=== PATIENT | female | born 1965 | race Caucasian/White ===

== ENCOUNTER 2019-05-10 22:58 | Emergency (ER) | payer OTHER ==
--- NOTE | 2019-05-10 23:49 | ER ---
Nurse's Notes [facility] Name: Sena Ricardo Age: 54 yrs Sex: Female : 1965 Arrival Date: 05/10/2019 Time: 23:00 Bed 20 Private MD: Diagnosis: Pain in right shoulder;Fall on same level from slipping, tripping and stumbling with subsequent striking against unspecified object Presentation: 05/10 23:10 Presenting complaint: Patient states: Pt fell in parking lot and landed on right tl2 shoulder, approx 2 hours [employer]. Pt reports being unable to move right arm without severe pain to right shoulder. No swelling or deformity noted. Transition of care: patient was not received from another setting of care. Onset of symptoms was May 10, 2019 at 21:00. Risk Assessment: Do you want to hurt yourself or someone else? Patient reports no desire to harm self or others. Initial Sepsis Screen: Does the patient meet any 2 criteria? HR > 90 bpm. Does the patient have a suspected source of infection? No. Patient's initial sepsis screen is negative. Care prior to arrival: None. 23:10 Method Of Arrival: Ambulatory tl2 23:10 Acuity: ANABELLA 4 tl2 Triage Assessment: 23:12 General: Appears in no apparent distress. uncomfortable, Behavior is calm, cooperative, tl2 appropriate for age. Pain: Complains of pain in right shoulder. Pain: Aggravated by increased activity, repositioning. Neuro: Level of Consciousness is awake, alert, obeys commands, Oriented to person, place, time, situation. Cardiovascular: Denies chest pain. Respiratory: Airway is patent Respiratory effort is even, unlabored, Respiratory pattern is regular, symmetrical. Musculoskeletal: Circulation, motion, and sensation intact. Range of motion: limited in right shoulder. Injury Description: fall onto right shoulder. Historical: - Allergies: 23:12 No Known Allergies; tl2 - Home Meds: 23:12 None [Active]; tl2 - PMHx: 23:12 None; tl2 - PSHx: 23:12 Hysterectomy; tl2 - Immunization history:: Adult Immunizations up to date. - Social history:: Smoking status: Patient uses tobacco products, smokes one-half pack cigarettes per day. - Ebola Screening: : No symptoms or risks identified at this time. Screenin:14 Abuse screen: Denies threats or abuse. Nutritional screening: No deficits noted. tl2 Tuberculosis screening: No symptoms or risk factors identified. Fall Risk Fall in past 12 months (25 points). Assessment: 23:12 General: see triage assessment. tl2 05/11 00:08 Reassessment: Patient appears in no apparent distress at this time. Patient and/or tl2 family updated on plan of care and expected duration. Pain level reassessed. Patient is alert, oriented x 3, equal unlabored respirations, skin warm/dry/pink. Pain medication administered, will discharge after shot time. 00:21 Reassessment: Patient appears in no apparent distress at this time. Patient and/or tl2 family updated on plan of care and expected duration. Pain level reassessed. Patient is alert, oriented x 3, equal unlabored respirations, skin warm/dry/pink. pt verbalized understanding of discharge instructions and use of sling. Vital Signs: 05/10 23:12 BP 140 / 109; Pulse 110; Resp 18; Temp 98.5(O); Pulse Ox 95% on R/A; Weight 86.18 kg; tl2 Height 5 ft. 4 in. (162.56 cm); Pain 7/10; 05/11 00:08 BP 150 / 103; Pulse 83; Resp 18; Pulse Ox 96% on R/A; tl2 05/10 23:12 Body Mass Index 32.61 (86.18 kg, 162.56 cm) tl2 ED Course: 05/10 23:00 Patient arrived in ED. es 23:01 Rani Aguilar [facility]NP-C [facility]. snw 23:01 Renan Todd MD is Attending Physician. snw 23:10 Sandra Asencio RN is Primary Nurse. tl2 23:11 Triage completed. tl2 23:12 Arm band placed on right wrist. tl2 23:14 Patient has correct armband on for positive identification. Bed in low position. Call tl2 light in reach. Side rails up X 1. 23:46 Humerus Right XRAY In Process Unspecified. EDMS 05/11 00:20 No provider procedures requiring assistance completed. Patient did not have IV access tl2 during this emergency room visit. Sling applied to right arm. Administered Medications: 00:07 Drug: fentaNYL (PF) 25 mcg Route: IM; Site: left deltoid; tl2 00:19 Follow up: Response: No adverse reaction; Medication administered at discharge.; RASS: tl2 Alert and Calm (0) 00:07 Drug: Valium 2 mg Route: PO; tl2 00:19 Follow up: Response: No adverse reaction; Medication administered at discharge. tl2 Outcome: 05/10 23:47 Discharge ordered by MD. fam 05/11 00:20 Discharged to home ambulatory, with friend. tl2 Condition: stable Discharge instructions given to patient, Instructed on discharge instructions, follow up and referral plans. Demonstrated understanding of instructions, follow-up care. 00:21 Patient left the ED. tl2 Signatures: Dispatcher [employer] Rani Rucker, SALES DEVELOPMENT DIRECTOR-C SALES DEVELOPMENT DIRECTOR-Csnw Samantha Cuenca Taylor, RN RN tl2
--- NOTE | 2019-05-10 23:50 | EDPHYS ---
Physician Documentation [facility] Name: Sena Ricardo Age: 54 yrs Sex: Female : 1965 Arrival Date: 05/10/2019 Time: 23:00 Bed 20 Private MD: ED Physician Renan Todd HPI: 05/10 23:52 This 54 yrs old Female presents to ER via Ambulatory with complaints of snw Shoulder Injury. 23:52 The patient or guardian complains of decreased range of motion, an injury, pain, that snw is acute. right shoulder. Context: The problem was sustained at a parking lot, resulted from a fall, The patient experiences decreased range of motion, when attempts to raise arm, The patient reports no obvious deformity. Onset: The symptoms/episode began/occurred suddenly, today. Associated signs and symptoms: Pertinent positives: of the right shoulder pain. Severity of symptoms: At their worst the symptoms were moderate. Treatment prior to arrival includes: bandaid to right knee. It is unknown whether or not the patient has had similar symptoms in the past. Historical: - Allergies: 23:12 No Known Allergies; tl2 - Home Meds: 23:12 None [Active]; tl2 - PMHx: 23:12 None; tl2 - PSHx: 23:12 Hysterectomy; tl2 - Immunization history:: Adult Immunizations up to date. - Social history:: Smoking status: Patient uses tobacco products, smokes one-half pack cigarettes per day. - Ebola Screening: : No symptoms or risks identified at this time. ROS: 23:50 Constitutional: Negative for fever, chills, and weight loss, Eyes: Negative for injury, snw pain, redness, and discharge, ENT: Negative for injury, pain, and discharge, Neck: Negative for injury, pain, and swelling, Cardiovascular: Negative for chest pain, palpitations, and edema, Respiratory: Negative for shortness of breath, cough, wheezing, and pleuritic chest pain, Abdomen/GI: Negative for abdominal pain, nausea, vomiting, diarrhea, and constipation, Back: Negative for injury and pain, : Negative for injury, bleeding, discharge, and swelling, Skin: Negative for injury, rash, and discoloration, Neuro: Negative for headache, weakness, numbness, tingling, and seizure. 23:50 MS/extremity: Positive for injury or acute deformity, decreased range of motion, pain, tenderness, of the right knee and right shoulder. Exam: 23:49 Constitutional: This is a well developed, well nourished patient who is awake, alert, snw and in no acute distress. Head/Face: Normocephalic, atraumatic. Eyes: Pupils equal round and reactive to light, extra-ocular motions intact. Lids and lashes normal. Conjunctiva and sclera are non-icteric and not injected. Cornea within normal limits. Periorbital areas with no swelling, redness, or edema. ENT: Nares patent. No nasal discharge, no septal abnormalities noted. Tympanic membranes are normal and external auditory canals are clear. Oropharynx with no redness, swelling, or masses, exudates, or evidence of obstruction, uvula midline. Mucous membranes moist. Neck: Trachea midline, no thyromegaly or masses palpated, and no cervical lymphadenopathy. Supple, full range of motion without nuchal rigidity, or vertebral point tenderness. No Meningismus. Chest/axilla: Normal chest wall appearance and motion. Nontender with no deformity. No lesions are appreciated. Cardiovascular: Regular rate and rhythm with a normal S1 and S2. No gallops, murmurs, or rubs. Normal PMI, no JVD. No pulse deficits. Respiratory: Lungs have equal breath sounds bilaterally, clear to auscultation and percussion. No rales, rhonchi or wheezes noted. No increased work of breathing, no retractions or nasal flaring. Abdomen/GI: Soft, non-tender, with normal bowel sounds. No distension or tympany. No guarding or rebound. No evidence of tenderness throughout. Back: No spinal tenderness. No costovertebral tenderness. Full range of motion. Neuro: Awake and alert, GCS 15, oriented to person, place, time, and situation. Cranial nerves II-XII grossly intact. Motor strength 5/5 in all extremities. Sensory grossly intact. Cerebellar exam normal. Normal gait. Psych: Awake, alert, with orientation to person, place and time. Behavior, mood, and affect are within normal limits. 23:49 Skin: Appearance: normal except for affected area, injury, abrasion(s), small abrasion noted, of the right knee, contusion(s), of the right shoulder. Vital Signs: 23:12 BP 140 / 109; Pulse 110; Resp 18; Temp 98.5(O); Pulse Ox 95% on R/A; Weight 86.18 kg; tl2 Height 5 ft. 4 in. (162.56 cm); Pain 7/10; 05/11 00:08 BP 150 / 103; Pulse 83; Resp 18; Pulse Ox 96% on R/A; tl2 05/10 23:12 Body Mass Index 32.61 (86.18 kg, 162.56 cm) tl2 MDM: 05/10 23:30 Patient medically screened. snw 23:51 Data reviewed: vital signs, nurses notes. Data interpreted: Pulse oximetry: on room air snw is 95 %. Interpretation: normal. Counseling: I had a detailed discussion with the patient and/or guardian regarding: the historical points, exam findings, and any diagnostic results supporting the discharge/admit diagnosis, the presence of at least one elevated blood pressure reading (>120/80) during this emergency department visit, radiology results, the need for outpatient follow up, to return to the emergency department if symptoms worsen or persist or if there are any questions or concerns that arise at home. Special discussion: I have referred the patient to see his PCP for further evaluation of high blood pressure. I discussed in detail with the patient the higher chance of wound infection based on his presenting history. Based on the history and exam findings, there is no indication for further emergent testing or inpatient evaluation. I discussed with the patient/guardian the need to see the orthopedic surgeon for further evaluation of the symptoms. I discussed with the patient/guardian the need to see the primary care provider for further evaluation of the symptoms. 05/10 23:15 Order name: Humerus Right XRAY snw 05/10 23:46 Order name: Sling; Complete Time: 00:19 snw Administered Medications: 05/11 00:07 Drug: fentaNYL (PF) 25 mcg Route: IM; Site: left deltoid; tl2 00:19 Follow up: Response: No adverse reaction; Medication administered at discharge.; RASS: tl2 Alert and Calm (0) 00:07 Drug: Valium 2 mg Route: PO; tl2 00:19 Follow up: Response: No adverse reaction; Medication administered at discharge. tl2 Disposition: 06:01 Co-signature as Attending Physician, Renan Todd MD I agree with the assessment and tw4 plan of care. Chart complete. Disposition: 05/10/19 23:47 Discharged to Home. Impression: Pain in right shoulder, Fall on same level from slipping, tripping and stumbling with subsequent striking against unspecified object. - Condition is Stable. - Discharge Instructions: Joint Pain, Fall Prevention in the Home, Musculoskeletal Pain, Shoulder Pain, Cryotherapy, [id number], Shoulder Range of Motion Exercises, Wound Care, Heat Therapy. - Prescriptions for Diclofenac Sodium 75 mg Oral Tablet Sustained Release - take 1 tablet by ORAL route 2 times per day; 30 tablet. orphenadrine citrate 100 mg Oral Tablet Sustained Release - take 1 tablet by ORAL route 2 times per day As needed; 20 tablet. - Work release form, Medication Reconciliation Form, Thank You Letter, Antibiotic Education, Prescription Opioid Use form. - Follow up: Emergency Department; When: As needed; Reason: Worsening of condition. Follow up: Private Physician; When: 2 - 3 days; Reason: Recheck today's complaints, Continuance of care, Re-evaluation by your physician. Signatures: Dispatcher [employer] EDMD Rani Aguilar, GIRMA-C TECHNOLOGY ANALYST-CsnSandra Daly RN RN tl2 Renan Todd MD MD tw4 Corrections: (The following items were deleted from the chart) 00:21 05/10 23:47 05/10/2019 23:47 Discharged to Home. Impression: Pain in right shoulder; tl2 Fall on same level from slipping, tripping and stumbling with subsequent striking against unspecified object. Condition is Stable. Forms are Medication Reconciliation Form, Thank You Letter, Antibiotic Education, Prescription Opioid Use. Follow up: Emergency Department; When: As needed; Reason: Worsening of condition. Follow up: Private Physician; When: 2 - 3 days; Reason: Recheck today's complaints, Continuance of care, Re-evaluation by your physician. snw
[2019-05-10] MEDS ORDERED: DIAZEPAM 2 MG TABLET ONE (23:59)
[2019-05-10] MEDS ORDERED: FENTANYL CITR 100 MCG/2 ML ONE (23:59)
[2019-05-11 00:52] VITALS: TEMP 98.5
[2019-05-11 00:53] VITALS: BP 150/103; O2SAT 96
--- NOTE | 2019-05-11 09:17 | RAD REPORT ---
EXAM DESCRIPTION: RAD - Humerus Right - 05/10/2019 11:44 pm CLINICAL HISTORY: Fall, right shoulder pain COMPARISON: None. FINDINGS: No fracture is identified. There is no dislocation or periosteal reaction noted. Degenerat bianca changes are seen at the AC joint. The AC joint shows no displacement or widening. Degenerative ch anges are present along the undersurface of the acromion. Elbow joint assessment is limited due to po sitioning. No suspicious soft tissue finding. No foreign body. IMPRESSION: Degenerative changes are present at the shoulder joint. No fracture or acute humerus fin ding.
== END 2019-05-11 00:21 | disposition home or self-care (01) ==
LOC: ER 22:58
DX: M25.511 Pain in right shoulder (principal); W01.10XA Fall on same level from slipping, tripping and stumbling with subsequent striking against unspecified object, initial encounter; Y93.01 Activity, walking, marching and hiking; Y92.481 Parking lot as the place of occurrence of the external cause; F17.210 Nicotine dependence, cigarettes, uncomplicated
CPT/HCPCS: 73060; 96372; 99283; J3010

== ENCOUNTER 2019-08-21 10:36 | Emergency (ER) | payer OTHER ==
[2019-08-21 17:34] VITALS: BP 104/75; TEMP 97.9; O2SAT 99
== END 2019-08-21 17:13 | disposition short-term general hospital (02) ==
LOC: ER 10:36
DX: A41.89 Other specified sepsis (principal); N20.1 Calculus of ureter; N39.0 Urinary tract infection, site not specified; N17.9 Acute kidney failure, unspecified; Z03.818 Encounter for observation for suspected exposure to other biological agents ruled out; F17.210 Nicotine dependence, cigarettes, uncomplicated
CPT/HCPCS: 96365; 96368; 93005; 87040 ×2; 87070; 87088; 85025; 87086; 80048; 36415; 82550; 87205 ×3; 85610; 80076; 87081; 83605 ×2; 85730; 87077 ×5; 87186 ×5; 84484; 83690; 84145; 87804 ×2; 76377; 74176; 71045; 51702; 96375; 99285; U0001; J3010; J3475; J2543; J7040; J7030 ×2; J3260; 81003; 81015

== ENCOUNTER 2020-08-03 18:54 | Emergency (ER) | payer OTHER ==
--- OUTSIDE RECORDS SUMMARY | 2020-08-03 18:58 | XMS REPORT | Continuity of Care Document ---
:1965 Author Organization [facility] t Address [facility] [place] [address] Care Team Providers Name Role Phone Nate Coleman MD Attending Clinician Unavailable 1, [address] Room Attending Clinician Unavailable Isabela Mccollum MD Attending Clinician Nevaeh COREAS Attending Clinician Nathaly COREAS Attending Clinician ISABELA MCCOLLUM Attending Clinician Unavailable Cody Lu MD Attending Clinician NEVAEH Admitting Clinician Unavailable Payers Payer Name Policy Type Policy Effective Date Expiration Date Sour ce Number MEDICAREMEDICARE A [id number] 2011 DERIC Ramirez [id number] 2010- 00:00[facility] Condition Condition Condition Status Onset Resolution Last Treating Co mments Source Name Details Category Date Date Treatment Clinician Date Sepsis Sepsis Disease Active [facility]: Medical [address] [place] [address] Allergies, Adverse Reactions, Alerts Allergy Allergy Status Severity Reaction(s) Onset Inactive Treating Comm ents Source Name Type Date Date Clinician Vancomyc Drug Active Itching [facility]: Medical s [address] [place] [address] Social History Social Habit Start Date Stop Date Quantity Comments Source Sex Assigned At [facility] Tobacco use and 2019-08-21 2019-08-21 Never used [facility] - exposure 00:00:00 00:00:00 [facility] [place] Smoking Status Start Date Stop Date Source Current some day smoker 2019-08-21 00:00:00 [facility] Medications Ordered Filled Start Stop Current Ordering Indication Dosage Frequency Signature Comments Components Source Medication Medication Date Date Medication? Clinician (SIG) Name Name metoprolol 25mg Q.5D Take [address] [facility] [address] tartrate 09-01-20 tablet (25 [facility] - (LOPRESSOR) 00:00: 23:59 mg total) Medical 25 MG 00 :00 by mouth 2 Center tablet (two) times daily for 30 days. traMADoL 50mg Take [address] [facility] [address] (ULTRAM) 50 09-01-10 tablet (50 L [facility] - mg tablet 00:00: 23:59 mg total) Me dical 00 :00 by mouth Center every 8 (eight) hours as needed for Pain for up to 20 days. Max Daily Amount: 150 mg cefdinir 300mg Q.5D Take 1 [facility] t (OMNICEF) 09-01-28 capsule [facility] - 300 MG 00:00: 23:59 (300 mg Medical capsule 00 :00 total) by Center mouth 2 (two) times daily for 8 days. Vital Signs Vital Name Observation Time Observation Value Comments Source Systolic blood 2019-09-02 11:00:00 117 mm[Hg] [facility] Diastolic blood 2019-09-02 11:00:00 69 mm[Hg] [facility] S t [facility] Heart rate 2019-09-02 11:00:00 88 /min [facility] Body temperature 2019-09-02 11:00:00 35.89 Payton [facility] Respiratory rate 2019-09-02 11:00:00 18 /min [facility] Oxygen saturation in 2019-09-02 11:00:00 95 /min [facility] Arterial blood by Medical Ce nter Pulse oximetry Body weight 2019-09-02 07:00:00 80.377 kg [facility] BMI 2019-09-02 07:00:00 32.41 kg/m2 [facility] Body height 2019-08-21 18:00:00 157.5 cm [facility] Procedures Procedure Date / Time Performing Clinician Source Performed RHYTHM STRIP - SCAN 2019-09-04 14:30:15 Provider, [facility] RHYTHM STRIP - SCAN 2019-09-04 11:01:18 Provider, Default [facility] US RENAL COMPLETE 2019-09-02 00:45:00 Nevaeh [facility] CBC (HEMOGRAM ONLY) 2019-09-01 04:31:00 Nevaeh [facility] COMPREHENSIVE METABOLIC 2019-09-01 04:31:00 Nevaeh [facility] CBC (HEMOGRAM ONLY) 2019-08-31 05:35:00 Nevaeh [facility] COMPREHENSIVE METABOLIC 2019-08-31 05:35:00 Nevaeh [facility] URINALYSIS W/ REFLEX URINE 2019-08-30 13:45:00 Rudy Quick [facility] URINE CULTURE 2019-08-30 13:45:00 Spencer Webster [facility] URINE CULTURE 2019-08-30 13:44:00 Rudy Quick [facility] IR NEPHROSTOGRAM 2019-08-30 09:22:00 Nevaeh [facility] CBC (HEMOGRAM ONLY) 2019-08-30 05:24:00 Nevaeh [facility] BASIC METABOLIC PANEL (7) 2019-08-30 05:24:00 Mikayla Herring [facility] CBC (HEMOGRAM ONLY) 2019-08-29 05:28:00 Nevaeh [facility] COMPREHENSIVE METABOLIC 2019-08-29 05:27:00 Nevaeh [facility] CT CHEST WITH IV CONTRAST 2019-08-27 17:15:00 Mikayla Herring [facility] CT ABDOMEN & PELVIS - 2019-08-27 17:15:00 Mikayla Herring [facility] - RENAL STONE EVALUATION Medical C enter WITHOUT/WITH IV CONTRAST URINALYSIS W/ REFLEX URINE 2019-08-27 15:30:00 Nevaeh [facility] URINE CULTURE 2019-08-27 15:30:00 Nevaeh [facility] CBC (HEMOGRAM ONLY) 2019-08-27 03:29:00 Nevaeh [facility] BASIC METABOLIC PANEL (7) 2019-08-27 03:29:00 Theresa Herringeen Salma [facility] BLOOD CULTURE 2019-08-27 03:29:00 Nevaeh [facility] RHYTHM STRIP - SCAN 2019-08-26 14:20:39 Provider, Default [facility] CBC (HEMOGRAM ONLY) 2019-08-25 04:37:00 Nevaeh [facility] COMPREHENSIVE METABOLIC 2019-08-25 04:37:00 Nevaeh [facility] TSH/FREE T4 IF INDICATED 2019-08-25 04:37:00 Nevaeh [facility] VITAMIN B12 AND FOLATE 2019-08-25 04:37:00 Nevaeh [facility] T4, FREE 2019-08-25 04:37:00 Nevaeh [facility] US THYROID 2019-08-24 19:50:00 Nevaeh [facility] ECG 12-LEAD 2019-08-24 16:13:29 Cecilia Luther [facility] PT/APTT 2019-08-24 04:11[facility] 2019-08-24 04:11:00 Nevaeh [facility] BLOOD CULTURE 2019-08-24 04:11:00 Cecilia Luther [facility] BASIC METABOLIC PANEL (7) 2019-08-24 04:10:00 Rodney [facility] CHEST WITHOUT IV 2019-08-23 15:35:[address] [facility] CT PELVIS WITHOUT IV 2019-08-23 15:35:[address] [facility] CT ABDOMEN WITHOUT IV 2019-08-23 15:35:00 Nevaeh [facility] MISCELLANEOUS LAB ORDER 2019-08-23 12:29:00 Nevaeh [facility] BASIC METABOLIC PANEL (7) 2019-08-23 03:54:[address] [facility] PT/APTT 2019-08-23 03:54:00 [facility] ([facility] 2019-08-23 03:54:00 Nevaeh [facility] POCT-BLOOD GASES, ARTERIAL 2019-08-22 18:09:00 Nevaeh, [facility] POCT-SODIUM 2019-08-22 18:09:00 Nevaeh, [facility] POCT-POTASSIUM 2019-08-22 18:09:00 Nevaeh, [facility] POCT-HEMOGLOBIN 2019-08-22 18:09:00 Nevaeh, [facility] POCT-HEMATOCRIT 2019-08-22 18:09:00 Nevaeh, [facility] POCT-CALCIUM IONIZED 2019-08-22 18:09:00 Nevaeh, [facility] POCT-GLUCOSE 2019-08-22 18:09:00 Nevaeh [facility] BLOOD GAS, ARTERIAL 2019-08-22 16:11:00 Nevaeh [facility] BASIC METABOLIC PANEL (7) 2019-08-22 03:16:[address] [facility] PT/APTT 2019-08-22 03:16:00 [facility] W/PLT COUNT & AUTO 2019-08-21 23:50:00 Nikita Zabala [facility] LACTIC ACID, VENOUS 2019-08-21 23:50:00 Nikita Zabala [facility] (CELLAVISION MANUAL DIFF) 2019-08-21 23:50:00 Nikita Zabala as [facility] URINE CULTURE 2019-08-21 23:50:00 [facility]INALYSIS W/ REFLEX URINE 2019-08-21 23:50:[address] [facility] - CULTURE [facility] SODIUM, RANDOM URINE 2019-08-21 23:50:00 Rodney [facility] CREATININE, RANDOM URINE 2019-08-21 23:50:00 Ismaellas vegaspaulette [facility] BLOOD CULTURE 2019-08-21 23:47:00 [facility] 2019-08-21 23:47:00 Rodney [facility] IDENTIFICATION PANEL [facility] ter LACTIC ACID, VENOUS 2019-08-21 21:17:00 Ismaellas vegaspaulette [facility] BASIC METABOLIC PANEL (7) 2019-08-21 21:17:[address] [facility] Plan of Care Planned Activity Planned Date Details Comments Source Future Scheduled 2020-01-14 INFLUENZA VACCINE (#1) [facility]00 [code = INFLUENZA Medical Ce nter VACCINE (#1)] Future Scheduled 2012-02-[address] [facility] - Test 00:00:00 WELLNESS (YEAR 2 or [facility] FIRST YEAR if no IPPE) [code = MEDICARE ANNUAL WELLNESS (YEAR 2 or FIRST YEAR if no IPPE)] Future Scheduled [address] Test 00:[facility]00 (procedure) [code = Medical Center 18379898] Future Scheduled [address] [facility] - Test 00:00:00 malignant neoplasm of [facility] cervix (procedure) [code = 546243364] Future Scheduled [address] [facility] - Test 00:00:00 0-64 YRS (1 of 1 - Medical C enter PPSV23) [code = PNEUMOCOCCAL VACCINE 0-64 YRS (1 of 1 - PPSV23)] Future Scheduled 1965 [facility] - Test 00:00:00 malignant neoplasm of [facility] breast (procedure) [code = 730319217] Future Scheduled 1965 Screening for [facility] - Test 00:00:00 malignant neoplasm of [facility] colon (procedure) [code = 474457123] Results Test Description Test Time Test Comments Results Result Comments Source Urine culture 2019-09-02 09:00:00 Test Item Value Reference Range Interpretation Comme nts Result (test code = 6463-4) No growth Gram Stain Result (test code = 1123) No organisms seen [facility] [id number] 09:00:00 Test Item Value Reference Range Interpretation Comments CULTURE (BEAKER) (test No growth code = 1095) GRAM STAIN RESULT <1+ White blood cells (BEAKER) (test code = seen 1123) GRAM STAIN RESULT No organisms seen (BEAKER) (test code = 45967) U/S, RENAL, [id number] 01:38:00Reason for exam:->pyelonephritisFINAL REPORT U/S, RENAL, COMPLETE CLINICAL INDICATION: pyelonephritis COMPARISON: None TECHNIQUE: The kidneys and urinary bladder were evaluated using real time whitaker scale and color Doppler sonography. FINDINGS:Right kidney: Size: 13.3 x 7.2 x 5.9 cm. Parenchyma: Normal echogenicity. No cysts. No stones. Recently placed percutaneous nephrostomy tube is not well seenon the current examination. Hydronephrosis: None. Left kidney: Size: 12.9 x 6.0 x 5.0 cm. Parenchyma: Normal echogenicity. No cysts. No stones. Hydronephrosis: None. Renal Vasculature: Doppler interrogation reveals preserved vascular flow in the main renal arteries and veins bilaterally. Urinary bladder: Unremarkable. Additional findings: None. IMPRESSION: Unremarkable renal ultrasound. Recently placed right percutaneous nephrostomy tube is not well seen on the current examination. Signed: Catherine Cornell MDReport Verified Date/Time: 09/02/2019 01:38:19 Electronically sig bibi by: CATHERINE CORNELL MD on 09/02/2019 01:38 AMUS renal complete 2019-09-02 01:38:00Interface, External Ris In - 09/02/2019 1:40 AM CDTFINAL REPORT U/S, RENAL, COMPLETE CLINICAL INDICATION: pyelonephritis COMPARISON: None TECHNIQUE: The kidneys and urinary bladder were evaluated using real time whitaker scale and color Doppler sonography. FINDINGS:Right kidney: Size: 13.3 x 7.2 x 5.9 cm. Parenchyma: Normal echogenicity. No cysts. No stones. Recently placed percutaneous nephrostomy tube is not well seen on the current examination. Hydronephrosis: None. Left kidney: Size: 12.9 x 6.0 x 5.0 cm. Parenchyma: Normal echogenicity. No cysts. No stones. Hydronephrosis: None. Renal Vasculature: Doppler interrogation reveals preserved vascular flow in the main renal arteries and veins bilaterally. Urinary bladder: Unremarkable. Additional findings: None. IMPRESSION: Unremarkable renal ultrasound. Recently placed right percutaneous nephrostomy tube is not well seen on the current examination. Signed: Catherine Cornell [facility] LOUISeport VerifiedDate/Time: 09/02/2019 01:38:19 [facility] [id number] 05:29:00 Test Item Value Reference Range Interpretation Comments Protein, Total (test 6.2 See_Comment [Autom ated code = 2885-2) message] The system which generated this result transmit nikos reference range : 6.0 - 8.3 gm/dL . The reference range was not u sed to interpret th is result as normal/abnormal . Albumin (test code = 2.8 g/dL 3.5-5 L 46994-9) Alkaline Phosphatase 138 U/L 40-150 (test code = 6768-6) Total Bilirubin (test 0.5 mg/dL 0.2-1.2 code = 1975-2) Sodium (test code = 134 meq/L 136-145 L 2951-2) Potassium (test code 3.9 meq/L 3.5-5.1 = 2823-3) Chloride (test code = 99 meq/L 98-107 2074-0) CO2 (test code = 27 meq/L 22-29 2027-9) BUN (test code = 10 mg/dL 7- 3094-0) Creatinine (test code 0.68 mg/dL 0.57-1.25 = 2160-0) Glucose (test code = 115 mg/dL 70-105 H 2345-7) Calcium (test code = 8.8 mg/dL 8.4-10.2 51428-8) AST (test code = 46 U/L 5-34 H 1920-8) ALT (test code = 43 U/L 6-55 1742-6) EGFR (test code = 90 mL/min/1.73 [place] [address]-2) NOT ACCURATE CREATININE CLEARANCE IN PREDICTING GLOMERULAR FILTRATION RATE . ESTIMATED GFR I S NOT APPLICABLE FOR DIALYSIS PATIEN TS. TAVERAS (test code = NITIN) Leather Finisher ID - PIAYA L Lab Interpretation Abnormal (test code = 87488-5) [facility] [id number] 05:29:00 Test Item Value Reference Range Interpretation Comments TOTAL PROTEIN 6.2 gm/dL 6.0-8.3 (BEAKER) (test code = 770) ALBUMIN (BEAKER) 2.8 g/dL 3.5-5.0 L (test code = 1145) ALKALINE PHOSPHATASE 138 U/L 40-150 (BEAKER) (test code = 346) BILIRUBIN TOTAL 0.5 mg/dL 0.2-1.2 (BEAKER) (test code = 377) SODIUM (BEAKER) (test 134 meq/L 136-145 L code = 381) POTASSIUM (BEAKER) 3.9 meq/L 3.5-5.1 (test code = 379) CHLORIDE (BEAKER) 99 meq/L 98-107 (test code = 382) CO2 (BEAKER) (test 27 meq/L code = 355) BLOOD UREA NITROGEN 10 mg/dL 7-21 (BEAKER) (test code = 354) CREATININE (BEAKER) 0.68 mg/dL 0.57-1.25 (test code = 358) GLUCOSE RANDOM 115 mg/dL 70-105 H (BEAKER) (test code = 652) CALCIUM (BEAKER) 8.8 mg/dL 8.4-10.2 (test code = 697) AST (SGOT) (BEAKER) 46 U/L 5-34 H (test code = 353) ALT (SGPT) (BEAKER) 43 U/L 6-55 (test code = 347) EGFR (BEAKER) (test 90 mL/min/1.73 ESTIMA NIKOS GFR IS code = 1092) sq m NOT ACCURATE CREATININE CLEARANCE IN PREDICTING GLOMERULAR FILTRATION RATE . ESTIMATED GFR I S NOT APPLICABLE FOR DIALYSIS PATIEN TS. Leather Finisher ID - PIAYA LCBC (Hemogram only)2019-09-01 04:58:00 Test Item Value Reference Range Interpretation Comments WBC (test code = 6690-2) 13.5 See_Comment H [A utomated message] The system [employer] generated this result transmitted ref erence range: 3.5 - 10 .5 K/L. The refe rence range was not u sed to interpret this result as normal/abnor mal. RBC (test code = 789-8) 3.43 See_Comment L [Au tomated message] The system [employer] generated this result transmitted ref erence range: 3.93 - 5 .22 M/L. The refe rence range was not u sed to interpret this result as normal/abnor mal. MCHC (test code = 786-4) 32.2 See_Comment L [A utomated message] The system [employer] generated this result transmitted ref erence range: 32.2 - 3 5.5 GM/DL. The refe rence range was not u sed to interpret this result as normal/abnor mal. Hematocrit (test code = 31.4 % 34.1-44.9 L 4544-3) MCV (test code = 787-2) 91.5 fL 79.4-94.8 MCH (test code = 785-6) 29.4 pg 25.6-32.2 RDW (test code = 788-0) 14.0 % 11.7-14.4 Platelets (test code = 605 See_Comment H [Aut omated message] 777-3) The system [employer] generated this result transmitted ref erence range: 150 - 45 0 K/CU MM. The referen ce range was not u sed to interpret this result as normal/abnor mal. MPV (test code = 9.1 fL 9.4-12.3 L 62471-7) nRBC (test code = 413) 0 See_Comment [Aut omated message] The system [employer] generated this result transmitted ref erence range: 0 - 0 /1 00 WBC. The refere nce range was not u sed to interpret this result as normal/abnor mal. Lab Interpretation (test Abnormal code = 07524-7) [facility]2019-09-01 04:58:00 Test Item Value Reference Range Interpretation Comments WHITE BLOOD CELL COUNT (BEAKER) 13.5 K/ L 3.5-10.5 H (test code = 775) RED BLOOD CELL COUNT (BEAKER) 3.43 M/ L 3.93-5.22 L (test code = 761) HEMOGLOBIN (BEAKER) (test code = 10.1 GM/DL 11.2-15.7 L 410) HEMATOCRIT (BEAKER) (test code = 31.4 % 34.1-44.9 L 411) MEAN CORPUSCULAR VOLUME (BEAKER) 91.5 fL 79.4-94.8 (test code = 753) MEAN CORPUSCULAR HEMOGLOBIN 29.4 pg 25.6-32.2 (BEAKER) (test code = 751) MEAN CORPUSCULAR HEMOGLOBIN CONC 32.2 GM/DL 32.2-35.5 (BEAKER) (test code = 752) RED CELL DISTRIBUTION WIDTH 14.0 % 11.7-14.4 (BEAKER) (test code = 412) PLATELET COUNT (BEAKER) (test 605 K/CU MM 150-450 H code = 756) MEAN PLATELET VOLUME (BEAKER) 9.1 fL 9.4-12.3 L (test code = 754) NUCLEATED RED BLOOD CELLS 0 /100 WBC 0-0 (BEAKER) (test code = 413) Blood Culture - Routine (Left Venipuncture)2019-09-01 04:00:00 Test Item Value Reference Range Interpretation Comments Result (test code = No growth in 5 days 6463-4) [facility] [id number] 04:00:00 Test Item Value Reference Range Interpretation Comments CULTURE (BEAKER) (test No growth in 5 days code = 1095) BLOOD [id number] 04:00:00 Test Item Value Reference Range Interpretation Comments CULTURE (BEAKER) (test No growth in 5 days code = 1095) BLOOD [id number] 09:00:00 Test Item Value Reference Range Interpretation Comments CULTURE (BEAKER) (test No growth in 5 days code = 1095) COMPREHENSIVE METABOLIC [id number] 07:37:00 Test Item Value Reference Range Interpretation Comments TOTAL PROTEIN 6.2 gm/dL 6.0-8.3 (BEAKER) (test code = 770) ALBUMIN (BEAKER) 2.7 g/dL 3.5-5.0 L (test code = 1145) ALKALINE PHOSPHATASE 147 U/L 40-150 (BEAKER) (test code = 346) BILIRUBIN TOTAL 0.5 mg/dL 0.2-1.2 (BEAKER) (test code = 377) SODIUM (BEAKER) (test 133 meq/L 136-145 L code = 381) POTASSIUM (BEAKER) 3.8 meq/L 3.5-5.1 (test code = 379) CHLORIDE (BEAKER) 101 meq/L 98-107 (test code = 382) CO2 (BEAKER) (test 26 meq/L 22-29 code = 355) BLOOD UREA NITROGEN 8 mg/dL 7-21 (BEAKER) (test code = 354) CREATININE (BEAKER) 0.67 mg/dL 0.57-1.25 (test code = 358) GLUCOSE RANDOM 111 mg/dL 70-105 H (BEAKER) (test code = 652) CALCIUM (BEAKER) 8.2 mg/dL 8.4-10.2 L (test code = 697) AST (SGOT) (BEAKER) 44 U/L 5-34 H (test code = 353) ALT (SGPT) (BEAKER) 41 U/L 6-55 (test code = 347) EGFR (BEAKER) (test 91 mL/min/1.73 ESTIMA NIKOS GFR IS code = 1092) sq m NOT ACCURATE CREATININE CLEARANCE IN PREDICTING GLOMERULAR FILTRATION RATE . ESTIMATED GFR I S NOT APPLICABLE FOR DIALYSIS PATIEN TS. Leather Finisher ID - [id number] (HEMOGRAM ONLY)2019-08-31 05:54:00 Test Item Value Reference Range Interpretation Comments WHITE BLOOD CELL COUNT (BEAKER) 13.1 K/ L 3.5-10.5 H (test code = 775) RED BLOOD CELL COUNT (BEAKER) 3.58 M/ L 3.93-5.22 L (test code = 761) HEMOGLOBIN (BEAKER) (test code = 10.2 GM/DL 11.2-15.7 L 410) HEMATOCRIT (BEAKER) (test code = 32.8 % 34.1-44.9 L 411) MEAN CORPUSCULAR VOLUME (BEAKER) 91.6 fL 79.4-94.8 (test code = 753) MEAN CORPUSCULAR HEMOGLOBIN 28.5 pg 25.6-32.2 (BEAKER) (test code = 751) MEAN CORPUSCULAR HEMOGLOBIN CONC 31.1 GM/DL 32.2-35.5 L (BEAKER) (test code = 752) RED CELL DISTRIBUTION WIDTH 14.0 % 11.7-14.4 (BEAKER) (test code = 412) PLATELET COUNT (BEAKER) (test 546 K/CU MM 150-450 H code = 756) MEAN PLATELET VOLUME (BEAKER) 9.3 fL 9.4-12.3 L (test code = 754) NUCLEATED RED BLOOD CELLS 0 /100 WBC 0-0 (BEAKER) (test code = 413) Urinalysis w/Microscopic + Reflex to [id number] 14:26:00 Test Item Value Reference Range Interpretation Comments Color, UA (test code Yellow = 5778-6) Clarity, UA (test Hazy code = 5767-9) Specific [place], UA 1.007 1.001-1.035 (test code = 5811-5) pH, UA (test code = 8.0 5.0-8.0 5803-2) Protein, UA (test 100 mg/dL Negative A code = 84501-5) Glucose, UA (test Negative Negative code = 365) Ketones, UA (test Negative Negative code = 2514-8) Bilirubin, UA (test Negative Negative code = 56725-5) Blood, UA (test code Large Negative A = 40501-8) Nitrite, UA (test Negative Negative code = 5802-4) Leukocytes, UA (test Large Negative A code = 5799-2) Urobilinogen, UA 0.2 mg/dL 0.2-1 (test code = 44192-3) RBC, UA (test code = 1178 See_Comment [Autom ated 27528-2) message] The system which generated this result transmit nikos reference range : /HPF. The reference range was not used to interpret this result as normal/abnormal . WBC, UA (test code = 76 See_Comment [Autom ated 5821-4) message] The system which generated this result transmit nikos reference range : /HPF. The reference range was not used to interpret this result as normal/abnormal . Specimen Source (test code = 2795) NITIN (test code = NITIN) Leather Finisher ID - [auto]Leather Finisher ID - tech Lab Interpretation Abnormal (test code = 87773-3) [facility] UR[facility] [id number] 14:26:00 Test Item Value Reference Range Interpretation Comments COLOR (BEAKER) (test code = 470) Yellow CLARITY (BEAKER) (test code = 469) Hazy SPECIFIC GRAVITY UA (BEAKER) (test 1.007 1.001-1.035 code = 468) PH UA (BEAKER) (test code = 467) 8.0 5.0-8.0 PROTEIN UA (BEAKER) (test code = 100 mg/dL Negative A 464) GLUCOSE UA (BEAKER) (test code = Negative Negative 365) KETONES UA (BEAKER) (test code = Negative Negative 371) BILIRUBIN UA (BEAKER) (test code = Negative Negative 462) BLOOD UA (BEAKER) (test code = 461) Large Negative A NITRITE UA (BEAKER) (test code = Negative Negative 465) LEUKOCYTE ESTERASE UA (BEAKER) Large Negative A (test code = 466) UROBILINOGEN UA (BEAKER) (test code 0.2 mg/dL 0.2-1.0 = 463) RBC UA (BEAKER) (test code = 519) 1178 /HPF WBC UA (BEAKER) (test code = 520) 76 /HPF SOURCE(BEAKER) (test code = 2795) Leather Finisher ID - [auto]Leather Finisher ID - techANG, [id number] 10:02:00Right PCN vs PCNU for obstructing proximal ureteral stone with hydro, fat stranding, ([facility] images uploaded 08/20). Primary team to discuss with IR, but please feel free to page urology with questions. Thanks! Reason for exam:->Right ureteral stone, sepsisFINAL REPORT Procedure: Percutaneous nephrostomy catheter placement. History: Obstructed infected kidney with renal abscesses and nondilated system. Electrical Lineman: Sarthak Richards M.D. Cloth Folder Hand: Not applicableKeith Modality: Ultrasound and fluoroscopy. DOSE REDUCTION: The examination was performed according to departmental dose- optimization program. Fluoro time: 2.8 minutes Radiation dose: 41 mGy air Kerma. Number of images: 5 Sedation: Versed 1 mg and fentanyl 100 mcg was given intravenously for conscious sedation. Vital signs were monitored throughout the procedure by a dedicated RN under direct supervision of Dr. Richards, and remainedstable. Physician intra-service sedation time was 18 minutes. Anesthesia: Lidocaine local infiltration Medicines: Not applicable Contrast medium: Isovue 300, 10 cc. Estimated blood loss: < 5 cc. Technique: A discussion of the risks, benefits, and alternatives was carried out with the patient. A written informed consent was obtained. The patient expressed understanding and agreed to proceed. A universal timeout was performed prior to starting the procedure. The procedureroom personnel used personal protective equipment. The operators used sterile gowns and gloves. The patient was laid prone on the procedure table. The percutaneous nephrostomy site was prepped withchlorhexidine gluconate and draped in the maximal sterile fashion. Using aseptic precautions an ultrasonographic evaluation was performed. There was no hydronephrosis or hydroureter. Pertinent ultrasound images were stored for documentation in the PACS. An lower pole posterior calyx was selected for ac cess. After local anesthesia and dermatotomy, under real-time ultrasonographic guidance, a 21-gauge Chiba needle was advanced into the calyx. After confirming the recovery of urine, a guidewire was advanced into the collecting system under fluoroscopic guidance. Contrast injection confirmed satisfactory position of the access system. Over the wire, following sequential dilatation of the tract, an 8.5French nephrostomy catheter was placed, pigtail locked in the renal pelvis. Contrast injection confirmed satisfactory position of the nephrostomy catheter. The catheter was secured to skin with nonabsorbable suture and connected to a gravity drainage bag. An aseptic dressing was applied. The patient was transferred to the recovery area and discharged from the department in stable condition. Complications: None immediate. Findings:As above. There is presence of debris in the renal collecting system. The distal ureter is occluded. The reason for nondistention of the collecting system likely is severe edema of the right renal parenchyma. Impression:Successful ultrasound and fluoroscopic guided 8.5 Martiniquais nephrostomy catheter placement in the right via a posterior lower calyx as described above. Because of debris in the collecting system possibly representing pyonephrosis, it was decided to leave a nephrostomy and postpone additional ureteral intervention to a later date. Further management dictated by the clinical scen ario. The nephrostomy catheter(s) should be exchanged at the latest in three months. Thank you for the opportunity to assist in the care of your patient. Signed: Sarthak Richards MDReport Verified Date/Time: 08/30/2019 10:02:51 Reading Location: [place] [address] Angio Body Reading Room IR [id number] 10:02:00Interface, External Ris In - 08/30/2019 10:06 AM CDTFINAL REPORT Procedure: Pe rcutaneous nephrostomy catheter placement. History: Obstructed infected kidney with renal abscesses and nondilated system. Electrical Lineman: Sarthak Richards M.D. Cloth Folder Hand: Asad gray M.D. Modality: Ultrasound and fluoroscopy. DOSE REDUCTION:The examination was performed according to departmental dose- optimization program. Fluoro time: 2.8minutes Radiation dose: 41 mGy air Kerma. Number of images: 5 Sedation: Versed 1 mg and fentanyl 100 mcg was given intravenously for conscious sedation. Vital signs were monitored throughout the procedure by a dedicated RN under direct supervision of Dr. Richards, and remained stable. Physician intra-service sedation time was 18 minutes. Anesthesia: Lidocaine local infiltration Medicines: Not applicable Contrast medium: Isovue 300, 10 cc. Estimated blood loss: < 5 cc. Technique: A discussion of the risks, benefits, and alternatives was carried out with the patient. A written informed consent was obtained. The patient expressed understanding and agreed to proceed. A universal timeout was performed prior to starting the procedure. The procedure room personnel used personal protective equipment. The operators used sterile gowns and gloves. The patient was laid prone on the procedure table. The percutaneous nephrostomy site was prepped with chlorhexidine gluconate and draped in the maximal sterile fashion. Using aseptic precautions an ultrasonographic evaluation was performed. There was no hydronephrosis or hydroureter. Pertinent ultrasound images were stored for documentation in the PACS. An lower pole posterior calyx was selected for access. After local anesthesia and dermatotomy, under real-time ultrasonographic guidance, a 21- gauge Chiba needle was advanced into the calyx. After confirming the recovery of urine, a guidewire was advanced into the collecting system under fluoroscopic guidance. Contrast injection confirmed satisfactory position of the access system. Over the wire, following sequential dilatation of the tract, an 8.5 Martiniquais nephrostomy catheter was placed, pigtail locked in the renal pelvis. Contrast injection confirmed satisfactory position of the nephrostomy catheter. The catheter was secured to skin with nonabsorbable suture and connected to a gravity drainagebag. An aseptic dressing was applied. The patient was transferred to the recovery area and discharged from the department in stable condition. Complications: None immediate. Findings:As above. There is presence of debris in the renal collecting system. The distal ureter is occluded. The reason for nondistention of the collecting system likely is severe edema of the right renal parenchyma. Impression:Successful ultrasoundand fluoroscopic guided 8.5 Martiniquais nephrostomy catheter placement in the right via a posterior lower calyx as described above. Because of debris in the collecting system possibly representing pyonephrosis, it was decided to leave a nephrostomy and postpone additional ureteral intervention to a later date. Further management dictated by the clinical scenario. The nephrostomy catheter(s) should be exchanged at the latest in three months. Thank you for the opportunity to assist in the care of your patient. Signed: Sarthak Richards MDReport Verified Date/Time: 08/30/2019 10:02:51 Reading Location: [place] [address] Angio Body Reading Room [facility] Basic Metabolic [id number] 06:19:00 Test Item Value Reference Range Interpretation Comments Sodium (test code = 134 meq/L 136-145 L 2951-2) Potassium (test code = 3.4 meq/L 3.5-5.1 L Speci men slightly 2823-3) hemolyzed Chloride (test code = 99 meq/L 98-107 2075-0) CO2 (test code = 25 meq/L 22-29 8-9) BUN (test code = 10 mg/dL 7-21 3094-0) Creatinine (test code 0.63 mg/dL 0.57-1.25 Specim en slightly = 2160-0) hemolyzed Glucose (test code = 115 mg/dL 70-105 H 2345-7) Calcium (test code = 8.3 mg/dL 8.4-10.2 L 02885-8) EGFR (test code = 98 mL/min/1.[place] [address]-8) NOT ACCURATE CREATININE CLEARANCE IN PREDICTING GLOMERULAR FILTRATION RATE . ESTIMATED GFR I S NOT APPLICABLE FOR DIALYSIS PATIENTS. NITIN (test code = NITIN) Leather Finisher ID - DB Lab Interpretation Abnormal (test code = 19001-6) [facility] [id number] 06:19:00 Test Item Value Reference Range Interpretation Comments SODIUM (BEAKER) 134 meq/L 136-145 L (test code = 381) POTASSIUM (BEAKER) 3.4 meq/L 3.5-5.1 L Specimen slightly (test code = 379) hemolyzed CHLORIDE (BEAKER) 99 meq/L 98-107 (test code = 382) CO2 (BEAKER) (test 25 meq/L 22-29 code = 355) BLOOD UREA NITROGEN 10 mg/dL 7-21 (BEAKER) (test code = 354) CREATININE (BEAKER) 0.63 mg/dL 0.57-1.25 Specimen slightly (test code = 358) hemolyzed GLUCOSE RANDOM 115 mg/dL 70-105 H (BEAKER) (test code = 652) CALCIUM (BEAKER) 8.3 mg/dL 8.4-10.2 L (test code = 697) EGFR (BEAKER) (test 98 mL/min/1.73 ESTIMA NIKOS GFR IS code = 1092) sq m NOT ACCURATE CREATININE CLEARANCE IN PREDICTING GLOMERULAR FILTRATION RATE . ESTIMATED GFR I S NOT APPLICABLE FOR DIALYSIS PATIEN TS. Leather Finisher ID - [id number] (HEMOGRAM ONLY)2019-08-30 06:06:00 Test Item Value Reference Range Interpretation Comments WHITE BLOOD CELL COUNT (BEAKER) 15.6 K/ L 3.5-10.5 H (test code = 775) RED BLOOD CELL COUNT (BEAKER) 3.53 M/ L 3.93-5.22 L (test code = 761) HEMOGLOBIN (BEAKER) (test code = 10.4 GM/DL 11.2-15.7 L 410) HEMATOCRIT (BEAKER) (test code = 32.3 % 34.1-44.9 L 411) MEAN CORPUSCULAR VOLUME (BEAKER) 91.5 fL 79.4-94.8 (test code = 753) MEAN CORPUSCULAR HEMOGLOBIN 29.5 pg 25.6-32.2 (BEAKER) (test code = 751) MEAN CORPUSCULAR HEMOGLOBIN CONC 32.2 GM/DL 32.2-35.5 (BEAKER) (test code = 752) RED CELL DISTRIBUTION WIDTH 14.5 % 11.7-14.4 H (BEAKER) (test code = 412) PLATELET COUNT (BEAKER) (test 483 K/CU MM 150-450 H code = 756) MEAN PLATELET VOLUME (BEAKER) 10.4 fL 9.4-12.3 (test code = 754) NUCLEATED RED BLOOD CELLS 0 /100 WBC 0-0 (BEAKER) (test code = 413) COMPREHENSIVE METABOLIC [id number] 06:14:00 Test Item Value Reference Range Interpretation Comments TOTAL PROTEIN 6.2 gm/dL 6.0-8.3 (BEAKER) (test code = 770) ALBUMIN (BEAKER) 2.7 g/dL 3.5-5.0 L (test code = 1145) ALKALINE PHOSPHATASE 162 U/L 40-150 H (BEAKER) (test code = 346) BILIRUBIN TOTAL 0.6 mg/dL 0.2-1.2 (BEAKER) (test code = 377) SODIUM (BEAKER) (test 134 meq/L 136-145 L code = 381) POTASSIUM (BEAKER) 4.1 meq/L 3.5-5.1 (test code = 379) CHLORIDE (BEAKER) 98 meq/L 98-107 (test code = 382) CO2 (BEAKER) (test 30 meq/L 22-29 H code = 355) BLOOD UREA NITROGEN 9 mg/dL 7-21 (BEAKER) (test code = 354) CREATININE (BEAKER) 0.73 mg/dL 0.57-1.25 (test code = 358) GLUCOSE RANDOM 128 mg/dL 70-105 H (BEAKER) (test code = 652) CALCIUM (BEAKER) 8.8 mg/dL 8.4-10.2 (test code = 697) AST (SGOT) (BEAKER) 62 U/L 5-34 H (test code = 353) ALT (SGPT) (BEAKER) 45 U/L 6-55 (test code = 347) EGFR (BEAKER) (test 82 mL/min/1.73 ESTIMA NIKOS GFR IS code = 1092) sq m NOT ACCURATE CREATININE CLEARANCE IN PREDICTING GLOMERULAR FILTRATION RATE . ESTIMATED GFR I S NOT APPLICABLE FOR DIALYSIS PATIEN TS. Leather Finisher ID - ALAINA MCBC (HEMOGRAM ONLY)2019-08-29 05:58:00 Test Item Value Reference Range Interpretation Comments WHITE BLOOD CELL COUNT (BEAKER) 18.0 K/ L 3.5-10.5 H (test code = 775) RED BLOOD CELL COUNT (BEAKER) 4.01 M/ L 3.93-5.22 (test code = 761) HEMOGLOBIN (BEAKER) (test code = 11.3 GM/DL 11.2-15.7 410) HEMATOCRIT (BEAKER) (test code = 36.0 % 34.1-44.9 411) MEAN CORPUSCULAR VOLUME (BEAKER) 89.8 fL 79.4-94.8 (test code = 753) MEAN CORPUSCULAR HEMOGLOBIN 28.2 pg 25.6-32.2 (BEAKER) (test code = 751) MEAN CORPUSCULAR HEMOGLOBIN CONC 31.4 GM/DL 32.2-35.5 L (BEAKER) (test code = 752) RED CELL DISTRIBUTION WIDTH 14.3 % 11.7-14.4 (BEAKER) (test code = 412) PLATELET COUNT (BEAKER) (test 482 K/CU MM 150-450 H code = 756) MEAN PLATELET VOLUME (BEAKER) 9.5 fL 9.4-12.3 (test code = 754) NUCLEATED RED BLOOD CELLS 0 /100 WBC 0-0 (BEAKER) (test code = 413) CT, CHEST, WITH [id number] 23:05:00FINAL REPORT CLINICAL HISTORY: Leukocytosis FINDINGS: Multiple axial images of the chest, abdomen and pelvis were performed after the uncomplicated administration of IV contrast. Precontrast and 10 minute delayed postcontrast images of the abdomen and pelvis were also performed. Oral contrast was not given. This exam was performed according to our departmental dose-optimization program, which includes automated exposure control, adjustment of the mA and/or kV according to patient size and/or use of the iterative reconstruction technique. Comparison: 08/23/2019. Chest: Lung parenchyma: Redemonstrated consolidation in the dependent right lower lobe with bronchovascular crowding suggesting some element of atelectasis. Diffuse interstitial coarsening. Patchy, nonfocal intervening groundglass opacities. Pleural effusion: Trace bilateral effusions Pneumothorax: None. Tracheobronchial tree: No significant findings. Pulmonary vasculature: Central vascular engorgement Cardiac contours and great vessels: Cardiomegaly. Atherosclerotic calcifications of the coronary arteries. Mediastinum: No significant findings. Lymph Nodes: No adenopathy in the mediastinum or cat. Skeleton: No acute abnormality. Other: 2.1 x 1.8 cm right thyroid nodule. Abdomen and pelvis: Liver: No significant findings. Gallbladder and biliary tree: No significant findings. Spleen: No significant findings. Adrenal Glands: No significant findings. Kidneys and ureters: The right kidney is enlarged with heterogeneous, patchy foci of parenchymal hypodensity, including a confluent region of hypodensity with peripheral rim enhancement at the lateral right midpole measuring 4.0 x 2.5 cm. A second region of more confluent hypodensity is present in the mid medial right midpole measuring 2.8 x 1.9 cm. There is right perinephric fat stranding. There is abnormal thickening and enhancement of the right renal calycesand right renal pelvis. Apparent lack of cortical medullary phase enhancement differentiation may relate to right renal hyperemia/inflammatory change. There is a nonobstructing stone in the right renalinferior pole measuring 3 mm. No ureteral stone is identified. There is relatively diminished excretion of IV contrast from the right kidney when compared to the left but no evidence of obstructive uropathy is excreted contrast is present throughout the ureter to the level of the bladder on 10 minute delayed images. Stomach and Duodenum: No significant findings. Pancreas: No significant findings. Bowel: No significant findings. Appendix: Not seen. No local inflammatory changes. Bladder: No significant findings. Major vascular structures: No significant findings. Reproductive organs: Previous hysterectomy Other: No free intraperitoneal air. Skeleton: No acute bony abnormality. IMPRESSION: Findings suggesting severe right pyelonephritis with findings suspicious for parenchymal phlegmon/abscess formation and associated pyonephrosis. This finding was discussed with the hospitalist covering the pa tient at 2300 hours on the date of the examination. Nonobstructing, 3 mm stone in the right kidney. Similar appearance of right lower lobe consolidation, possibly atelectasis though pneumonitis or aspiration should be excluded clinically. CT findings suggesting pulmonary edema. 2.1 cm right thyroid nodule. Please see below for published recommendations related to follow-up. Recommendations for f/u ofIncidental Thyroid Nodules (ITN) found on CT, MRI, NM and Extrathyroidal US based on the ACR white paper and Ramirez 3-tiered system for managing ITNs: 1. Further evaluation by thyroid US recommended for o Solitary ITN >= 1.5 cm in axial plane in patients >= 35 years of age 2. For multiple thyroid nodules, the above recommendations for solitary ITN are to be applied to the largest nodule. 3. No US or f/u recommended for ITNs without high risk features inpatients with limited life expectancy or significant co-morbidities, unless clinically warranted. 4. These recommendations do not apply to patients with increased risk for thyroid cancer or to patients with symptomatic thyroid disease. Signed: Blake Boyd MDReport Verified Date/Time: 08/27/2019 23:05:02 CT, ABDOMEN AND PELVIS, RENAL STONE EVAL, WITHOUT / WITH IV [id number] 23:05:00Reason for exam:- >renal stoneAnesthesia:->NoneFINAL REPORT CLINICAL HISTORY: Leukocytosis FINDINGS: Multiple axial images of the chest, abdomen and pelvis were performed after the uncomplicated administration of IV contrast. Precontrast and 10 minute delayed postcontrast images of the abdomen and pelvis were also performed. Oral contrast was not given. This exam was performed according to our departmental dose-optimization program, which includes automated exposure control, adjustment of the mA and/or kV according to patient size and/or use of the iterative reconstruction technique. Comparison: 08/23/2019. Chest: Lung parenchyma: Redemonstrated consolidation in the dependent right lower lobe with bronchovascular crowding suggesting some element of atelectasis. Diffuse interstitial coarsening. Patchy, nonfocal intervening groundglass opacities. Pleural effusion: Trace bilateral effusions Pneumothorax: None. Tracheobronchial tree: No significant findings. Pulmonary vasculature: Central vascular engorgement Cardiac contours and great vessels: Cardiomegaly. Atherosclerotic calcifications of the coronary arteries. Mediastinum: No significant findings. Lymph Nodes: No adenopathy in the mediastinum or cat. Skeleton: No acute abnormality. Other: 2.1 x 1.8 cm right thyroid nodule. Abdomen and pelvis: Liver: No significant findings. Gallbladder and biliary tree: No significant findings. Spleen: No significant findings. Adrenal Glands: No significant findings. Kidneys and ureters: The right kidney is enlarged with heterogeneous, patchy foci of parenchymal hypodensity, including a confluent region of hypodensity with peripheral rim enhancement at the lateral right midpole measuring 4.0 x 2.5 cm. A second region of more confluent hypodensity is present in the mid medial right midpole measuring 2.8 x 1.9 cm. There is right perinephric fat stranding. There is abnormal thickening and enhancement of the right renal calycesand right renal pelvis. Apparent lack of cortical medullary phase enhancement differentiation may relate to right renal hyperemia/inflammatory change. There is a nonobstructing stone in the right renalinferior pole measuring 3 mm. No ureteral stone is identified. There is relatively diminished excretion of IV contrast from the right kidney when compared to the left but no evidence of obstructive uropathy is excreted contrast is present throughout the ureter to the level of the bladder on 10 minute delayed images. Stomach and Duodenum: No significant findings. Pancreas: No significant findings. Bowel: No significant findings. Appendix: Not seen. No local inflammatory changes. Bladder: No significant findings. Major vascular structures: No significant findings. Reproductive organs: Previous hysterectomy Other: No free intraperitoneal air. Skeleton: No acute bony abnormality. IMPRESSION: Findings suggesting severe right pyelonephritis with findings suspicious for parenchymal phlegmon/abscess formation and associated pyonephrosis. This finding was discussed with the hospitalist covering the pa tient at 2300 hours on the date of the examination. Nonobstructing, 3 mm stone in the right kidney. Similar appearance of right lower lobe consolidation, possibly atelectasis though pneumonitis or aspiration should be excluded clinically. CT findings suggesting pulmonary edema. 2.1 cm right thyroid nodule. Please see below for published recommendations related to follow-up. Recommendations for f/u ofIncidental Thyroid Nodules (ITN) found on CT, MRI, NM and Extrathyroidal US based on the ACR white paper and Ramirez 3-tiered system for managing ITNs: 1. Further evaluation by thyroid US recommended for o Solitary ITN >= 1.5 cm in axial plane in patients >= 35 years of age 2. For multiple thyroid nodules, the above recommendations for solitary ITN are to be applied to the largest nodule. 3. No US or f/u recommended for ITNs without high risk features inpatients with limited life expectancy or significant co-morbidities, unless clinically warranted. 4. These recommendations do not apply to patients with increased risk for thyroid cancer or to patients with symptomatic thyroid disease. Signed: Blake Boyd MDReport Verified Date/Time: 08/27/2019 23:05:02 CT chest with IV contrast 2019-08-27 23:05:00Interface, External Ris In - 08/27/2019 11:07 PM CDTFINAL REPORT CLINICAL HISTORY: Leukocytosis FINDINGS: Multiple axial images of the chest, abdomen and pelvis were performed after the uncomplicated administration of IV contrast. Precontrast and 10 minute delayed postcontrast images of the abdomen and pelvis were also performed. Oral contrast was not given. This exam was performed according to our departmental dose-optimization program, which includes automated exposure control, adjustment of the mA and/or kV according to patient size and/or use of the iterative reconstruction technique. Comparison: 08/23/2019. Chest: Lung parenchyma: Redemonstrated consolidation in the dependent right lower lobe with bronchovascular crowding suggesting some element of atelectasis. Diffuse interstitial coarsening. Patchy, nonfocal intervening groundglass opacities. Pleural effusion: Trace bilateral effusions Pneumothorax: None. Tracheobronchial tree: No significant findings. Pulmonary vasculature: Central vascular engorgement Cardiac contours and great vessels: Cardiomegaly. Atherosclerotic calcifications of the coronary arteries. Mediastinum: No significant findings. Lymph Nodes: No adenopathy in the mediastinum or cat. Skeleton: No acute abnormality. Other: 2.1 x 1.8 cm right thyroid nodule. Abdomen and pelvis: Liver: No significant findings. Gallbladder and biliary tree: No significant findings. Spleen: No significant findings. Adrenal Glands: No significant findings. Kidneys and ureters: The right kidney is enlarged with heterogeneous, patchy foci of parenchymal hypodensity, including a confluent region of hypodensity with peripheral rim enhancement at the lateral right midpole measuring 4.0 x 2.5 cm. A second region of more confluent hypodensity is present in the mid medial right midpole measuring 2.8 x 1.9 cm. There is right perinephric fat stranding. There is abnormal thickening and enhancement of the right renal calyces and right renal pelvis. Apparent lack of cortical medullary phase enhancement differentiation may relate to right renal hyperemia/inflammatory change. There is a nonobstructing stone in the right renal inferior pole measuring 3 mm. No ureteral stone is identified. There is relatively diminished excretion of IV contrast from the right kidney when comp ared to the left but no evidence of obstructive uropathy is excreted contrast is present throughout the ureter to the level of the bladder on 10 minute delayed images. Stomach and Duodenum: No significant findings. Pancreas: No significant findings. Bowel: No significant findings. Appendix: Not seen. No local inflammatory changes. Bladder: No significant findings. Major vascular structures: No significant findings. Reproductive organs: Previous hysterectomy Other: No free intraperitoneal air. Skeleton: No acute bony abnormality. IMPRESSION: Findings suggesting severe right pyelonephritis with findings suspicious for parenchymal phlegmon/abscess formation and associated pyonephrosis. This finding was discussed with the hospitalist covering the patient at 2300 hours on the date of the examination. Nonobstructing, 3 mm stone in the right kidney. Similar appearance of right lower lobe consolidation, possibly atelectasis though pneumonitis or aspiration should be excluded clinically. CT findingssuggesting pulmonary edema. 2.1 cm right thyroid nodule. Please see below for published recommendations related to follow-up. Recommendations for f/u of Incidental Thyroid Nodules (ITN) found on CT, MRI, NM and Extrathyroidal US based on the ACR white paper and Ramirez 3-tiered system for managing ITNs: 1. Further evaluation by thyroid US recommended for o Solitary ITN >= 1.5 cm in axial plane in patients >= 35 years of age 2. For multiple thyroid nodules, the above recommendations for solitary ITN are to be applied to the largest nodule. 3. No US or f/u recommended for ITNs without high risk features in patients with limited life expectancy or significant co-morbidities, unless clinically warranted. 4. These recommendations do not apply to patients with increased risk for thyroid cancer or to patients with symptomatic thyroid disease. Signed: Blake Boyd MDReport Verified Date/Time: 08/27/2019 23:05:02 [facility] abdomen & pelvis - renal stone evaluation without/with iv contrast 2019-08-27 23:05:00Interface, External Ris In - 08/27/2019 11:07 PM CDTFINAL REPORT CLINICAL HISTORY: Leukocytosis FINDINGS: Multiple axial images of the chest, abdomen and pelvis were performed after the uncomplicated administration of IV contrast. Precontrast and 10 minute delayed postcontrast images of the abdomen and pelvis were also performed. Oral contrast was not given. This exam was performed according to our departmental dose-optimization program, which includes automated exposure control, adjustment of the mA and/or kV according to patient size and/or use of the iterative reconstruction technique. Comparison: 08/23/2019. Chest: Lung parenchyma: Redemonstrated consolidation in the dependent right lower lobe with bronchovascular crowding suggesting some element of atelectasis. Diffuse interstitial coarsening. Patchy, nonfocal intervening groundglass opacities. Pleural effusion: Trace bilateral effusions Pneumothorax: None. Tracheobronchial tree: No significant findings. Pulmonary vasculature: Central vascular engorgement Cardiac contours and great vessels: Cardiomegaly. Atherosclerotic calcifications of the coronary arteries. Mediastinum: No significant findings. Lymph Nodes: No adenopathy in the mediastinum or cat. Skeleton: No acute abnormality. Other: 2.1 x 1.8 cm right thyroid nodule. Abdomen and pelvis: Liver: No significant findings. Gallbladder and biliary tree: No significant findings. Spleen: No significant findings. Adrenal Glands: No significant findings. Kidneys and ureters: The right kidney is enlarged with heterogeneous, patchy foci of parenchymal hypodensity, including a confluent region of hypodensity with peripheral rim enhancement at the lateral right midpole measuring 4.0 x 2.5 cm. A second region of more confluent hypodensity is present in the mid medial right midpole measuring 2.8 x 1.9 cm. There is right perinephric fat stranding. There is abnormal thickening and enhancement of the right renal calyces and right renal pelvis. Apparent lack of cortical medullary phase enhancement differentiation may relate to right renal hyperemia/inflammatory change. There is a nonobstructing stone in the right renal inferior pole measuring 3 mm. No ureteral stone is identified. There is relatively diminished excretion of IV contrast from the right kidney when comp ared to the left but no evidence of obstructive uropathy is excreted contrast is present throughout the ureter to the level of the bladder on 10 minute delayed images. Stomach and Duodenum: No significant findings. Pancreas: No significant findings. Bowel: No significant findings. Appendix: Not seen. No local inflammatory changes. Bladder: No significant findings. Major vascular structures: No significant findings. Reproductive organs: Previous hysterectomy Other: No free intraperitoneal air. Skeleton: No acute bony abnormality. IMPRESSION: Findings suggesting severe right pyelonephritis with findings suspicious for parenchymal phlegmon/abscess formation and associated pyonephrosis. This finding was discussed with the hospitalist covering the patient at 2300 hours on the date of the examination. Nonobstructing, 3 mm stone in the right kidney. Similar appearance of right lower lobe consolidation, possibly atelectasis though pneumonitis or aspiration should be excluded clinically. CT findingssuggesting pulmonary edema. 2.1 cm right thyroid nodule. Please see below for published recommendations related to follow-up. Recommendations for f/u of Incidental Thyroid Nodules (ITN) found on CT, MRI, NM and Extrathyroidal US based on the ACR white paper and Ramirez 3-tiered system for managing ITNs: 1. Further evaluation by thyroid US recommended for o Solitary ITN >= 1.5 cm in axial plane in patients >= 35 years of age 2. For multiple thyroid nodules, the above recommendations for solitary ITN are to be applied to the largest nodule. 3. No US or f/u recommended for ITNs without high risk features in patients with limited life expectancy or significant co-morbidities, unless clinically warranted. 4. These recommendations do not apply to patients with increased risk for thyroid cancer or to patients with symptomatic thyroid disease. Signed: Blake Boyd MDReport Verified Date/Time: 08/27/2019 23:05:02 [facility] [id number] 15:56:00 Test Item Value Reference Range Interpretation Comments COLOR (BEAKER) (test code = 470) Yellow CLARITY (BEAKER) (test code = 469) Hazy SPECIFIC GRAVITY UA (BEAKER) (test 1.010 1.001-1.035 code = 468) PH UA (BEAKER) (test code = 467) 7.5 5.0-8.0 PROTEIN UA (BEAKER) (test code = 30 mg/dL Negative A 464) GLUCOSE UA (BEAKER) (test code = Negative Negative 365) KETONES UA (BEAKER) (test code = Negative Negative 371) BILIRUBIN UA (BEAKER) (test code = Negative Negative 462) BLOOD UA (BEAKER) (test code = Large Negative A 461) NITRITE UA (BEAKER) (test code = Negative Negative 465) LEUKOCYTE ESTERASE UA (BEAKER) Large Negative A (test code = 466) UROBILINOGEN UA (BEAKER) (test 0.2 mg/dL 0.2-1.0 code = 463) RBC UA (BEAKER) (test code = 519) 56 /HPF WBC UA (BEAKER) (test code = 520) 118 /HPF BACTERIA (BEAKER) (test code = Many 517) SQUAMOUS EPITHELIAL (BEAKER) (test 1 /HPF code = 516) CASTS (BEAKER) (test code = 1579) 3 /LPF CRYSTALS, URINE (BEAKER) (test Occasional code = 1521) SOURCE(BEAKER) (test code = 2795) Leather Finisher ID - [auto]Leather Finisher ID - hankBLOOD [id number] 11:19:00 Test Item Value Reference Range Interpretation Comments CULTURE (BEAKER) (test KLEBSIELLA A From Aerobic code = 1095) PNEUMONIAE Bottle Only Klebsiella pneumoniae Amikacin (test code = S 1) Ampicillin + Sulbactam S (test code = 6) Aztreonam (test code = S 32) Cefepime (test code = S 51) Cefoxitin (test code = S 68) Ceftazidime (test code S = 27) Ceftriaxone (test code S = 52) Ertapenem (test code = S 38) Gentamicin (test code = S 18) Levofloxacin (test code S = 22) Meropenem (test code = S 34) Nitrofurantoin (test S code = 23) Piperacillin + S Tazobactam (test code = 29) Tetracycline (test code S = 2) Tobramycin (test code = S 25) Trimethoprim + S Sulfamethoxazole (test code = 47) GRAM STAIN RESULT From aerobic (BEAKER) (test code = bottle only: 1123) gram negative rods BASIC METABOLIC [id number] 04:53:00 Test Item Value Reference Range Interpretation Comments SODIUM (BEAKER) 133 meq/L 136-145 L (test code = 381) POTASSIUM (BEAKER) 3.3 meq/L 3.5-5.1 L Specimen slightly (test code = 379) hemolyzed CHLORIDE (BEAKER) 99 meq/L 98-107 (test code = 382) CO2 (BEAKER) (test 25 meq/L 22-29 code = 355) BLOOD UREA NITROGEN 9 mg/dL 7-21 (BEAKER) (test code = 354) CREATININE (BEAKER) 0.70 mg/dL 0.57-1.25 Specimen slightly (test code = 358) hemolyzed GLUCOSE RANDOM 105 mg/dL 70-105 (BEAKER) (test code = 652) CALCIUM (BEAKER) 8.5 mg/dL 8.4-10.2 (test code = 697) EGFR (BEAKER) (test 87 mL/min/1.73 ESTIMA NIKOS GFR IS code = 1092) sq m NOT ACCURATE CREATININE CLEARANCE IN PREDICTING GLOMERULAR FILTRATION RATE . ESTIMATED GFR I S NOT APPLICABLE FOR DIALYSIS PATIEN TS. Leather Finisher ID - RICHELLE WCBC (HEMOGRAM ONLY)2019-08-27 03:52:00 Test Item Value Reference Range Interpretation Comments WHITE BLOOD CELL COUNT (BEAKER) 23.6 K/ L 3.5-10.5 H (test code = 775) RED BLOOD CELL COUNT (BEAKER) 3.75 M/ L 3.93-5.22 L (test code = 761) HEMOGLOBIN (BEAKER) (test code = 11.1 GM/DL 11.2-15.7 L 410) HEMATOCRIT (BEAKER) (test code = 33.2 % 34.1-44.9 L 411) MEAN CORPUSCULAR VOLUME (BEAKER) 88.5 fL 79.4-94.8 (test code = 753) MEAN CORPUSCULAR HEMOGLOBIN 29.6 pg 25.6-32.2 (BEAKER) (test code = 751) MEAN CORPUSCULAR HEMOGLOBIN CONC 33.4 GM/DL 32.2-35.5 (BEAKER) (test code = 752) RED CELL DISTRIBUTION WIDTH 14.0 % 11.7-14.4 (BEAKER) (test code = 412) PLATELET COUNT (BEAKER) (test 251 K/CU MM 150-450 code = 756) MEAN PLATELET VOLUME (BEAKER) 10.3 fL 9.4-12.3 (test code = 754) NUCLEATED RED BLOOD CELLS 0 /100 WBC 0-0 (BEAKER) (test code = 413) BLOOD [id number] 12:41:00 Test Item Value Reference Range Interpretation Comments CULTURE A From Anaerobic Bottle (BEAKER) (test Only Same org anism has code = 1095) been isolated f rom cultures(s) of the same body site and collection date . Repeat identifi cation and susceptibil ity testing perform ed only after consultat ion with the [facility].Refe r to previous cultur e ofKlebsiella pneumoniae GRAM STAIN From anaerobic RESULT (BEAKER) bottle only: gram (test code = negative rods 1123) ECG 12 [id number] 14:42:46Interface, External Ris In - 08/25/2019 2:42 PM CDTVentricular Rate 101 BPMAtrial Rate 101 BPMP-R Interval 128 msQRS Duration 102 msQ-T Interval 352 msQTC Calculation(Bazett) 456 msP Calvin -2 degreesR Calvin - 11 degreesT Calvin [address] abnormalityAbnormal ECGNo previous ECGs availableConfirmed by MD ROYAL, WILY ([id number]) on 08/25/2019 2:42:43 [facility] [id number] 10:43:00 Test Item Value Reference Range Interpretation Comments Free T4 (test code = 0.68 ng/dL 0.7-1.48 L 3024-7) NITIN (test code = NITIN) Leather Finisher ID - AAHAMID Lab Interpretation (test Abnormal code = 00160-3) [facility] [id number] 10:43:00 Test Item Value Reference Range Interpretation Comments FREE T4 (BEAKER) (test code = 655) 0.68 ng/dL 0.70-1.48 L Leather Finisher ID - AAHAMIDTSH/Free T4 If [id number] 09:55:00 Test Item Value Reference Range Interpretation Comments TSH (test code = 0.276 See_Comment L [Automated 82464-4) message] The system which generated this result transmit nikos reference range : 0.350 - 4.940 uIU/mL. The reference range was not used to interpret this result as normal/abnormal . NITIN (test code = NITIN) Leather Finisher ID - AAHAMID Lab Interpretation Abnormal (test code = 50329-7) [facility] T4 IF [id number] 09:55:00 Test Item Value Reference Range Interpretation Comments THYROID STIMULATING HORMONE 0.276 uIU/mL 0.350-4.940 L (BEAKER) (test code = 772) Leather Finisher ID - AAHAMIDVitamin B12 and [id number] 09:29:00 Test Item Value Reference Range Interpretation Comments Vitamin B12 (test 810 pg/mL 213-816 code = 2132-9) Folate (test code = 4.80 ng/mL See_Comment L [Automa nikos 2284-8) message] The system which generated this result transmit nikos reference range : >=7.00. The reference range was not used to interpret this result as normal/abnormal . NITIN (test code = NITIN) Leather Finisher ID - AAHAMID Lab Interpretation Abnormal (test code = 43359-5) [facility] AND [id number] 09:29:00 Test Item Value Reference Range Interpretation Comments VITAMIN B12 (BEAKER) (test code = 810 pg/mL 213-816 774) FOLATE (BEAKER) (test code = 362) 4.80 ng/mL >=7.00 L Leather Finisher ID - AAHAMIDCOMPREHENSIVE METABOLIC [id number] 05:26:00 Test Item Value Reference Range Interpretation Comments TOTAL PROTEIN 5.0 gm/dL 6.0-8.3 L (BEAKER) (test code = 770) ALBUMIN (BEAKER) 2.4 g/dL 3.5-5.0 L (test code = 1145) ALKALINE PHOSPHATASE 131 U/L 40-150 (BEAKER) (test code = 346) BILIRUBIN TOTAL 0.9 mg/dL 0.2-1.2 (BEAKER) (test code = 377) SODIUM (BEAKER) (test 132 meq/L 136-145 L code = 381) POTASSIUM (BEAKER) 2.8 meq/L 3.5-5.1 L (test code = 379) CHLORIDE (BEAKER) 99 meq/L 98-107 (test code = 382) CO2 (BEAKER) (test 27 meq/L 22-29 code = 355) BLOOD UREA NITROGEN 13 mg/dL 7-21 (BEAKER) (test code = 354) CREATININE (BEAKER) 0.67 mg/dL 0.57-1.25 (test code = 358) GLUCOSE RANDOM 100 mg/dL 70-105 (BEAKER) (test code = 652) CALCIUM (BEAKER) 8.6 mg/dL 8.4-10.2 (test code = 697) AST (SGOT) (BEAKER) 30 U/L 5-34 (test code = 353) ALT (SGPT) (BEAKER) 25 U/L 6-55 (test code = 347) EGFR (BEAKER) (test 91 mL/min/1.73 ESTIMA NIKOS GFR IS code = 1092) sq m NOT ACCURATE CREATININE CLEARANCE IN PREDICTING GLOMERULAR FILTRATION RATE . ESTIMATED GFR I S NOT APPLICABLE FOR DIALYSIS PATIEN TS. Leather Finisher ID - PIAYA LCBC (HEMOGRAM ONLY)2019-08-25 04:58:00 Test Item Value Reference Range Interpretation Comments WHITE BLOOD CELL COUNT (BEAKER) 13.1 K/ L 3.5-10.5 H (test code = 775) RED BLOOD CELL COUNT (BEAKER) 3.95 M/ L 3.93-5.22 (test code = 761) HEMOGLOBIN (BEAKER) (test code = 11.7 GM/DL 11.2-15.7 410) HEMATOCRIT (BEAKER) (test code = 35.2 % 34.1-44.9 411) MEAN CORPUSCULAR VOLUME (BEAKER) 89.1 fL 79.4-94.8 (test code = 753) MEAN CORPUSCULAR HEMOGLOBIN 29.6 pg 25.6-32.2 (BEAKER) (test code = 751) MEAN CORPUSCULAR HEMOGLOBIN CONC 33.2 GM/DL 32.2-35.5 (BEAKER) (test code = 752) RED CELL DISTRIBUTION WIDTH 13.4 % 11.7-14.4 (BEAKER) (test code = 412) PLATELET COUNT (BEAKER) (test 132 K/CU MM 150-450 L code = 756) MEAN PLATELET VOLUME (BEAKER) 11.3 fL 9.4-12.3 (test code = 754) NUCLEATED RED BLOOD CELLS 0 /100 WBC 0-0 (BEAKER) (test code = 413) U/S, [id number] 21:14:00Reason for exam:->thyroid noduleFINAL REPORT U/S, THYROID CLINICAL INDICATION: thyroid nodule COMPARISON: None FINDINGS: Thyroid neck ultrasound was performed. The right thyroid gland measures 5.2 x 2.6 x2.4 cm. There is a 2.3 x 1.8 x 2 cm heterogeneous mildly hypoechoic nodule with mixed vascularity inthe right thyroid gland. The thyroid isthmus measures 3 mm in thickness. The left thyroid gland measures 4 x 2.4 x 2 cm. IMPRESSION: 2.0 1.8 x 2 cm indeterminate right thyroid nodule for which fine-needle aspiration cytology is recommended for further evaluation. Signed: Baylee Hi MDReport Verified Date/Time: 08/24/2019 21:14:39 US [id number] 21:14:00Interface, External Ris In - 08/24/2019 9:16 PM CDTFINAL REPORT U/S, THYROID CLINICAL INDICATION: thyroid nodule COMPARISON: None FINDINGS: Thyroid neck ultrasound was performed. The right thyroid gland measures 5.2 x 2.6 x 2.4 cm. There is a 2.3 x 1.8 x 2 cm heterogeneous mildly hypoechoic nodule with mixed vascularity in the right thyroid gland. The thyroid isthmus measures 3 mm in thickness. The left thyroid gland measures 4 x 2.4 x 2 cm. IMPRESSION: 2.0 1.8 x 2 cm indeterminate right thyroid nodule for which fine-needle aspiration cytology is recommended for further evaluation. Signed: Baylee Hi Verified Date/Time: 08/24/2019 21:14:39 [facility]56[facility]00 Test Item Value Reference Range Interpretation Comments Scan Result (test code = 3486339) [facility] [id number] 06:56:00 Test Item Value Reference Range Interpretation Comments SCAN RESULT (test code = 0578777) SEE SCAN BASIC METABOLIC [id number] 06:25:00 Test Item Value Reference Range Interpretation Comments SODIUM (BEAKER) 132 meq/L 136-145 L (test code = 381) POTASSIUM (BEAKER) 2.6 meq/L 3.5-5.1 LL (test code = 379) CHLORIDE (BEAKER) 98 meq/L 98-107 (test code = 382) CO2 (BEAKER) (test 25 meq/L 22-29 code = 355) BLOOD UREA NITROGEN 14 mg/dL 7-21 (BEAKER) (test code = 354) CREATININE (BEAKER) 0.78 mg/dL 0.57-1.25 (test code = 358) GLUCOSE RANDOM 112 mg/dL 70-105 H (BEAKER) (test code = 652) CALCIUM (BEAKER) 8.7 mg/dL 8.4-10.2 (test code = 697) EGFR (BEAKER) (test 76 mL/min/1.73 ESTIMA NIKOS GFR IS code = 1092) sq m NOT ACCURATE CREATININE CLEARANCE IN PREDICTING GLOMERULAR FILTRATION RATE . ESTIMATED GFR I S NOT APPLICABLE FOR DIALYSIS PATIEN TS. Leather Finisher ID - ALAINA MPT/[id number] 04:39:00 Test Item Value Reference Interpretation Comments Range Protime (test code = 14.7 See_Comment H [Autom ated 5902-2) message] The system which generated this result transmitted reference range : 11.9 - 14.2 seconds. The reference range was not used to interpret this result as normal/abnormal . INR (test code = 1.2 See_Comment [Automated 6731-6) message] The system which generated this result transmitted reference range : <=5.9. The reference range was not used to interpret this result as normal/abnormal . PTT (test code = 34.9 See_Comment [Automated 51915-0) message] The system which generated this result transmitted reference range : 22.5 - 36.0 seconds. The reference range was not used to interpret this result as normal/abnormal . NITIN (test code = Effective 10/10/2018: NITIN) PT Reference Range ChangeNew: 11.9-14.2 Previous: 11.7-14.7 RECOMMENDED COUMADIN/WARFARIN INR THERAPY RANGESSTANDARD DOSE: 2.0-3.0 Includes: PROPHYLAXIS for venous thrombosis, systemic embolization; TREATMENT for venous thrombosis and/or pulmonary embolus.HIGH RISK: Target INR is 2.5-3.5 for patients wiht mechanical heart valves. Lab Interpretation Abnormal (test code = 86362-9) [facility]PT/[id number] 04:39:00 Test Item Value Reference Range Interpretation Comments PROTIME (BEAKER) (test code = 14.7 seconds 11.9-14.2 H 759) INR (BEAKER) (test code = 370) 1.2 <=5.9 PARTIAL THROMBOPLASTIN TIME 34.9 seconds 22.5-36.0 (BEAKER) (test code = 760) Effective 10/10/2018: PT Reference Range ChangeNew: 11.9-14.2 Previous: 11.7- 14.7RECOMMENDED COUMADIN/WARFARIN INR THERAPY RANGESSTANDARD DOSE: 2.0-3.0 Includes: PROPHYLAXIS for venous thrombosis, systemic embolization; TREATMENT for venous thrombosis and/or pulmonary embolus.HIGH RISK: Target INR is2.5-3.5 for patients wiht mechanical heart valves.CBC (HEMOGRAM ONLY)2019-08-24 04:34:00 Test Item Value Reference Range Interpretation Comments WHITE BLOOD CELL COUNT (BEAKER) 11.1 K/ L 3.5-10.5 H (test code = 775) RED BLOOD CELL COUNT (BEAKER) 3.85 M/ L 3.93-5.22 L (test code = 761) HEMOGLOBIN (BEAKER) (test code = 11.4 GM/DL 11.2-15.7 410) HEMATOCRIT (BEAKER) (test code = 34.0 % 34.1-44.9 L 411) MEAN CORPUSCULAR VOLUME (BEAKER) 88.3 fL 79.4-94.8 (test code = 753) MEAN CORPUSCULAR HEMOGLOBIN 29.6 pg 25.6-32.2 (BEAKER) (test code = 751) MEAN CORPUSCULAR HEMOGLOBIN CONC 33.5 GM/DL 32.2-35.5 (BEAKER) (test code = 752) RED CELL DISTRIBUTION WIDTH 13.3 % 11.7-14.4 (BEAKER) (test code = 412) PLATELET COUNT (BEAKER) (test 118 K/CU MM 150-450 L code = 756) MEAN PLATELET VOLUME (BEAKER) 10.8 fL 9.4-12.3 (test code = 754) NUCLEATED RED BLOOD CELLS 0 /100 WBC 0-0 (BEAKER) (test code = 413) CT, CHEST, WITHOUT [id number] 16:18:00FINAL REPORT TECHNIQUE: CT of the chest, abdomen, and pelvis WITHOUT intravenous contrast and WITHOUT oral contrast. Dose modulation, iterative reconstruction, and/or weight-based adjustment of the mA/kV was utilized to reduce the radiation dose to as low as reasonably achievable. INDICATION: 54-year-old woman with pneumonia and urinary tract stone. COMPARISON: None. FINDINGS:ABSENCE OF INTRAVENOUS CONTRAST DECREASES SENSITIVITY FOR DETECTION OF FOCAL LESIONS AND VASCULAR PATHOLOGY. LINES/TUBES: None. LUNGS AND AIRWAYS: Concave bowing of the posterior tracheal wall, consistent with expiration. Consolidative opacity and volume loss in a majority of the right lower lobe. Linear atelectasis scattered in both lungs. PLEURA: Trace right pleural effusion.HEART AND MEDIASTINUM: H ypodense nodule in the right thyroid measures approximately 2.3 x 2 cm. No significant mediastinal, hilar, or axillary lymphadenopathy. The heart and pericardium are within normal limits. Atherosclerotic coronary artery calcifications. Prominent main pulmonary artery measures approximately 3.3 cm in diameter and is suggestive of pulmonary hypertension. HEPATOBILIARY: No focal hepatic lesions. Gallbladder is unremarkable. No biliary ductal dilatation.SPLEEN: No splenomegaly.PANCREAS: No focal masses or ductal dilatation. ADRENALS: No adrenal nodules.KIDNEYS/URETERS: Right renal and perirenal edema with thickened urothelial wall in the right renal pelvis. No right renal/perirenal fluid collection. Nonobstructive 0.3 cm calculus in the right lower pole. Nonobstructive 0.2 cm calculus in the left interpolar regionPELVIC ORGANS/BLADDER: Bladder is underdistended. Prior hysterectomy. No adnexal mass. PERITONEUM/RETROPERITONEUM: No free air or fluid.LYMPH NODES: No lymphadenopathy.VESSELS: Unremarkable. GI TRACT: No distention or wall thickening. Sigmoid diverticula. BONES AND SOFT TISSUES: Degenerative changes of the lower cervical spine. Elevated right hemidiaphragm. IMPRESSION: Chest CT:*Consolidative opacity and volume loss in the right lower lobe likely represents atelectasis. Superimposed pneumonia/aspiration cannot be excluded.*2.3 cm right thyroid nodule. Nonemergent thyroid ultrasound is recommended for further evaluation. Abdomen and pelvis CT:*Right renal findings are suggestive of pyelonephritis/pyelitis. No fluid collection.*Nonobstructive calculi in both kidneys. Signed: Jef Rondon MDReport Verified Date/Time: 08/23/2019 16:18:30 Reading Location: [facility] C[facility]Y CT Body Reading Room CT, PELVIS, WO [id number] 16:18:00Anesthesia:->NoneFINAL REPORT TECHNIQUE: CT of the chest, abdomen, and pelvis WITHOUT intraveno us contrast and WITHOUT oral contrast. Dose modulation, iterative reconstruction, and/or weight-based adjustment of the mA/kV was utilized to reduce the radiation dose to as low as reasonably achievable. INDICATION: 54-year-old woman with pneumonia and urinary tract stone. COMPARISON: None. FINDINGS:ABSENCE OF INTRAVENOUS CONTRAST DECREASES SENSITIVITY FOR DETECTION OF FOCAL LESIONS AND VASCULAR PATHOLOGY. LINES/TUBES: None. LUNGS AND AIRWAYS: Concave bowing of the posterior tracheal wall, consistent with expiration. Consolidative opacity and volume loss in a majority of the right lower lobe. Linear atelectasis scattered in both lungs. PLEURA: Trace right pleural effusion.HEART AND MEDIASTINUM: Hypodense nodule in the right thyroid measures approximately 2.3 x 2 cm. No significant mediastinal, hilar, or axillary lymphadenopathy. The heart and pericardium are within normal limits. Atherosclerotic coronary artery calcifications. Prominent main pulmonary artery measures approximately 3.3 cm in diameter and is suggestive of pulmonary hypertension. HEPATOBILIARY: No focal hepatic lesions. Gallbladder is unremarkable. No biliary ductal dilatation.SPLEEN: No splenomegaly.PANCREAS: No focal masses or ductal dilatation. ADRENALS: No adrenal nodules.KIDNEYS/URETERS: Right renal and perirenal edema with thickened urothelial wall in the right renal pelvis. No right renal/perirenal fluid collection. Nonobstructive 0.3 cm calculus in the right lower pole. Nonobstructive 0.2 cm calculus in the left interpolar regionPELVIC ORGANS/BLADDER: Bladder is underdistended. Prior hysterectomy. No adnexal mass. PERITONEUM/RETROPERITONEUM: No free air or fluid.LYMPH NODES: No lymphadenopathy.VESSELS: Unremarkable. GI TRACT: No distention or wall thickening. Sigmoid diverticula. BONES AND SOFT TISSUES: Degenerative changes of the lower cervical spine. Elevated right hemidiaphragm. IMPRESSION: Chest CT:*Consolidative opacity and volume loss in the right lower lobe likely represents atelectasis. Superimposed pneumonia/aspiration cannot be excluded.*2.3 cm right thyroid nodule. Nonemergent thyroid ultrasound is recommended for further evaluation. Abdomen and pelvis CT:*Right renal findings are suggestive of pyelonephritis/pyelitis. No fluid collection.*Nonobstructive calculi in both kidneys. Signed: Jef Rondon MDReport Verified Date/Time: 08/23/2019 16:18:30 Reading Location: [address] Body Reading Room CT, ABDOMEN, WITHOUT [id number] 16:18:00Please specify abdominal organs:->RenalFINAL REPORT TECHNIQUE: CT of the chest, abdomen, and pelvis WITHOUT intravenous contrast and WITHOUT oral contrast. Dose modulation, iterative reconstruction, and/or weight-based adjustment of the mA/kV was utilized to reduce the radiation dose to as low as reasonably achievable. INDICATION: 54-year-old woman with pneumonia and urinary tract stone. COMPARISON: None. FINDINGS:ABSENCE OF INTRAVENOUS CONTRAST DECREASES SENSITIVITY FOR DETECTION OF FOCAL LESIONS AND VASCULAR PATHOLOGY. LINES/TUBES: None. LUNGS AND AIRWAYS: Concave bowing of the posterior tracheal wall, consiste nt with expiration. Consolidative opacity and volume loss in a majority of the right lower lobe. Linear atelectasis scattered in both lungs. PLEURA: Trace right pleural effusion.HEART AND MEDIASTINUM: Hypodense nodule in the right thyroid measures approximately 2.3 x 2 cm. No significant mediastinal, hilar, or axillary lymphadenopathy. The heart and pericardium are within normal limits. Atherosclerotic coronary artery calcifications. Prominent main pulmonary artery measures approximately 3.3 cm in diameter and is suggestive of pulmonary hypertension. HEPATOBILIARY: No focal hepatic lesions. Gallbladder is unremarkable. No biliary ductal dilatation.SPLEEN: No splenomegaly.PANCREAS: No focal masses or ductal dilatation. ADRENALS: No adrenal nodules.KIDNEYS/URETERS: Right renal and perirenal edema with thickened urothelial wall in the right renal pelvis. No right renal/perirenal fluid collection. Nonobstructive 0.3 cm calculus in the right lower pole. Nonobstructive 0.2 cm calculus in the left interpolar regionPELVIC ORGANS/BLADDER: Bladder is underdistended. Prior hysterectomy. No adnexal mass. PERITONEUM/RETROPERITONEUM: No free air or fluid.LYMPH NODES: No lymphadenopathy.VESSELS: Unremarkable. GI TRACT: No distention or wall thickening. Sigmoid diverticula. BONES AND SOFT TISSUES: Degenerative changes of the lower cervical spine. Elevated right hemidiaphragm. IMPRESSION: Chest CT:*Consolidative opacity and volume loss in the right lower lobe likely represents atelectasis. Superimposed pneumonia/aspiration cannot be excluded.*2.3 cm right thyroid nodule. Nonemergent thyroid ultrasound is recommended for further evaluation. Abdomen and pelvis CT:*Right renal findings are suggestive of pyelonephritis/pyelitis. No fluid collection.*Nonobstructive calculi in both kidneys. Signed: Jef Rondon MDReport Verified Date/Time: 08/23/2019 16:18:30 Reading Location: [facility] B1 C013Y CT Body Reading Room CT abdomen without IV [id number] 16:18:00Interface, External Ris In - 08/23/2019 4:20 PM CDTFINAL REPORT TECHNIQUE: CT of the chest, abdomen, and pelvis WITHOUT intravenous contrast and WITHOUT oral contrast. Dose modulation, iterative reconstruction, and/or weight-based adjustment of the mA/kV was utilized to reduce the radiation dose to as low as reasonably achievable. INDICATION: 54-year-old woman with pneumonia and urinary tract stone. COMPARISON: None. FINDINGS: ABSENCE OF INTRAVENOUS CONTRAST DECREASES SENSITIVITY FOR DETECTION OF FOCAL LESIONS AND VASCULAR PATHOLOGY. LINES/TUBES: None. LUNGS AND AIRWAYS: Concave bowing of the posterior tracheal wall, consistent with expiration. Consolidative opacity and volume loss in a majority of the right lower lobe. Linear atelectasis scattered in both lungs. PLEURA: Trace right pleural effusion.HEART AND MEDIASTINUM: Hypodense nodule in the right thyroid measures approximately 2.3 x 2 cm. No significant mediastinal, hilar, or axillary lymphadenopathy. The heart andpericardium are within normal limits. Atherosclerotic coronary artery calcifications. Prominent mainpulmonary artery measures approximately 3.3 cm in diameter and is suggestive of pulmonary hypertension. HEPATOBILIARY: No focal hepatic lesions. Gallbladder is unremarkable. No biliary ductal dilatation.SPLEEN: No splenomegaly.PANCREAS: No focal masses or ductal dilatation. ADRENALS: No adrenal nodules.KIDNEYS/URETERS: Right renal and perirenal edema with thickened urothelial wall in the right renal pelvis. No right renal/perirenal fluid collection. Nonobstructive 0.3 cm calculus in the right lower pole. Nonobstructive 0.2 cm calculus in the left interpolar regionPELVIC ORGANS/BLADDER: Bladder is underdistended. Prior hysterectomy. No adnexal mass. PERITONEUM/RETROPERITONEUM: No free air or fluid.LYMPH NODES: No lymphadenopathy.VESSELS: Unremarkable. GI TRACT: No distention or wall thickening. Sigmoid diverticula. BONES AND SOFT TISSUES: Degenerative changes of the lower cervical spine. Elevatedright hemidiaphragm. IMPRESSION: Chest CT:*Consolidative opacity and volume loss in the right lower lobe likely represents atelectasis. Superimposed pneumonia/aspiration cannot be excluded.*2.3 cm right thyroid nodule. Nonemergent thyroid ultrasound is recommended for further evaluation. Abdomen and pelvis CT:*Right renal findings are suggestive of pyelonephritis/pyelitis. No fluid collection.*Nonobstructive calculi in both kidneys. Signed: Jef Rondon [facility] LOUISeport Verified Date/Time: 08/23/2019 16:18:30 Reading Location: [facility] B1 C013Y CT [facility] [id number] 16:18:00Interface, External Ris In - 08/23/2019 4:20 PM CDTFINAL REPORT TECHNIQUE: CT of the chest, abdomen, and pelvis WITHOUT intravenous contrast and WITHOUT oral contrast. Dose modulation, iterative reconstruction, and/or weight- based adjustment of the mA/kV was utilized to reduce the radiation dose to as low as reasonably achievable. INDICATION: 54-year-old woman with pneumonia and urinary tract stone. COMPARISON: None. FINDINGS: ABSENCE OF INTRAVENOUS CONTRAST DECREASES SENSITIVITY FOR DETECTION OF FOCAL LESIONS AND VASCULAR PATHOLOGY. LINES/TUBES: None. LUNGS AND AIRWAYS: Concave bowing of the posterior tracheal wall, consistent with expiration. Consolidative opacity and volume loss in a majority of the right lower lobe. Linear atelectasis scattered in both lungs. PLEURA: Trace right pleural effusion.HEART AND MEDIASTINUM: Hypodense nodule in the right thyroid measures approximately 2.3 x 2 cm. No significant mediastinal, hilar, or axillary lymphadenopathy. The heart andpericardium are within normal limits. Atherosclerotic coronary artery calcifications. Prominent mainpulmonary artery measures approximately 3.3 cm in diameter and is suggestive of pulmonary hypertension. HEPATOBILIARY: No focal hepatic lesions. Gallbladder is unremarkable. No biliary ductal dilatation.SPLEEN: No splenomegaly.PANCREAS: No focal masses or ductal dilatation. ADRENALS: No adrenal nodules .KIDNEYS/URETERS: Right renal and perirenal edema with thickened urothelial wall in the right renal pelvis. No right renal/perirenal fluid collection. Nonobstructive 0.3 cm calculus in the right lower pole. Nonobstructive 0.2 cm calculus in the left interpolar regionPELVIC ORGANS/BLADDER: Bladder is un derdistended. Prior hysterectomy. No adnexal mass. PERITONEUM/RETROPERITONEUM: No free air or fluid.LYMPH NODES: No lymphadenopathy.VESSELS: Unremarkable. GI TRACT: No distention or wall thickening. Sigmoid diverticula. BONES AND SOFT TISSUES: Degenerative changes of the lower cervical spine. Elevatedright hemidiaphragm. IMPRESSION: Chest CT:*Consolidative opacity and volume loss in the right lowerlobe likely represents atelectasis. Superimposed pneumonia/aspiration cannot be excluded.*2.3 cm right thyroid nodule. Nonemergent thyroid ultrasound is recommended for further evaluation. Abdomen and pelvis CT:*Right renal findings are suggestive of pyelonephritis/pyelitis. No fluid collection.*Nonobstructive calculi in both kidneys. Signed: Jef Rondon MDReport Verified Date/Time: 08/23/2019 16:18:30 Reading Location: [facility] B1 C013Y CT [facility] [id number] 16:18:00Interface, External Ris In - 08/23/2019 4:20 PM CDTFINAL REPORT TECHNIQUE: CT of the chest, abdomen, and pelvis WITHOUT intravenous contrast and WITHOUT oral contrast. Dose modulation, iterative reconstruction, and/or weight-based adjustment of the mA/kV was utilized to reduce the radiation dose to as low as reasonably achievable. INDICATION: 54-year-old woman with pneumonia and urinary tract stone. COMPARISON: None. FINDINGS: ABSENCE OF INTRAVENOUS CONTRAST DECREASES SENSITI VITY FOR DETECTION OF FOCAL LESIONS AND VASCULAR PATHOLOGY. LINES/TUBES: None. LUNGS AND AIRWAYS: Concave bowing of the posterior tracheal wall, consistent with expiration. Consolidative opacity and volume loss in a majority of the right lower lobe. Linear atelectasis scattered in both lungs. PLEURA: Trace right pleural effusion.HEART AND MEDIASTINUM: Hypodense nodule in the right thyroid measures approximately 2.3 x 2 cm. No significant mediastinal, hilar, or axillary lymphadenopathy. The heart andpericardium are within normal limits. Atherosclerotic coronary artery calcifications. Prominent mainpulmonary artery measures approximately 3.3 cm in diameter and is suggestive of pulmonary hypertension. HEPATOBILIARY: No focal hepatic lesions. Gallbladder is unremarkable. No biliary ductal dilatation.SPLEEN: No splenomegaly.PANCREAS: No focal masses or ductal dilatation. ADRENALS: No adrenal nodules.KIDNEYS/URETERS: Right renal and perirenal edema with thickened urothelial wall in the right renal pelvis. No right renal/perirenal fluid collection. Nonobstructive 0.3 cm calculus in the right lower pole. Nonobstructive 0.2 cm calculus in the left interpolar regionPELVIC ORGANS/BLADDER: Bladder is underdistended. Prior hysterectomy. No adnexal mass. PERITONEUM/RETROPERITONEUM: No free air or fluid.LYMPH NODES: No lymphadenopathy.VESSELS: Unremarkable. GI TRACT: No distention or wall thickening. Sigmoid diverticula. BONES AND SOFT TISSUES: Degenerative changes of the lower cervical spine. Elevatedright hemidiaphragm. IMPRESSION: Chest CT:*Consolidative opacity and volume loss in the right lower lobe likely represents atelectasis. Superimposed pneumonia/aspiration cannot be excluded.*2.3 cm right thyroid nodule. Nonemergent thyroid ultrasound is recommended for further evaluation. Abdomen and pelvis CT:*Right renal findings are suggestive of pyelonephritis/pyelitis. No fluid collection.*Nonobstructive calculi in both kidneys. Signed: Jef Rondon MDReport Verified Date/Time: 08/23/2019 16:18:30 Reading Location: [facility] C013 CT Body [facility] MET[facility]OLIC [id number] 05:24:00 Test Item Value Reference Range Interpretation Comments SODIUM (BEAKER) 133 meq/L 136-145 L (test code = 381) POTASSIUM (BEAKER) 3.2 meq/L 3.5-5.1 L (test code = 379) CHLORIDE (BEAKER) 101 meq/L 98-107 (test code = 382) CO2 (BEAKER) (test 20 meq/L 22-29 L code = 355) BLOOD UREA NITROGEN 22 mg/dL 7-21 H (BEAKER) (test code = 354) CREATININE (BEAKER) 0.91 mg/dL 0.57-1.25 (test code = 358) GLUCOSE RANDOM 93 mg/dL 70-105 (BEAKER) (test code = 652) CALCIUM (BEAKER) 8.4 mg/dL 8.4-10.2 (test code = 697) EGFR (BEAKER) (test 64 mL/min/1.73 ESTIMA NIKOS GFR IS code = 1092) sq m NOT ACCURATE CREATININE CLEARANCE IN PREDICTING GLOMERULAR FILTRATION RATE . ESTIMATED GFR I S NOT APPLICABLE FOR DIALYSIS PATIEN TS. Leather Finisher ID - RICHELLE WPT/[id number] 04:23:00 Test Item Value Reference Range Interpretation Comments PROTIME (BEAKER) (test code = 15.5 seconds 11.9-14.2 H 759) INR (BEAKER) (test code = 370) 1.3 <=5.9 PARTIAL THROMBOPLASTIN TIME 32.3 seconds 22.5-36.0 (BEAKER) (test code = 760) Effective 10/10/2018: PT Reference Range ChangeNew: 11.9-14.2 Previous: 11.7- 14.7RECOMMENDED COUMADIN/WARFARIN INR THERAPY RANGESSTANDARD DOSE: 2.0-3.0 Includes: PROPHYLAXIS for venous thrombosis, systemic embolization; TREATMENT for venous thrombosis and/or pulmonary embolus.HIGH RISK: Target INR is2.5-3.5 for patients wiht mechanical heart valves.CBC (HEMOGRAM ONLY)2019-08-23 04:10:00 Test Item Value Reference Range Interpretation Comments WHITE BLOOD CELL COUNT (BEAKER) 12.1 K/ L 3.5-10.5 H (test code = 775) RED BLOOD CELL COUNT (BEAKER) 3.87 M/ L 3.93-5.22 L (test code = 761) HEMOGLOBIN (BEAKER) (test code = 11.7 GM/DL 11.2-15.7 410) HEMATOCRIT (BEAKER) (test code = 34.4 % 34.1-44.9 411) MEAN CORPUSCULAR VOLUME (BEAKER) 88.9 fL 79.4-94.8 (test code = 753) MEAN CORPUSCULAR HEMOGLOBIN 30.2 pg 25.6-32.2 (BEAKER) (test code = 751) MEAN CORPUSCULAR HEMOGLOBIN CONC 34.0 GM/DL 32.2-35.5 (BEAKER) (test code = 752) RED CELL DISTRIBUTION WIDTH 13.2 % 11.7-14.4 (BEAKER) (test code = 412) PLATELET COUNT (BEAKER) (test 110 K/CU MM 150-450 L code = 756) MEAN PLATELET VOLUME (BEAKER) 11.3 fL 9.4-12.3 (test code = 754) NUCLEATED RED BLOOD CELLS 0 /100 WBC 0-0 (BEAKER) (test code = 413) POC-Blood gases, [id number] 18:24:00 Test Item Value Reference Range Interpretation Comments Temp. Celsius-POC (test code = 1834) FIO2-POC (test code = 1835) pH, Arterial-POC (test 7.475 7.350-7.450 H code = 1836) PCO2, Arterial-POC 25.3 See_Comment L [Automat ed message] (test code = 1837) The syste m which generated this result transmit nikos reference range : 35.0 - 45.0 mm Hg. The reference r blanca was not used to interpret this result as normal/abnormal . PO2, Arterial-POC (test 137.0 See_Comment H [Au tomated message] code = 1838) The system [employer] h generated this result transmit nikos reference range : 80.0 - 90.0 mm Hg. The reference r blanca was not used to interpret this result as normal/abnormal . SO2, Arterial-POC (test 99.0 % 96-97 H code = 1839) HCO3, Arterilal-POC 18.6 meq/L 21-29 L (test code = 1840) BE, Arterial-POC (test -5.0 meq/L -2-3 L : LAUREL NIKOS AT [facility] code = 1841) [address] [place] [address], [address]: Leather Finisher/Techni gavi ID = [id number] for MATILDE BROWN Lab Interpretation Abnormal (test code = 65998-3) [facility]-Calcium [id number] 18:24:00 Test Item Value Reference Range Interpretation Comments POC-Calcium Ionized 1.19 mmol/L 1.12-1.27 : TESTED AT [facility] (test code = 1536) [address] [place] [address], [address]: Leather Finisher/Techni james n ID = [id number] or MATILDE BROWN Lab Interpretation (test Normal code = 17108-5) [facility]-[id number] 18:24:00 Test Item Value Reference Range Interpretation Comments POC-Potassium (test code 3.2 meq/L 3.6-5.5 L : T ESTED AT [facility] = 1540) [address] [place] [address], [address]: Leather Finisher/Techni gavi ID = [id number] for ARBIS, MATILDE Lab Interpretation (test Abnormal code = 28790-7) [facility]-[id number] 18:24:00 Test Item Value Reference Range Interpretation Comments POC-Sodium (test code = 127 meq/L 135-148 L : TE STED AT [facility] 1542) [address] [facility], [address]: Leather Finisher/Techni gavi ID = [id number] for ARBIS, MATILDE Lab Interpretation (test Abnormal code = 97145-4) [facility]-[id number] 18:24:00 Test Item Value Reference Range Interpretation Comments POC-Glucose (test code = 144 mg/dL 70-110 H : T ESTED AT [facility] 1855) [address] [facility], [address]: Leather Finisher/Techni gavi ID = [id number] for ARBIS, MATILDE Lab Interpretation (test Abnormal code = 68990-0) [facility]-[id number] 18:24:00 Test Item Value Reference Range Interpretation Comments POC-Hemoglobin (test code 11.6 g/dL 12-15 L : TESTED AT [facility] = 1856) [address] [facility], [address]: Leather Finisher/Techni gavi ID = [id number] for ARBIS, MATILDE Lab Interpretation (test Abnormal code = 26506-0) [facility]-[id number] 18:24:00 Test Item Value Reference Range Interpretation Comments POC-Hematocrit (test code 34 % 36-45 L : = 1857) Leather Finisher/Techni gavi ID = [id number] for ARBIS, MATILDE Lab Interpretation (test Abnormal code = 77937-2) [facility]-BLOOD GASES, [id number] 18:24:00 Test Item Value Reference Range Interpretation Comments TEMP, CELSIUS-POC (BEAKER) (test code = 1834) FIO2-POC (BEAKER) (test code = 1835) PH, ARTERIAL-POC 7.475 7.350-7.450 H (BEAKER) (test code = 1836) PCO2, ARTERIAL-POC 25.3 mm Hg 35.0-45.0 L (BEAKER) (test code = 1837) PO2, ARTERIAL-POC 137.0 mm Hg 80.0-90.0 H (AKER) (test code = 1838) SO2, ARTERIAL-POC 99.0 % 96.0-97.0 H ([facility]) (test code = 1839) HCO3, ARTERIAL-POC 18.6 meq/L 21.0-29.0 L (AKER) (test code = 1840) BASE EXCESS, -5.0 meq/L -2.0-3.0 L : TESTED AT [place] [address] ARTERIAL-POC [facility], (BEAKER) (test code [address]: = 1841) Leather Finisher/Techni gavi ID = [id number] for AR BISMATILDE [id number]-[id number] 18:24:00 Test Item Value Reference Range Interpretation Comments POC-SODIUM ([facility]) 127 meq/L 135-148 L : TESTED AT [place] [address] (test code = 1542) [facility] [place], [address]: Leather Finisher/Techni gavi ID = [id number] for ARBI SJACQUELYNMA [id number] 18:24:00 Test Item Value Reference Range Interpretation Comments POC-POTASSIUM 3.2 meq/L 3.6-5.5 L : TESTED AT [place] [address] ([facility]) (test code [facility], = 1540) [address]: Leather Finisher/Techni gavi ID = [id number] for ARBI SJACQUELYNMA [id number] 18:24:00 Test Item Value Reference Range Interpretation Comments POC-HEMOGLOBIN 11.6 g/dL 12.0-15.0 L : TESTED AT [place] [address] ([facility]) (test code [facility], = 1856) [address]: Leather Finisher/Techni gavi ID = [id number] for ARBI S, MATILDE [id number] 18:24:00 Test Item Value Reference Range Interpretation Comments POC-HEMATOCRIT 34 % 36-45 L : Leather Finisher/Te chnician ID = ([facility]) (test code = 456673 for MATILDE BROWN 185) POCT-CALCIUM [id number] 18:24:00 Test Item Value Reference Range Interpretation Comments POC-CALCIUM IONIZED 1.19 mmol/L 1.12-1.27 : TESTED AT [facility] (BEAKER) (test code = [address]) [place], [address]: Leather Finisher/Techni gavi ID = [id number] for MATILDE BROWN [id number] 18:24:00 Test Item Value Reference Range Interpretation Comments POC-GLUCOSE (BEAKER) 144 mg/dL 70-110 H : TESTE D AT [facility] [address] (test code = 1855) [place], [address]: Leather Finisher/Techni gavi ID = [id number] for MATILDE SARABIA Blood gas, [id number] 16:53:00 Test Item Value Reference Range Interpretation Comments pH, Arterial (test code 7.31 7.35-7.45 L = 2744-1) pCO2, Arterial (test 44 See_Comment [Autom ated code = 2019-8) message] The system which generated this result transmitted reference range : 35 - 45 mmHg. The reference range was not used to interpret this result as normal/abnormal . pO2, Arterial (test 34 See_Comment LL [Automa nikos code = 2703-7) message] The system which generated this result transmitted reference range : 80 - 90 mmHg. The reference range was not used to interpret this result as normal/abnormal . O2 Sat, Arterial (test 61.2 % 96-97 L code = 2708-6) HCO3, Arterial (test 22 mmol/L 21-29 code = 1960-4) Base Excess, Arterial -4.5 mmol/L -2-3 L (test code = 1925-7) Patient Temperature 36.4 C (test code = 8310-5) FIO2 (test code = 1819) 32 % Lab Interpretation Abnormal (test code = 52669-6) [facility] [id number] 16:53:00 Test Item Value Reference Range Interpretation Comments PH ARTERIAL (BEAKER) (test code = 7.31 7.35-7.45 L 383) PCO2 ARTERIAL (BEAKER) (test code 44 mmHg 35-45 = 384) PO2 ARTERIAL (BEAKER) (test code 34 mmHg 80-90 LL = 385) O2 SATURATION ARTERIAL (BEAKER) 61.2 % 96.0-97.0 L (test code = 386) HCO3 ARTERIAL (BEAKER) (test code 22 mmol/L 21-29 = 388) BASE EXCESS ARTERIAL (BEAKER) -4.5 mmol/L -2.0-3.0 L (test code = 387) PATIENT TEMPERATURE (BEAKER) 36.4 C (test code = 1818) FIO2 (BEAKER) (test code = 1819) 32.0 % Blood Culture Panel(Papriika)2019-08-22 16:02:00 Test Item Value Reference Interpretation Comments Range LISTERIA Not detected Not detected MONOCYTOGENES (test code = 88262-6) STAPHYLOCOCCUS (test Not detected Not detected code = 73789-4) STAPHYLOCOCCUS AUREUS Not detected Not detected (test code = 21630-1) Streptococcus (test Not detected Not detected code = 02463-1) STREPTOCOCCUS Not detected Not detected AGALACTIAE (GROUP B) (test code = 88838-9) STREPTOCOCCUS Not detected Not detected PNEUMONIAE (test code = 65566-0) Streptococcus Not detected Not detected pyogenes (Group A) (test code = 99960-7) ACINETOBACTER Not detected Not detected BAUMANNII (test code = 08491-3) HAEMOPHILUS Not detected Not detected INFLUENZAE (test code = 55905-6) NEISSERIA Not detected Not detected MENINGITIDIS (test code = 66004-2) ENTEROBACTERIACEAE Detected Not detected A (test code = 43824-7) ENTEROBACTER CLOACOE Not detected Not detected COMPLEX (test code = 87972-5) KLEBSIELLA OXYTOCA Not detected Not detected (test code = 31627-2) KLEBSIELLA PNEUMONIAE Detected Not detected A Klebsi kamila (test code = 78189-9) pneumo niaeKPC not detected (a carbapenamase gene)First-line therapy: Merope nem. De-escalate bas ed on susceptibilitie sThis test does not e valuate for ESBLReferen ce Range: Not Dete cted PROTEUS (test code = Not detected Not detected 16113-6) SERRATIA MARCESCENS Not detected Not detected (test code = 14136-0) PARAM ALBICANS Not detected Not detected (test code = 03585-5) PARAM GLABRATA Not detected Not detected (test code = 45779-1) PARAM KRUSEI (test Not detected Not detected code = 35194-3) PARAM PARAPSILOSIS Not detected Not detected (test code = 38152-6) PARAM TROPICALIS Not detected Not detected (test code = 00618-9) ESCHERICHIA COLI Not detected Not detected (test code = 49841-3) METHICILLIN-RESISTANC E GENE (test code = 93957-7) VANCOMYCIN-RESISTANCE GENE (test code = 29930-7) CARBAPENEM-RESISTANCE Not detected Not detected GENE (test code = 71945-4) ENTEROCOCCUS (test Not detected Not detected code = 52866-9) PSEUDOMONAS Not detected Not detected AERUGINOSA (test code = 43109-8) NITIN (test code = NITIN) Other bacteria and resistance markers not targeted by this PCR panel cannot be excluded; therefore clinical correlation and follow up of serology, culture results, and other molecular studies is required. The results are not intended to be used as the sole means for clinical diagnosis or patient management decisions. This sample was tested at the [facility] Molecular Diagnostics Laboratory using the Awesome[employer]iece Blood Culture ID Panel. It is FDA cleared and has been verified and approved by the [facility] Molecular Diagnostics [facility] for clinical use. This laboratory is CLIA-certified and [employer] (CAP)-accredite d to perform high complexity testing. Lab Interpretation Abnormal (test code = 64822-2) [facility] [id number] 16:02:00 Test Item Value Reference Interpretation Comments Range LISTERIA MONOCYTOGENES Not detected Not detected (test code = 9997928) STAPHYLOCOCCUS (test Not detected Not detected code = 8889640) STAPHYLOCOCCUS AUREUS Not detected Not detected (test code = 5779501) STREPTOCOCCUS (test Not detected Not detected code = 9085527) STREPTOCOCCUS Not detected Not detected AGALACTIAE (GROUP B) (test code = 1873333) STREPTOCOCCUS Not detected Not detected PNEUMONIAE (test code = 3565219) STREPTOCOCCUS PYOGENES Not detected Not detected (GROUP A) (test code = 6150287) ACINETOBACTER Not detected Not detected BAUMANNII (test code = 0681274) HAEMOPHILUS INFLUENZAE Not detected Not detected (test code = 4802257) NEISSERIA MENINGITIDIS Not detected Not detected (test code = 3973327) ENTEROBACTERIACEAE Detected Not detected A (test code = 0762116) ENTEROBACTER CLOACOE Not detected Not detected COMPLEX (test code = 0596656) KLEBSIELLA OXYTOCA Not detected Not detected (test code = 6727632) KLEBSIELLA PNEUMONIAE Detected Not detected A Klebsi kamila (test code = 1650) pneumonia eKPC not detected (a carbapenamase gene)First-line therapy: Merope nem. De-escalate bas ed on susceptibilitie sThis test does not e valuate for ESBLReferen ce Range: Not Dete cted PROTEUS (test code = Not detected Not detected 5518500) SERRATIA MARCESCENS Not detected Not detected (test code = 4156647) PARAM ALBICANS (test Not detected Not detected code = 3491869) PARAM GLABRATA (test Not detected Not detected code = 7419632) PARAM KRUSEI (test Not detected Not detected code = 8080004) PARAM PARAPSILOSIS Not detected Not detected (test code = 2953371) PARAM TROPICALIS Not detected Not detected (test code = 1913141) ESCHERICHIA COLI (test Not detected Not detected code = 8541020) METHICILLIN-RESISTANCE GENE (test code = 4288625) VANCOMYCIN-RESISTANCE GENE (test code = 4080636) CARBAPENEM-RESISTANCE Not detected Not detected GENE (test code = 2063689) ENTEROCOCCUS-BEAKER Not detected Not detected (test code = 0267608) PSEUDOMONAS Not detected Not detected AERUGINOSA-BEAKER (test code = 2820024) Other bacteria and resistance markers not targeted by this PCR panel cannot be excluded; therefore clinical correlation and follow up of serology, culture results, and other molecular studies is required. The results are not intended to be used as the sole means for clinical diagnosis or patient management decisions. This sample was tested at the [facility] Molecular Diagnostics Laboratory using the [employer] Blood Culture ID Panel. It is FDA cleared and has been verified and approved by the [facility] Molecular Diagnostics Laboratory for clinical use. This laboratory is CLIA-certified and College ofAmerican [employer]ologists (CAP)-accredited to perform high complexity testing.BASIC METABOLIC [id number] 04:07:00 Test Item Value Reference Range Interpretation Comments SODIUM (BEAKER) 137 meq/L 136-145 (test code = 381) POTASSIUM (BEAKER) 3.6 meq/L 3.5-5.1 (test code = 379) CHLORIDE (BEAKER) 109 meq/L 98-107 H (test code = 382) CO2 (BEAKER) (test 16 meq/L 22-29 L code = 355) BLOOD UREA NITROGEN 38 mg/dL 7-21 H (BEAKER) (test code = 354) CREATININE (BEAKER) 1.51 mg/dL 0.57-1.25 H (test code = 358) GLUCOSE RANDOM 96 mg/dL 70-105 (BEAKER) (test code = 652) CALCIUM (BEAKER) 8.5 mg/dL 8.4-10.2 (test code = 697) EGFR (BEAKER) (test 36 mL/min/1.73 ESTIMA NIKOS GFR IS code = 1092) sq m NOT ACCURATE CREATININE CLEARANCE IN PREDICTING GLOMERULAR FILTRATION RATE . ESTIMATED GFR I S NOT APPLICABLE FOR DIALYSIS PATIEN TS. Leather Finisher ID - PIAYA LPT/[id number] 03:33:00 Test Item Value Reference Range Interpretation Comments PROTIME (BEAKER) (test code = 16.9 seconds 11.9-14.2 H 759) INR (BEAKER) (test code = 370) 1.4 <=5.9 PARTIAL THROMBOPLASTIN TIME 31.2 seconds 22.5-36.0 (BEAKER) (test code = 760) Effective 10/10/2018: PT Reference Range ChangeNew: 11.9-14.2 Previous: 11.7- 14.7RECOMMENDED COUMADIN/WARFARIN INR THERAPY RANGESSTANDARD DOSE: 2.0-3.0 Includes: PROPHYLAXIS for venous thrombosis, systemic embolization; TREATMENT for venous thrombosis and/or pulmonary embolus.HIGH RISK: Target INR is2.5-3.5 for patients wiht mechanical heart valves.URINALYSIS W/ REFLEX URINE CULTURE 2019-08-22 02:32:00 Test Item Value Reference Range Interpretation Comments COLOR (BEAKER) (test code = 470) Yellow CLARITY (BEAKER) (test code = 469) Hazy SPECIFIC GRAVITY UA (BEAKER) (test 1.017 1.001-1.035 code = 468) PH UA (BEAKER) (test code = 467) 6.0 5.0-8.0 PROTEIN UA (BEAKER) (test code = 200 mg/dL Negative A 464) GLUCOSE UA (BEAKER) (test code = Negative Negative 365) KETONES UA (BEAKER) (test code = Negative Negative 371) BILIRUBIN UA (BEAKER) (test code = Negative Negative 462) BLOOD UA (BEAKER) (test code = 461) Moderate Negative A NITRITE UA (BEAKER) (test code = Positive Negative A 465) LEUKOCYTE ESTERASE UA (BEAKER) Large Negative A (test code = 466) UROBILINOGEN UA (BEAKER) (test code 0.2 mg/dL 0.2-1.0 = 463) RBC UA (BEAKER) (test code = 519) 28 /HPF WBC UA (BEAKER) (test code = 520) 22 /HPF BACTERIA (BEAKER) (test code = 517) Moderate MUCUS (BEAKER) (test code = 1574) Rare SQUAMOUS EPITHELIAL (BEAKER) (test 2 /HPF code = 516) HYALINE CASTS (BEAKER) (test code = 1 /LPF 514) GRANULAR CASTS (BEAKER) (test code 3 /LPF = 515) SOURCE(BEAKER) (test code = 2795) Leather Finisher ID - [auto]Leather Finisher ID - techCreatinine, random [id number] 01:49:00 Test Item Value Reference Range Interpretation Comments Creatinine, Ur 68.9 mg/dL (test code = 2161-8) NITIN (test code = Reference Range: No NITIN) NormalsOperator ID - LORRI L [facility] [id number] 01:49:00 Test Item Value Reference Range Interpretation Comments Sodium Urine (test 33 meq/L code = 2955-3) NITIN (test code = Reference Range: No NITIN) NormalsOperator ID - LORRI L [facility] [id number] 01:49:00 Test Item Value Reference Range Interpretation Comments CREATININE URINE (BEAKER) (test 68.9 mg/dL code = 375) Reference Range: No NormalsOperator ID - PIAYA LSODIUM, RANDOM [id number] 01:49:00 Test Item Value Reference Range Interpretation Comments SODIUM URINE (BEAKER) (test code = 33 meq/L 243) Reference Range: No NormalsOperator ID - PIAYA LCBC with platelet count + automated [id number] 01:32:00 Test Item Value Reference Range Interpretation Comments WBC (test code = 6690-2) 15.6 See_Comment H [A utomated message] The system [employer] generated this result transmitted ref erence range: 3.5 - 10 .5 K/L. The refe rence range was not u sed to interpret this result as normal/abnor mal. RBC (test code = 789-8) 4.53 See_Comment [Au tomated message] The system [employer] generated this result transmitted ref erence range: 3.93 - 5 .22 M/L. The refe rence range was not u sed to interpret this result as normal/abnor mal. MCHC (test code = 786-4) 32.9 See_Comment [A utomated message] The system [employer] generated this result transmitted ref erence range: 32.2 - 3 5.5 GM/DL. The refe rence range was not u sed to interpret this result as normal/abnor mal. Hematocrit (test code = 39.8 % 34.1-44.9 4544-3) MCV (test code = 787-2) 87.9 fL 79.4-94.8 MCH (test code = 785-6) 28.9 pg 25.6-32.2 RDW (test code = 788-0) 13.2 % 11.7-14.4 Platelets (test code = 138 See_Comment L [Aut omated message] 777-3) The system [employer] generated this result transmitted ref erence range: 150 - 45 0 K/CU MM. The referen ce range was not u sed to interpret this result as normal/abnor mal. MPV (test code = 10.7 fL 9.4-12.3 74301-4) nRBC (test code = 413) 0 See_Comment [Aut omated message] The system [employer] generated this result transmitted ref erence range: 0 - 0 /1 00 WBC. The refere nce range was not u sed to interpret this result as normal/abnor mal. Lab Interpretation (test Abnormal code = 26857-5) [facility] [id number] 01:32:00 Test Item Value Reference Range Interpretation Comments % Neutros (test code = 59 % 2816) % Lymphs (test code = 6 % 7) % Monos (test code = 12 % 8) % Metamyelo (test code = 4 % 0-0 H 2820) % Bands (test code = 18 % 0-10 H 6) % Atypical Lymphs (test 1 % 0-0 H code = 2829) # Neutros (test code = 9.20 K/ul 1.56-6.13 H 2830) # Lymphs (test code = 0.94 K/ul 1.18-3.74 L 2831) # Monos (test code = 1.87 K/uL 0.24-0.36 H 2832) # Metamyelo (test code = 0.62 K/uL 0-0 H 2836) # Bands (test code = 2.81 K/uL 0-0.8 H 2840) # Atypical Lymphs (test 0.16 K/uL 0-0 H code = 2858) Total Counted (test code 100 = 1351) Smudge Cells (test code = Present 1371) Giant Platelet (test code Present = 313) Polychromasia (test code 1+ few = 478) Poikilocytes (test code = 2+ moderate 966) Platelet Conc (test code Adequate = 3438) NITIN (test code = NITIN) Leather Finisher ID - [id number] ID - Bailee Prabhu comments: Slide comments: Lab Interpretation (test Abnormal code = 31886-8) [facility] W/PLT COUNT & AUTO [id number] 01:32:00 Test Item Value Reference Range Interpretation Comments WHITE BLOOD CELL COUNT (BEAKER) 15.6 K/ L 3.5-10.5 H (test code = 775) RED BLOOD CELL COUNT (BEAKER) 4.53 M/ L 3.93-5.22 (test code = 761) HEMOGLOBIN (BEAKER) (test code = 13.1 GM/DL 11.2-15.7 410) HEMATOCRIT (BEAKER) (test code = 39.8 % 34.1-44.9 411) MEAN CORPUSCULAR VOLUME (BEAKER) 87.9 fL 79.4-94.8 (test code = 753) MEAN CORPUSCULAR HEMOGLOBIN 28.9 pg 25.6-32.2 (BEAKER) (test code = 751) MEAN CORPUSCULAR HEMOGLOBIN CONC 32.9 GM/DL 32.2-35.5 (BEAKER) (test code = 752) RED CELL DISTRIBUTION WIDTH 13.2 % 11.7-14.4 (BEAKER) (test code = 412) PLATELET COUNT (BEAKER) (test 138 K/CU MM 150-450 L code = 756) MEAN PLATELET VOLUME (BEAKER) 10.7 fL 9.4-12.3 (test code = 754) NUCLEATED RED BLOOD CELLS 0 /100 WBC 0-0 (BEAKER) (test code = 413) (CELLAVISION MANUAL DIFF)2019-08-22 01:32:00 Test Item Value Reference Range Interpretation Comments NEUTROPHILS - REL 59 % (CELLAVISION)(BEAKER) (test code = 2816) LYMPHOCYTES - REL 6 % (CELLAVISION)(BEAKER) (test code = 2817) MONOCYTES - REL 12 % (CELLAVISION)(BEAKER) (test code = 2818) METAMYELOCYTES - REL 4 % 0-0 H (CELLAVISION)(BEAKER) (test code = 2821) BANDS - REL (CELLAVISION)(BEAKER) 18 % 0-10 H (test code = 2826) ATYPICAL LYMPHOCYTES - REL 1 % 0-0 H (CELLAVISION)(BEAKER) (test code = 2829) NEUTROPHILS - ABS 9.20 K/ul 1.56-6.13 H (CELLAVISION)(BEAKER) (test code = 2830) LYMPHOCYTES - ABS 0.94 K/ul 1.18-3.74 L (CELLAVISION)(BEAKER) (test code = 2831) MONOCYTES - ABS 1.87 K/uL 0.24-0.36 H (CELLAVISION)(BEAKER) (test code = 2832) METAMYELOCYTES - ABS 0.62 K/uL 0.00-0.00 H (CELLAVISION)(BEAKER) (test code = 2836) BANDS - ABS (CELLAVISION)(BEAKER) 2.81 K/uL 0.00-0.80 H (test code = 2840) ATYPICAL LYMPHOCYTES - ABS 0.16 K/uL 0.00-0.00 H (CELLAVISION)(BEAKER) (test code = 2858) TOTAL COUNTED (BEAKER) (test code 100 = 1351) SMUDGE CELLS (BEAKER) (test code Present = 1371) GIANT PLATELETS (BEAKER) (test Present code = 313) POLYCHROMATOPHILLIC RBCS(BEAKER) 1+ few (test code = 478) POIKILOCYTES (BEAKER) (test code 2+ moderate = 966) PLATELET CONCENTRATION Adequate (CELLAVISION)(BEAKER) (test code = 3438) Leather Finisher ID - [id number] ID - Bailee Pelletier comments: Slide comments:Lactic acid, [id number] 00:17:00 Test Item Value Reference Range Interpretation Comments Lactate, Venous (test code 1.69 mmol/L 0.5-2.2 = 2872) NITIN (test code = NITIN) Leather Finisher ID - LORRI L Lab Interpretation (test Normal code = 05333-6) [facility] Hospital[facility]CT[facility], [id number] 00:17:00 Test Item Value Reference Range Interpretation Comments LACTATE BLOOD VENOUS (2) (BEAKER) 1.69 mmol/L 0.50-2.20 (test code = 2872) Leather Finisher ID - LORRI LBASIC METABOLIC [id number] 22:01:00 Test Item Value Reference Range Interpretation Comments SODIUM (BEAKER) 135 meq/L 136-145 L (test code = 381) POTASSIUM (BEAKER) 3.8 meq/L 3.5-5.1 Specimen moderately (test code = 379) hemolyzed CHLORIDE (BEAKER) 107 meq/L 98-107 (test code = 382) CO2 (BEAKER) (test 17 meq/L 22-29 L code = 355) BLOOD UREA NITROGEN 39 mg/dL 7-21 H (BEAKER) (test code = 354) CREATININE (BEAKER) 1.62 mg/dL 0.57-1.25 H Specimen moderately (test code = 358) hemolyzed GLUCOSE RANDOM 93 mg/dL 70-105 (BEAKER) (test code = 652) CALCIUM (BEAKER) 8.1 mg/dL 8.4-10.2 L (test code = 697) EGFR (BEAKER) (test 33 mL/min/1.73 ESTIMA NIKOS GFR IS code = 1092) sq m NOT ACCURATE CREATININE CLEARANCE IN PREDICTING GLOMERULAR FILTRATION RATE . ESTIMATED GFR I S NOT APPLICABLE FOR DIALYSIS PATIEN TS. Leather Finisher ID - BSLACTIC ACID, [id number] 21:57:00 Test Item Value Reference Range Interpretation Comments LACTATE BLOOD VENOUS 1.84 mmol/L 0.50-2.20 Specime n slightly (2) (BEAKER) (test hemolyzed code = 2872) Leather Finisher ID - BS
[2020-08-03] MEDS ORDERED: HYDROCODONE/CHLORPHEN 5 ML/OSYR ONE (22:38)
[2020-08-03] MEDS ORDERED: predniSONE 20 MG TAB ONE (22:38)
[2020-08-03] MEDS ORDERED: LEVALBUTEROL 1.25 MG/3 ML NEB ONE (22:38)
[2020-08-03 23:45] LABS: Absolute Lymphocytes (CBC) 1.3 K/uL (0.7-4.9); Basophils % 0.5 % (0-1.3); Hematocrit 42.3 % (36.0-45.0); Lymphocytes % 24.8 % (15.3-44.8); Protime INR 0.98; RBC Red Blood Cell Count 4.89 M/uL (3.86-4.86)
[2020-08-03 23:52] LABS: SARS-COV-2 RT PCR POSITIVE (NEGATIVE)
[2020-08-03 23:58] LABS: Albumin 3.4 g/dL (3.4-5.0); Bilirubin Direct 0.1 mg/dL (0-0.2); Bilirubin Total 0.2 mg/dL (0.2-1.0); Potassium 3.3 mmol/L (3.5-5.1); Protein, Total 7.2 g/dL (6.4-8.2); Troponin (Emerg Dept Use Only) 0.03 ng/mL (0.0-0.045)
--- NOTE | 2020-08-04 00:49 | EDPHYS ---
Physician Documentation [facility] Name: Sena Ricardo Age: 55 yrs Sex: Female : 1965 Arrival Date: 08/03/2020 Time: 18:57 Bed 3 Private MD: Dominguez Ponce E ED Physician Ravi Serna HPI: 08/03 21:47 This 55 yrs old Female presents to ER via Ambulatory with complaints of pm1 Breathing Difficulty. 21:47 The patient has shortness of breath at rest. Onset: The symptoms/episode began/occurred pm1 5 day(s) ago. The patient's shortness of breath is aggravated by nothing, is alleviated by nothing. Associated signs and symptoms: Pertinent positives: productive cough, wheezing, bodyaches, Pertinent negatives: chest pain, fever, vomiting, diarrhea. Severity of symptoms: in the emergency department the symptoms are unchanged. similar to prior flu symptoms. The patient has not recently seen a physician, the patient's primary care provider is Dr. Ponce. Historical: - Allergies: 19:13 No Known Allergies; ll1 - PMHx: 19:13 fluid on body; ll1 - PSHx: 19:13 Hysterectomy; ll1 - Immunization history:: Flu vaccine is not up to date. - Social history:: Smoking status: Patient reports the use of cigarette tobacco products, smokes one pack cigarettes per day. ROS: 21:47 ENT: Negative for injury, pain, and discharge, Cardiovascular: Negative for chest pain, pm1 palpitations, and edema. 21:47 Abdomen/GI: Negative for abdominal pain, nausea, vomiting, diarrhea, and constipation, Back: Negative for injury and pain, MS/Extremity: Negative for injury and deformity, Skin: Negative for injury, rash, and discoloration, Neuro: Negative for headache, weakness, numbness, tingling, and seizure. 21:47 Constitutional: Positive for body aches, Negative for fever, poor PO intake. 21:47 Respiratory: Positive for cough, "sounds productive", shortness of breath, wheezing. Exam: 21:47 Constitutional: This is a well developed, well nourished patient who is awake, alert, pm1 and in no acute distress. Head/Face: Normocephalic, atraumatic. 21:47 Back: No spinal tenderness. No costovertebral tenderness. Full range of motion. Skin: Warm, dry with normal turgor. Normal color with no rashes, no lesions, and no evidence of cellulitis. MS/ Extremity: Pulses equal, no cyanosis. Neurovascular intact. Full, normal range of motion. 21:47 Cardiovascular: Exam negative for acute changes, Rate: normal, Rhythm: regular, Pulses: no pulse deficits are appreciated, Edema: pedal edema, that is very mild. 21:47 Respiratory: the patient does not display signs of respiratory distress, Breath sounds: bronchial sounds, that are mild, decreased breath sounds, are not appreciated, wheezing: expiratory that is mild. 21:47 Abdomen/GI: Exam negative for acute changes, Inspection: abdomen appears normal, Palpation: abdomen is soft and non-tender, in all quadrants. 21:47 Neuro: Exam negative for acute changes, Orientation: is normal, Mentation: is normal, Motor: is normal, moves all fours. Vital Signs: 19:08 BP 118 / 88; Pulse 110; Resp 18; Temp 99.3; Pulse Ox 95% on R/A; Weight 83.01 kg; ll1 Height 5 ft. 4 in. (162.56 cm); Pain 8/10; 23:41 BP 147 / 92; Pulse 99; Resp 20; Pulse Ox 98% ; mg2 08/04 00:21 BP 153 / 100; Pulse 95; Resp 20; Pulse Ox 95% on R/A; wh 01:00 BP 151 / 98; Pulse 90; Resp 18; Pulse Ox 95% on R/A; mg2 08/03 19:08 Body Mass Index 31.41 (83.01 kg, 162.56 cm) ll1 MDM: 08/03 21:40 Patient medically screened. pm1 08/04 00:48 Data reviewed: vital signs. Data interpreted: Pulse oximetry: on room air is 95 %. pm1 Interpretation: normal. Counseling: I had a detailed discussion with the patient and/or guardian regarding: the historical points, exam findings, and any diagnostic results supporting the discharge/admit diagnosis, lab results, radiology results, the need for outpatient follow up, to return to the emergency department if symptoms worsen or persist or if there are any questions or concerns that arise at home. 08/03 21:47 Order name: Basic Metabolic Panel pm1 08/03 21:47 Order name: CBC with Diff; Complete Time: 23:50 pm1 08/03 21:47 Order name: LFT's; Complete Time: 00:22 pm1 08/03 21:47 Order name: Magnesium; Complete Time: 00:22 pm1 08/03 21:47 Order name: NT PRO-BNP; Complete Time: 00:22 pm1 08/03 21:47 Order name: PT-INR; Complete Time: 23:53 pm1 08/03 21:47 Order name: Troponin (emerg Dept Use Only); Complete Time: 00:22 pm1 08/03 21:47 Order name: XRAY Chest (1 view) pm1 08/03 21:47 Order name: Strep; Complete Time: 23:09 pm1 08/03 21:48 Order name: Basic Metabolic Panel; Complete Time: 00:22 EDMS 08/03 23:02 Order name: Throat Culture EDMS 08/03 23:52 Order name: COVID-19/FLU A+B; Complete Time: 23:53 EDMS 08/03 21:47 Order name: EKG; Complete Time: 21:48 pm1 08/03 21:47 Order name: Cardiac monitoring; Complete Time: 22:17 pm1 08/03 21:47 Order name: EKG - Nurse/Tech; Complete Time: 22:17 pm1 08/03 21:47 Order name: IV Saline Lock; Complete Time: 22:17 pm1 08/03 21:47 Order name: Labs collected and sent; Complete Time: 22:17 pm1 08/03 21:47 Order name: O2 Per Protocol; Complete Time: 22:17 pm1 08/03 21:47 Order name: O2 Sat Monitoring; Complete Time: 22:17 pm1 08/03 21:47 Order name: Droplet/Contact Precautions; Complete Time: 22:17 pm1 08/03 22:43 Order name: Labs - recollect needed: all labs needed; Complete Time: 23:12 mw2 Administered Medications: 08/03 22:26 Drug: Xopenex (3) 1.25 mg Route: Inhalation; 08/04 00:58 Follow up: Response: No adverse reaction; Wheezing diminished 08/03 22:26 Drug: predniSONE 60 mg Route: PO; 08/04 00:58 Follow up: Response: No adverse reaction 08/03 22:26 Drug: Tussionex Pennkinetic ER (chlorpheniramine-hydrocodone) 5 ml Route: PO; 08/04 00:58 Follow up: Response: No adverse reaction; Pain is decreased; RASS: Alert and Calm (0) Disposition: 06:31 Co-signature as Attending Physician, Ravi Serna MD. ma2 Disposition: 08/04/20 00:49 Discharged to Home. Impression: Coronavirus infection, unspecified, Acute upper respiratory infection, unspecified. - Condition is Stable. - Discharge Instructions: Antibiotic Resistance, Upper Respiratory Infection, Adult, [id number], COVID-19. - Prescriptions for Prednisone 20 mg Oral Tablet - take 3 tablet by ORAL route once daily for 5 days; 15 tablet. Albuterol Sulfate 90 mcg/actuation - inhale 1-2 puff by INHALATION route every 4-6 hours; 1 Inhaler. Guaifenesin AC 10- 100 mg/5 mL Oral Liquid - take 10 milliliter by ORAL route every 4 hours As needed; 240 milliliter. - Medication Reconciliation Form, Thank You Letter, Antibiotic Education, Prescription Opioid Use form. - Follow up: Emergency Department; When: As needed; Reason: Worsening of condition. Follow up: Private Physician; When: 2 - 3 days; Reason: Recheck today's complaints, Continuance of care, Re-evaluation by your physician. - Problem is new. - Symptoms have improved. Signatures: Dispatcher [employer] EDWI Yazan Ocampo, JAMIR BANK SALES AND SERVICE MANAGER pm1 Hazel Young RN RN Ravi Serna MD MD mi2 Jessie Garcia 2 William Anders RN RN mg2 Michelle Hall RN RN ll1 Corrections: (The following items were deleted from the chart) 08/03 22:28 21:48 CORONAVIRUS+MR.LAB.BRZ ordered. EDWI EDWI 22:29 21:48 Influenza Screen (A \\T\\ B)+BA.LAB.BRZ ordered. EDWI EDWI 08/04 01:06 00:49 08/04/2020 00:49 Discharged to Home. Impression: Coronavirus infection, mg2 unspecified; Acute upper respiratory infection, unspecified. Condition is Stable. Forms are Medication Reconciliation Form, Thank You Letter, Antibiotic Education, Prescription Opioid Use. Follow up: Emergency Department; When: As needed; Reason: Worsening of condition. Follow up: Private Physician; When: 2 - 3 days; Reason: Recheck today's complaints, Continuance of care, Re-evaluation by your physician. Problem is new. Symptoms have improved. pm1
--- NOTE | 2020-08-04 00:49 | ER ---
Nurse's Notes [facility] Name: Sena Ricardo Age: 55 yrs Sex: Female : 1965 Arrival Date: 08/03/2020 Time: 18:57 Bed 3 Private MD: Dominguez Ponce E Diagnosis: Coronavirus infection, unspecified;Acute upper respiratory infection, unspecified Presentation: 08/03 19:08 Chief complaint: Patient states: SOB and cough for 5 days. No fever. States she thinks ll1 she has pneumonia again. Coronavirus screen: Client denies travel out of the [place] in the last 14 days. congestion, cough unrelated to allergies, difficulty breathing, fatigue, headache, muscle pain, runny nose, shortness of breath, Client presents with at least one sign or symptom that may indicate coronavirus-19. Standard/surgical mask placed on the client. Ebola Screen: Patient denies travel to an Ebola-affected area in the 21 days before illness onset. Risk Assessment: Do you want to hurt yourself or someone else? Patient reports no desire to harm self or others. Onset of symptoms was July 30, 2020. Initial Sepsis Screen: Does the patient meet any 2 criteria? HR > 90 bpm. No. Patient's initial sepsis screen is negative. Does the patient have a suspected source of infection? Yes: Productive cough/pneumonia. 19:08 Method Of Arrival: Ambulatory 1 19:08 Acuity: ANABELLA 3 ll1 Triage Assessment: 22:00 Respiratory: Onset: The symptoms/episode began/occurred gradually, the patient reports wh symptoms have resolved. Historical: - Allergies: 19:13 No Known Allergies; ll1 - PMHx: 19:13 fluid on body; ll1 - PSHx: 19:13 Hysterectomy; ll1 - Immunization history:: Flu vaccine is not up to date. - Social history:: Smoking status: Patient reports the use of cigarette tobacco products, smokes one pack cigarettes per day. Screenin:00 Abuse screen: Denies threats or abuse. Denies injuries from another. Nutritional wh screening: No deficits noted. Tuberculosis screening: No symptoms or risk factors identified. Fall Risk None identified. Assessment: 21:50 General: Appears in no apparent distress. Behavior is calm, cooperative, appropriate wh for age. Pain: Complains of pain in generalized pain all over. Neuro: Level of Consciousness is awake, alert, obeys commands, Oriented to person, place, time, situation, Appropriate for age. Cardiovascular: Heart tones S1 S2 Rhythm is regular. Respiratory: Reports shortness of breath cough that is Airway is patent Respiratory effort is even, unlabored, Respiratory pattern is regular, symmetrical, Breath sounds with wheezes. GI: Abdomen is flat, non-distended. : No signs and/or symptoms were reported regarding the genitourinary system. EENT: No signs and/or symptoms were reported regarding the EENT system. Derm: Skin is intact, is healthy with good turgor, Skin is pink, warm \T\ dry. normal. Musculoskeletal: Circulation, motion, and sensation intact. 23:11 General: updates given to Therese ( cousin) [phone]. mg2 23:41 Reassessment: Patient appears in no apparent distress at this time. Patient and/or wh family updated on plan of care and expected duration. Pain level reassessed. Patient is alert, oriented x 3, equal unlabored respirations, skin warm/dry/pink. Patient states feeling better. Patient states symptoms have improved. 08/04 00:20 Reassessment: Patient appears in no apparent distress at this time. Patient and/or wh family updated on plan of care and expected duration. Pain level reassessed. Patient is alert, oriented x 3, equal unlabored respirations, skin warm/dry/pink. Vital Signs: 08/03 19:08 BP 118 / 88; Pulse 110; Resp 18; Temp 99.3; Pulse Ox 95% on R/A; Weight 83.01 kg; ll1 Height 5 ft. 4 in. (162.56 cm); Pain 8/10; 23:41 BP 147 / 92; Pulse 99; Resp 20; Pulse Ox 98% ; mg2 08/04 00:21 BP 153 / 100; Pulse 95; Resp 20; Pulse Ox 95% on R/A; wh 01:00 BP 151 / 98; Pulse 90; Resp 18; Pulse Ox 95% on R/A; mg2 08/03 19:08 Body Mass Index 31.41 (83.01 kg, 162.56 cm) ll1 ED Course: 08/03 18:57 Patient arrived in ED. mr 18:58 Dominguez Ponce MD is Private Physician. mr 19:11 Triage completed. ll1 19:13 Arm band placed on. ll1 21:40 Yazan Ocampo NP is PHCP. pm1 21:40 Ravi Serna MD is Attending Physician. pm1 21:47 Hazel Young, RN is Primary Nurse. wh 22:00 Patient has correct armband on for positive identification. Placed in gown. Bed in low wh position. Call light in reach. Side rails up X 1. payment rep on. Pulse ox on. NIBP on. 22:20 XRAY Chest (1 view) In Process Unspecified. EDMS 22:30 Inserted saline lock: 20 gauge in left antecubital area, using aseptic technique. Blood wh collected. 08/04 01:05 No provider procedures requiring assistance completed. IV discontinued, intact, mg2 bleeding controlled, No redness/swelling at site. Pressure dressing applied. Administered Medications: 08/03 22:26 Drug: Xopenex (3) 1.25 mg Route: Inhalation; 08/04 00:58 Follow up: Response: No adverse reaction; Wheezing diminished 08/03 22:26 Drug: predniSONE 60 mg Route: PO; 08/04 00:58 Follow up: Response: No adverse reaction 08/03 22:26 Drug: Tussionex Pennkinetic ER (chlorpheniramine-hydrocodone) 5 ml Route: PO; 08/04 00:58 Follow up: Response: No adverse reaction; Pain is decreased; RASS: Alert and Calm (0) Outcome: 00:49 Discharge ordered by MD. pm1 01:05 Discharged to home via wheelchair. mg2 01:05 Condition: stable 01:05 Discharge instructions given to patient, Instructed on discharge instructions, follow up and referral plans. medication usage, Demonstrated understanding of instructions, follow-up care, medications, Prescriptions given X 3. 01:06 Patient left the ED. mg2 Signatures: Dispatcher [employer] EDVT Katarina Donovan mr Yazan Ocampo, JAMIR RUNSTITCHING MACHINE OPERATOR pm1 Hazel Young, PENNY FRANCIS William Anders RN RN [facility] Michelle Hall RN RN ll1 Corrections: (The following items were deleted from the chart) 01:06 08/03 23:41 Reassessment: Patient appears in no apparent distress at this time. Patient wh and/or family updated on plan of care and expected duration. Pain level reassessed. Patient is alert, oriented x 3, equal unlabored respirations, skin warm/dry/pink. mg2
[2020-08-04 01:30] VITALS: TEMP 99.3
[2020-08-04 01:33] VITALS: O2SAT 95
[2020-08-04 01:34] VITALS: BP 151/98
--- NOTE | 2020-08-04 06:20 | EKG ---
Test Date: 2020-08-03 Test Time: 21:03:21 Internet Marketing Specialist: MEASUREMENT RESULTS: Intervals: Rate: 97 NH: 140 QRSD: 96 QT: 366 QTc: 464 Vida: P: 60 NH: 140 QRS: -42 T: 92 INTERPRETIVE STATEMENTS: Normal sinus rhythm Possible Left atrial enlargement Left axis deviation Anterior infarct, age undetermined T wave abnormality, consider lateral ischemia Abnormal ECG Compared to ECG 08/21/2019 11:03:18 Left-axis deviation now present Myocardial infarct finding now present T-wave abnormality now present Sinus tachycardia no longer present Left ventricular hypertrophy no longer present ST (T wave) deviation no longer present Possible ischemia still present Electronically Signed On 08-04-20 06:19:15 CDT by Fam Allison
--- NOTE | 2020-08-04 07:38 | RAD REPORT ---
EXAM DESCRIPTION: RAD - Chest Single View - 08/03/2020 10:22 pm CLINICAL HISTORY: SOB;Cough COMPARISON: August 2019 TECHNIQUE: AP portable chest image was obtained 08/03/2020 10:22 pm . FINDINGS: Lung volumes are low. Volume is further reduced by elevated right hemidiaphragm. No periph eral consolidation. Posterior gutter and retrocardiac regions are limited in assessment. Heart size a ppears slightly enlarged. Central vasculature is prominent. Trachea is midline. No measurable pleural effusion and no pneumothorax. No acute bony abnormality seen. No acute aortic findings suspected. IMPRESSION: Mild CHF/volume overload pattern.
== END 2020-08-04 01:06 | disposition home or self-care (01) ==
LOC: ER 18:54
DX: U07.1 COVID-19 (principal); J06.9 Acute upper respiratory infection, unspecified; F17.210 Nicotine dependence, cigarettes, uncomplicated
CPT/HCPCS: 93005; 87070; 85025; 80048; 36415; 83735; 85610; 80076; 87081; 84484; 83880; 0240U; 71045; 99285; J7512

== ENCOUNTER 2020-08-05 18:02 | Inpatient (IN) | payer OTHER ==
--- OUTSIDE RECORDS SUMMARY | 2020-08-05 18:07 | XMS REPORT | Continuity of Care Document ---
:1965 Author Organization [facility] t Address [facility] [place] [address] Care Team Providers Name Role Phone Nate Coleman MD Attending Clinician Unavailable 1, [address] Room Attending Clinician Unavailable Isabela Mccollum MD Attending Clinician Nevaeh COREAS Attending Clinician Nathaly COREAS Attending Clinician ISABELA MCCOLLUM Attending Clinician Unavailable Cody Lu MD Attending Clinician NEVAEH Admitting Clinician Unavailable Payers Payer Name Policy Type Policy Effective Date Expiration Date Sour ce Number MEDICAREMEDICARE A [id number] 2011 DERIC Ramirez [id number]/05/2010- 00:00:00 [facility] Condition Condition Condition Status Onset Resolution Last Treating Co mments Source Name Details Category Date Date Treatment Clinician Date Sepsis Sepsis Disease [facility]: Medical [address] [place] [address] Allergies, Adverse Reactions, Alerts Allergy Allergy Status Severity Reaction(s) Onset Inactive Treating Comm ents Source Name Type Date Date Clinician Vancomyc Drug Active Itching [facility] - Analogue [facility]:00: Medical s [address] [place] [address] Social History Social Habit Start Date Stop Date Quantity Comments Source Sex Assigned At [facility] Tobacco use and 2019-08-21 2019-08-[address] [facility] 00:00:00 00:00:00 [facility] [place] Smoking Status Start Date Stop Date Source Current some day smoker 2019-08-21 00:00:00 [facility] Medications Ordered Filled Start Stop Current Ordering Indication Dosage Frequency Signature Comments Components Source Medication Medication Date Date Medication? Clinician (SIG) Name Name metoprolol 25mg Q.5D Take [address] [facility] St tartrate 09-01-20 tablet (25 [facility] - (LOPRESSOR) 00:00: 23:59 mg total) Medical 25 MG 00 :00 by mouth 2 Center tablet (two) times daily for 30 days. traMADoL 50mg Take [address] [facility] St (ULTRAM) 50 09-01-10 tablet (50 L [...] Source Systolic blood 2019-09-02 11:00:00 117 mm[Hg] [facility] Diastolic blood 2019-09-02 11:00:00 69 mm[Hg] [facility] S t [facility] Heart rate 2019-09-02 11:00:00 88 /min [facility] Body temperature 2019-09-02 11:00:00 35.89 [place] [facility] Respiratory rate 2019-09-02 11:00:00 18 /min [facility] Oxygen saturation in 2019-09-02 11:00:00 95 /min [facility] Arterial blood by Medical Ce nter Pulse oximetry Body weight 2019-09-02 07:00:00 80.377 kg [facility] BMI 2019-09-02 07:00:00 32.41 kg/m2 [facility] Body height 2019-08-21 18:00:00 157.5 cm [facility] Procedures Procedure Date / Time Performing Clinician Source Performed RHYTHM STRIP - SCAN 2019-09-04 14:30:15 Provider, [facility] RHYTHM STRIP - SCAN 2019-09-04 11:01:18 Provider, Default [facility] US RENAL COMPLETE 2019-09-02 00:45:00 Nevaeh [facility] CBC (HEMOGRAM ONLY) 2019-09-01 04:31:00 Nevaeh [facility] COMPREHENSIVE METABOLIC 2019-09-01 04:31:00 Nevaeh [facility] CBC (HEMOGRAM ONLY) 2019-08-31 05:35:00 Nevaeh [facility] COMPREHENSIVE METABOLIC 2019-08-31 05:35:00 Nevaeh [facility] URINALYSIS W/ REFLEX URINE 2019-08-30 13:45:[address] [facility] URINE CULTURE 2019-08-30 13:45:00 Spencer Webster [facility] URINE CULTURE 2019-08-30 13:44:00 Rudy Quick [facility] IR NEPHROSTOGRAM 2019-08-30 09:22:00 Nevaeh [facility] CBC (HEMOGRAM ONLY) 2019-08-30 05:24:00 Nevaeh [facility] BASIC METABOLIC PANEL (7) 2019-08-30 05:24:00 Mikayla [facility] CBC (HEMOGRAM ONLY) 2019-08-29 05:28:00 Nevaeh [facility] COMPREHENSIVE METABOLIC 2019-08-29 05:27:00 Nevaeh [facility] CT CHEST WITH IV CONTRAST 2019-08-27 17:15:00 Mikayla Herring [facility] CT ABDOMEN & PELVIS - 2019-08-27 17:15:00 Mikayla Herring [facility] - RENAL STONE EVALUATION Medical C enter WITHOUT/WITH IV CONTRAST URINALYSIS W/ REFLEX URINE 2019-08-27 15:30:00 Nevaeh [facility] URINE CULTURE 2019-08-27 15:30:00 Nevaeh [facility] CBC (HEMOGRAM ONLY) 2019-08-27 03:29:00 Nevaeh [facility] BASIC METABOLIC PANEL (7) 2019-08-27 03:29:00 Theresa Herringeen Salma [facility] BLOOD CULTURE 2019-08-27 03:29:00 Nevaeh [facility] RHYTHM STRIP - SCAN 2019-08-26 14:20:39 Provider, Default [facility] CBC (HEMOGRAM ONLY) 2019-08-25 04:37:00 Nevaeh [facility] COMPREHENSIVE METABOLIC 2019-08-25 04:37:00 Nevaeh [facility] TSH/FREE T4 IF INDICATED 2019-08-25 04:37:00 Nevaeh [facility] VITAMIN B12 AND FOLATE 2019-08-25 04:37:00 Nevaeh [facility] T4, FREE 2019-08-25 04:37:00 Nevaeh [facility] US THYROID 2019-08-24 19:50:00 Nevaeh [facility] ECG 12-LEAD 2019-08-24 16:13:29 Cecilia Luther [facility] PT/APTT 2019-08-24 [facility]:11[facility] 2019-08-24 04:11:00 Nevaeh [facility] BLOOD CULTURE 2019-08-24 04:11:00 Cecilia Luther [facility] BASIC METABOLIC PANEL (7) 2019-08-24 04:10:00 Rodney [facility] CT CHEST WITHOUT IV 2019-08-23 15:35:00 Nevaeh [facility] CT PELVIS WITHOUT IV 2019-08-23 15:35:00 Nevaeh [facility] CT ABDOMEN WITHOUT IV 2019-08-23 15:35:00 Nevaeh [facility] MISCELLANEOUS LAB ORDER 2019-08-23 12:29:00 Nevaeh [facility] BASIC METABOLIC PANEL (7) 2019-08-23 03:54:00 Rodney I [facility] PT/APTT 2019-08-23 03:54[facility] ([facility] ONLY[facility] 2019-08-23 03:54:00 Nevaeh [facility] POCT-BLOOD GASES, ARTERIAL 2019-08-22 18:09:00 Nevaeh, [facility] POCT-SODIUM 2019-08-22 18:09:00 Nevaeh, [facility] POCT-POTASSIUM 2019-08-22 18:09:00 Nevaeh, [facility] POCT-HEMOGLOBIN 2019-08-22 18:09:00 Nevaeh, [facility] POCT-HEMATOCRIT 2019-08-22 18:09:00 Nevaeh, [facility] POCT-CALCIUM IONIZED 2019-08-22 18:09:00 Nevaeh, [facility] POCT-GLUCOSE 2019-08-22 18:09:00 Nevaeh [facility] BLOOD GAS, ARTERIAL 2019-08-22 16:11:00 Nevaeh [facility] BASIC METABOLIC PANEL (7) 2019-08-22 03:16:00 Rodney I [facility] PT/APTT 2019-08-22 [facility] W/PLT COUNT & AUTO 2019-08-21 23:50:00 Nikita Zabala [facility] LACTIC ACID, VENOUS 2019-08-21 23:50:00 Nikita Zabala [facility] (CELLAVISION MANUAL DIFF) 2019-08-21 23:50:00 Nikita Zabala as [facility] URINE CULTURE 2019-08-21 23:50:00 [facility]IN[facility] W/ REFLEX URINE 2019-08-21 23:50:[address] [facility] - CULTURE [facility] SODIUM, RANDOM URINE 2019-08-21 23:50:[address] [facility] CREATININE, RANDOM URINE 2019-08-21 23:50:[address] [facility] BLOOD CULTURE 2019-08-21 23:47:00 [facility] BLO[facility] 2019-08-21 23:47:00 Rodney [facility] IDENTIFICATION PANEL [facility] ter LACTIC ACID, VENOUS 2019-08-21 21:17:00 [facility] BASIC METABOLIC PANEL (7) 2019-08-21 21:17:00 Rodney [facility] I [facility] Plan of Care Planned Activity Planned Date Details Comments Source Future Scheduled 2020-01-14 INFLUENZA VACCINE (#1[facility]00 [code = INFLUENZA Medical Ce nter VACCINE (#1)] Future Scheduled 2012-02-[address] [facility] Test 00:00:00 WELLNESS (YEAR 2 or [facility] FIRST YEAR if no IPPE) [code = MEDICARE ANNUAL WELLNESS (YEAR 2 or FIRST YEAR if no IPPE)] Future Scheduled [address] [facility] Test 00:[facility]00 (procedure) [code = Medical Center 37695512] Future Scheduled [address] [facility] - Test 00:00:00 malignant neoplasm of [facility] cervix (procedure) [code = 620882932] Future Scheduled [address] [facility] - Test 00:00:00 0-64 YRS (1 of 1 - Medical C enter PPSV23) [code = PNEUMOCOCCAL VACCINE 0-64 YRS (1 of 1 - PPSV23)] Future Scheduled 1965 [facility] malignant neoplasm of [facility] breast (procedure) [code = 112535526] Future Scheduled [facility]00 malignant neoplasm of [facility] colon (procedure) [code = 245693144] Results Test Description Test Time Test Comments Results Result Comments Source Urine culture 2019-09-02 09:00:00 Test Item Value Reference Range Interpretation Comme nts Result (test code = 6463-4) No growth Gram Stain Result (test code = 1123) No organisms seen [facility] [id number] 09:00:00 Test Item Value Reference Range Interpretation Comments CULTURE (BEAKER) (test No growth code = 1095) GRAM STAIN RESULT <1+ White blood cells (BEAKER) (test code = seen 1123) GRAM STAIN RESULT No organisms seen (BEAKER) (test code = 31247) U/S, RENAL, [id number] 01:38:00Reason for exam:->pyelonephritisFINAL REPORT U/S, RENAL, COMPLETE [...] on the current examination. Signed: Catherine Cornell [facility] VerifiedDate/Time: 09/02/2019 01:38:19 [facility] [id number] 05:29:00 Test Item Value Reference Range Interpretation Comments Protein, Total (test 6.2 See_Comment [Autom ated code = 2885-2) message] The system which generated this result transmit nikos reference range : 6.0 - 8.3 gm/dL . The reference range was not u sed to interpret th is result as normal/abnormal . Albumin (test code = 2.8 g/dL 3.5-5 L 24479-9) Alkaline Phosphatase 138 U/L 40-150 (test code [...] Calcium (test code = 8.8 mg/dL 8.4-10.2 92530-7) AST (test code = 46 U/L 5-34 H 1920-8) ALT (test code = 43 U/L 6-55 1742-6) EGFR (test code = 90 mL/min/1.73 [place] [address]-2) NOT ACCURATE CREATININE CLEARANCE IN PREDICTING GLOMERULAR FILTRATION RATE . ESTIMATED GFR I S NOT APPLICABLE FOR DIALYSIS PATIEN TS. TAVERAS (test code = NITIN) Capper Machine Operator ID - PIAYA L Lab Interpretation Abnormal (test code = 92654-0) [facility] [id number] 05:29:00 Test Item Value Reference Range Interpretation [...] S NOT APPLICABLE FOR DIALYSIS PATIEN TS. Capper Machine Operator ID - PIAYA LCBC (Hemogram only)2019-09-01 04:58:00 Test Item Value Reference Range Interpretation Comments WBC (test code = 6690-2) 13.5 See_Comment H [A utomated message] The system [employer]leaf generated this result transmitted ref erence range: 3.5 - 10 .5 K/L. The refe rence range was not u sed to interpret this result as normal/abnor mal. RBC (test code = 789-8) 3.43 See_Comment L [Au tomated message] The system [employer] generated this result transmitted ref erence range: 3.93 - 5 .22 M/L. The refe rence range was not u sed to interpret this result as normal/abnor mal. MCHC (test code = 786-4) 32.2 See_Comment L [A utomated message] The system [employer] generated this result transmitted ref erence range: [...] H [Aut omated message] 777-3) The system [employer] generated this result transmitted ref erence range: 150 - 45 0 K/CU MM. The referen ce range was not u sed to interpret this result as normal/abnor mal. MPV (test code = 9.1 fL 9.4-12.3 L 20897-1) nRBC (test code = 413) 0 See_Comment [Aut omated message] The system [employer] generated this result transmitted ref erence range: 0 - 0 /1 00 WBC. The refere nce range was not u sed to interpret this result as normal/abnor mal. Lab Interpretation (test Abnormal code = 37180-6) [facility]2019-09-01 04:58:00 Test Item Value [...] = No growth in 5 days 6463-4) [facility] [id number] 04:00:00 Test Item Value Reference Range Interpretation Comments CULTURE (BEAKER) (test No growth in 5 days code = 1095) BLOOD [id number] 04:00:00 Test Item Value Reference Range Interpretation Comments CULTURE (BEAKER) (test No growth in 5 days code = 1095) BLOOD [id number] 09:00:00 Test Item Value Reference Range Interpretation Comments CULTURE (BEAKER) (test No growth in 5 days code = 1095) COMPREHENSIVE METABOLIC [id number] 07:37:00 Test Item Value Reference Range Interpretation [...] S NOT APPLICABLE FOR DIALYSIS PATIEN TS. Capper Machine Operator ID - LMCBC (HEMOGRAM ONLY)2019-08-31 05:54:00 Test [...] = 413) Urinalysis w/Microscopic + Reflex to [id number] 14:26:00 Test Item Value Reference Range Interpretation Comments Color, UA (test code Yellow = 5778-6) Clarity, UA (test Hazy code = 5767-9) Specific Center, UA 1.007 1.001-1.035 (test code = 5811-5) pH, UA (test code = 8.0 5.0-8.0 5803-2) Protein, UA (test 100 mg/dL Negative A code = 60096-7) Glucose, UA (test Negative Negative code = 365) Ketones, UA (test Negative Negative code = 2514-8) Bilirubin, UA (test Negative Negative code = 58425-2) Blood, UA (test code Large Negative A = 61057-2) Nitrite, UA (test Negative Negative code = 5802-4) Leukocytes, UA (test Large Negative A code = 5799-2) Urobilinogen, UA 0.2 mg/dL 0.2-1 (test code = 26566-6) RBC, UA (test code = 1178 See_Comment [Autom ated 28497-1) message] The system which generated this result [...] = 2795) NITIN (test code = NITIN) Capper Machine Operator ID - [auto]Capper Machine Operator ID - tech Lab Interpretation Abnormal (test code = 37350-7) [facility] W/ REFLEX URINE [id number] 14:26:00 Test Item Value Reference Range Interpretation [...] 76 /HPF SOURCE(BEAKER) (test code = 2795) Capper Machine Operator ID - [auto]Capper Machine Operator ID - techANG, [id number] 10:02:00Right PCN vs PCNU for obstructing proximal ureteral stone with hydro, fat stranding, ([facility] images uploaded 08/20). Primary team to discuss with IR, but please feel free to page urology with questions. Thanks! Reason for exam:->Right ureteral stone, sepsisFINAL REPORT Procedure: Percutaneous nephrostomy catheter placement. History: Obstructed infected kidney with renal abscesses and nondilated system. Social Media Designer: Sarthak Richards M.D. Child Psychology Teacher: Not applicableKeith Modality: Ultrasound and fluoroscopy. DOSE [...] parenchyma. Impression:Successful ultrasound and fluoroscopic guided 8.5 Palauan nephrostomy catheter placement in the right via [...] MDReport Verified Date/Time: 08/30/2019 10:02:51 Reading Location: [place] [address] Angio Body Reading Room IR [id number] 10:02:00Interface, External Ris In - 08/30/2019 10:06 AM CDTFINAL REPORT Procedure: Pe rcutaneous nephrostomy catheter placement. History: Obstructed infected kidney with renal abscesses and nondilated system. Social Media Designer: Sarthak Richards M.D. Child Psychology Teacher: Asad gray M.D. Modality: Ultrasound and fluoroscopy. [...] sequential dilatation of the tract, an 8.5 Palauan nephrostomy catheter was placed, pigtail locked in [...] renal parenchyma. Impression:Successful ultrasoundand fluoroscopic guided 8.5 Palauan nephrostomy catheter placement in the right via [...] MDReport Verified Date/Time: 08/30/2019 10:02:51 Reading Location: [place] [address] Angio Body Reading Room [facility] Basic Metabolic [id number] 06:19:00 Test Item Value Reference Range Interpretation [...] (test code = 8.3 mg/dL 8.4-10.2 L 55773-0) EGFR (test code = 98 mL/min/1.[place] [address]-3) NOT ACCURATE CREATININE CLEARANCE IN PREDICTING GLOMERULAR FILTRATION RATE . ESTIMATED GFR I S NOT APPLICABLE FOR DIALYSIS PATIENTS. NITIN (test code = NITIN) Capper Machine Operator ID - DB Lab Interpretation Abnormal (test code = 87438-6) [facility] HospitalBASI METABOLIC [id number] 06:19:00 Test Item Value Reference Range Interpretation [...] S NOT APPLICABLE FOR DIALYSIS PATIEN TS. Capper Machine Operator ID - DBCBC (HEMOGRAM ONLY)2019-08-30 06:06:00 Test [...] (BEAKER) (test code = 413) COMPREHENSIVE METABOLIC [id number] 06:14:00 Test Item Value Reference Range Interpretation [...] S NOT APPLICABLE FOR DIALYSIS PATIEN TS. Capper Machine Operator ID - ALAINA MCBC (HEMOGRAM ONLY)2019-08-29 05:58:00 [...] (test code = 413) CT, CHEST, WITH [id number] 23:05:00FINAL REPORT CLINICAL HISTORY: Leukocytosis FINDINGS: Multiple [...] RENAL STONE EVAL, WITHOUT / WITH IV [id number] 23:05:00Reason for exam:- >renal stoneAnesthesia:->NoneFINAL REPORT CLINICAL [...] Blake Boyd MDReport Verified Date/Time: 08/27/2019 23:05:02 [facility] abdomen & pelvis - renal stone [...] Blake Boyd MDReport Verified Date/Time: 08/27/2019 23:05:02 [facility] UR[facility] [id number] 15:56:00 Test Item Value Reference Range Interpretation [...] = 1521) SOURCE(BEAKER) (test code = 2795) Capper Machine Operator ID - [auto]Capper Machine Operator ID - hankBLOOD [id number] 11:19:00 Test Item Value Reference Range Interpretation [...] only: 1123) gram negative rods BASIC METABOLIC [id number] 04:53:00 Test Item Value Reference Range Interpretation [...] S NOT APPLICABLE FOR DIALYSIS PATIEN TS. Capper Machine Operator ID - RICHELLE WCBC (HEMOGRAM ONLY)2019-08-27 03:52:00 [...] 0-0 (BEAKER) (test code = 413) BLOOD [id number] 12:41:00 Test Item Value Reference Range Interpretation Comments CULTURE A From Anaerobic Bottle (BEAKER) (test Only Same org anism has code = 1095) been isolated f rom cultures(s) of the same body site and collection date . Repeat identifi cation and susceptibil ity testing perform ed only after consultat ion with the [facility] microbiology laboratory.Refe r to previous cultur e ofKlebsiella pneumoniae GRAM STAIN From anaerobic RESULT (BEAKER) bottle only: gram (test code = negative rods 1123) ECG 12 [id number] 14:42:46Interface, External Ris In - 08/25/2019 2:42 PM CDTVentricular Rate 101 BPMAtrial Rate 101 BPMP-R Interval 128 msQRS Duration 102 msQ-T Interval 352 msQTC Calculation(Bazett) 456 msP Amalia -2 degreesR Amalia - 11 degreesT Amalia [address] abnormalityAbnormal ECGNo previous ECGs availableConfirmed by MD ROYAL, WILY (190) on 08/25/2019 2:42:43 [facility] OaklandT4, [id number] 10:43:00 Test Item Value Reference Range Interpretation Comments Free T4 (test code = 0.68 ng/dL 0.7-1.48 L 3024-7) NITIN (test code = NITIN) Capper Machine Operator ID - AAHAMID Lab Interpretation (test Abnormal code = 16597-0) [facility] HospitalT4, [id number] 10:43:00 Test Item Value Reference Range Interpretation Comments FREE T4 (BEAKER) (test code = 655) 0.68 ng/dL 0.70-1.48 L Capper Machine Operator ID - AAHAMIDTSH/Free T4 If [id number] 09:55:00 Test Item Value Reference Range Interpretation Comments TSH (test code = 0.276 See_Comment L [Automated 77984-1) message] The system which generated this result transmit nikos reference range : 0.350 - 4.940 uIU/mL. The reference range was not used to interpret this result as normal/abnormal . NITIN (test code = NITIN) Capper Machine Operator ID - AAHAMID Lab Interpretation Abnormal (test code = 82434-8) [facility] HospitalTSH/FREE T4 IF [id number] 09:55:00 Test Item Value Reference Range Interpretation Comments THYROID STIMULATING HORMONE 0.276 uIU/mL 0.350-4.940 L (BEAKER) (test code = 772) Capper Machine Operator ID - AAHAMIDVitamin B12 and [id number] 09:29:00 Test Item Value Reference Range Interpretation Comments Vitamin B12 (test 810 pg/mL 213-816 code = 2132-9) Folate (test code = 4.80 ng/mL See_Comment L [Automa nikos 2284-8) message] The system which generated this result transmit nikos reference range : >=7.00. The reference range was not used to interpret this result as normal/abnormal . NITIN (test code = NITIN) Capper Machine Operator ID - AAHAMID Lab Interpretation Abnormal (test code = 62920-3) [facility] HospitalVITAMIN B12 AND [id number] 09:29:00 Test Item Value Reference Range Interpretation Comments VITAMIN B12 (BEAKER) (test code = 810 pg/mL 213-816 774) FOLATE (BEAKER) (test code = 362) 4.80 ng/mL >=7.00 L Capper Machine Operator ID - AAHAMIDCOMPREHENSIVE METABOLIC [id number] 05:26:00 Test Item Value Reference Range Interpretation [...] S NOT APPLICABLE FOR DIALYSIS PATIEN TS. Capper Machine Operator ID - PIAYA LCBC (HEMOGRAM ONLY)2019-08-25 04:58:00 [...] 0-0 (BEAKER) (test code = 413) U/S, [id number] 21:14:00Reason for exam:->thyroid noduleFINAL REPORT U/S, THYROID [...] Hi MDReport Verified Date/Time: 08/24/2019 21:14:39 [place] [id number] 21:14:00Interface, External Ris In - 08/24/2019 9:16 [...] Signed: Baylee Hi Verified Date/Time: 08/24/2019 21:14:39 [facility] 2019-08-24 06:56:00 Test Item Value Reference Range Interpretation Comments Scan Result (test code = 0572165) SEE SCAN [facility] [id number] 06:56:00 Test Item Value Reference Range Interpretation Comments SCAN RESULT (test code = 2589773) SEE SCAN BASIC METABOLIC [id number] 06:25:00 Test Item Value Reference Range Interpretation [...] S NOT APPLICABLE FOR DIALYSIS PATIEN TS. Capper Machine Operator ID - ALAINA [id number] 04:39:00 Test Item Value Reference Interpretation Comments Range Protime (test code = 14.7 See_Comment H [Autom ated 5902-2) message] The system which generated this result transmitted reference range : 11.9 - 14.2 seconds. The reference range was not used to interpret this result as normal/abnormal . INR (test code = 1.2 See_Comment [Automated 9261-6) message] The system which generated this result transmitted reference range : <=5.9. The reference range was not used to interpret this result as normal/abnormal . PTT (test code = 34.9 See_Comment [Automated 13907-8) message] The system which generated this result [...] valves. Lab Interpretation Abnormal (test code = 71825-1) [facility] HospitalPT/[id number] 04:39:00 Test Item Value Reference Range Interpretation [...] (test code = 413) CT, CHEST, WITHOUT [id number] 16:18:00FINAL REPORT TECHNIQUE: CT of the chest, [...] MDReport Verified Date/Time: 08/23/2019 16:18:30 Reading Location: [facility] C013Y CT Body Reading Room CT, PELVIS, WO [id number] 16:18:00Anesthesia:->NoneFINAL REPORT TECHNIQUE: CT of the chest, [...] MDReport Verified Date/Time: 08/23/2019 16:18:30 Reading Location: [address] Body Reading Room CT, ABDOMEN, WITHOUT [id number] 16:18:00Please specify abdominal organs:->RenalFINAL REPORT TECHNIQUE: CT [...] MDReport Verified Date/Time: 08/23/2019 16:18:30 Reading Location: [facility] B[address] C013[address] CT Body Reading Room CT abdomen without IV [id number] 16:18:00Interface, External Ris In - 08/23/2019 4:20 [...] calculi in both kidneys. Signed: Jef Rondon [facility] Verified Date/Time: 08/23/2019 16:18:30 Reading Location: [facility] B1 C013Y CT Body [facility] IV [id number] 16:18:00Interface, External Ris In - 08/23/2019 4:20 [...] MDReport Verified Date/Time: 08/23/2019 16:18:30 Reading Location: [facility] B1 C013Y CT Body [facility] pelvis without IV [id number] 16:18:00Interface, External Ris In - 08/23/2019 4:20 [...] MDReport Verified Date/Time: 08/23/2019 16:18:30 Reading Location: [facility] C013 CT Body [facility] [id number] 05:24:00 Test Item Value Reference Range Interpretation [...] S NOT APPLICABLE FOR DIALYSIS PATIEN TS. Capper Machine Operator ID - RICHELLE WPT/[id number] 04:23:00 Test Item Value Reference Range Interpretation [...] (BEAKER) (test code = 413) POC-Blood gases, [id number] 18:24:00 Test Item Value Reference Range Interpretation [...] tomated message] code = 1838) The system [employer] h generated this result transmit nikos reference range : 80.0 - 90.0 mm Hg. The reference r blanca was not used to interpret this result as normal/abnormal . SO2, Arterial-POC (test 99.0 % 96-97 H code = 1839) HCO3, Arterilal-POC 18.6 meq/L 21-29 L (test code = 1840) BE, Arterial-POC (test -5.0 meq/L -2-3 L : LAUREL NIKOS AT [facility] code = 1841) [address] [place] [address], [address]: Capper Machine Operator/Techni gavi ID = [id number] for MATILDE BROWN Lab Interpretation Abnormal (test code = 86751-6) [facility]-Calcium [id number] 18:24:00 Test Item Value Reference Range Interpretation Comments POC-Calcium Ionized 1.19 mmol/L 1.12-1.27 : TESTED AT [facility] (test code = 1536) [address] [place] [address], [address]: Capper Machine Operator/Techni james n ID = [id number] f or MATILDE BROWN Lab Interpretation (test Normal code = 03771-2) [facility]-[id number] 18:24:00 Test Item Value Reference Range Interpretation Comments POC-Potassium (test code 3.2 meq/L 3.6-5.5 L : T ESTED AT [facility] = 1540) [address] [place] [address], [address]: Capper Machine Operator/Techni gavi ID = [id number] for ARBIS, MATILDE Lab Interpretation (test Abnormal code = 67346-0) [facility]-[id number] 18:24:00 Test Item Value Reference Range Interpretation Comments POC-Sodium (test code = 127 meq/L 135-148 L : TE STED AT [facility] 1542) [address] [facility], [address]: Capper Machine Operator/Techni gavi ID = [id number] for ARBIS, MATILDE Lab Interpretation (test Abnormal code = 33874-1) [facility]-[id number] 18:24:00 Test Item Value Reference Range Interpretation Comments POC-Glucose (test code = 144 mg/dL 70-110 H : T ESTED AT [facility] 1855) [address] [facility], [address]: Capper Machine Operator/Techni gavi ID = [id number] for ARBIS, MATILDE Lab Interpretation (test Abnormal code = 95012-6) [facility]-[id number] 18:24:00 Test Item Value Reference Range Interpretation Comments POC-Hemoglobin (test code 11.6 g/dL 12-15 L : TESTED AT [facility] = 1856) [address] [facility], [address]: Capper Machine Operator/Techni gavi ID = [id number] for ARBIS, MATILDE Lab Interpretation (test Abnormal code = 24060-6) [facility]-[id number] 18:24:00 Test Item Value Reference Range Interpretation Comments POC-Hematocrit (test code 34 % 36-45 L : = 1857) Capper Machine Operator/Techni gavi ID = [id number] for ARBIS, MATILDE Lab Interpretation (test Abnormal code = 78356-1) [facility]-BLOOD GASES, [id number] 18:24:00 Test Item Value Reference Range Interpretation Comments TEMP, CELSIUS-POC (BEAKER) (test code = 1834) FIO2-POC (BEAKER) (test code = 1835) PH, ARTERIAL-POC 7.475 7.350-7.450 H (BEAKER) (test code = 1836) PCO2, ARTERIAL-POC 25.3 mm Hg 35.0-45.0 L (BEAKER) (test code = 1837) PO2, ARTERIAL-POC 137.0 mm Hg 80.0-90.0 H (AKER) (test code = 1838) SO2, ARTERIAL-POC 99.0 % 96.0-97.0 H ([facility]) (test code = 1839) HCO3, ARTERIAL-POC 18.6 meq/L 21.0-29.0 L (AKER) (test code = 1840) BASE EXCESS, -5.0 meq/L -2.0-3.0 L : TESTED AT [place] [address] ARTERIAL-POC [facility], (BEAKER) (test code 003[address]: = 1841) Capper Machine Operator/Techni gavi ID = [id number] for AR BISMATILDE [id number] 18:24:00 Test Item Value Reference Range Interpretation Comments POC-SODIUM ([facility]) 127 meq/L 135-148 L : TESTED AT [place] [address] (test code = 1542) [facility], [address]: Capper Machine Operator/Techni gavi ID = [id number] for ARBI SJACQUELYNMA [id number]-[id number] 18:24:00 Test Item Value Reference Range Interpretation Comments POC-POTASSIUM 3.2 meq/L 3.6-5.5 L : TESTED AT [place] [address] ([facility]) (test code [facility], = 1540) [address]: Capper Machine Operator/Techni gavi ID = [id number] for ARBI SJACQUELYNMA [id number] 18:24:00 Test Item Value Reference Range Interpretation Comments POC-HEMOGLOBIN 11.6 g/dL 12.0-15.0 L : TESTED AT [place] [address] ([facility]) (test code [facility], = 1856) [address]: Capper Machine Operator/Techni gavi ID = [id number] for ARBI S, MATILDE [id number] 18:24:00 Test Item Value Reference Range Interpretation Comments POC-HEMATOCRIT 34 % 36-45 L : Capper Machine Operator/Te chnician ID = ([facility]) (test code = 299352 for MATILDE BROWN 185) POCT-CALCIUM [id number] 18:24:00 Test Item Value Reference Range Interpretation Comments POC-CALCIUM IONIZED 1.19 mmol/L 1.12-1.27 : TESTED AT [facility] (BEAKER) (test code = [address]) [place], [address]: Capper Machine Operator/Techni gavi ID = [id number] for MATILDE BROWN [id number] 18:24:00 Test Item Value Reference Range Interpretation Comments POC-GLUCOSE (BEAKER) 144 mg/dL 70-110 H : TESTE D AT [facility] [address] (test code = 1855) [place], [address]: Capper Machine Operator/Techni gavi ID = [id number] for MATILDE SARABIA Blood gas, [id number] 16:53:00 Test Item Value Reference Range Interpretation [...] % Lab Interpretation Abnormal (test code = 45224-8) [facility] [id number] 16:53:00 Test Item Value Reference Range Interpretation [...] code = 1819) 32.0 % Blood Culture Panel([employer])2019-08-22 16:02:00 Test Item Value Reference Interpretation Comments Range LISTERIA Not detected Not detected MONOCYTOGENES (test code = 85673-8) STAPHYLOCOCCUS (test Not detected Not detected code = 72148-9) STAPHYLOCOCCUS AUREUS Not detected Not detected (test code = 65032-5) Streptococcus (test Not detected Not detected code = 08754-2) STREPTOCOCCUS Not detected Not detected AGALACTIAE (GROUP B) (test code = 11178-3) STREPTOCOCCUS Not detected Not detected PNEUMONIAE (test code = 70920-4) Streptococcus Not detected Not detected pyogenes (Group A) (test code = 65249-3) ACINETOBACTER Not detected Not detected BAUMANNII (test code = 38991-0) HAEMOPHILUS Not detected Not detected INFLUENZAE (test code = 23453-6) NEISSERIA Not detected Not detected MENINGITIDIS (test code = 00770-2) ENTEROBACTERIACEAE Detected Not detected A (test code = 34161-7) ENTEROBACTER CLOACOE Not detected Not detected COMPLEX (test code = 17514-6) KLEBSIELLA OXYTOCA Not detected Not detected (test code = 66734-5) KLEBSIELLA PNEUMONIAE Detected Not detected A Klebsi kamila (test code = 36145-5) pneumo niaeKPC not detected (a carbapenamase gene)First-line therapy: Merope nem. De-escalate bas ed on susceptibilitie sThis test does not e valuate for ESBLReferen ce Range: Not Dete cted PROTEUS (test code = Not detected Not detected 38257-6) SERRATIA MARCESCENS Not detected Not detected (test code = 83043-5) PARAM ALBICANS Not detected Not detected (test code = 92910-7) PARAM GLABRATA Not detected Not detected (test code = 34939-8) PARAM KRUSEI (test Not detected Not detected code = 56500-9) PARAM PARAPSILOSIS Not detected Not detected (test code = 78253-1) PARAM TROPICALIS Not detected Not detected (test code = 25533-2) ESCHERICHIA COLI Not detected Not detected (test code = 31822-1) METHICILLIN-RESISTANC E GENE (test code = 70017-7) VANCOMYCIN-RESISTANCE GENE (test code = 57071-2) CARBAPENEM-RESISTANCE Not detected Not detected GENE (test code = 95420-2) ENTEROCOCCUS (test Not detected Not detected code = 17937-1) PSEUDOMONAS Not detected Not detected AERUGINOSA (test code = 02623-0) NITIN (test code = NITIN) Other bacteria and resistance markers not targeted by this PCR panel cannot be excluded; therefore clinical correlation and follow up of serology, culture results, and other molecular studies is required. The results are not intended to be used as the sole means for clinical diagnosis or patient management decisions. This sample was tested at the [facility] using the Qio Blood Culture ID Panel. It is FDA cleared and has been verified and approved by the [facility] for clinical use. This laboratory is CLIA-certified and [employer] (CAP)-accredite d to perform high complexity testing. Lab Interpretation Abnormal (test code = 01841-5) [facility] [id number] 16:02:00 Test Item Value Reference Interpretation Comments Range LISTERIA MONOCYTOGENES Not detected Not detected (test code = 7975955) STAPHYLOCOCCUS (test Not detected Not detected code = 8779735) STAPHYLOCOCCUS AUREUS Not detected Not detected (test code = 0243878) STREPTOCOCCUS (test Not detected Not detected code = 1094744) STREPTOCOCCUS Not detected Not detected AGALACTIAE (GROUP B) (test code = 5098115) STREPTOCOCCUS Not detected Not detected PNEUMONIAE (test code = 7879805) STREPTOCOCCUS PYOGENES Not detected Not detected (GROUP A) (test code = 2336165) ACINETOBACTER Not detected Not detected BAUMANNII (test code = 0251559) HAEMOPHILUS INFLUENZAE Not detected Not detected (test code = 1320999) NEISSERIA MENINGITIDIS Not detected Not detected (test code = 6570188) ENTEROBACTERIACEAE Detected Not detected A (test code = 3764726) ENTEROBACTER CLOACOE Not detected Not detected COMPLEX (test code = 6266790) KLEBSIELLA OXYTOCA Not detected Not detected (test code = 6942080) KLEBSIELLA PNEUMONIAE Detected Not detected A Klebsi kamila (test code = 1650) pneumonia eKPC not detected (a carbapenamase gene)First-line therapy: Merope nem. De-escalate bas ed on susceptibilitie sThis test does not e valuate for ESBLReferen ce Range: Not Dete cted PROTEUS (test code = Not detected Not detected 2180560) SERRATIA MARCESCENS Not detected Not detected (test code = 2950740) PARAM ALBICANS (test Not detected Not detected code = 7166001) PARAM GLABRATA (test Not detected Not detected code = 6187539) PARAM KRUSEI (test Not detected Not detected code = 5870033) PARAM PARAPSILOSIS Not detected Not detected (test code = 7899645) PARAM TROPICALIS Not detected Not detected (test code = 4884865) ESCHERICHIA COLI (test Not detected Not detected code = 2742547) METHICILLIN-RESISTANCE GENE (test code = 6253543) VANCOMYCIN-RESISTANCE GENE (test code = 4473088) CARBAPENEM-RESISTANCE Not detected Not detected GENE (test code = 9437652) ENTEROCOCCUS-BEAKER Not detected Not detected (test code = 5436746) PSEUDOMONAS Not detected Not detected AERUGINOSA-BEAKER (test code = 1367661) Other bacteria and resistance markers not targeted by this PCR panel cannot be excluded; therefore clinical correlation and follow up of serology, culture results, and other molecular studies is required. The results are not intended to be used as the sole means for clinical diagnosis or patient management decisions. This sample was tested at the [facility] using the Qio Blood Culture ID Panel. It is FDA cleared and has been verified and approved by the [facility] for clinical use. This laboratory is CLIA-certified and College ofAmerican Pathologists (CAP)-accredited to perform high complexity testing.BASIC METABOLIC [id number] 04:07:00 Test Item Value Reference Range Interpretation [...] S NOT APPLICABLE FOR DIALYSIS PATIEN TS. Capper Machine Operator ID - PIAYA LPT/[id number] 03:33:00 Test Item Value Reference Range Interpretation [...] = 515) SOURCE(BEAKER) (test code = 2795) Capper Machine Operator ID - [auto]Capper Machine Operator ID - techCreatinine, random [id number] 01:49:00 Test Item Value Reference Range Interpretation Comments Creatinine, Ur 68.9 mg/dL (test code = 2161-8) NITIN (test code = Reference Range: No NITIN) NormalsOperator ID - LORRI L [facility] [id number] 01:49:00 Test Item Value Reference Range Interpretation Comments Sodium Urine (test 33 meq/L code = 2955-3) NITIN (test code = Reference Range: No NITIN) NormalsOperator ID - LORRI L [facility] HospitalCREATININE, RANDOM [id number] 01:49:00 Test Item Value Reference Range Interpretation Comments CREATININE URINE (BEAKER) (test 68.9 mg/dL code = 375) Reference Range: No NormalsOperator ID - PIAYA LSODIUM, RANDOM [id number] 01:49:00 Test Item Value Reference Range Interpretation Comments SODIUM URINE (BEAKER) (test code = 33 meq/L 243) Reference Range: No NormalsOperator ID - PIAYA LCBC with platelet count + automated [id number] 01:32:00 Test Item Value Reference Range Interpretation Comments WBC (test code = 6690-2) 15.6 See_Comment H [A utomated message] The system [employer] generated this result transmitted ref erence range: 3.5 - 10 .5 K/L. The refe rence range was not u sed to interpret this result as normal/abnor mal. RBC (test code = 789-8) 4.53 See_Comment [Au tomated message] The system [employer] generated this result transmitted ref erence range: 3.93 - 5 .22 M/L. The refe rence range was not u sed to interpret this result as normal/abnor mal. MCHC (test code = 786-4) 32.9 See_Comment [A utomated message] The system [employer] generated this result transmitted ref erence range: [...] L [Aut omated message] 777-3) The system [employer] generated this result transmitted ref erence range: 150 - 45 0 K/CU MM. The referen ce range was not u sed to interpret this result as normal/abnor mal. MPV (test code = 10.7 fL 9.4-12.3 55757-8) nRBC (test code = 413) 0 See_Comment [Aut omated message] The system [employer] generated this result transmitted ref erence range: 0 - 0 /1 00 WBC. The refere nce range was not u sed to interpret this result as normal/abnor mal. Lab Interpretation (test Abnormal code = 01440-0) [facility] HospitalManual [id number] 01:32:00 Test Item Value Reference Range Interpretation [...] = 3438) NITIN (test code = NITIN) Capper Machine Operator ID - [id number] ID - Bailee Prabhu comments: Slide comments: Lab Interpretation (test Abnormal code = 69344-5) [facility] W/PLT COUNT & AUTO [id number] 01:32:00 Test Item Value Reference Range Interpretation [...] CONCENTRATION Adequate (CELLAVISION)(BEAKER) (test code = 3438) Capper Machine Operator ID - [id number] ID - Bailee Pelletier comments: Slide comments:Lactic acid, [id number] 00:17:00 Test Item Value Reference Range Interpretation Comments Lactate, Venous (test code 1.69 mmol/L 0.5-2.2 = 2872) NITIN (test code = NITIN) Capper Machine Operator ID - LORRI L Lab Interpretation (test Normal code = 79169-6) [facility] HospitalLACTIC ACID, [id number] 00:17:00 Test Item Value Reference Range Interpretation Comments LACTATE BLOOD VENOUS (2) (BEAKER) 1.69 mmol/L 0.50-2.20 (test code = 2872) Capper Machine Operator ID - LORRI LBASIC METABOLIC [id number] 22:01:00 Test Item Value Reference Range Interpretation [...] S NOT APPLICABLE FOR DIALYSIS PATIEN TS. Capper Machine Operator ID - BSLACTIC ACID, [id number] 21:57:00 Test Item Value Reference Range Interpretation Comments LACTATE BLOOD VENOUS 1.84 mmol/L 0.50-2.20 Specime n slightly (2) (BEAKER) (test hemolyzed code = 2872) Capper Machine Operator ID - BS
--- NOTE | 2020-08-05 19:56 | RAD REPORT ---
EXAM DESCRIPTION: RAD - Chest Single View - 08/05/2020 7:44 pm CLINICAL HISTORY: DYSPNEA, COVID positive COMPARISON: August 03 TECHNIQUE: AP portable chest image was obtained 08/05/2020 7:44 pm . FINDINGS: Lung volumes are very low. Bilateral airspace opacification is present. This is a more per ipheral distribution pattern can be consistent with moderate severity COVID-19 pneumonia given the fi ndings and history. Trachea is midline. Heart and vasculature are normal. No measurable pleural effus ion and no pneumothorax. No acute bony abnormality seen. No acute aortic findings suspected. IMPRESSION: Limited low lung volume examination showing bilateral airspace opacification. Moderate severity COVID-19 pneumonia is the most likely etiology.
[2020-08-05 20:06] LABS: Absolute Lymphocytes (CBC) 1.2 K/uL (0.7-4.9); Basophils % 0.3 % (0-1.3); Lymphocytes % 13.3 % (15.3-44.8); MPV 8.6 fL (7.6-11.3); RBC Red Blood Cell Count 4.96 M/uL (3.86-4.86)
[2020-08-05] MEDS ORDERED: METHYLPREDNISOLONE 125 MG INJ ONE (20:18)
[2020-08-05] MEDS ORDERED: ACETAMINOPHEN 500 MG TAB ONE (20:18)
[2020-08-05] MEDS ORDERED: NA CHLORIDE 0.9% 1,000 ML ONE (20:18)
[2020-08-05] MEDS ORDERED: IPRATROPIUM BROM 0.5MG/2.5ML ONE (20:18)
[2020-08-05] MEDS ORDERED: ALBUTEROL 2.5 MG/3 ML NEB SOL ONE (20:18)
[2020-08-05 20:30] LABS: Protime INR 0.97
--- NOTE | 2020-08-05 20:35 | EDPHYS ---
Physician Documentation [facility] Name: Sena Ricardo Age: 55 yrs Sex: Female : 1965 Arrival Date: 08/05/2020 Time: 18:44 Bed 6 Private MD: ED Physician Arthur Amaro HPI: 08/05 20:26 This 55 yrs old Female presents to ER via EMS with complaints of Shortness Of jr8 Breath. 20:26 The patient has shortness of breath at rest. Onset: The symptoms/episode began/occurred jr8 gradually, 2 day(s) ago, and became worse and became persistent. Duration: The symptoms are continuous. The patient's shortness of breath is aggravated by talking, walking. Associated signs and symptoms: Pertinent positives: non-productive cough. Severity of symptoms: At their worst the symptoms were moderate in the emergency department the symptoms are unchanged. The patient has not experienced similar symptoms in the past. The patient has been recently seen by a physician:. Patient stated that she was recently diagnosed with COVID-19. Stated that she was seen yesterday for increased shortness of breath and was discharged. Today started to have the same problems. COPD history and is normally on oxygen but does not feel that it is helping. Stated that her oxygen with any movement is dropping into the low 80s at home. Normally around 92% on home oxygen. Patient uncomfortable upon arrival with tachypnea . Historical: - Allergies: 18:58 No Known Allergies; jl7 - Home Meds: 18:58 Lasix Oral [Active]; jl7 - PMHx: 18:58 fluid on body; jl7 - PSHx: 18:58 Hysterectomy; jl7 - Immunization history:: Adult Immunizations unknown. - Social history:: Smoking status: Patient denies any tobacco usage or history of. ROS: 20:26 Eyes: Negative for injury, pain, redness, and discharge, ENT: Negative for injury, jr8 pain, and discharge, Neck: Negative for injury, pain, and swelling, Cardiovascular: Negative for chest pain, palpitations, and edema, Abdomen/GI: Negative for abdominal pain, nausea, vomiting, diarrhea, and constipation, Back: Negative for injury and pain, MS/Extremity: Negative for injury and deformity, Skin: Negative for injury, rash, and discoloration, Neuro: Negative for headache, weakness, numbness, tingling, and seizure. 20:26 Respiratory: Positive for cough, dyspnea on exertion, shortness of breath, wheezing. Exam: 20:26 Eyes: Pupils equal round and reactive to light, extra-ocular motions intact. Lids and jr8 lashes normal. Conjunctiva and sclera are non-icteric and not injected. Cornea within normal limits. Periorbital areas with no swelling, redness, or edema. ENT: Nares patent. No nasal discharge, no septal abnormalities noted. Tympanic membranes are normal and external auditory canals are clear. Oropharynx with no redness, swelling, or masses, exudates, or evidence of obstruction, uvula midline. Mucous membranes moist. Neck: Trachea midline, no thyromegaly or masses palpated, and no cervical lymphadenopathy. Supple, full range of motion without nuchal rigidity, or vertebral point tenderness. No Meningismus. Abdomen/GI: Soft, non-tender, with normal bowel sounds. No distension or tympany. No guarding or rebound. No evidence of tenderness throughout. Back: No spinal tenderness. No costovertebral tenderness. Full range of motion. Skin: Warm, dry with normal turgor. Normal color with no rashes, no lesions, and no evidence of cellulitis. MS/ Extremity: Pulses equal, no cyanosis. Neurovascular intact. Full, normal range of motion. Neuro: Awake and alert, GCS 15, oriented to person, place, time, and situation. Cranial nerves II-XII grossly intact. Motor strength 5/5 in all extremities. Sensory grossly intact. Cerebellar exam normal. Normal gait. 20:26 Cardiovascular: Rate: tachycardic, Rhythm: regular, Pulses: Pulses are 2+ in right radial artery and left radial artery. Heart sounds: normal, normal S1and S2, no S3 or S4, no murmur, no rub, no gallop, Edema: is not appreciated, JVD: is not appreciated. 20:26 Respiratory: mild respiratory distress is noted, Respirations: labored breathing, tachypnea, that is mild, Breath sounds: wheezing: expiratory that is mild, is heard diffusely. Vital Signs: 18:45 BP 171 / 104; Pulse 115; Resp 32; Temp 98.2(O); Pulse Ox 83% on R/A; Weight 83.01 kg; jl7 Height 5 ft. 4 in. (162.56 cm); Pain 8/10; 18:59 Pulse Ox 92% 4 lpm ; jl7 20:00 BP 171 / 105; Pulse 117; Resp 38; Pulse Ox 92% on 5 lpm NC; jb4 21:00 BP 158 / 91; Pulse 109; Resp 21; Pulse Ox 97% on 5 lpm NC; jb4 22:15 BP 156 / 94; Pulse 106; Resp 20; Pulse Ox 90% on 5 lpm NC; jb4 22:45 BP 139 / 93; Pulse 103; Resp 21; Temp 98; Pulse Ox 91% on 5 lpm NC; rv 18:45 Body Mass Index 31.41 (83.01 kg, 162.56 cm) jl7 MDM: 18:47 Patient medically screened. jr8 20:33 Data reviewed: vital signs, nurses notes, lab test result(s), EKG, radiologic studies, [facility] plain films. Data interpreted: Pulse oximetry: on room air is 83 %. Interpretation: hypoxia. Counseling: I had a detailed discussion with the patient and/or guardian regarding: the historical points, exam findings, and any diagnostic results supporting the discharge/admit diagnosis, lab results, radiology results, the need for further work-up and treatment in the hospital. 08/05 19:25 Order name: Flu [facility] 08/05 19:25 Order name: Troponin (emerg Dept Use Only) [facility] 08/05 19:25 Order name: Blood Culture Adult (2) [facility] 08/05 19:25 Order name: BMP [facility] 08/05 19:25 Order name: C-Reactive Protein [facility] 08/05 19:25 Order name: CBC with Diff [facility] 08/05 19:25 Order name: D-Dimer [facility] 08/05 19:25 Order name: Ferritin [facility] 08/05 19:25 Order name: Lactate [facility] 08/05 19:25 Order name: LFT's [facility] 08/05 19:25 Order name: Procalcitonin; Complete Time: 21:52 [facility] 08/05 19:25 Order name: PT-INR; Complete Time: 20:57 [facility] 08/05 19:25 Order name: Ptt, Activated; Complete Time: 20:57 [facility] 08/05 19:25 Order name: Urine Microscopic Only [facility] 08/05 19:25 Order name: Influenza Screen (A EDNM 08/05 19:25 Order name: Troponin (Emerg Dept Use Only); Complete Time: 21:11 EDNM 08/05 19:25 Order name: Blood Culture [facility] 08/05 19:25 Order name: Basic Metabolic Panel; Complete Time: 21:11 [facility] 08/05 19:25 Order name: C-Reactive Protein; Complete Time: 21:11 [facility] 08/05 19:25 Order name: CBC with Automated Diff; Complete Time: 20:21 [facility] 08/05 19:25 Order name: D-Dimer; Complete Time: 20:57 EDMS 08/05 19:25 Order name: Ferritin; Complete Time: 21:11 [facility] 08/05 19:25 Order name: Lactate; Complete Time: 20:39 [facility] 08/05 19:25 Order name: Liver (Hepatic) Function; Complete Time: 21:11 [facility] 08/05 19:26 Order name: BNP; Complete Time: 21:11 [facility] 08/05 21:29 Order name: SARS-COV-2 RT PCR; Complete Time: 21:34 [facility] 08/05 22:25 Order name: CBC with Automated Diff [facility] 08/05 22:25 Order name: CBC with Automated Diff [facility] 08/05 22:25 Order name: Comprehensive Metabolic Panel [facility] 08/05 19:25 Order name: CXR XRAY; Complete Time: 20:00 [facility] 08/05 19:25 Order name: EKG; Complete Time: 19:27 [facility] 08/05 19:25 Order name: Cardiac monitoring; Complete Time: 20:14 [facility] 08/05 19:25 Order name: Droplet/Contact Precautions; Complete Time: 20:14 [facility] 08/05 19:25 Order name: EKG - Nurse/Tech; Complete Time: 19:56 [facility] 08/05 19:25 Order name: IV Start; Complete Time: 19:56 [facility] 08/05 19:25 Order name: Labs collected and sent; Complete Time: 19:56 [facility] 08/05 19:25 Order name: O2 Per Protocol; Complete Time: 19:56 [facility] 08/05 19:25 Order name: O2 Sat Monitoring; Complete Time: 19:57 [facility] 08/05 20:58 Order name: CT Chest For PE Angio [facility] 08/05 22:23 Order name: CONS Physician Consult [facility] 08/05 22:25 Order name: Heart Healthy [facility] 08/05 22:25 Order name: Comprehensive Metabolic Panel [facility] 08/05 22:25 Order name: Troponin I [facility] 08/05 22:25 Order name: Troponin I [facility] 08/05 22:25 Order name: Troponin I [facility] 08/05 22:25 Order name: Troponin I [facility] 08/05 22:25 Order name: Urinalysis EDNM Administered Medications: 20:14 Drug: Tylenol 1000 mg Route: PO; jb4 22:55 Follow up: Response: No adverse reaction rv 20:14 Drug: SOLU-Medrol 125 mg Route: IVP; Site: right antecubital; jb4 22:55 Follow up: Response: No adverse reaction rv 20:15 Drug: Albuterol - atroVENT (ipratropium) (3:1) (2.5 mg - 0.5 mg) 3 ml Route: Nebulizer; jb4 22:55 Follow up: Response: No adverse reaction rv 20:15 Drug: NS 0.9% 1000 ml Route: IV; Rate: 1000 ml; Site: right antecubital; jb4 22:55 Follow up: IV Status: Completed infusion; IV Intake: 1000ml rv 22:03 Drug: Potassium Chloride 40 mEq Route: PO; jb4 22:55 Follow up: Response: No adverse reaction rv 22:36 Drug: Lovenox 1 mg/kg Route: Sub-Q; Site: abdomen; rv 22:55 Follow up: Response: No adverse reaction rv Disposition: 08/06 07:56 Co-signature as Attending Physician, Arthur Amaro MD I agree with the assessment and higinio plan of care. Disposition: 08/05/20 20:34 Hospitalization ordered by Ravi Nicholas for Inpatient Admission. Preliminary diagnosis are Pneumonia due to SARS-associated coronavirus, Acute respiratory failure with hypoxia. - Bed requested for Telemetry/MedSurg (Inpatient). - Status is Inpatient Admission. rv - Condition is Fair. - Problem is new. - Symptoms have improved. Signatures: Dispatcher [employer] [facility] Arthur Amaro MD MD cha Roszak, Josh, PA PA jr8 Spencer Ibarra RN RN jb4 Gabriela Wagner RN RN jl7 Madhu Lyon RN RN Su Muñoz RN RN rd1 Corrections: (The following items were deleted from the chart) 08/05 20:28 19:27 CORONAVIRUS+MR.LAB.BRZ ordered. EDMS EDMS 22:46 20:34 Hospitalization Ordered by Ravi Nicholas MD for Inpatient Admission. Preliminary rd1 diagnosis is Pneumonia due to SARS-associated coronavirus; Acute respiratory failure with hypoxia. Bed requested for Telemetry/MedSurg (Inpatient). Status is Inpatient Admission. Condition is Fair. Problem is new. Symptoms have improved. jr8 23:05 22:46 08/05/2020 20:34 Hospitalization Ordered by Ravi Nicholas MD for Inpatient rv Admission. Preliminary diagnosis is Pneumonia due to SARS-associated coronavirus; Acute respiratory failure with hypoxia. Bed requested for Telemetry/MedSurg (Inpatient). Status is Inpatient Admission. Condition is Fair. Problem is new. Symptoms have improved. rd1
--- NOTE | 2020-08-05 20:35 | ER ---
Nurse's Notes [facility] Name: Sena Ricardo Age: 55 yrs Sex: Female : 1965 Arrival Date: 08/05/2020 Time: 18:44 Bed 6 Private MD: Diagnosis: Pneumonia due to SARS-associated coronavirus;Acute respiratory failure with hypoxia Presentation: 08/05 18:45 Chief complaint: EMS states: Shortness of breath started today, COVID +. Coronavirus jl7 screen: Client denies travel out of the [place] in the last 14 days. shortness of breath, Client presents with at least one sign or symptom that may indicate coronavirus-19. Standard/surgical mask placed on the client. Provider contacted for isolation considerations. Client reports previous positive COVID test result. Ebola Screen: No symptoms or risks identified at this time. Initial Sepsis Screen: Does the patient meet any 2 criteria? RR > 20 per min. HR > 90 bpm. Yes Does the patient have a suspected source of infection? Yes: Productive cough/pneumonia. Risk Assessment: Do you want to hurt yourself or someone else? Patient reports no desire to harm self or others. Onset of symptoms is unknown. Care prior to arrival: None. 87% on RA, 180/103 BP. 18:45 Method Of Arrival: EMS: [facility] 18:45 Acuity: ANABELLA 2 jl7 Triage Assessment: 18:58 General: Appears in no apparent distress. uncomfortable, ill, Behavior is calm, jl7 cooperative, appropriate for age. Pain: Complains of pain in [place] Pain currently is 8 out of 10 on a pain scale. Neuro: Level of Consciousness is awake, alert, obeys commands, Oriented to person, place, time, situation. Cardiovascular: Patient's skin is warm and dry. Respiratory: Reports shortness of breath at rest Onset: The symptoms/episode began/occurred at an unknown time. the patient has moderate shortness of breath. Derm: Skin is pink, warm \T\ dry. Historical: - Allergies: 18:58 No Known Allergies; jl7 - Home Meds: 18:58 Lasix Oral [Active]; jl7 - PMHx: 18:58 fluid on body; jl7 - PSHx: 18:58 Hysterectomy; jl7 - Immunization history:: Adult Immunizations unknown. - Social history:: Smoking status: Patient denies any tobacco usage or history of. Screenin:47 Abuse screen:. Nutritional screening: No deficits noted. Tuberculosis screening: No tw2 symptoms or risk factors identified. Fall Risk None identified. Assessment: 19:00 General: Appears in no apparent distress. uncomfortable, Behavior is cooperative, jb4 anxious. Pain: Denies pain. Neuro: Level of Consciousness is awake, alert, obeys commands, Oriented to person, place, time, situation. Cardiovascular: Patient's skin is warm and dry. Rhythm is sinus tachycardia. Respiratory: Airway is patent Respiratory effort is even, labored, Respiratory pattern is symmetrical, tachypnea Breath sounds are diminished bilaterally. Breath sounds with wheezes bilaterally. GI: No signs and/or symptoms were reported involving the gastrointestinal system. : No signs and/or symptoms were reported regarding the genitourinary system. EENT: No signs and/or symptoms were reported regarding the EENT system. Derm: Skin is intact, Skin is pink, warm \T\ dry. Musculoskeletal: Circulation, motion, and sensation intact. Range of motion: intact in all extremities. 20:00 Reassessment: Patient appears in no apparent distress at this time. No changes from jb4 previously documented assessment. Patient and/or family updated on plan of care and expected duration. Pain level reassessed. 21:00 Reassessment: Reassessment: PT reports feeling better after receiving the breathing jb4 treatment. Respirations are now even and unlabored. Pt remains on 5L NC. No s/s of pain or distress noted or reported. 22:33 Reassessment: Pt is resting in bed with eyes closed, resperations are even and jb4 unlabored with no s/s of pain or distress noted. 23:08 Reassessment: Patient appears in no apparent distress at this time. Patient and/or jb4 family updated on plan of care and expected duration. Pain level reassessed. Patient is alert, oriented x 3, equal unlabored respirations, skin warm/dry/pink. PT transferred upstairs with lead technical architect. Patient states feeling better. Vital Signs: 18:45 BP 171 / 104; Pulse 115; Resp 32; Temp 98.2(O); Pulse Ox 83% on R/A; Weight 83.01 kg; jl7 Height 5 ft. 4 in. (162.56 cm); Pain 8/10; 18:59 Pulse Ox 92% 4 lpm ; jl7 20:00 BP 171 / 105; Pulse 117; Resp 38; Pulse Ox 92% on 5 lpm NC; jb4 21:00 BP 158 / 91; Pulse 109; Resp 21; Pulse Ox 97% on 5 lpm NC; jb4 22:15 BP 156 / 94; Pulse 106; Resp 20; Pulse Ox 90% on 5 lpm NC; jb4 22:45 BP 139 / 93; Pulse 103; Resp 21; Temp 98; Pulse Ox 91% on 5 lpm NC; rv 18:45 Body Mass Index 31.41 (83.01 kg, 162.56 cm) jl7 ED Course: 18:44 Patient arrived in ED. jl7 18:47 Sharath Summers PA is PHCP. jr8 18:47 Arthur Amaro MD is Attending Physician. jr8 18:49 Triage completed. jl7 18:58 Arm band placed on right wrist. jl7 18:59 Patient has correct armband on for positive identification. Bed in low position. Call jl7 light in reach. Side rails up X 1. media monitor on. Pulse ox on. NIBP on. Warm blanket given. 19:27 Spencer Ibarra, RN is Primary Nurse. jb4 19:40 No provider procedures requiring assistance completed. Inserted saline lock: 18 gauge rv in right antecubital area, using aseptic technique. Blood collected. 19:40 Initial lab(s) drawn, by ED staff, sent to lab. rv 19:43 CXR XRAY In Process Unspecified. EDMS 20:34 Ravi Nicholas MD is Hospitalizing Provider. jr8 20:56 Notified Nurse Practitioner and/or Physician Filling Operator of a critical lab result(s), bb DDimer of [phone] Sharath MOSER notified. 21:33 CT Chest For PE Angio In Process Unspecified. EDMS 22:55 IV is patent, with fluids infusing freely, Patient admitted, IV remains in place. rv Administered Medications: 20:14 Drug: Tylenol 1000 mg Route: PO; jb4 22:55 Follow up: Response: No adverse reaction rv 20:14 Drug: SOLU-Medrol 125 mg Route: IVP; Site: right antecubital; jb4 22:55 Follow up: Response: No adverse reaction rv 20:15 Drug: Albuterol - atroVENT (ipratropium) (3:1) (2.5 mg - 0.5 mg) 3 ml Route: Nebulizer; jb4 : Follow up: Response: No adverse reaction rv 20:15 Drug: NS 0.9% 1000 ml Route: IV; Rate: 1000 ml; Site: right antecubital; jb4 22:55 Follow up: IV Status: Completed infusion; IV Intake: 1000ml rv 22:03 Drug: Potassium Chloride 40 mEq Route: PO; jb4 22:55 Follow up: Response: No adverse reaction rv 22:36 Drug: Lovenox 1 mg/kg Route: Sub-Q; Site: abdomen; rv 22:55 Follow up: Response: No adverse reaction rv Intake: 22:55 IV: 1000ml; Total: 1000ml. rv Outcome: 20:34 Decision to Hospitalize by Provider. jrLauri 22:54 Admitted to Tele accompanied by tech, via stretcher, room 409, Other sbar, ekg Report rv called to EFRA FRANCIS 22:54 Condition: good 22:54 Instructed on the need for admit. 23:05 Patient left the ED. rv Signatures: Dispatcher [employer] EDMS Josette Aguilar RN RN Sharath Bryan PA PA jr8 Leni Askew RN RN tw2 Spencer Ibarra RN RN jb4 Gabriela Wagner RN RN jl7 Madhu Lyon RN RN rv Corrections: (The following items were deleted from the chart) 22:35 20:00 Reassessment: lori sandoval
[2020-08-05 20:49] LABS: ALT/SGPT 47 U/L (12-78); Albumin 3.4 g/dL (3.4-5.0); Alkaline Phosphatase 86 U/L (45-117); BUN Blood Urea Nitrogen 18 mg/dL (7-18); Bicarbonate 27 mmol/L (21-32); Bilirubin Direct < 0.1 mg/dL (0-0.2); Bilirubin Total 0.2 mg/dL (0.2-1.0); Glucose Level 98 mg/dL (74-106); NT PRO-BNP 2093 pg/mL (<125); Sodium Level 140 mmol/L (136-145); Troponin (Emerg Dept Use Only) 0.09 ng/mL (0.0-0.045)
[2020-08-05 20:50] LABS: AST/SGOT 53 U/L (15-37); Potassium 3.2 mmol/L (3.5-5.1)
[2020-08-05 21:04] LABS: Ferritin 179.6 ng/mL (8-388)
[2020-08-05 21:29] LABS: SARS-COV-2 RT PCR POSITIVE (NEGATIVE)
[2020-08-05] MEDS ORDERED: POTASSIUM CL SA 10 MEQ TAB PO ONE (22:15)
[2020-08-05] MEDS ORDERED: ENOXAPARIN 80 MG/0.8 ML SQ ONE (22:52)
[2020-08-06] MEDS: ACETAMINOPHEN 500 MG TAB PO PRN ×2 (02:32→13:48)
[2020-08-06] MEDS: MORPHINE 2 MG/ML SYR IV PRN ×3 (04:15→23:36)
[2020-08-06 04:20] LABS: Absolute Lymphocytes (CBC) 0.5 K/uL (0.7-4.9); Basophils % 0.3 % (0-1.3); Hematocrit 38.2 % (36.0-45.0); Lymphocytes % 5.6 % (15.3-44.8); MPV 8.8 fL (7.6-11.3); RBC Red Blood Cell Count 4.36 M/uL (3.86-4.86)
[2020-08-06 04:32] LABS: ALT/SGPT 38 U/L (12-78); AST/SGOT 38 U/L (15-37); Albumin 2.9 g/dL (3.4-5.0); Alkaline Phosphatase 73 U/L (45-117); BUN Blood Urea Nitrogen 13 mg/dL (7-18); Bicarbonate 27 mmol/L (21-32); Bilirubin Total 0.2 mg/dL (0.2-1.0); Glucose Level 218 mg/dL (74-106); Potassium 3.8 mmol/L (3.5-5.1); Protein, Total 6.9 g/dL (6.4-8.2); Sodium Level 141 mmol/L (136-145)
[2020-08-06 04:55] VITALS: BMI 31.4
--- NOTE | 2020-08-06 05:07 | P.HP ---
Certification for Inpatient Patient admitted to: Inpatient With expected LOS: >2 Midnights Patient will require the following post-hospital care: None Practitioner: I am a practitioner with admitting privileges, knowledge of patient current condition, hospital course, and medical plan of care. Services: Services provided to patient in accordance with Admission requirements found in Title 42 Section 412.3 of the Code of Federal Regulations <Domingo Ricardo - Last Filed: 08/06/20 05:08> Patient History Date of Service: 08/06/20 Primary Care Provider: Dr. Ponce Reason for admission: covid pneumonia History of Present Illness: Ms. Ricadro is a 55 yo F who was diagnosed with COVID on Monday in the ER. Her sats were good at that time and she was discharged home with albuterol, prednisone and guaifenisin. She returns today for increased coughing, wheezing, SOB, WATKINS, sats now down to 83% on room air. She also reports urinary incontinence, nausea. Denies vomiting, and diarrhea. In the ER, patient told providers she has COPD and is on home oxygen. For me, she said she has no past medical history and takes Lasix for volume overload. Patient does smoke 1ppd. Initial troponin 0.09, 0.06. D dimer 770. No PE on CTPE. BNP elevated. - Past Medical/Surgical History Has patient received pneumonia vaccine in the past: No Diabetic: No -: hysterectomy - Social History Smoking Status: Current every day smoker Alcohol use: No CD- Drugs: No Caffeine use: No Place of Residence: Home <Domingo Ricardo - Last Filed: 08/06/20 05:08> Date of Service: 08/06/20 <Ravi Nicholas - Last Filed: 08/07/20 05:59> Allergies No Known Allergies Allergy (Verified 08/06/20 01:03) Home Medications: Clobetasol Propionate [Impoyz] 60 gm TP BID 08/06/20 Ergocalciferol (Vitamin D2) [Vitamin D2] 50,000 unit PO Q7D 08/06/20 Fluoxetine HCl [Prozac] 20 mg PO DAILY 08/06/20 Furosemide [Lasix] 40 mg PO DAILY 08/06/20 Ibuprofen 800 mg PO PRN PRN 08/06/20 Ketoconazole 120 ml TP MO,FR 08/06/20 Review of Systems General: Unremarkable Eyes: Unremarkable ENT: Unremarkable Respiratory: Cough, Shortness of Breath, SOB with Excertion, Wheezing, As per HPI Cardiovascular: Unremarkable Gastrointestinal: Nausea, As per HPI Genitourinary: Incontinence, As per HPI Musculoskeletal: Unremarkable Integumentary: Unremarkable Neurological: Unremarkable Lymphatics: Unremarkable <Domingo Ricardo - Last Filed: 08/06/20 05:08> Physical Examination - Vital Signs Temperature: 97 F Blood Pressure: 163/77 Pulse: 71 Respirations: 22 Pulse Ox (%): 93 - Physical Exam General: Alert, In no apparent distress, Cooperative HEENT: Atraumatic, Normocephalic, PERRLA, Mucous membr. moist/pink, EOMI, Sclerae nonicteric Neck: Supple, 2+ carotid pulse no bruit, JVD not distended Respiratory: Diminished Cardiovascular: No edema, Normal pulses, Regular rate/rhythm, Normal S1 S2, No gallops, No rubs, No murmurs Capillary refill: <2 Seconds Gastrointestinal: Normal bowel sounds, Soft and benign, Non-distended, No ascites, No tenderness, No masses, No rebound, No guarding Musculoskeletal: No clubbing, No swelling, No contractures, No erythema, No tenderness, No warmth Integumentary: No rashes, No breakdown, No significant lesion, No tenderness/swelling, No erythema, No warmth, No cyanosis Neurological: Normal speech, Normal strength at 5/5 x4 extr, Normal tone, Sensation intact, Cranial nerves 3-12 intact, Normal affect Lymphatics: No axilla or inguinal lymphadenopathy - Studies Laboratory Data (last 24 hrs) 08/05/20 19:40: PT 11.1, INR 0.97, APTT 26.0 08/05/20 19:40: WBC 9.30 D, Hgb 14.4, Hct 44.0, Plt Count 232 D 08/05/20 19:40: Sodium 140, Potassium 3.2 L, BUN 18, Creatinine 0.74, Glucose 98, Total Bilirubin 0.2, AST 53 H, ALT 47, Alkaline Phosphatase 86 <Domingo Ricardo - Last Filed: 08/06/20 05:08> Assessment and Plan - Problems (Diagnosis) (1) Pneumonia due to COVID-19 virus Current Visit: Yes Status: Acute Plan: covid supplements given, solumedrol, ivermectin. pulm consulted, daily sats, sats for home o2, respiratory consulted. breathing treatments q6hr PRN (2) Elevated brain natriuretic peptide (BNP) level Current Visit: Yes Status: Acute Plan: patient takes Lasix at home, will do IV Lasix 20 daily. (3) Troponin level elevated Current Visit: Yes Status: Acute Plan: troponin elevated, Ddimer elevated to 770. CTPE negative for PE. but due to risk factors and covid pneumonia, was given full dose Lovenox in the ER. will continue until pulm recs given. Discharge Plan: Home Plan to discharge in: 72 Hours - Advance Directives Does patient have a Living Will: No Does patient have a Durable POA for Healthcare: No - Code Status/Comfort Care Code Status Assessed: Yes (DNR, DNI) Critical Care: No Time Spent Managing Pts Care (In Minutes): 70 <Domingo Ricardo - Last Filed: 08/06/20 05:08> Date of Service: 08/06/20 Patient clinically doing well. Does not appear overly tachypneic. There was some comes concerns for confusion. Also chest discomfort. She is coughing a lot and will give her some pain medication. EKG with no significant abnormalities. She clinically appears to be doing a little better. Hopefully we can wean her down the oxygen quickly and get her home. If her oxygen requirements worsen then we may need antiviral therapy & plasma therapy. <Ravi Nicholas - Last Filed: 08/07/20 05:59>
[2020-08-06 05:43] LABS: Ferritin 153.3 ng/mL (8-388)
[2020-08-06 07:06] LABS: Blood Morphology Comment NOT SEEN (NOT SEEN); Platelet Estimate ADEQ
--- NOTE | 2020-08-06 07:19 | EKG ---
Test Date: 2020-08-05 Test Time: 20:05:18 Material Checker: NELLIE MEASUREMENT RESULTS: Intervals: Rate: 117 WI: 136 QRSD: 96 QT: 328 QTc: 457 [place]: P: 44 WI: 136 QRS: -37 T: 53 INTERPRETIVE STATEMENTS: Sinus tachycardia Biatrial enlargement Left axis deviation Left ventricular hypertrophy Abnormal ECG Compared to ECG 08/03/2020 21:03:21 Left ventricular hypertrophy now present Sinus rhythm no longer present Myocardial infarct finding no longer present T-wave abnormality no longer present Possible ischemia no longer present Electronically Signed On 08-06-20 07:18:04 CDT by Fam Allison
[2020-08-06] MEDS ORDERED: ENOXAPARIN 80 MG/0.8 ML SQ SCH (09:00)
[2020-08-06] MEDS ORDERED: POTASSIUM CL SA 10 MEQ TAB PO ONE (09:00)
[2020-08-06] MEDS ORDERED: ENOXAPARIN 40 MG/0.4 ML SQ SCH (09:00)
[2020-08-06] MEDS: ZINC SULFATE 220 MG CAP PO SCH (09:00)
[2020-08-06] MEDS: FUROSEMIDE 20 MG/ 2ML VIAL IV SCH (09:09)
[2020-08-06] MEDS: FAMOTIDINE 20 MG TAB PO SCH ×2 (09:10→21:11)
[2020-08-06] MEDS: METHYLPREDNISOLONE 125 MG INJ IV SCH ×2 (09:10→21:10)
[2020-08-06] MEDS: THIAMINE HCL 100 MG TABLET PO SCH (09:11)
[2020-08-06] MEDS: ASCORBIC ACID 500 MG TABLET PO SCH ×4 (09:11→21:11)
[2020-08-06] MEDS: BENZONATATE 100 MG CAP PO PRN ×3 (09:12→23:16)
[2020-08-06] MEDS: VITAMIN D 1000 UNIT TAB PO SCH (09:12)
[2020-08-06] MEDS: IVERMECTIN 3 MG TABLET PO SCH (09:15)
[2020-08-06] MEDS: ONDANSETRON 4 MG/2 ML VIAL IV PRN (10:16)
--- NOTE | 2020-08-06 13:07 | P.CNS ---
Date of Consult: 08/06/20 Primary Care Provider: Dr. Ponce Chief Complaint: covid pneumonia History of Present Illness: Patient is 55 years of age with diagnosed with pavon virus on Monday presented to the ER with discharge home on steroids read returned again with coughing shortness of breath wheezing mild hypoxemia also has some nausea vomiting diarrhea and was admitted to the hospital she is doing well right now no new complaints is an active smoker Allergies No Known Allergies Allergy (Verified 08/06/20 01:03) Home Medications: Clobetasol Propionate [Impoyz] 60 gm TP BID 08/06/20 Ergocalciferol (Vitamin D2) [Vitamin D2] 50,000 unit PO Q7D 08/06/20 Fluoxetine HCl [Prozac] 20 mg PO DAILY 08/06/20 Furosemide [Lasix] 40 mg PO DAILY 08/06/20 Ibuprofen 800 mg PO PRN PRN 08/06/20 Ketoconazole 120 ml TP MO,FR 08/06/20 - Past Medical/Surgical History Diabetic: No -: hysterectomy - Social History Smoking Status: Current every day smoker Alcohol use: No CD- Drugs: No Caffeine use: No Place of Residence: Home Review of Systems is unable to be obtained (Patient is confused) Physical Examination Temp Pulse Resp BP Pulse Ox 97.0 F 83 16 158/98 H 93 08/06/20 12:00 08/06/20 12:00 08/06/20 12:00 08/06/20 12:00 08/06/20 12:00 General: Alert, Cooperative Respiratory: Clear to auscultation bilaterally Laboratory Data (last 24 hrs) 08/05/20 19:40: PT 11.1, INR 0.97, APTT 26.0 08/05/20 19:40: WBC 9.30 D, Hgb 14.4, Hct 44.0, Plt Count 232 D 08/05/20 19:40: Sodium 140, Potassium 3.2 L, BUN 18, Creatinine 0.74, Glucose 98, Total Bilirubin 0.2, AST 53 H, ALT 47, Alkaline Phosphatase 86 - Problems (1) Pneumonia due to COVID-19 virus Current Visit: Yes Status: Acute Plan: Patient is 55 years of age admitted with pneumonia due to pavon virus patient denies any medical problems an active smoker CT scan shows classic bilateral ground-glass changes continue with steroids, Remdesmi currently stable oxygenation satisfactory chemistries reviewed possible discharge in 1 or 2 day
[2020-08-06] MEDS ORDERED: Remdesivir 200 MG in NA CHLORIDE 0.9% 250 ML IV ONE (13:30)
--- NOTE | 2020-08-06 14:26 | RAD REPORT ---
EXAM DESCRIPTION: CT - Chest For Pe Angio - 08/06/2020 7:07 am CLINICAL HISTORY: DYSPNEA TECHNIQUE: Contiguous axial images obtained through the chest during angiographic phase following th e uneventful administration of IV contrast. Sagittal and coronal reformatted images were provided. NH P reformatted images were provided. This exam was performed according to our departmental dose-optimization program, which includes autom ated exposure control, adjustment of the mA and/or kV according to patient size and/or use of iterati ve reconstruction technique. COMPARISON: 12/16/2011 FINDINGS: Diagnostic quality: There is good opacification of the pulmonary arterial tree. Motion art ifact degrades image quality and limits evaluation of segmental and subsegmental vessels. Lungs: Multifocal groundglass opacities bilaterally. Mild to moderate right and minimal left basilar consolidation.. Airways are patent. Pleura: No effusion. No pneumothorax. Heart and pericardium: The heart is enlarged, more pronounced on the current study. Coronary artery c alcification. No pericardial effusion. Mediastinum and cat: No pathologically enlarged lymph nodes. Lower neck and chest wall: 2.6 cm right thyroid nodule. Vessels: No pulmonary arterial filling defects. No thoracic aortic aneurysm. Upper abdomen: The liver is enlarged. Bones: Multilevel spondylosis. No acute fracture. IMPRESSION: 1. Motion artifact degrades image quality and limits evaluation of segmental and subse gmental vessels. No central pulmonary embolic disease. 2. Multifocal infiltrates. Imaging features can be seen with viral pneumonia, though are nonspecifi c and can occur with a variety of infectious and noninfectious processes. PneInd Reference: https://p ubs.rsna.org/doi/full/[email or web address]/[email or web address] 3. 2.6 cm right thyroid nodule. Recommend thyroid US. Reference: J Am Radha Radiol. 2015 Jun;12(2): 143-50 4. Other findings as above. Electronically signed by: Terry Estrada MD 08/05/2020 9:48 PM CDT Due to temporary technical issues with the PACS/Fluency reporting system, reports are being signed by the in house radiologist without review as a courtesy to ensure prompt reporting. The interpreting r adiologist is fully responsible for the content of the report.
[2020-08-06 15:41] LABS: Urine Appearance CLOUDY; Urine Bilirubin NEGATIVE (NEG); Urine Blood NEGATIVE (NEG); Urine Color YELLOW; Urine Glucose NEGATIVE (Negative); Urine Protein NEGATIVE (NEG); Urine Specific Gravity >=1.030 (1.005-1.030)
[2020-08-06 15:58] LABS: Urine Microscopic Reflex ORDER UMIC
[2020-08-06 16:59] LABS: Urine Bacteria 20-50 /HPF (<20); Urine RBC <5 /HPF (NONE SEEN)
[2020-08-06] MEDS: ENOXAPARIN 40 MG/0.4 ML SQ SCH (21:10)
[2020-08-06] MEDS: MELATONIN 5 MG TABLET PO PRN (21:11)
[2020-08-06 21:51] LABS: Urine Appearance CLEAR; Urine Bilirubin NEGATIVE (NEG); Urine Blood NEGATIVE (Negative); Urine Color YELLOW; Urine Glucose NEGATIVE (Negative); Urine Protein 1+ (NEG); Urine Specific Gravity >=1.030 (1.005-1.030); Urine pH 6.5 (5.0-7.0)
[2020-08-06 22:03] LABS: Urine Microscopic Reflex ORDER UMIC
[2020-08-06 22:19] LABS: Urine Bacteria >50 /HPF (<20); Urine RBC <5 /HPF (NONE SEEN)
[2020-08-06] MEDS: ALBUTEROL 2.5 MG/3 ML NEB SOL NEB PRN (22:30)
--- NOTE | 2020-08-07 06:02 | P.PN ---
Subjective Date of Service: 08/06/20 Subjective: No new changes, No C/O voiced, Improving Review of Systems 10-point ROS is otherwise unremarkable Physical Examination - Vital Signs Temperature: 97.2 F Blood Pressure: 157/91 Pulse: 72 Respirations: 20 Pulse Ox (%): 93 - Physical Exam General: Alert, In no apparent distress, Oriented x3 HEENT: Atraumatic, PERRLA, EOMI Neck: Supple, JVD not distended Respiratory: Diminished, Expiratory wheezes Cardiovascular: Regular rate/rhythm, Normal S1 S2 Gastrointestinal: Normal bowel sounds, No tenderness Musculoskeletal: No tenderness Integumentary: No rashes Neurological: Normal speech, Normal tone, Normal affect Lymphatics: No axilla or inguinal lymphadenopathy - Studies Medications List Reviewed: Yes Assessment & Plan - Problems (Diagnosis) (1) Pneumonia due to COVID-19 virus Current Visit: Yes Status: Acute (2) Elevated brain natriuretic peptide (BNP) level Current Visit: Yes Status: Acute - Plan 1. Continue with IV steroids 2. Monitor inflammatory markers 3. Repeat chest x-ray is symptoms are progressively worsening 4. O2 per protocol 5. Pulmonary consultation 6. Continue with albuterol inhaler therapy; also supportive care 7. Monitor LFTs 8. May need low-dose diuretics 9. GI and DVT prophylaxis - Advance Directives Does patient have a Living Will: No Does patient have a Durable POA for Healthcare: No
[2020-08-07 06:23] LABS: BUN Blood Urea Nitrogen 20 mg/dL (7-18); Bicarbonate 30 mmol/L (21-32); Ferritin 167.2 ng/mL (8-388); Glucose Level 142 mg/dL (74-106); Potassium 4.2 mmol/L (3.5-5.1); Sodium Level 140 mmol/L (136-145)
[2020-08-07] MEDS ORDERED: DRISDOL (VITAMIN D=ERGOCALCIFEROL) 50000 UNIT CAP PO SCH (07:00)
[2020-08-07] MEDS: BENZONATATE 100 MG CAP PO PRN ×2 (08:10→22:15)
[2020-08-07] MEDS: ALBUTEROL 2.5 MG/3 ML NEB SOL NEB PRN ×2 (08:45→22:30)
[2020-08-07] MEDS: VITAMIN D 1000 UNIT TAB PO SCH (08:50)
[2020-08-07] MEDS: FAMOTIDINE 20 MG TAB PO SCH ×2 (08:51→20:50)
[2020-08-07] MEDS: FUROSEMIDE 20 MG/ 2ML VIAL IV SCH (08:51)
[2020-08-07] MEDS: ENOXAPARIN 40 MG/0.4 ML SQ SCH ×2 (08:51→20:50)
[2020-08-07] MEDS: METHYLPREDNISOLONE 125 MG INJ IV SCH ×2 (08:51→20:50)
[2020-08-07] MEDS: THIAMINE HCL 100 MG TABLET PO SCH (08:52)
[2020-08-07] MEDS: ZINC SULFATE 220 MG CAP PO SCH (08:52)
[2020-08-07] MEDS: FLUOXETINE 20 MG CAP PO SCH (08:53)
[2020-08-07] MEDS: ASCORBIC ACID 500 MG TABLET PO SCH ×4 (08:55→20:50)
[2020-08-07] MEDS ORDERED: FUROSEMIDE 40 MG TABLET PO SCH (09:00)
[2020-08-07] MEDS: Remdesivir 100 MG in NA CHLORIDE 0.9% 250 ML IV SCH (09:14)
[2020-08-07] MEDS: CLOBETASOL 0.05 % CREAM 15GM TOP SCH ×2 (09:15→20:50)
--- NOTE | 2020-08-07 09:35 | P.PN ---
Date of Service: 08/07/20 seen today. still has some chest discomfort. feels slightly better however. repeat CXR shows no evidence of fractures or dislocation. Review of Systems 10-point ROS is otherwise unremarkable Physical Examination - Vital Signs Reviewed - Physical Exam General: Alert, In no apparent distress, Oriented x3 Respiratory: Reduced air entry globally. Cardiovascular: Regular rate/rhythm, Normal S1 S2, No murmurs Gastrointestinal: Normal bowel sounds, Soft and benign, Non-distended, No tenderness Musculoskeletal: Point tenderness underneath the breast and below the collar bone Integumentary: No rashes Neurological: Sensation intact, Cranial nerves 3-12 intact - Studies Medications List Reviewed: Yes Assessment & Plan - Problems (Diagnosis) (1) Pneumonia due to COVID-19 virus Current Visit: Yes Status: Acute (2) History of asthma Current Visit: Yes Status: Acute (3) Acute respiratory failure due to severe acute respiratory syndrome coronavirus 2 (SARS-CoV-2) infection Current Visit: Yes Status: Acute - Plan Still very lethargic and c/o chest discomfort. we will continue prn morphine and breathing treatments. repeat CXR showed no issues as per worsening lung disease. we will continue supplemental oxygen and wean off as per protocol. we will continue steroid therapy. Ivermectin dose to be completed as per Pulmonary/heat and vent aircraft mechanic. Remdesivir dose to be completed. GI and DVT prophylaxis
[2020-08-07] MEDS: MORPHINE 2 MG/ML SYR IV PRN ×2 (10:41→19:12)
--- NOTE | 2020-08-07 15:03 | EKG ---
Test Date: 2020-08-06 Test Time: 15:20:44 Register Of Wills: JOHANNA MEASUREMENT RESULTS: Intervals: Rate: 73 IA: 116 QRSD: 104 QT: 378 QTc: 416 [place]: P: -3 IA: 116 QRS: -16 T: 102 INTERPRETIVE STATEMENTS: Normal sinus rhythm Minimal voltage criteria for LVH, may be normal variant T wave abnormality, consider lateral ischemia Abnormal ECG Compared to ECG 08/06/2020 09:59:41 Sinus arrhythmia no longer present T-wave abnormality still present Possible ischemia still present Electronically Signed On 08-07-20 15:01:52 CDT by Fam Allison
[2020-08-07] MEDS: POLYVINYL ALCOHOL 1.4% 15 ML EACH EYE PRN (16:34)
[2020-08-07] MEDS: MELATONIN 5 MG TABLET PO PRN (22:14)
[2020-08-08] MEDS: MORPHINE 2 MG/ML SYR IV PRN ×4 (04:16→23:19)
[2020-08-08 08:00] LABS: ALT/SGPT 33 U/L (12-78); AST/SGOT 21 U/L (15-37); Albumin 2.9 g/dL (3.4-5.0); Alkaline Phosphatase 68 U/L (45-117); BUN Blood Urea Nitrogen 24 mg/dL (7-18); Bicarbonate 34 mmol/L (21-32); Bilirubin Direct < 0.1 mg/dL (0-0.2); Bilirubin Total 0.2 mg/dL (0.2-1.0); Ferritin 178.8 ng/mL (8-388); Glucose Level 135 mg/dL (74-106); Potassium 4.1 mmol/L (3.5-5.1); Protein, Total 6.8 g/dL (6.4-8.2); Sodium Level 140 mmol/L (136-145)
[2020-08-08] MEDS: FUROSEMIDE 20 MG/ 2ML VIAL IV SCH (08:22)
[2020-08-08] MEDS: ENOXAPARIN 40 MG/0.4 ML SQ SCH ×2 (08:22→20:56)
[2020-08-08] MEDS: FLUOXETINE 20 MG CAP PO SCH (08:22)
[2020-08-08] MEDS: VITAMIN D 1000 UNIT TAB PO SCH (08:22)
[2020-08-08] MEDS: THIAMINE HCL 100 MG TABLET PO SCH (08:22)
[2020-08-08] MEDS: ZINC SULFATE 220 MG CAP PO SCH (08:22)
[2020-08-08] MEDS: FAMOTIDINE 20 MG TAB PO SCH ×2 (08:22→20:57)
[2020-08-08] MEDS: ASCORBIC ACID 500 MG TABLET PO SCH ×4 (08:22→20:57)
[2020-08-08] MEDS: METHYLPREDNISOLONE 125 MG INJ IV SCH ×2 (08:22→20:56)
[2020-08-08] MEDS: CLOBETASOL 0.05 % CREAM 15GM TOP SCH ×2 (08:23→20:57)
[2020-08-08] MEDS: BENZONATATE 100 MG CAP PO PRN ×2 (08:26→23:19)
[2020-08-08] MEDS: IVERMECTIN 3 MG TABLET PO SCH (09:01)
[2020-08-08] MEDS: Remdesivir 100 MG in NA CHLORIDE 0.9% 250 ML IV SCH (09:01)
--- NOTE | 2020-08-08 13:04 | P.PN ---
Subjective Date of Service: 08/08/20 Primary Care Provider: Dr. Ponce Chief Complaint: covid pneumonia Subjective: No new changes (feels still persistent cough - SOB remain the same) Physical Examination - Vital Signs Temperature: 97.1 F Blood Pressure: 162/88 Pulse: 60 Respirations: 20 Pulse Ox (%): 95 - Physical Exam General: Alert, In no apparent distress, Oriented x3, Cooperative HEENT: Atraumatic, Normocephalic Neck: Supple, 2+ carotid pulse no bruit, JVD not distended Respiratory: Diminished, Other (coarse creps b/l ) Cardiovascular: No edema, Regular rate/rhythm, Normal S1 S2 Gastrointestinal: Normal bowel sounds, Soft and benign, Non-distended Musculoskeletal: No clubbing, No swelling, No contractures Integumentary: No rashes, No breakdown, No significant lesion Neurological: Normal speech, Normal tone, Sensation intact, Cranial nerves 3-12 intact - Studies Medications List Reviewed: Yes Assessment And Plan - Current Problems (Diagnosis) (1) Elevated brain natriuretic peptide (BNP) level Current Visit: Yes Status: Acute (2) Pneumonia due to COVID-19 virus Current Visit: Yes Status: Acute (3) Troponin level elevated Current Visit: Yes Status: Acute (4) UTI (urinary tract infection) Current Visit: Yes Status: Acute (5) HTN (hypertension) Current Visit: Yes Status: Acute Physician Review Additional Text: Covid pneumonia Acute leg stay failure Hypertension Urinary tract infection. Plan -we add amlodipine for blood pressure control -still persistent cough symptoms, add codeine and Tessalon -continue with IV steroids -we add Mucomyst nebulizer to regimen for cough -follow with Pulmonary consultation -continue on bronchodilators, -will dose low-dose diuretics today -start Rocephin for UTI , follow full c/s -c/w GI and DVT prophylaxis Time Spent Managing PTS Care (In Minutes): 35
[2020-08-08] MEDS ORDERED: GUAIFENESIN/DM 5 ML UCUP PO PRN (13:05)
[2020-08-08] MEDS: AMLODIPINE 10 MG TAB PO SCH (13:07)
[2020-08-08] MEDS: CEFTRIAXONE/SWI 1gm 1 GM/10 ML SYR IVP SCH (13:07)
[2020-08-08] MEDS: GUAIFENESIN 600 MG SA TAB PO SCH (20:57)
[2020-08-09 06:10] LABS: ALT/SGPT 38 U/L (12-78); AST/SGOT 22 U/L (15-37); Albumin 2.9 g/dL (3.4-5.0); Alkaline Phosphatase 68 U/L (45-117); BUN Blood Urea Nitrogen 26 mg/dL (7-18); Bicarbonate 34 mmol/L (21-32); Bilirubin Direct < 0.1 mg/dL (0-0.2); Bilirubin Total 0.3 mg/dL (0.2-1.0); Glucose Level 191 mg/dL (74-106); Potassium 4.2 mmol/L (3.5-5.1); Protein, Total 6.7 g/dL (6.4-8.2); Sodium Level 138 mmol/L (136-145)
[2020-08-09] MEDS: ENOXAPARIN 40 MG/0.4 ML SQ SCH ×2 (08:28→20:00)
[2020-08-09] MEDS: VITAMIN D 1000 UNIT TAB PO SCH (08:28)
[2020-08-09] MEDS: CEFTRIAXONE/SWI 1gm 1 GM/10 ML SYR IVP SCH (08:28)
[2020-08-09] MEDS: GUAIFENESIN 600 MG SA TAB PO SCH ×2 (08:29→20:01)
[2020-08-09] MEDS: THIAMINE HCL 100 MG TABLET PO SCH (08:29)
[2020-08-09] MEDS: FLUOXETINE 20 MG CAP PO SCH (08:29)
[2020-08-09] MEDS: FAMOTIDINE 20 MG TAB PO SCH ×2 (08:29→20:01)
[2020-08-09] MEDS: AMLODIPINE 10 MG TAB PO SCH (08:29)
[2020-08-09] MEDS: ZINC SULFATE 220 MG CAP PO SCH (08:29)
[2020-08-09] MEDS: FUROSEMIDE 20 MG/ 2ML VIAL IV SCH (08:29)
[2020-08-09] MEDS: METHYLPREDNISOLONE 125 MG INJ IV SCH ×2 (08:29→20:00)
[2020-08-09] MEDS: ASCORBIC ACID 500 MG TABLET PO SCH ×4 (08:30→20:01)
[2020-08-09] MEDS: CLOBETASOL 0.05 % CREAM 15GM TOP SCH ×2 (08:30→20:02)
[2020-08-09] MEDS: MORPHINE 2 MG/ML SYR IV PRN ×2 (08:32→23:15)
[2020-08-09] MEDS: Remdesivir 100 MG in NA CHLORIDE 0.9% 250 ML IV SCH (08:34)
--- NOTE | 2020-08-09 13:57 | P.PN ---
Subjective Date of Service: 08/09/20 Primary Care Provider: Dr. Ponce Chief Complaint: covid pneumonia Subjective: No new changes (-state cough is better - wheezing more improved - admit to daily meth use at home now , states anxiety with withdrawal) Physical Examination - Vital Signs Temperature: 97.2 F Blood Pressure: 128/83 Pulse: 111 Respirations: 16 Pulse Ox (%): 92 - Physical Exam General: Alert, In no apparent distress, Oriented x3 HEENT: Atraumatic, Normocephalic, PERRLA Neck: Supple, 2+ carotid pulse no bruit, JVD not distended Respiratory: Normal air movement, Rhonchi/gurgles (imprving ) Cardiovascular: No edema, Normal pulses, Regular rate/rhythm, Normal S1 S2 Gastrointestinal: Normal bowel sounds, Soft and benign, Non-distended Musculoskeletal: No clubbing, No swelling Integumentary: No rashes, No breakdown Neurological: Normal strength at 5/5 x4 extr, Sensation intact - Studies Medications List Reviewed: Yes Assessment And Plan - Current Problems (Diagnosis) (1) Elevated brain natriuretic peptide (BNP) level Current Visit: Yes Status: Acute (2) Pneumonia due to COVID-19 virus Current Visit: Yes Status: Acute (3) Troponin level elevated Current Visit: Yes Status: Acute (4) UTI (urinary tract infection) Current Visit: Yes Status: Acute (5) HTN (hypertension) Current Visit: Yes Status: Acute Physician Review Additional Text: Covid pneumonia with bronchitis Acute leg stay failure Hypertension Urinary tract infection. history of meth use Plan -will add ativan to regime -continue to wean 02 - possible dc in am -Bp improving with added Amlodipine for blood pressure control -Improevd cough symptoms , c/w guainefesine and Tessalon -continue with IV steroids -follow with Pulmonary eval -continue on bronchodilators, -will dose low-dose diuretics today -urine cx with citrobacter freudii UTI , will dc [place] and start levaquin po -c/w GI and DVT prophylaxis
[2020-08-09] MEDS: levoFLOXacin 500 MG TAB PO SCH (14:22)
[2020-08-09] MEDS: ACETAMINOPHEN 500 MG TAB PO PRN (17:29)
[2020-08-09] MEDS: LORAZEPAM 0.5 MG TABLET PO SCH (20:01)
[2020-08-09] MEDS: ONDANSETRON 4 MG/2 ML VIAL IV PRN (23:15)
[2020-08-10] MEDS: ACETAMINOPHEN 500 MG TAB PO PRN (03:27)
[2020-08-10 04:40] LABS: Bilirubin Direct 0.1 mg/dL (0-0.2); Bilirubin Total 0.4 mg/dL (0.2-1.0); Potassium 3.6 mmol/L (3.5-5.1); Protein, Total 6.9 g/dL (6.4-8.2)
--- NOTE | 2020-08-10 08:18 | P.PN ---
Subjective Date of Service: 08/10/20 Primary Care Provider: Dr. Ponce Chief Complaint: covid pneumonia Subjective: Improving (Patient is doing much better on nasal cannula oxygen) Review of Systems General: Weakness Respiratory: Shortness of Breath Physical Examination - Vital Signs Temperature: 97.8 F Blood Pressure: 145/92 Pulse: 107 Respirations: 17 Pulse Ox (%): 95 - Physical Exam General: Alert, Oriented x3 Respiratory: Clear to auscultation bilaterally Cardiovascular: No edema, Normal S1 S2 - Studies Medications List Reviewed: Yes Assessment & Plan - Problems (Diagnosis) (1) Pneumonia due to COVID-19 virus Current Visit: Yes Status: Acute Plan: Patient admitted with pavon virus pneumonia doing much better plan to discharge home on oxygen steroids labs reviewed no antibiotics needed continue with prednisone 10 mg twice a day for at least 2 weeks follow-up with me in 2 weeks
[2020-08-10] MEDS: VITAMIN D 1000 UNIT TAB PO SCH (08:52)
[2020-08-10] MEDS: levoFLOXacin 500 MG TAB PO SCH (08:52)
[2020-08-10] MEDS: AMLODIPINE 10 MG TAB PO SCH (08:52)
[2020-08-10] MEDS: ASCORBIC ACID 500 MG TABLET PO SCH ×2 (08:53→12:13)
[2020-08-10] MEDS: ZINC SULFATE 220 MG CAP PO SCH (08:53)
[2020-08-10] MEDS: FAMOTIDINE 20 MG TAB PO SCH (08:53)
[2020-08-10] MEDS: THIAMINE HCL 100 MG TABLET PO SCH (08:53)
[2020-08-10] MEDS: LORAZEPAM 0.5 MG TABLET PO SCH (08:54)
[2020-08-10] MEDS: ENOXAPARIN 40 MG/0.4 ML SQ SCH (08:55)
[2020-08-10] MEDS: GUAIFENESIN 600 MG SA TAB PO SCH (08:55)
[2020-08-10] MEDS: FUROSEMIDE 20 MG/ 2ML VIAL IV SCH (08:55)
[2020-08-10] MEDS: METHYLPREDNISOLONE 125 MG INJ IV SCH (08:55)
[2020-08-10] MEDS: IVERMECTIN 3 MG TABLET PO SCH (08:56)
[2020-08-10] MEDS: CLOBETASOL 0.05 % CREAM 15GM TOP SCH (08:57)
[2020-08-10] MEDS: POLYVINYL ALCOHOL 1.4% 15 ML EACH EYE PRN (08:58)
[2020-08-10] MEDS ORDERED: POTASSIUM 25 MEQ EFFERV TAB PO ONE (09:00)
[2020-08-10] MEDS: MORPHINE 2 MG/ML SYR IV PRN (09:04)
[2020-08-10] MEDS: FLUOXETINE 20 MG CAP PO SCH (09:06)
--- NOTE | 2020-08-10 09:19 | P.DS ---
Admission Date: 08/05/20 Discharge Date: 08/10/20 Primary Care Provider: Dr. Ponce Disposition: ROUTINE DISCHARGE Discharge Condition: GOOD Reason for Admission: covid pneumonia Consultations: Pulmonary-Dr. Philip Procedures: COVID: Positive CT Scan Chest: COMPARISON: 12/16/2011 FINDINGS: Diagnostic quality: There is good opacification of the pulmonary arterial tree. Motion artifact degrades image quality and limits evaluation of segmental and subsegmental vessels. Lungs: Multifocal groundglass opacities bilaterally. Mild to moderate right and minimal left basilar consolidation.. Airways are patent. Pleura: No effusion. No pneumothorax. Heart and pericardium: The heart is enlarged, more pronounced on the current study. Coronary artery calcification. No pericardial effusion. Mediastinum and cat: No pathologically enlarged lymph nodes. Lower neck and chest wall: 2.6 cm right thyroid nodule. Vessels: No pulmonary arterial filling defects. No thoracic aortic aneurysm. Upper abdomen: The liver is enlarged. Bones: Multilevel spondylosis. No acute fracture. IMPRESSION: 1. Motion artifact degrades image quality and limits evaluation of segmental and subsegmental vessels. No central pulmonary embolic disease. 2. Multifocal infiltrates. Imaging features can be seen with viral pneumonia, though are nonspecific and can occur with a variety of infectious and noninfectious processes. Medical Problem List: Dyspnea with hypoxia secondary to bilateral COVID-19 pneumonia UTI, urine culture positive for Citrobacter and Serratia Hypertension, new diagnosis Chronic diastolic CHF Depression Prediabetes COPD Tobacco abuse GERD Brief History of Present Illness: 55 yo female who was diagnosed with COVID on Monday in the ER. Her sats were good at that time and she was discharged home with albuterol, prednisone and guaifenisin. She returns today for increased coughing, wheezing, SOB, WATKINS, sats now down to 83% on room air. She also reports urinary incontinence, nausea. Denies vomiting, and diarrhea. In the ER, patient told providers she has COPD and is on home oxygen. For me, she said she has no past medical history and takes Lasix for volume overload. Patient does smoke 1ppd. Initial troponin 0.09, 0.06. D dimer 770. No PE on CTPE. BNP elevated. Due to her oxygen requirements patient was admitted for further evaluation and treatment. Hospital Course: Patient presented with dyspnea and hypoxia. Patient was recently diagnosed with COVID-19. Patient required hospitalization. Patient received medication during the course of her stay. Her condition improved. CT scan did not reveal any pulmonary embolism. Patient seen by pulmonology. At discharge patient still requires oxygen. Patient condition has improved. At discharge she will continue with home oxygen to maintain sats above 93%. Patient currently on 2 L per nasal cannula. At discharge the patient will continue with prednisone 20 mg 1 pill twice daily for 7 days then 1 pill once daily for 7 days. The patient will also continue with vitamin C 500 mg 3 times a day, melatonin 5 mg at bedtime, thiamine 100 mg twice daily, and zinc 220 mg daily. Patient should also continue with aspirin 81 mg daily. Recommend for the patient to follow-up with pulmonology in 1 week to follow-up his hospitalization. Further adjustment in her oxygen and medication can be done by pulmonology. Patient will continue with incentive spirometer. Recommend proning and ambulation. Patient may need to limit her activities. At discharge she will continue with CDC guidelines on COVID education, social distancing, hand washing and face mask use. Patient with underlying COPD. At discharge the patient will continue with Symbicort 2 puffs twice daily and ProAir 2 puffs 3 times a day as needed for shortness of breath. Patient to maintain oxygen above 93%. Patient currently on 2 L per nasal cannula. Patient will also found to have a UTI. Urine culture was positive for Citrobacter and Serratia. Her condition improved with IV antibiotic therapy. At discharge the patient will continue with Levaquin 500 mg daily for 3 more days to cover the UTI. UTI prevention will be provided. Patient also with hypertension. This appears to be a new diagnosis. Patient was started on Norvasc. Blood pressure stable. Patient also with underlying chronic diastolic CHF. Patient takes Lasix at home. At discharge patient will continue with Norvasc 10 mg daily and Lasix 40 mg daily. Recommend to maintain blood pressure less than 130/80. Further adjustment can be done by her PCP. At discharge the patient will continue with the 1500 cc/day fluid restriction and low-salt diet. Recommend follow-up with PCP to further monitor and adjust. Patient with prediabetes. Hemoglobin A1c 6.0. Recommend recheck A1c in 3 to 6 months to monitor her progress. Education on prediabetes will be provided. Patient with depression. At discharge we will continue with Prozac 20 mg daily. Patient with GERD. At discharge she will continue with Pepcid 20 mg 1 pill twice daily. Tobacco cessation education provided. Vital Signs/Physical Exam: Temp Pulse Resp BP Pulse Ox 97.8 F 99 H 17 155/91 H 95 08/10/20 08:18 08/10/20 08:55 08/10/20 09:04 08/10/20 08:55 08/10/20 09:04 General: Alert, In no apparent distress, Oriented x3, Cooperative HEENT: Atraumatic Neck: Supple Respiratory: Clear to auscultation bilaterally, Normal air movement Cardiovascular: Normal pulses, Regular rate/rhythm Gastrointestinal: Normal bowel sounds, Soft and benign, Non-distended, No tenderness, No masses, No rebound, No guarding Integumentary: No tenderness/swelling, No erythema, No warmth, No cyanosis Neurological: Normal speech, Normal strength at 5/5 x4 extr, Normal tone, Normal affect Laboratory Data at Discharge: WBC 8.30 K/uL (4.3-10.9) 08/06/20 03:27 Hgb 12.7 g/dL (12.0-15.0) 08/06/20 03:27 Hct 38.2 % (36.0-45.0) 08/06/20 03:27 Plt Count 202 K/uL (152-406) 08/06/20 03:27 PT 11.1 SECONDS (9.5-12.5) 08/05/20 19:40 INR 0.97 08/05/20 19:40 APTT 26.0 SECONDS (24.3-36.9) 08/05/20 19:40 Sodium 137 mmol/L (136-145) 08/10/20 03:52 Potassium 3.6 mmol/L (3.5-5.1) 08/10/20 03:52 BUN 27 mg/dL (7-18) H 08/10/20 03:52 Creatinine 0.70 mg/dL (0.55-1.3) 08/10/20 03:52 Glucose 191 mg/dL (74-106) H 08/10/20 03:52 Total Bilirubin 0.4 mg/dL (0.2-1.0) 08/10/20 03:52 AST 22 U/L (15-37) 08/10/20 03:52 ALT 49 U/L (12-78) 08/10/20 03:52 Alkaline Phosphatase 71 U/L (45-117) 08/10/20 03:52 Troponin I 0.02 ng/mL (0.0-0.045) 08/06/20 19:49 Home Medications: Clobetasol Propionate [Impoyz] 60 gm TP BID 08/06/20 Ergocalciferol (Vitamin D2) [Vitamin D2] 50,000 unit PO Q7D 08/06/20 Fluoxetine HCl [Prozac] 20 mg PO DAILY 08/06/20 Furosemide [Lasix*] 40 mg PO DAILY 08/06/20 Ketoconazole 120 ml TP MO,FR 08/06/20 Albuterol Sulfate [Proair Hfa] 2 puff IH TID PRN #1 hfa.aer.ad 08/10/20 Amlodipine [Norvasc*] 10 mg PO DAILY #30 tab 08/10/20 Ascorbic Acid [Vitamin C*] 500 mg PO TID #90 tablet 08/10/20 Aspirin [Aspirin EC 81 MG] 81 mg PO DAILY #90 tablet. 08/10/20 Budesonide/Formoterol Fumarate [Symbicort 160-4.5 Mcg Inhaler] 2 puff IH BID #1 hfa.aer.ad 08/10/20 Cholecalciferol (Vitamin D3) [Vitamin D 1000 Iu Tab*] 2,000 unit PO DAILY #60 tab 08/10/20 Famotidine [Pepcid*] 20 mg PO BID #60 tab 08/10/20 Melatonin 5 mg PO BEDTIME #30 tablet 08/10/20 Thiamine HCl [Vitamin B-1*] 200 mg PO DAILY #60 tablet 08/10/20 Zinc Sulfate [Zinc Sulfate*] 220 mg PO DAILY #30 cap 08/10/20 levoFLOXacin [Levaquin*] 500 mg PO DAILY #3 tab 08/10/20 predniSONE [Deltasone] 20 mg PO SEECOM #21 tab 08/10/20 New Medications: Aspirin [Aspirin EC 81 MG] 81 mg PO DAILY #90 tablet. levoFLOXacin [Levaquin*] 500 mg PO DAILY #3 tab Melatonin 5 mg PO BEDTIME #30 tablet Amlodipine [Norvasc*] 10 mg PO DAILY #30 tab Famotidine [Pepcid*] 20 mg PO BID #60 tab predniSONE [Deltasone] 20 mg PO SEECOM #21 tab Albuterol Sulfate [Proair Hfa] 2 puff IH TID PRN #1 hfa.aer.ad PRN Reason: Shortness Of Breath Budesonide/Formoterol Fumarate [Symbicort 160-4.5 Mcg Inhaler] 2 puff IH BID #1 hfa.aer.ad Thiamine HCl [Vitamin B-1*] 200 mg PO DAILY #60 tablet Ascorbic Acid [Vitamin C*] 500 mg PO TID #90 tablet Cholecalciferol (Vitamin D3) [Vitamin D 1000 Iu Tab*] 2,000 unit PO DAILY #60 tab Zinc Sulfate [Zinc Sulfate*] 220 mg PO DAILY #30 cap Physician Discharge Instructions: Patient presented with dyspnea and hypoxia. Patient was recently diagnosed with COVID-19. Patient required hospitalization. Patient received medication during the course of her stay. Her condition improved. CT scan did not reveal any pulmonary embolism. Patient seen by pulmonology. At discharge patient still requires oxygen. Patient condition has improved. At discharge she will continue with home oxygen to maintain sats above 93%. Patient currently on 2 L per nasal cannula. At discharge the patient will continue with prednisone 20 mg 1 pill twice daily for 7 days then 1 pill once daily for 7 days. The patient will also continue with vitamin C 500 mg 3 times a day, melatonin 5 mg at bedtime, thiamine 100 mg twice daily, and zinc 220 mg daily. Patient should also continue with aspirin 81 mg daily. Recommend for the patient to follow-up with pulmonology in 1 week to follow-up his hospitalization. Further adjustment in her oxygen and medication can be done by pulmonology. Patient will continue with incentive spirometer. Recommend proning and ambulation. Patient may need to limit her activities. At discharge she will continue with CDC guidelines on COVID education, social distancing, hand washing and face mask use. Patient with underlying COPD. At discharge the patient will continue with Symbicort 2 puffs twice daily and ProAir 2 puffs 3 times a day as needed for shortness of breath. Patient to maintain oxygen above 93%. Patient currently on 2 L per nasal cannula. Patient will also found to have a UTI. Urine culture was positive for Citro bacter and Serratia. Her condition improved with IV antibiotic therapy. At discharge the patient will continue with Levaquin 500 mg daily for 3 more days to cover the UTI. UTI prevention will be provided. Patient also with hypertension. This appears to be a new diagnosis. Patient was started on Norvasc. Blood pressure stable. Patient also with underlying chronic diastolic CHF as the patient takes Lasix at home. At discharge patient will continue with Norvasc 10 mg daily and Lasix 40 mg daily. Recommend to maintain blood pressure less than 130/80. Further adjustment can be done by her PCP. At discharge the patient will continue with the 1500 cc/day fluid restriction and low-salt diet. Recommend follow-up with PCP to further monitor and adjust. Patient with prediabetes. Hemoglobin A1c 6.0. Recommend recheck A1c in 3 to 6 months to monitor her progress. Education on prediabetes will be provided. Patient with depression. At discharge we will continue with Prozac 20 mg daily. Patient with GERD. At discharge she will continue with Pepcid 20 mg 1 pill twice daily. Tobacco cessation education provided. Diet: AHA Activity: Ad madi Followup: Dominguez Ponce MD [ACTIVE - CAN ADMIT] - Time spent managing pt's care (in minutes): 55
[2020-08-10] MEDS: Remdesivir 100 MG in NA CHLORIDE 0.9% 250 ML IV SCH (09:27)
[2020-08-10 12:03] VITALS: O2SAT 90
[2020-08-10 13:09] VITALS: BP 145/88; TEMP 97.4
== END 2020-08-10 15:31 | disposition home or self-care (01) | DRG 177 ==
LOC: ER 18:02 → ERHOLD 22:27 → 4TH 22:56
PROVIDERS: ADMIT Hospitalist; ATTEND Family Medicine
PROC: XW033E5 Introduction of Remdesivir Anti-infective into Peripheral Vein, Percutaneous Approach, New Technology Group 5 (ICD-10-PCS; principal; 2020-08-06)
DX: U07.1 COVID-19 (principal); J12.82 Pneumonia due to coronavirus disease 2019; J96.01 Acute respiratory failure with hypoxia; J44.0 Chronic obstructive pulmonary disease with (acute) lower respiratory infection; N39.0 Urinary tract infection, site not specified; I50.32 Chronic diastolic (congestive) heart failure; I11.0 Hypertensive heart disease with heart failure; J40 Bronchitis, not specified as acute or chronic; F41.1 Generalized anxiety disorder; K21.9 Gastro-esophageal reflux disease without esophagitis; F32.9 Major depressive disorder, single episode, unspecified; F17.200 Nicotine dependence, unspecified, uncomplicated; B96.89 Other specified bacterial agents as the cause of diseases classified elsewhere; R79.89 Other specified abnormal findings of blood chemistry; R73.03 Prediabetes; R77.8 Other specified abnormalities of plasma proteins; Z79.899 Other long term (current) drug therapy; Z90.710 Acquired absence of both cervix and uterus; Z99.81 Dependence on supplemental oxygen; Z66 Do not resuscitate; Z79.82 Long term (current) use of aspirin; Z79.52 Long term (current) use of systemic steroids
CPT/HCPCS: 0240U; 36415; 71045; 71275; 80048; 80053; 80076; 81003; 81015; 82553; 82728; 83036; 83605; 83735; 83880; 84145; 84484; 85025; 85379; 85610; 85730; 86140; 87040; 87070; 87077; 87081; 87086; 87088; 87186; 93005; 94760; 96361; 96372; 96374; 99285; J0696; J1650; J1940; J2270; J2405; J2930; J7030; J7050; J7512; Q9967; U0003

== ENCOUNTER 2020-12-28 10:36 | Inpatient (IN) | payer OTHER ==
--- OUTSIDE RECORDS SUMMARY | 2020-12-28 10:41 | XMS REPORT | Continuity of Care Document ---
:1965 Author Organization [facility] t Address [address] [place] [address] Care Team Providers Name Role Phone ISABELA MARTÍNEZ Attending Clinician Unavailable DEDRA Admitting Clinician Unavailable Problems Condition Condition Condition Status Onset Resolution Last Treating Co mments Source Name Details Category Date Date Treatment Clinician Date Sepsis Sepsis Disease Active [facility] Allergies, Adverse Reactions, Alerts Allergy Allergy Status Severity Reaction(s) Onset Inactive Treating Comm ents Source Name Type Date Date Clinician Vancomyc Drug Active [facility] Social History Social Habit Start Date Stop Date Quantity Comments Source Sex Assigned At [facility] Tobacco use and 2019-08-21 2019-08-21 Never used [facility]3] kes - exposure 00:00:00 00:00:00 [facility] Smoking Status Start Date Stop Date Source Current some day smoker 2019-08-21 00:00:00 [facility] Medications This patient has no known medications. Procedures This patient has no known procedures. Plan of Care Planned Activity Planned Date Details Comments Source Future Scheduled 2020-01-14 INFLUENZA VACCINE (#1) [facility] [code = INFLUENZA Medical Ce nter VACCINE (#1)] Future Scheduled 2012-02-[address] [facility] - Test 00:00:00 WELLNESS (YEAR 2 or Medical Center FIRST YEAR if no IPPE) [code = MEDICARE ANNUAL WELLNESS (YEAR 2 or FIRST YEAR if no IPPE)] Future Scheduled [address] [facility] Test 00:[facility]00 (procedure) [code = Medical Center [id number]] Future Scheduled [address] [facility] - Test 00:00:00 malignant neoplasm of [facility] cervix (procedure) [code = 677052122] Future Scheduled [address] [facility] - Test 00:00:00 0-64 YRS (1 of 1 - Medical C enter PPSV23) [code = PNEUMOCOCCAL VACCINE 0-64 YRS (1 of 1 - PPSV23)] Future Scheduled [address] [facility] - Test 00:00:00 malignant neoplasm of [facility] breast (procedure) [code = 976634506] Future Scheduled [address] [facility] - Test 00:00:00 malignant neoplasm of [facility] colon (procedure) [code = 967976955] Results Test Description Test Time Test Comments Results Result Comments Source URINE CULTURE 2019-09-02 09:00:00 Test Item Value Reference Range Interpretation Comme nts CULTURE (BEAKER) (test code = 1095) No growth GRAM STAIN RESULT (BEAKER) (test code = 1123) <1+ White blood cells seen GRAM STAIN RESULT (BEAKER) (test code = 31358) No organisms seen U/S, RENAL, [id number] 01:38:00Reason for exam:->pyelonephritisFINAL REPORT U/S, RENAL, COMPLETE [...] on the current examination. Signed: Catherine Cornell Verified Date/Time: 09/02/2019 01:38:19 Electronically sig bibi by: CATHERINE CORNELL MD on 09/02/2019 01:38 AMCOMPREHENSIVE METABOLIC [id number] 05:29:00 Test Item Value Reference Range Interpretation [...] S NOT APPLICABLE FOR DIALYSIS PATIEN TS. Sales Agent Protective Service ID - PIAYA LCBC (HEMOGRAM ONLY)2019-09-01 04:58:00 Test Item Value Reference [...] 0-0 (BEAKER) (test code = 413) BLOOD [id number] 04:00:00 Test Item Value Reference Range Interpretation Comments CULTURE (BEAKER) (test No growth in 5 days code = 1095) BLOOD [id number] 04:00:00 Test Item Value Reference Range Interpretation Comments CULTURE (BEAKER) (test No growth in 5 days code = 1095) BLOOD [id number] 09:00:00 Test Item Value Reference Range Interpretation Comments CULTURE (BEAKER) (test No growth in 5 days code = 1095) COMPREHENSIVE METABOLIC [id number] 07:37:00 Test Item Value Reference Range Interpretation [...] S NOT APPLICABLE FOR DIALYSIS PATIEN TS. Sales Agent Protective Service ID - LMCBC (HEMOGRAM ONLY)2019-08-31 05:54:00 Test [...] WBC 0-0 (BEAKER) (test code = 413) URINALYSIS W/ REFLEX URINE [id number] 14:26:00 Test Item Value Reference Range Interpretation [...] 76 /HPF SOURCE(BEAKER) (test code = 2795) Sales Agent Protective Service ID - [auto]Sales Agent Protective Service ID - Lin, [id number] 10:02:00Right PCN vs PCNU for obstructing proximal ureteral stone with hydro, fat stranding, ([facility] images uploaded 08/20). Primary team to discuss with IR, but please feel free to page urology with questions. Thanks! Reason for exam:->Right ureteral stone, sepsisFINAL REPORT Procedure: Percutaneous nephrostomy catheter placement. History: Obstructed infected kidney with renal abscesses and nondilated system. Case Manager: Sarthak Richards M.D. Sales Driver: Not Keith gray Modality: Ultrasound and fluoroscopy. DOSE REDUCTION: The [...] parenchyma. Impression:Successful ultrasound and fluoroscopic guided 8.5 Azerbaijani nephrostomy catheter placement in the right via a posterior lower calyx as described above. Because of debris in the collecting system possibly representing pyonephrosis, it was decided to leave a nephrostomy and postpone additional ureteral intervention to a later date. Further management dictated by the clinical scen jolynn. The nephrostomy catheter(s) should be exchanged at the latest in three months. Thank you for the opportunity to assist in the care of your patient. Signed: Sarthak [place] Verified Date/Time: 08/30/2019 10:02:51 Reading Location: [place] [address] Angio Body Reading Room BASIC METABOLIC [id number] 06:19:00 Test Item Value Reference Range Interpretation [...] S NOT APPLICABLE FOR DIALYSIS PATIEN TS. Sales Agent Protective Service ID - DBCBC (HEMOGRAM ONLY)2019-08-30 06:06:00 Test [...] (BEAKER) (test code = 413) COMPREHENSIVE METABOLIC [id number] 06:14:00 Test Item Value Reference Range Interpretation [...] S NOT APPLICABLE FOR DIALYSIS PATIEN TS. Sales Agent Protective Service ID - ALAINA MCBC (HEMOGRAM ONLY)2019-08-29 05:58:00 [...] (test code = 413) CT, CHEST, WITH [id number] 23:05:00FINAL REPORT CLINICAL HISTORY: Leukocytosis FINDINGS: Multiple [...] RENAL STONE EVAL, WITHOUT / WITH IV [id number] 23:05:00Reason for exam:- >renal stoneAnesthesia:->NoneFINAL REPORT CLINICAL [...] Blake Boyd MDReport Verified Date/Time: 08/27/2019 23:05:02 URINALYSIS W/ REFLEX URINE [id number] 15:56:00 Test Item Value Reference Range Interpretation [...] code = 1521) SOURCE(BEAKER) (test code = 5445) Sales Agent Protective Service ID - [auto]Sales Agent Protective Service ID - Susan [id number] 11:19:00 Test Item Value Reference Range Interpretation [...] only: 1123) gram negative rods BASIC METABOLIC [id number] 04:53:00 Test Item Value Reference Range Interpretation [...] S NOT APPLICABLE FOR DIALYSIS PATIEN TS. Sales Agent Protective Service ID - RICHELLE WCBC (HEMOGRAM ONLY)2019-08-27 03:52:00 [...] 0-0 (BEAKER) (test code = 413) BLOOD [id number] 12:41:00 Test Item Value Reference Range Interpretation Comments CULTURE A From Anaerobic Bottle (BEAKER) (test Only Same org anis has code = 1095) been isolated f rom cultures(s) of the same body site and collection date . Repeat identifi cation and susceptibil ity testing perform ed only after consultat ion with the [facility] microbiology laboratory.Refe r to previous cultur e ofKlebsiella pneumoniae GRAM STAIN From anaerobic RESULT (BEAKER) bottle only: gram (test code = negative rods 1123) T4, [id number] 10:43:00 Test Item Value Reference Range Interpretation Comments FREE T4 (BEAKER) (test code = 655) 0.68 ng/dL 0.70-1.48 L Sales Agent Protective Service ID - AAHAMIDTSH/FREE T4 IF [id number] 09:55:00 Test Item Value Reference Range Interpretation Comments THYROID STIMULATING HORMONE 0.276 uIU/mL 0.350-4.940 L (BEAKER) (test code = 772) Sales Agent Protective Service ID - AAHAMIDVITAMIN B12 AND [id number] 09:29:00 Test Item Value Reference Range Interpretation Comments VITAMIN B12 (BEAKER) (test code = 810 pg/mL 213-816 774) FOLATE (BEAKER) (test code = 362) 4.80 ng/mL >=7.00 L Sales Agent Protective Service ID - AAHAMIDCOMPREHENSIVE METABOLIC [id number] 05:26:00 Test Item Value Reference Range Interpretation [...] S NOT APPLICABLE FOR DIALYSIS PATIEN TS. Sales Agent Protective Service ID - PIAYA LCBC (HEMOGRAM ONLY)2019-08-25 04:58:00 [...] 0-0 (BEAKER) (test code = 413) U/S, [id number] 21:14:00Reason for exam:->thyroid noduleFINAL REPORT U/S, THYROID [...] Baylee Hi MDReport Verified Date/Time: 08/24/2019 21:14:39 MISCELLANEOUS LAB [id number] 06:56:00 Test Item Value Reference Range Interpretation Comments SCAN RESULT (test code = 5446774) SEE SCAN BASIC METABOLIC [id number] 06:25:00 Test Item Value Reference Range Interpretation [...] S NOT APPLICABLE FOR DIALYSIS PATIEN TS. Sales Agent Protective Service ID - ALAINA [id number] 04:39:00 Test Item Value Reference Range Interpretation [...] (test code = 413) CT, CHEST, WITHOUT [id number] 16:18:00FINAL REPORT TECHNIQUE: CT of the chest, [...] MDReport Verified Date/Time: 08/23/2019 16:18:30 Reading Location: [address] Body Reading Room CT, PELVIS, WO [id number] 16:18:00Anesthesia:->NoneFINAL REPORT TECHNIQUE: CT of the chest, [...] MDReport Verified Date/Time: 08/23/2019 16:18:30 Reading Location: [facility] C013Y CT Body Reading Room CT, ABDOMEN, WITHOUT [id number] 16:18:00Please specify abdominal organs:->RenalFINAL REPORT TECHNIQUE: CT [...] collection.*Nonobstructive calculi in both kidneys. Signed: [facility]ef [facility] Verified Date/Time: 08/23/2019 16:18:30 Reading Location: [facility] B1 C013Y CT Body Reading Room BASIC METABOLIC [id number] 05:24:00 Test Item Value Reference Range Interpretation [...] S NOT APPLICABLE FOR DIALYSIS PATIEN TS. Sales Agent Protective Service ID - RICHELLE [id number] 04:23:00 Test Item Value Reference Range Interpretation [...] WBC 0-0 (BEAKER) (test code = 413) POCT-BLOOD GASES, [id number] 18:24:00 Test Item Value Reference Range Interpretation Comments TEMP, CELSIUS-POC (BEAKER) (test code = 1834) FIO2-POC (BEAKER) (test code = 1835) PH, ARTERIAL-POC 7.475 7.350-7.450 H (BEAKER) (test code = 1836) PCO2, ARTERIAL-POC 25.3 mm Hg 35.0-45.0 L (BEAKER) (test code = 1837) PO2, ARTERIAL-POC 137.0 mm Hg 80.0-90.0 H (BEAKER) (test code = 1838) SO2, ARTERIAL-POC 99.0 % 96.0-97.0 H (BEAKER) (test code = 1839) HCO3, ARTERIAL-POC 18.6 meq/L 21.0-29.0 L (BEAKER) (test code = 1840) BASE EXCESS, -5.0 meq/L -2.0-3.0 L : TESTED AT [facility] [address] ARTERIAL-POC [facility], (BEAKER) (test code [address]: = 1841) Sales Agent Protective Service/Techni gavi ID = [id number] for MATILDE LINARES [id number] 18:24:00 Test Item Value Reference Range Interpretation Comments POC-SODIUM ([facility]) 127 meq/L 135-148 L : TESTED AT [place] [address] (test code = 1542) [place], [address]: Sales Agent Protective Service/Techni gavi ID = [id number] for WENDY SMATILDE [id number] 18:24:00 Test Item Value Reference Range Interpretation Comments POC-POTASSIUM 3.2 meq/L 3.6-5.5 L : TESTED AT [place] [address] ([facility]) (test code [facility], = 1540) [address]: Sales Agent Protective Service/Techni gavi ID = [id number] for MATILDE SARABIA [id number] 18:24:00 Test Item Value Reference Range Interpretation Comments POC-HEMOGLOBIN 11.6 g/dL 12.0-15.0 L : TESTED AT [facility] [address] ([facility]) (test code [facility], = 1856) [address]: Sales Agent Protective Service/Techni gavi ID = [id number] for MATILDE SARABIA [id number] 18:24:00 Test Item Value Reference Range Interpretation Comments POC-HEMATOCRIT 34 % 36-45 L : Sales Agent Protective Service/Te chnician ID = ([facility]) (test code = 324576 for MATILDE BROWN 1857) POCT-CALCIUM [id number] 18:24:00 Test Item Value Reference Range Interpretation Comments POC-CALCIUM IONIZED 1.19 mmol/L 1.12-1.27 : TESTED AT [facility] ([facility]) (test code = [address] [facility] 1536) [place], [address]: Sales Agent Protective Service/Techni gavi ID = [id number] for MATILDE BROWN [id number] 18:24:00 Test Item Value Reference Range Interpretation Comments POC-GLUCOSE ([facility]) 144 mg/dL 70-110 H : TESTE D AT [place] [address] (test code = 1855) [place], [address]: Sales Agent Protective Service/Techni gavi ID = [id number] for MATILDE SARABIA BLOOD GAS, [id number] 16:53:00 Test Item Value Reference Range Interpretation [...] (BEAKER) (test code = 1819) 32.0 % BLOOD CULTURE IDENTIFICATION [id number] 16:02:00 Test Item Value Reference Interpretation Comments Range LISTERIA MONOCYTOGENES Not detected Not detected (test code = 1137808) STAPHYLOCOCCUS (test Not detected Not detected code = 9736692) STAPHYLOCOCCUS AUREUS Not detected Not detected (test code = 1982286) STREPTOCOCCUS (test Not detected Not detected code = 6159912) STREPTOCOCCUS Not detected Not detected AGALACTIAE (GROUP B) (test code = 5706412) STREPTOCOCCUS Not detected Not detected PNEUMONIAE (test code = 1996643) STREPTOCOCCUS PYOGENES Not detected Not detected (GROUP A) (test code = 2277169) ACINETOBACTER Not detected Not detected BAUMANNII (test code = 5695785) HAEMOPHILUS INFLUENZAE Not detected Not detected (test code = 3993173) NEISSERIA MENINGITIDIS Not detected Not detected (test code = 3307069) ENTEROBACTERIACEAE Detected Not detected A (test code = 8529322) ENTEROBACTER CLOACOE Not detected Not detected COMPLEX (test code = 5887395) KLEBSIELLA OXYTOCA Not detected Not detected (test code = 5395023) KLEBSIELLA PNEUMONIAE Detected Not detected A Klebsi kamila (test code = 1650) pneumonia eKPC not detected (a carbapenamase gene)First-line therapy: Merope nem. De-escalate bas ed on susceptibilitie sThis test does not e valuate for ESBLReferen ce Range: Not Dete cted PROTEUS (test code = Not detected Not detected 9487408) SERRATIA MARCESCENS Not detected Not detected (test code = 5857327) PARAM ALBICANS (test Not detected Not detected code = 1675779) PARAM GLABRATA (test Not detected Not detected code = 5430460) PARAM KRUSEI (test Not detected Not detected code = 4401099) PARAM PARAPSILOSIS Not detected Not detected (test code = 5011800) PARAM TROPICALIS Not detected Not detected (test code = 9670773) ESCHERICHIA COLI (test Not detected Not detected code = 0406340) METHICILLIN-RESISTANCE GENE (test code = 8740755) VANCOMYCIN-RESISTANCE GENE (test code = 8510020) CARBAPENEM-RESISTANCE Not detected Not detected GENE (test code = 5510706) ENTEROCOCCUS-BEAKER Not detected Not detected (test code = 3828212) PSEUDOMONAS Not detected Not detected AERUGINOSA-BEAKER (test code = 4503591) Other bacteria and resistance markers not targeted by this PCR panel cannot be excluded; therefore clinical correlation and follow up of serology, culture results, and other molecular studies is required. The results are not intended to be used as the sole means for clinical diagnosis or patient management decisions. This sample was tested at the [facility] using the [employer] Blood Culture ID Panel. It is FDA cleared and has been verified and approved by the [facility] for clinical use. This laboratory is CLIA-certified and College ofAmerican Pathologists (CAP)-accredited to perform high complexity testing.BASIC METABOLIC [id number] 04:07:00 Test Item Value Reference Range Interpretation [...] S NOT APPLICABLE FOR DIALYSIS PATIEN TS. Sales Agent Protective Service ID - PIAYA [id number] 03:33:00 Test Item Value Reference Range Interpretation [...] = 515) SOURCE(BEAKER) (test code = 2795) Sales Agent Protective Service ID - [auto]Sales Agent Protective Service ID - techCREATININE, RANDOM [id number] 01:49:00 Test Item Value Reference Range Interpretation Comments CREATININE URINE (BEAKER) (test 68.9 mg/dL code = 375) Reference Range: No NormalsOperator ID - PIAYA LSODIUM, RANDOM [id number] 01:49:00 Test Item Value Reference Range Interpretation Comments SODIUM URINE (BEAKER) (test code = 33 meq/L 243) Reference Range: No NormalsOperator ID - PIAYA LCBC W/PLT COUNT & AUTO [id number] 01:32:00 Test Item Value Reference Range Interpretation [...] CONCENTRATION Adequate (CELLAVISION)(BEAKER) (test code = 3438) Sales Agent Protective Service ID - [id number] ID - Bailee Pelletier comments: Slide comments:LACTIC ACID, [id number] 00:17:00 Test Item Value Reference Range Interpretation Comments LACTATE BLOOD VENOUS (2) (BEAKER) 1.69 mmol/L 0.50-2.20 (test code = 4212) Sales Agent Protective Service ID - LORRI LBASIC METABOLIC [id number] 22:01:00 Test Item Value Reference Range Interpretation [...] S NOT APPLICABLE FOR DIALYSIS PATIEN TS. Sales Agent Protective Service ID - BSLACTIC ACID, [id number] 21:57:00 Test Item Value Reference Range Interpretation Comments LACTATE BLOOD VENOUS 1.84 mmol/L 0.50-2.20 Specime n slightly (2) (BEAKER) (test hemolyzed code = 5072) Sales Agent Protective Service ID - BS
--- NOTE | 2020-12-28 12:26 | RAD REPORT ---
EXAM DESCRIPTION: RAD - Chest Single View - 12/28/2020 12:20 pm CLINICAL HISTORY: shortness of breath COMPARISON: Chest Single View dated 08/05/2020; Chest Single View dated 08/03/2020; Abdomen 1 View ([facility]) dated 11/27/2019; Chest Single View dated 08/21/2019 FINDINGS: No edema or consolidation is identified. Cardiomegaly.No acute osseous abnormality. No sig nificant pleural effusions or pneumothorax. IMPRESSION: No acute cardiopulmonary disease.
[2020-12-28 12:41] LABS: Absolute Lymphocytes (CBC) 2.3 K/uL (0.7-4.9); Basophils % 0.7 % (0-1.3); Hematocrit 43.1 % (36.0-45.0); Lymphocytes % 23.2 % (15.3-44.8); MPV 7.9 fL (7.6-11.3); RBC Red Blood Cell Count 4.84 M/uL (3.86-4.86)
[2020-12-28 12:42] LABS: Protime INR 1.34
--- NOTE | 2020-12-28 12:51 | RAD REPORT ---
EXAM DESCRIPTION: CT - Chest For Pe Angio - 12/28/2020 12:37 pm CLINICAL HISTORY: DYSPNEA COMPARISON: Chest For Pe Angio dated 08/05/2020 FINDINGS: Chest Wall: Right thyroid mass is unchanged. Lungs: Right lower lobe consolidative airspace disease. Limited by respiratory motion. Pleura: No significant effusions or pneumothorax. Mediastinum/cat: No pathologic lymphadenopathy. Pulmonary arteries/Aorta: No filling defect identified. No aortic aneurysm. Heart: No significant pericardial effusion. Cardiomegaly. Multi-vessel coronary artery disease. Upper abdomen: No acute abnormality. Reflux of contrast into the hepatic veins. Bones: No acute abnormality. IMPRESSION: Negative for pulmonary embolism. Cardiomegaly with reflux of contrast into the hepatic v eins that could indicate heart strain but is nonspecific.
[2020-12-28 12:53] LABS: Albumin 3.8 g/dL (3.4-5.0); Bilirubin Direct 0.2 mg/dL (0-0.2); Bilirubin Total 0.5 mg/dL (0.2-1.0); Magnesium 1.8 mg/dL (1.8-2.4); Protein, Total 6.7 g/dL (6.4-8.2); Troponin (Emerg Dept Use Only) 0.12 ng/mL (0.0-0.045)
[2020-12-28] MEDS ORDERED: ASPIRIN 81 MG CHEWABLE TABLET ONE (14:04)
[2020-12-28] MEDS ORDERED: ENOXAPARIN 80 MG/0.8 ML SQ ONE (14:05)
[2020-12-28] MEDS ORDERED: NITROGLYCERIN 0.4 MG/TAB SL ONE ×2 (14:05→17:46)
[2020-12-28] MEDS ORDERED: METOPROLOL TARTRATE 5 MG/5 ML INJ IV ONE ×2 (14:26→14:46)
--- NOTE | 2020-12-28 15:26 | ER ---
Nurse's Notes [facility] Name: Sena Ricardo Age: 55 yrs Sex: Female : 1965 Arrival Date: 12/28/2020 Time: 10:41 Bed 23 Private MD: Dominguez Ponce E Diagnosis: Subsequent non-ST elevation (NSTEMI) myocardial infarction;Dyspnea Presentation: 12/28 11:15 Chief complaint: Patient states: Sent by Dr. Casiano for admission for shortness of ss breath and high heart rate. PT states her onset of symptoms were two weeks ago, but became worse over the weekend. Coronavirus screen: Client denies travel out of the [place] in the last 14 days. Ebola Screen: Patient denies exposure to infectious person. No symptoms or risks identified at this time. Initial Sepsis Screen: Does the patient meet any 2 criteria? Yes Does the patient have a suspected source of infection? No. Patient's initial sepsis screen is negative. Risk Assessment: Do you want to hurt yourself or someone else? Patient reports no desire to harm self or others. Onset of symptoms was December 14, 2020. 11:15 Method Of Arrival: Ambulatory ss 11:15 Acuity: ANABELLA 2 ss Historical: - Allergies: 11:16 No Known Allergies; ss - PMHx: 11:16 COPD; anxiety; Depressive disorder; ss - Immunization history:: Adult Immunizations up to date, Client reports having NOT received the Covid vaccine. - Social history:: Smoking status: Patient reports the use of cigarette tobacco products, smokes one-half pack cigarettes per day. Vital Signs: 11:15 Pulse 138; Resp 24; Temp 97.0; Pulse Ox 98% on R/A; Weight 80.29 kg; Height 5 ft. 4 in. ss (162.56 cm); Pain 8/10; 11:17 BP 152 / 118; ss 14:00 BP 124 / 100; Pulse 133; Resp 22; Pulse Ox 95% on R/A; iw 14:31 BP 124 / 102; Pulse 116; Resp 20; Pulse Ox 95% on R/A; iw 15:11 BP 121 / 93; Pulse 80; Resp 20 S; iw 11:15 Body Mass Index 30.38 (80.29 kg, 162.56 cm) ED Course: 10:41 Patient arrived in ED. mr Shirlene:41 Dominguez Ponce MD is Private Physician. mr 11:16 Triage completed. ss 11:16 Arm band placed on left wrist. ss 11:34 Edwin Mccollum is Attending Physician. sp3 11:46 Francisca Her, RN is Primary Nurse. iw 12:20 XRAY Chest (1 view) In Process Unspecified. EDMS 12:37 CT Chest For PE Angio In Process Unspecified. EDMS 15:25 Evan Barney MD is Hospitalizing Provider. sp3 19:30 Primary Nurse role handed off by Francisca Her, RN mw2 23:10 Kimberly Emanuel, RN is Primary Nurse. ch4 Administered Medications: 13:53 Drug: Lovenox (enoxaparin) 1 mg/kg Route: Sub-Q; Site: right lower abdomen; iw 14:20 Follow up: Response: No adverse reaction iw 13:54 Drug: Aspirin 325 mg Route: PO; iw 14:30 Follow up: Response: No adverse reaction iw 14:17 Drug: Lopressor (metoprolol) 5 mg Route: IVP; Site: left antecubital; iw 14:35 Follow up: Response: No adverse reaction; Cardiac rhythm is unchanged iw 14:20 Drug: Nitroglycerin 0.4 mg Route: Sublingual; iw 15:00 Follow up: Response: No adverse reaction iw 14:31 Drug: Lopressor (metoprolol) 5 mg Route: IVP; Site: left antecubital; iw 14:50 Follow up: Response: No adverse reaction iw 15:00 Drug: Lopressor (metoprolol) 5 mg Route: IVP; Site: left antecubital; iw 15:45 Follow up: Response: No adverse reaction; Cardiac rhythm changed iw Outcome: 15:26 Decision to Hospitalize by Provider. sp3 23:38 Patient left the ED. ch4 Signatures: Dispatcher [employer] [facility] Katarina Donovan mr Francisca Her, RN RN Anastasia Way RN RN Jessie Garcia mw2 Edwin Mccollum sp3 Kimberly Emanuel, PENNY RN ch4
--- NOTE | 2020-12-28 15:26 | EDPHYS ---
Physician Documentation [facility] Name: Sena Ricardo Age: 55 yrs Sex: Female : 1965 Arrival Date: 12/28/2020 Time: 10:41 Bed 23 Private MD: Dominguez Ponce E ED Physician Edwin Mccollum HPI: 12/28 12:00 This 55 yrs old Female presents to ER via Ambulatory with complaints of High sp3 heart rate, Shortness Of Breath. 12:00 55-year-old female with a history of COPD, hypertension, depression, severe COVID-19 sp3 infection in July with subsequent cardiovascular complications now presents from Dr. Casiano's office with symptoms of sinus tachycardia, shortness of breath, likely fluid overload. Patient symptoms of been going on for approximately 2 weeks after which she presented to cardiology office for his first evaluation of her as a new patient after which he sent her to the ED for admission and further work-up. I spoke to him on the phone and he communicated sinus tachycardia on EKG with some scattered rales on exam. Echo was not performed in the office will be performed inpatient. Patient reports no chest pain or back pain at this time. She does state she feels like she is "swollen" everywhere reports peripheral edema. On review of systems patient denies headache, neck pain, back pain, chest pain, abdominal pain, nausea, vomiting, diarrhea, syncope, near syncope, focal weakness, sensory deficits, known sick contacts, travel history, fever, cough, urinary symptoms, or any other ROS at this time.. Historical: - Allergies: 11:16 No Known Allergies; ss - PMHx: 11:16 COPD; anxiety; Depressive disorder; ss - Immunization history:: Adult Immunizations up to date, Client reports having NOT received the Covid vaccine. - Social history:: Smoking status: Patient reports the use of cigarette tobacco products, smokes one-half pack cigarettes per day. ROS: 12:03 Constitutional: Negative for See HPI for further ROS. sp3 12:03 Cardiovascular: Negative for chest pain, palpitations. 12:03 Cardiovascular: Positive for edema. 12:03 Respiratory: Positive for dyspnea on exertion, shortness of breath. 12:03 Respiratory: Positive for Negative for 12:03 All other systems are negative. Exam: 12:04 Constitutional: This is a well developed, well nourished patient who is awake, alert, sp3 and in no acute distress. Head/Face: Normocephalic, atraumatic. Eyes: Pupils equal round and reactive to light, extra-ocular motions intact. Lids and lashes normal. Conjunctiva and sclera are non-icteric and not injected. Cornea within normal limits. Periorbital areas with no swelling, redness, or edema. ENT: Nares patent. No nasal discharge, no septal abnormalities noted. External auditory canals are clear. Oropharynx with no redness, swelling, or masses, exudates, or evidence of obstruction, uvula midline. Mucous membranes moist. Neck: Trachea midline, no thyromegaly or masses palpated, and no cervical lymphadenopathy. Supple, full range of motion without nuchal rigidity, or vertebral point tenderness. No Meningismus. Chest/axilla: Normal chest wall appearance and motion. Nontender with no deformity. No lesions are appreciated. Abdomen/GI: Soft, non-tender, with normal bowel sounds. No distension or tympany. No guarding or rebound. No evidence of tenderness throughout. Back: No spinal tenderness. No costovertebral tenderness. Full range of motion. Skin: Warm, dry with normal turgor. Normal color with no rashes, no lesions, and no evidence of cellulitis. 12:04 Cardiovascular: Rate: tachycardic, Rhythm: regular, Pulses: no pulse deficits are appreciated, Heart sounds: normal, Edema: 1+ edema to level of right hand, left ankle, left foot, left toes, left fingers, right ankle, right foot and right toes. 12:04 Respiratory: the patient does not display signs of respiratory distress, Respirations: normal, Breath sounds: rales. 12:08 ECG was reviewed by the Attending Physician. Sinus tachycardia with normal intervals, sp3 leftward axis, nonspecific intraventricular block, nonspecific ST/T changes with rate of 137 bpm. Vital Signs: 11:15 Pulse 138; Resp 24; Temp 97.0; Pulse Ox 98% on R/A; Weight 80.29 kg; Height 5 ft. 4 in. ss (162.56 cm); Pain 8/10; 11:17 BP 152 / 118; ss 14:00 BP 124 / 100; Pulse 133; Resp 22; Pulse Ox 95% on R/A; iw 14:31 BP 124 / 102; Pulse 116; Resp 20; Pulse Ox 95% on R/A; iw 15:11 BP 121 / 93; Pulse 80; Resp 20 S; iw 11:15 Body Mass Index 30.38 (80.29 kg, 162.56 cm) ss MDM: 11:34 Patient medically screened. sp3 12:06 ED course: Patient with mild tachypnea, rales on exam, and sinus tachycardia in the sp3 130s. Portable chest x-ray demonstrates cardiomegaly without overt pulmonary edema or infectious process. Elevated right hemidiaphragm is noted on my evaluation. Will obtain CT PE protocol to further evaluate tachycardia and shortness of breath from both an infectious and clot standpoint. Patient's blood pressure is otherwise normal and she is afebrile. Will admit once initial work-up data is back to hospitalist with cardiology consult with Dr. Casiano. Patient is okay with the plan and has no further questions. At this time I am not suspicious for acute coronary syndrome, sepsis, shock, or any other critical illness besides what we are working up above.. 14:02 ED course: Patient received 2 doses of sublingual nitroglycerin, aspirin, Lovenox her sp3 blood pressure is gone from 149/1 16-1 20/100. Heart rate remains unchanged at 134. Given her proBNP at greater than 13,000 she is likely fluid overloaded even though her chest x-ray and CT do not demonstrate excess pulmonary edema. Patient states that she feels unchanged and is still mildly short of breath and continues to deny chest pain. Troponin is 0.12 with normal creatinine. Will give 5 mg of Lopressor at this time and reassess vital signs.. 14:22 ED course: After 5 mg of Lopressor patient's heart rate is at 124 from 134 and blood sp3 pressure remains unchanged. Will give second dose of Lopressor 5 mg IV and reassess.. 14:39 ED course: Patient feels better and heart rate is now 116. Blood pressure remains sp3 unchanged in the 130s over 100 range. Will give third round of Lopressor 5 mg IV.. 14:39 Data reviewed: vital signs, nurses notes, lab test result(s), EKG, radiologic studies. sp3 15:11 ED course: Dose of Lopressor patient's heart rate is dropped to 82 bpm normal sinus sp3 rhythm with repeat EKG demonstrating no significant ST/T abnormalities. Patient blood pressure is 129/93 patient feels much better. Lobe continue to get serial troponins and admit patient to hospitalist service at this time.. 15:24 ED course: Discussed with hospitalist team Dr. Stauffer who will admit patient and take sp3 over care.. 12/28 11:35 Order name: Basic Metabolic Panel 3 12/28 11:35 Order name: CBC with Diff 3 12/28 11:35 Order name: LFT's; Complete Time: 13:16 3 12/28 11:35 Order name: Magnesium; Complete Time: 13:16 3 12/28 11:35 Order name: NT PRO-BNP; Complete Time: 13:16 3 12/28 11:35 Order name: PT-INR; Complete Time: 12:53 3 12/28 11:35 Order name: Troponin (emerg Dept Use Only); Complete Time: 13:16 3 12/28 11:36 Order name: Basic Metabolic Panel; Complete Time: 13:16 EDLA 12/28 11:36 Order name: CBC with Automated Diff; Complete Time: 12:53 EDLA 12/28 12:55 Order name: CREATININE WHOLE BLOOD; Complete Time: 13:16 EDLA 12/28 15:29 Order name: COVID-19 : Document "Date of Symptom Onset" if Symptomatic.: admission sp3 testing 12/28 17:35 Order name: CKMB Creatine Kinase MB EDLA 12/28 17:35 Order name: CKMB Creatine Kinase MB; Complete Time: 20:39 EDLA 12/28 11:18 Order name: XRAY Chest (1 view); Complete Time: 12:53 12/28 11:18 Order name: EKG; Complete Time: 11:18 12/28 11:39 Order name: CT Chest For PE Angio; Complete Time: 12:53 3 12/28 14:04 Order name: EKG; Complete Time: 14:05 [facility] 12/28 17:35 Order name: Creatine Phosphokinase; Complete Time: 20:39 EDLA 12/28 17:35 Order name: CONS Physician Consult EDLA 12/28 17:35 Order name: Heart Healthy EDLA 12/28 17:35 Order name: Troponin I; Complete Time: 20:39 EDMS 12/28 17:37 Order name: Echo with Doppler EDMS 12/28 18:33 Order name: SARS-COV-2 RT PCR; Complete Time: 20:37 EDMS 12/28 11:18 Order name: EKG - Nurse/Tech; Complete Time: 11:18 ss 12/28 11:35 Order name: Cardiac monitoring; Complete Time: 15:37 sp3 12/28 11:35 Order name: IV Saline Lock; Complete Time: 15:37 sp3 12/28 11:35 Order name: Labs collected and sent; Complete Time: 15:37 sp3 12/28 11:35 Order name: O2 Per Protocol; Complete Time: 15:37 sp3 12/28 11:35 Order name: O2 Sat Monitoring; Complete Time: 15:37 sp3 12/28 14:04 Order name: EKG - Nurse/Tech; Complete Time: 15:36 sp3 Administered Medications: 13:53 Drug: Lovenox (enoxaparin) 1 mg/kg Route: Sub-Q; Site: right lower abdomen; iw 14:20 Follow up: Response: No adverse reaction iw 13:54 Drug: Aspirin 325 mg Route: PO; iw 14:30 Follow up: Response: No adverse reaction iw 14:17 Drug: Lopressor (metoprolol) 5 mg Route: IVP; Site: left antecubital; iw 14:35 Follow up: Response: No adverse reaction; Cardiac rhythm is unchanged iw 14:20 Drug: Nitroglycerin 0.4 mg Route: Sublingual; iw 15:00 Follow up: Response: No adverse reaction iw 14:31 Drug: Lopressor (metoprolol) 5 mg Route: IVP; Site: left antecubital; iw 14:50 Follow up: Response: No adverse reaction iw 15:00 Drug: Lopressor (metoprolol) 5 mg Route: IVP; Site: left antecubital; iw 15:45 Follow up: Response: No adverse reaction; Cardiac rhythm changed iw Disposition: 14:04 Critical Care:. sp3 Disposition Summary: 12/28/20 15:26 Hospitalization Ordered Hospitalization Status: Inpatient Admission sp3 Provider: Evan Barney sp3 Condition: Fair sp3 Problem: new sp3 Symptoms: are unchanged sp3 Bed/Room Type: Standard sp3 Location: Telemetry/MedSurg (Inpatient)(12/28/20 21:07) mw Room Assignment: 206(12/28/20 21:07) mw Diagnosis - Subsequent non-ST elevation (NSTEMI) myocardial infarction sp3 - Dyspnea sp3 Forms: - Medication Reconciliation Form sp3 - SBAR form sp3 Critical care time excluding procedures: 14:04 Critical care time: Bedside Care: 20 minutes, Consultation: 10 minutes. Total time: 30 sp3 minutes Signatures: Dispatcher [employer] EDLA Lindsey Shelby, GIRMA-Salma SOAP MAKER-Jennifer Ann bd nAtonieta Nixon RN RN mw Francisca Her, RN RN Anastasia Way RN RN ss Edwin Mccollum sp3 Corrections: (The following items were deleted from the chart) 17:11 15:29 CORONAVIRUS ordered. EDLA EDLA 18:33 15:26 Telemetry/MedSurg (Inpatient) sp3 bd 18:33 15:26 sp3 bd 21:07 18:33 [facility] ER HOLD bd mw 21:07 18:33 ERHOLD- bd mw
[2020-12-28] MEDS ORDERED: ZOLPIDEM TARTRATE 5 MG TABLET PO PRN (17:28)
--- NOTE | 2020-12-28 17:45 | P.HP ---
Certification for Inpatient Patient admitted to: Observation With expected LOS: <2 Midnights Patient will require the following post-hospital care: None Practitioner: I am a practitioner with admitting privileges, knowledge of patient current condition, hospital course, and medical plan of care. Services: Services provided to patient in accordance with Admission requirements found in Title 42 Section 412.3 of the Code of Federal Regulations Patient History Date of Service: 12/28/20 Primary Care Provider: Dr Ponce. History of Present Illness: 55-year-old female patient with medical history significant for COPD, hypertension, history of recent COVID-19 disease in July 2020 with some significant cardiovascular complication who was evaluated in the brewing director office for episode of chest pain. She reports chest discomfort radiating to the back and neck region for the past 1 to 2 weeks. Pain is rated 8 out of 10 in intensity with no associated nausea or vomiting. No dizziness spells. She was asked to be evaluated in the ER because of her persistent pain to rule out ACS. Labs done in the emergency room was concerning for elevated troponin of 0.12 so she was admitted for inpatient work-up. She denies any episodes of cough, fever, chills, rigor, nausea, vomiting. She denies poor appetite or generalized body weakness. She says she feels like she has some congestion in her chest. Allergies No Known Allergies Allergy (Verified 08/06/20 01:03) Home Medications: Clobetasol Propionate [Impoyz] 60 gm TP BID 08/06/20 Ergocalciferol (Vitamin D2) [Vitamin D2] 50,000 unit PO Q7D 08/06/20 Fluoxetine HCl [Prozac] 20 mg PO DAILY 08/06/20 Furosemide [Lasix*] 40 mg PO DAILY 08/06/20 Ketoconazole 120 ml TP MO,FR 08/06/20 Albuterol Sulfate [Proair Hfa] 2 puff IH TID PRN #1 hfa.aer.ad 08/10/20 Amlodipine [Norvasc*] 10 mg PO DAILY #30 tab 08/10/20 Ascorbic Acid [Vitamin C*] 500 mg PO TID #90 tablet 08/10/20 Aspirin [Aspirin EC 81 MG] 81 mg PO DAILY #90 tablet. 08/10/20 Budesonide/Formoterol Fumarate [Symbicort 160-4.5 Mcg Inhaler] 2 puff IH BID #1 hfa.aer.ad 08/10/20 Cholecalciferol (Vitamin D3) [Vitamin D 1000 Iu Tab*] 2,000 unit PO DAILY #60 tab 08/10/20 Famotidine [Pepcid*] 20 mg PO BID #60 tab 08/10/20 Melatonin 5 mg PO BEDTIME #30 tablet 08/10/20 Thiamine HCl [Vitamin B-1*] 200 mg PO DAILY #60 tablet 08/10/20 Zinc Sulfate [Zinc Sulfate*] 220 mg PO DAILY #30 cap 08/10/20 levoFLOXacin [Levaquin*] 500 mg PO DAILY #3 tab 08/10/20 predniSONE [Deltasone] 20 mg PO SEECOM #21 tab 08/10/20 - Past Medical/Surgical History Diabetic: No -: hysterectomy - Social History Alcohol use: No CD- Drugs: No Caffeine use: No Review of Systems General: Weakness, Malaise Eyes: Unremarkable ENT: Unremarkable Respiratory: SOB with Excertion Cardiovascular: Chest Pain Gastrointestinal: Unremarkable Genitourinary: Unremarkable Musculoskeletal: Unremarkable Integumentary: Unremarkable Neurological: Unremarkable Lymphatics: Unremarkable Physical Examination - Physical Exam General: Alert, Oriented x3 HEENT: Atraumatic, Normocephalic Neck: Supple Respiratory: Clear to auscultation bilaterally Cardiovascular: Regular rate/rhythm, Normal S1 S2, Other (tender on palpation around the sternum) Gastrointestinal: Normal bowel sounds, Soft and benign Musculoskeletal: Other (mild pedal edema.) Integumentary: No rashes Neurological: Normal strength at 5/5 x4 extr, Cranial nerves 3-12 intact - Studies Laboratory Data (last 24 hrs) 12/28/20 12:26: PT 15.5 H, INR 1.34 12/28/20 12:26: WBC 10.00, Hgb 14.5, Hct 43.1, Plt Count 302 12/28/20 12:26: Sodium 139, Potassium 4.0, BUN 21 H, Creatinine 0.82, Glucose 102, Magnesium 1.8, Total Bilirubin 0.5, AST 74 H, ALT 108 H, Alkaline Phosphatase 113 Assessment and Plan - Plan Chest pain rule out ACSpatient has significant chest discomfort and elevated troponin. Concerns for COVID-19 disease complication raised. We will trend troponin and CK-MB, CPK. We will have on telemetry Will obtain echocardiogram to assess cardiac function We will obtain lipid panel in a.m. We will continue morphine for pain control and sublingual nitroglycerin as needed We will have on aspirin therapy Cardiology to evaluate History of COPDwe will have the breathing treatment on board as needed. History of hypertension-we will monitor vitals per unit protocol and continue antihypertensive medication as per unit protocol. Discharge Plan: Home - Advance Directives Does patient have a Living Will: No Does patient have a Durable POA for Healthcare: No - Code Status/Comfort Care Code Status Assessed: Yes Code Status: Full Code
[2020-12-28] MEDS ORDERED: ENOXAPARIN 80 MG/0.8 ML SQ SCH (19:00)
[2020-12-28] MEDS: ONDANSETRON 4 MG/2 ML VIAL IV PRN (19:41)
[2020-12-28] MEDS ORDERED: ONDANSETRON 4 MG/2 ML VIAL ONE (20:03)
[2020-12-28 20:35] LABS: Troponin I 0.11 ng/mL (0.0-0.045)
[2020-12-28 20:38] LABS: CKMB Creatine Kinase MB 14.7 ng/mL (1.0-3.6)
[2020-12-29] MEDS: ENOXAPARIN 80 MG/0.8 ML SQ SCH ×3 (01:51→14:00)
[2020-12-29] MEDS: ONDANSETRON 4 MG/2 ML VIAL IV PRN (01:52)
[2020-12-29 02:41] VITALS: BMI 30.4
[2020-12-29] MEDS: MORPHINE 2 MG/ML SYR IV PRN ×2 (04:40→18:45)
[2020-12-29 05:15] LABS: Troponin I 0.09 ng/mL (0.0-0.045)
[2020-12-29 05:27] LABS: CKMB Creatine Kinase MB 11.5 ng/mL (1.0-3.6)
[2020-12-29] MEDS: ASPIRIN EC 81 MG TAB PO SCH (08:19)
[2020-12-29] MEDS ORDERED: ENOXAPARIN 40 MG/0.4 ML SQ SCH (09:00)
[2020-12-29 12:28] LABS: Troponin I 0.09 ng/mL (0.0-0.045)
[2020-12-29 12:30] LABS: CKMB Creatine Kinase MB 12.2 ng/mL (1.0-3.6)
--- NOTE | 2020-12-29 12:50 | P.PN ---
Subjective Date of Service: 12/29/20 Primary Care Provider: Dr Ponce. Subjective: Improving (pain improved, trop trended down, with some slight chest pressure this morning.) Review of Systems 10-point ROS is otherwise unremarkable Physical Examination - Vital Signs Temperature: 97.4 F Blood Pressure: 138/100 Pulse: 87 Respirations: 17 Pulse Ox (%): 90 - Studies Laboratory Data (last 24 hrs) 12/29/20 11:45: Troponin I 0.09 H 12/29/20 03:59: Triglycerides 85, Cholesterol 195, HDL Cholesterol 36 L, Cholesterol/HDL Ratio 5.42 12/29/20 03:59: Troponin I 0.09 H 12/28/20 19:49: Troponin I 0.11 H 12/28/20 12:26: Sodium 139, Potassium 4.0, BUN 21 H, Creatinine 0.82, Glucose 102, Magnesium 1.8, Total Bilirubin 0.5, AST 74 H, ALT 108 H, Alkaline Phosphatase 113 Assessment & Plan Physician Review Additional Text: Physical Exam General: Alert, Oriented x3 HEENT: normal conjunctiva, sclera anicteric Respiratory: Clear to auscultation bilaterally Cardiovascular: Regular rate/rhythm, Normal S1 S2 Gastrointestinal: Normal bowel sounds, Soft and benign Integumentary: No rashes Neurological: Normal strength at 5/5 x4 extr, Cranial nerves 3-12 intact Problem List chest pain, NSTEMI h/o COPD HTN h/o COVID-19 pneumonia July 2020 -chest discomfort improved, however small episode this morning again -trop improved, but was elevated -echo ordered for today -cardio consulted -plan for cath tomorrow -continue PRN pain medication -monitor vitals dispo: anticipate dc home in 24-48hrs Time Spent Managing Pts Care (In Minutes): 35
--- NOTE | 2020-12-29 14:36 | CON ---
Date of Consultation: 12/29/2020 Reason For Consultation: Unstable angina. History Of Present Illness: Ms. Ricardo is a 55-year-old woman, has COVID in July 2020. Has a hist ory of COPD, hypertension, anxiety and depression. Was actually sent from Dr. Ovalles's office srinivasan hernández of tachycardia, shortness of breath, chest pain radiating to both arms and back with some diaphores is, shortness of breath, but no nausea or vomiting. Denied PND, orthopnea, pedal edema, palpitations , or syncope. Denied any fever or chills. She had elevated troponin of 0.09. Her BNP was 14,379. Normal chest x-ray and normal CTA for pulmonary emboli. Review of Systems: Negative. Social History: Negative. Family History: Negative. Medications: At home include inhalers. Physical Examination: Vital Signs: Stable, afebrile. General: No acute distress today. HEENT: Negative. Neck: Supple with no bruit. Chest: Clear. Cardiac: Revealed a regular rhythm and rate. No murmurs, gallops, or rubs. Abdomen: Benign. Extremities: Revealed no clubbing, cyanosis, or edema. Diagnostic Data: As stated earlier. Impression And Plan: Non-ST elevation myocardial infarction could be secondary to demand ischemia fr om tachycardia and shortness of breath. She could certainly have congestive heart failure. We will do an echocardiogram on her today, plan a heart catheterization with selective coronary arteriogram i n the morning to define her coronary anatomy. I will continue her present regimen, which should incl ude Lasix, beta-blockers, statin, aspirin and hold on anticoagulation for now. Her chronic obstructi ve pulmonary disease, hypertension, depression, anxiety are stable. Her COVID symptoms have resolved . We will see what the echocardiogram shows today. We will see what the heart catheterization shows tomorrow. The patient understands the risks and the benefits of the procedure, and she agreed to pr oceed. JANIA/KRISTY Voice ID: [id number] Report ID: [id number]
[2020-12-29] MEDS: DIPHENHYDRAMINE 25 MG TAB/CAP PO PRN ×2 (14:59→20:53)
--- NOTE | 2020-12-29 16:56 | EKG ---
Test Date: 2020-12-28 Test Time: 15:29:24 Full Time Staff Interpreter: COLTON MEASUREMENT RESULTS: Intervals: Rate: 86 VA: 152 QRSD: 96 QT: 410 QTc: 490 [place]: P: 37 VA: 152 QRS: -63 T: 59 INTERPRETIVE STATEMENTS: Normal sinus rhythm Possible Left atrial enlargement Left anterior fascicular block Prolonged QT Abnormal ECG Compared to ECG 12/28/2020 15:08:07 No significant changes Electronically Signed On 12-29-20 16:53:42 CDT by Fam Allison
--- NOTE | 2020-12-29 16:56 | EKG ---
Test Date: 2020-12-28 Test Time: 15:08:07 Women'S Apparel Salesperson: COLTON MEASUREMENT RESULTS: Intervals: Rate: 82 CT: 140 QRSD: 96 QT: 412 QTc: 481 [place]: P: 64 CT: 140 QRS: -58 T: 62 INTERPRETIVE STATEMENTS: Normal sinus rhythm Biatrial enlargement Left anterior fascicular block Prolonged QT Abnormal ECG Compared to ECG 12/28/2020 11:19:34 Prolonged QT interval now present Sinus tachycardia no longer present Ventricular premature complex(es) no longer present Electronically Signed On 12-29-20 16:53:44 CDT by Fam Allison
[2020-12-29] MEDS ORDERED: hydrOXYzine HCL 25 MG TAB PO ONE (23:05)
[2020-12-30] MEDS: ENOXAPARIN 80 MG/0.8 ML SQ SCH (02:00)
[2020-12-30] MEDS: ASPIRIN EC 81 MG TAB PO SCH (05:49)
[2020-12-30] MEDS ORDERED: METOPROLOL TAR 25 MG TAB PO SCH (06:00)
[2020-12-30 06:47] LABS: Magnesium 1.9 mg/dL (1.8-2.4); Potassium 4.2 mmol/L (3.5-5.1)
[2020-12-30] MEDS ORDERED: LIDOCAINE 1% 20 ML MDV ONE (07:08)
[2020-12-30] MEDS ORDERED: HEPA 1000U/500MLS 1,000 UNIT/500 ML BAG IV ONE (07:08)
[2020-12-30] MEDS ORDERED: MIDAZOLAM HCL 2 MG/2 ML INJ ONE (07:11)
[2020-12-30] MEDS ORDERED: NITROGLYCERIN 100 MCG/ML SYR (for cath lab use only) IV ONE (07:12)
[2020-12-30] MEDS ORDERED: ATROPINE SULF 1 MG/10 ML SYR IV ONE (07:12)
[2020-12-30] MEDS ORDERED: NA CHLORIDE 0.9% 0 ML ONE (07:12)
[2020-12-30] MEDS ORDERED: FENTANYL CITR 100 MCG/2 ML ONE (07:12)
[2020-12-30] MEDS ORDERED: NITROGLYCERIN/D5W 0 MG/0 ML BTL IV ONE (07:12)
[2020-12-30] MEDS ORDERED: NA CHLORIDE 0.9% 1,000 ML ONE (07:20)
--- NOTE | 2020-12-30 08:57 | ECHO ---
HEIGHT: 5 ft 4 in WEIGHT: 177 lb 3.2 oz DATE OF STUDY: 12/29/[address]: Evan Barney MD 2-DIMENSIONAL: YES M.MODE: YES DOPPLER: YES COLOR FLOW: YES TDS: NO PORTABLE: NO DEFINITY: NO BUBBLE STUDY: NO DIAGNOSIS: CHEST PAIN CARDIAC HISTORY: CATHERIZATION: SURGERY: PROSTHETIC VALVE: PACEMAKER: MEASUREMENTS (cm) DIASTOLIC (NORMALS) SYSTOLIC (NORMALS) IVSd 1.1 (0.6-1.2) LA Diam 3.8 (1.9-4.0) LVEF 24% LVIDd 5.7 (3.5-5.7) LVIDs 5.0 (2.0-3.5) %FS 11% LVPWd 1.1 (0.6-1.2) Ao Diam 2.6 (2.0-3.7) 2 DIMENSIONAL ASSESSMENT: RIGHT ATRIUM: NORMAL LEFT ATRIUM: NORMAL RIGHT VENTRICLE: NOARMAL LEFT VENTRICLE: DILATED TRICUSPID VALVE: NORMAL MITRAL VALVE: NORMAL PULMONIC VALVE: NORMAL AORTIC VALVE: NORMAL PERICARDIAL EFFUSION: NONE AORTIC ROOT: NORMAL LEFT VENTRICULAR WALL MOTION: SEVERE GLOBAL HYPOKINESIS. DOPPLER/COLOR FLOW: MILD TRIUCSPID REGURGITATION - MILD PULMONARY HYPERTENSION. COMMENTS: SEVERE GLOBAL HYPOKINESIS. EJECTION FRACTION 24%. MILD PULMONARY HYPERTENSION/ LEFT VENTRICULAR DILATATION. TECHNOLOGIST: SANDY NEGRETE
[2020-12-30] MEDS: FUROSEMIDE 20 MG TABLET PO SCH ×2 (09:39→17:10)
[2020-12-30] MEDS: SACUBITRIL/VALSARTAN 24/26 MG TAB PO SCH ×2 (09:39→20:47)
--- NOTE | 2020-12-30 09:42 | OP ---
Date of Procedure: 12/29/2020 Surgeon: Fam Allison MD Die Casting Machine Maintainer: Alba Sergio Antonio. I think I am going to change patient regimen for her to be on Coreg, Entresto, Lasix, statin, and asp irin. We will see how she does, but I prefer she does not go home today. I will discuss the case fu rther with Dr. Saldaña. Indication: Admitted to Dr. Saldaña on 12/29/2020 with a non-ST elevation myocardial infarction. Echo cardiogram showed an ejection fraction of about 15% to 20% consistent with acute congestive heart narayan lure that is systolic with possible coronary artery disease. The patient is status post COVID infect ion in July of this year, admitted for shortness of breath and tachycardia, found to have elevated t roponin, elevated BNP, low ejection fraction. Procedure In Detail: Brought to the landscaping and groundskeeping laborer today as an inpatient, prepped and draped in the routin e sterile fashion. The patient was not given any Versed because she was already sedated from the efraín or with morphine, atarax, and Benadryl. In the landscaping and groundskeeping laborer, she was prepped and draped in routine steri le fashion. A 6-Japanese sheath introduced in the right common femoral artery successfully. Angiograp hy there was normal. StarClose was used to close the procedure. Lee catheter left and right wer e used to cannulate the left main and right main respectively. The RCA was dominant, large vessel wi th diffuse plaquing throughout. The left main was cannulated with JL4. The left main was normal. T he LAD had some [id number] plaquing throughout. She had a 70% to 80% long ostial diagonal lesi on. She had an 80% very distal LAD stenosis, 50% ramus, normal circumflex. There were no complicati ons. Anesthesia: Total conscious sedation; the patient was not given any sedatives. Blood Loss: 5 mL. Postoperative Diagnosis: Moderate to severe coronary artery disease, severe congestive heart failure by echo. Plan: Plan is for medical therapy. NB/MODL Voice ID: [id number] Report ID: [id number]
--- NOTE | 2020-12-30 13:19 | P.PN ---
Subjective Date of Service: 12/30/20 Primary Care Provider: Dr Ponce. Subjective: Improving (minimal chest discomfort this morning. s/p cath) Review of Systems 10-point ROS is otherwise unremarkable Physical Examination - Vital Signs Temperature: 97.0 F Blood Pressure: 126/85 Pulse: 79 Respirations: 17 Pulse Ox (%): 98 Assessment & Plan Physician Review Additional Text: Physical Exam General: Alert, Oriented x3 HEENT: normal conjunctiva, sclera anicteric Respiratory: Clear to auscultation bilaterally Cardiovascular: Regular rate/rhythm, Normal S1 S2 Gastrointestinal: Normal bowel sounds, Soft and benign Integumentary: No rashes Problem List chest pain, NSTEMI new systolic CHF, EF: 25% h/o COPD HTN h/o COVID-19 pneumonia July 2020 -chest discomfort improved -s/p cath this AM, mild disease per cable driller -echo with severely depressed EF, 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
[2020-12-30] MEDS: carvediloL 3.125 MG TAB PO SCH (17:11)
[2020-12-30] MEDS: ACETAMINOPHEN 500 MG TAB PO PRN (17:15)
[2020-12-30] MEDS: ATORVASTATIN 40 MG TAB PO SCH (20:47)
[2020-12-31] MEDS: ONDANSETRON 4 MG/2 ML VIAL IV PRN (00:28)
[2020-12-31] MEDS: MORPHINE 2 MG/ML SYR IV PRN ×2 (00:28→08:31)
[2020-12-31] MEDS: carvediloL 3.125 MG TAB PO SCH ×2 (05:53→17:07)
[2020-12-31] MEDS: ACETAMINOPHEN 500 MG TAB PO PRN (05:59)
[2020-12-31 06:09] LABS: MPV 7.8 fL (7.6-11.3); RBC Red Blood Cell Count 5.45 M/uL (3.86-4.86)
[2020-12-31 06:22] LABS: Magnesium 1.5 mg/dL (1.8-2.4); Potassium 3.4 mmol/L (3.5-5.1)
--- NOTE | 2020-12-31 08:12 | P.PN ---
Subjective Date of Service: 12/31/20 Primary Care Provider: Dr Ponce. Subjective: Other (L leg tenderness on skin, just above knee, pt fell last week. now with redness of b/l legs, worse on left) Review of Systems 10-point ROS is otherwise unremarkable Physical Examination - Vital Signs Temperature: 96 F Blood Pressure: 126/100 Pulse: 83 Respirations: 17 Pulse Ox (%): 94 Assessment & Plan Physician Review Additional Text: Physical Exam General: Alert, Oriented x3 HEENT: normal conjunctiva, sclera anicteric Respiratory: Clear to auscultation bilaterally Cardiovascular: Regular rate/rhythm, Normal S1 S2 Gastrointestinal: Normal bowel sounds, Soft and benign Integumentary: small healing superficial laceration noted over right knee. Clearly demarcated areas of erythema throughout bilateral feet/legs. Area of erythema associate with some tenderness. No abscess, no swelling. 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 Possible contact dermatitis dispo: anticipate dc home in ~2-3days Time Spent Managing Pts Care (In Minutes): 35
[2020-12-31] MEDS: ASPIRIN EC 81 MG TAB PO SCH (08:31)
[2020-12-31] MEDS: FUROSEMIDE 20 MG TABLET PO SCH ×2 (08:31→16:28)
[2020-12-31] MEDS: SACUBITRIL/VALSARTAN 24/26 MG TAB PO SCH ×2 (08:31→20:59)
[2020-12-31] MEDS: DIPHENHYDRAMINE 25 MG TAB/CAP PO PRN (10:02)
[2020-12-31] MEDS: CEFAZOLIN/SWI 2gm 2 GM/20 ML SYR IV SCH ×2 (10:03→16:27)
[2020-12-31] MEDS: hydrOXYzine HCL 25 MG TAB PO PRN ×2 (11:38→22:50)
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
[2020-12-31] MEDS ORDERED: hydrOXYzine HCL 25 MG TAB PO ONE (16:00)
[2020-12-31] MEDS: ATORVASTATIN 40 MG TAB PO SCH (20:59)
[2021-01-01] MEDS: CEFAZOLIN/SWI 2gm 2 GM/20 ML SYR IV SCH ×2 (00:29→09:00)
[2021-01-01] MEDS: carvediloL 3.125 MG TAB PO SCH ×2 (05:30→10:24)
[2021-01-01 06:13] LABS: Absolute Lymphocytes (CBC) 1.6 K/uL (0.7-4.9); Basophils % 0.5 % (0-1.3); Hematocrit 49.8 % (36.0-45.0); Lymphocytes % 15.1 % (15.3-44.8); MPV 7.9 fL (7.6-11.3); RBC Red Blood Cell Count 5.54 M/uL (3.86-4.86)
[2021-01-01 06:21] LABS: Potassium 3.3 mmol/L (3.5-5.1)
[2021-01-01 06:28] LABS: Bilirubin Total 0.4 mg/dL (0.2-1.0); C-Reactive Protein 12.8 mg/L (<3.00)
[2021-01-01] MEDS ORDERED: POTASSIUM CL SA 10 MEQ TAB PO ONE (08:00)
--- NOTE | 2021-01-01 08:38 | RAD REPORT ---
EXAM DESCRIPTION: RAD - Chest Single View - 01/01/2021 6:40 am CLINICAL HISTORY: hypoxia, chf COMPARISON: December 28 TECHNIQUE: AP portable chest image was obtained 01/01/2021 6:40 am . FINDINGS: Lung volumes are low. Elevated right hemidiaphragm again noted. Cardiac silhouette has dec reased in prominence from prior imaging. Upper lobe vasculature within normal limits. No measurable p leural effusion and no pneumothorax. No acute bony abnormality seen. No acute aortic findings suspect ed. IMPRESSION: Decreased cardiomegaly. No new or progressive lung parenchymal process.
[2021-01-01] MEDS: FUROSEMIDE 20 MG TABLET PO SCH (09:00)
[2021-01-01] MEDS: ASPIRIN EC 81 MG TAB PO SCH (10:23)
--- NOTE | 2021-01-01 10:57 | P.PN ---
Subjective Date of Service: 01/01/21 Primary Care Provider: Dr Ponce. Patient seen examined at bedside, resting comfortably in bed. Itching has subsided, and erythema to bilateral lower extremity is also decreasing. Pro cow all within normal range, CRP slightly elevated, ESR within normal range. Afebrile with no leukocytosis. Review of Systems 10-point ROS is otherwise unremarkable Physical Examination - Vital Signs Temperature: 97.6 F Blood Pressure: 110/72 Pulse: 86 Respirations: 17 Pulse Ox (%): 99 - Studies Laboratory Last Values WBC 10.00 K/uL (4.3-10.9) 12/28/20 12:26 RBC 4.84 M/uL (3.86-4.86) 12/28/20 12:26 Hgb 14.5 g/dL (12.0-15.0) 12/28/20 12:26 Hct 43.1 % (36.0-45.0) 12/28/20 12:26 MCV 89.0 fL (80-100) 12/28/20 12:26 MCH 29.9 pg (27.0-35.0) 12/28/20 12:26 MCHC 33.6 g/dL (32.0-36.0) 12/28/20 12:26 RDW 14.0 % (12.1-15.2) 12/28/20 12:26 Plt Count 302 K/uL (152-406) 12/28/20 12:26 MPV 7.9 fL (7.6-11.3) 12/28/20 12:26 Neutrophils % 68.3 % (41.7-73.7) 12/28/20 12:26 Lymphocytes % 23.2 % (15.3-44.8) 12/28/20 12:26 Monocytes % 7.1 % (3.3-12.3) 12/28/20 12:26 Eosinophils % 0.7 % (0-4.4) 12/28/20 12: Basophils % 0.7 % (0-1.3) 12/28/20 12:26 Absolute Neutrophils 6.8 K/uL (1.8-8.0) 12/28/20 12:26 Absolute Lymphocytes 2.3 K/uL (0.7-4.9) 12/28/20 12:26 Absolute Monocytes 0.7 K/uL (0.1-1.3) 12/28/20 12:26 Absolute Eosinophils 0.1 K/uL (0-0.5) 12/28/20 12:26 Absolute Basophils 0.1 K/uL (0-0.5) 12/28/20 12:26 PT 15.5 SECONDS (9.5-12.5) H 12/28/20 12:26 INR 1.34 12/28/20 12:26 Sodium 139 mmol/L (136-145) 12/28/20 12:26 Potassium 4.0 mmol/L (3.5-5.1) 12/28/20 12:26 Chloride 107 mmol/L (98-107) 12/28/20 12:26 Carbon Dioxide 24 mmol/L (21-32) 12/28/20 12:26 BUN 21 mg/dL (7-18) H 12/28/20 12:26 Creatinine 0.82 mg/dL (0.55-1.3) 12/28/20 12:26 Whole Bld Creatinine 0.9 mg/dL (0.6-1.3) 12/28/20 11:24 Estimated GFR 72 mL/min (=/>90) L 12/28/20 12:26 Glucose 102 mg/dL (74-106) 12/28/20 12:26 Calcium 9.3 mg/dL (8.5-10.1) 12/28/20 12:26 Magnesium 1.8 mg/dL (1.8-2.4) 12/28/20 12:26 Total Bilirubin 0.5 mg/dL (0.2-1.0) 12/28/20 12:26 Direct Bilirubin 0.2 mg/dL (0-0.2) 12/28/20 12:26 AST 74 U/L (15-37) H 12/28/20 12:26 ALT 108 U/L (12-78) H 12/28/20 12:26 Alkaline Phosphatase 113 U/L (45-117) 12/28/20 12:26 Creatine Kinase 166 U/L (26-192) 12/29/20 11:45 CK-MB (CK-2) 12.2 ng/mL (1.0-3.6) H* 12/29/20 11:45 Rapid Troponin I 0.12 ng/mL (0.0-0.045) H 12/28/20 12:26 Troponin I 0.09 ng/mL (0.0-0.045) H 12/29/20 11:45 NT-Pro-B Natriuret Pep 19051 pg/mL (<125) H 12/28/20 12:26 Serum Total Protein 6.7 g/dL (6.4-8.2) 12/28/20 12:26 Albumin 3.8 g/dL (3.4-5.0) 12/28/20 12:26 Globulin 2.9 g/dL (2.3-3.5) 12/28/20 12:26 Albumin/Globulin Ratio 1.3 (1.1-1.8) 12/28/20 12:26 Triglycerides 85 mg/dL (<150) 12/29/20 03:59 Cholesterol 195 mg/dL (<200) 12/29/20 03:59 LDL Cholesterol, Calc 142 (<130) H 12/29/20 03:59 HDL Cholesterol 36 mg/dL (40-60) L 12/29/20 03:59 Cholesterol/HDL Ratio 5.42 12/29/20 03:59 SARS-CoV-2 RNA (RT-PCR) Negative (NEGATIVE) 12/28/20 16:20 Assessment And Plan - Plan Physical Exam: General: Alert, In no apparent distress HEENT: Atraumatic, Normocephalic Neck: Supple, 2+ carotid pulse no bruit Respiratory: Clear to auscultation bilaterally, Normal air movement Cardiovascular: No edema, Normal pulses Capillary refill: <2 Seconds Gastrointestinal: Normal bowel sounds, Soft and benign Musculoskeletal: No clubbing, No contractures Integumentary: Other (Bilateral lower extremity erythema not well demarcated ) Conclusions/Impression: Antibiotics: Cefazolin start: 12/30 stop: -- Assessment: -bilateral lower extremity cellulitis -NSTEMI status post cath -obesity -COPD -CHF -history of cover in pneumonia in July of this year Plan: -erythema to bilateral lower extremities improving. Cellulitis versus contact dermatitis versus allergic reaction. Recommend continuing PO Keflex for 5 days. -medical management per primary team -continue monitor CBC and BMP -continue to monitor for signs of infection Plan of care discussed with Dr. Abraham Thank you for consultation
[2021-01-01] MEDS: SACUBITRIL/VALSARTAN 24/26 MG TAB PO SCH (12:13)
[2021-01-01 12:38] VITALS: BP 106/84; TEMP 96.9
--- NOTE | 2021-01-01 15:03 | P.DS ---
Admission Date: 12/29/20 Discharge Date: 01/01/21 Primary Care Provider: Dr Ponce. Disposition: ROUTINE DISCHARGE Discharge Condition: GOOD Reason for Admission: Chest pain, NSTEMI Consultations: Cardiology - Dr. Allison Infectious disease - Dr. Abraham Procedures: CXR (12/28): FINDINGS: No edema or consolidation is identified. Cardiomegaly.No acute osseous abnormality. No significant pleural effusions or pneumothorax. IMPRESSION: No acute cardiopulmonary disease. CTA Chest (12/28): FINDINGS: Chest Wall: Right thyroid mass is unchanged. Lungs: Right lower lobe consolidative airspace disease. Limited by respiratory motion. Pleura: No significant effusions or pneumothorax. Mediastinum/cat: No pathologic lymphadenopathy. Pulmonary arteries/Aorta: No filling defect identified. No aortic aneurysm. Heart: No significant pericardial effusion. Cardiomegaly. Multi-vessel coronary artery disease. Upper abdomen: No acute abnormality. Reflux of contrast into the hepatic veins. Bones: No acute abnormality. IMPRESSION: Negative for pulmonary embolism. Cardiomegaly with reflux of contrast into the hepatic veins that could indicate heart strain but is nonspecific. CXR (01/01): FINDINGS: Lung volumes are low. Elevated right hemidiaphragm again noted. Cardiac silhouette has decreased in prominence from prior imaging. Upper lobe vasculature within normal limits. No measurable pleural effusion and no pneumothorax. No acute bony abnormality seen. No acute aortic findings suspected. IMPRESSION: Decreased cardiomegaly. No new or progressive lung parenchymal process. Echo (12/29): SEVERE GLOBAL HYPOKINESIS. EJECTION FRACTION 24%. MILD PULMONARY HYPERTENSION/ LEFT VENTRICULAR DILATATION. Cath (12/30): The RCA was dominant, large vessel with diffuse plaquing throughout. The left main was cannulated with JL4. The left main was normal. The LAD had some [id number] plaquing throughout. She had a 70% to 80% long ostial diagonal lesion. She had an 80% very distal LAD stenosis, 50% ramus, normal circumflex. There were no complications. Postoperative Diagnosis: Moderate to severe coronary artery disease, severe congestive heart failure by echo. Problem List B/l lower extremity erythema, concern for cellulitis vs contact dermatitis NSTEMI, moderate CAD new systolic CHF, EF: 25%. 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 She reports chest discomfort radiating to the back and neck region for the past 1 to 2 weeks. Pain is rated 8 out of 10 in intensity with no associated nausea or vomiting. No dizziness spells. She was asked to be evaluated in the ER because of her persistent pain to rule out ACS. Labs done in the emergency room was concerning for elevated troponin of 0.12 so she was admitted for inpatient work-up. She denies any episodes of cough, fever, chills, rigor, nausea, vomiting. She denies poor appetite or generalized body weakness. She says she feels like she has some congestion in her chest. Hospital Course: Patient's troponin was noted to be elevated, no ST elevation on EKG. Cardiology was consulted, patient underwent cardiac catheterization which showed moderate coronary artery disease as noted above. No stent was placed. She also underwent echocardiogram which revealed significantly depressed EF. Cardiology felt this was likely secondary to Covid cardiomyopathy. Patient was started on Entresto, carvedilol, Lasix, aspirin, statin. She had improvement of her chest pain, was breathing comfortably on room air and ambulating well. Her postoperative course was complicated with sudden development of bilateral lower leg erythema. Was concerning for possible cellulitis versus a contact dermatitis. During this time patient also reported pruritus throughout her body. She did not have any erythema or rash above her legs. A procalcitonin was checked and initially returned at 16. Patient was empirically started on IV Ancef. Infectious disease was consulted for second opinion. The following day and patient had improvement of her erythema, resolution of her pain and pruritus. Although the lab called and reported the procalcitonin was falsely reported, and was truly negative. There was a possibility of a drug reaction, patient was monitored after receiv ing her medications on day of discharge. She did not have any recurrence of her pruritus or worsening of her erythema. She was discharged with 5 more days of Keflex for empiric treatment of this poss ible cellulitis. This erythema is likely more of a contact dermatitis. She is to follow-up with her PCP in 3-5 days. She is to follow-up with Dr. Allison in ~2 weeks Vital Signs/Physical Exam: Physical Exam General: Alert, Oriented x3 HEENT: normal conjunctiva, sclera anicteric Respiratory: Clear to auscultation bilaterally Cardiovascular: Regular rate/rhythm, Normal S1 S2 Gastrointestinal: Normal bowel sounds, Soft and benign Integumentary: small healing superficial laceration noted over right knee. erythema throughout bilateral feet/legs. No abscess, no swelling. Temp Pulse Resp BP Pulse Ox 96.9 F 92 H 17 106/84 93 01/01/21 12:00 01/01/21 12:00 01/01/21 12:00 01/01/21 12:00 01/01/21 12:00 Laboratory Data at Discharge: WBC 10.90 K/uL (4.3-10.9) 01/01/21 05:55 Hgb 16.6 g/dL (12.0-15.0) H 01/01/21 05:55 Hct 49.8 % (36.0-45.0) H 01/01/21 05:55 Plt Count 259 K/uL (152-406) 01/01/21 05:55 PT 15.5 SECONDS (9.5-12.5) H 12/28/20 12:26 INR 1.34 12/28/20 12:26 Sodium 141 mmol/L (136-145) 01/01/21 05:55 Potassium 3.3 mmol/L (3.5-5.1) L 01/01/21 05:55 BUN 13 mg/dL (7-18) 01/01/21 05:55 Creatinine 0.73 mg/dL (0.55-1.3) 01/01/21 05:55 Glucose 122 mg/dL (74-106) H 01/01/21 05:55 Magnesium 1.5 mg/dL (1.8-2.4) L 12/31/20 05:48 Total Bilirubin 0.4 mg/dL (0.2-1.0) 01/01/21 05:55 AST 171 U/L (15-37) H 01/01/21 05:55 ALT 266 U/L (12-78) H D 01/01/21 05:55 Alkaline Phosphatase 109 U/L (45-117) 01/01/21 05:55 Troponin I 0.09 ng/mL (0.0-0.045) H 12/29/20 11:45 Triglycerides 85 mg/dL (<150) 12/29/20 03:59 Cholesterol 195 mg/dL (<200) 12/29/20 03:59 HDL Cholesterol 36 mg/dL (40-60) L 12/29/20 03:59 Cholesterol/HDL Ratio 5.42 12/29/20 03:59 Home Medications: Albuterol Sulfate [Proventil Hfa] 2 puff IH PRN PRN 12/29/20 Ipratropium Mdi [Atrovent Hf Inhaler*] 2 puff IH PRN PRN 12/29/20 Aspirin [Aspirin EC 81 MG] 81 mg PO DAILY 30 Days #30 tablet. 01/01/21 Atorvastatin Calcium [Lipitor] 40 mg PO BEDTIME 30 Days #30 tab 01/01/21 Cephalexin [Keflex] 500 mg PO Q6HR 5 Days #20 cap 01/01/21 Furosemide [Lasix*] 20 mg PO DAILY 30 Days #30 tab 01/01/21 Potassium Chloride [Klor-Con 10] 10 meq PO DAILY 30 Days #30 tablet.er 01/01/21 Sacubitril/Valsartan [Entresto 24 mg-26 mg Tablet] 1 tab PO BID 30 Days #60 tab 01/01/21 carvediloL [Coreg*] 3.125 mg PO BID 30 Days #60 tab 01/01/21 New Medications: Cephalexin [Keflex] 500 mg PO Q6HR 5 Days #20 cap Aspirin [Aspirin EC 81 MG] 81 mg PO DAILY 30 Days #30 tablet. carvediloL [Coreg*] 3.125 mg PO BID 30 Days #60 tab Sacubitril/Valsartan [Entresto 24 mg-26 mg Tablet] 1 tab PO BID 30 Days #60 tab Potassium Chloride [Klor-Con 10] 10 meq PO DAILY 30 Days #30 tablet.er Furosemide [Lasix*] 20 mg PO DAILY 30 Days #30 tab Atorvastatin Calcium [Lipitor] 40 mg PO BEDTIME 30 Days #30 tab Physician Discharge Instructions: You were found to have moderate coronary artery disease but did not require coronary artery stent placement. You had an echocardiogram that revealed you have low functioning heart (congestive heart failure), likely from your recent COVID-19 infection. Cardiology was consulted and recommended aspirin, statin, entresto, carvedilol, and lasix for your heart. You did have some low potassium as well, from your lasix, recommend a low dose potassium pill daily. You developed redness of both your legs during your hospitalization, worse on your left. There was concern for possible cellulitis (infection) vs contact dermatitis. You were empirically treated with IV antibiotics (ancef) and had improvement of your redness and itching. You are discharged with 5 more days of antibiotics (keflex). Follow up with Dr. Allison in 1-2 weeks. Follow up with your PCP in 3-5 days Diet: AHA Activity: Ad madi Followup: Dominguez Ponce MD [Primary Care Provider] - Time spent managing pt's care (in minutes): 40
[2021-01-01 15:05] VITALS: O2SAT 93
== END 2021-01-01 15:47 | disposition home or self-care (01) | DRG 280 ==
LOC: ER 10:36 → ERHOLD 17:46 → 2ND 23:31 → OBSVTOIN 12-29 12:19
PROVIDERS: ADMIT Hospitalist; ATTEND Internal Medicine Nephrology
PROC: B201YZZ Plain Radiography of Multiple Coronary Arteries using Other Contrast (ICD-10-PCS; principal; 2020-12-30)
DX: I21.4 Non-ST elevation (NSTEMI) myocardial infarction (principal); I50.21 Acute systolic (congestive) heart failure; I42.9 Cardiomyopathy, unspecified; L03.116 Cellulitis of left lower limb; L03.115 Cellulitis of right lower limb; B94.8 Sequelae of other specified infectious and parasitic diseases; L25.9 Unspecified contact dermatitis, unspecified cause; I11.0 Hypertensive heart disease with heart failure; J44.9 Chronic obstructive pulmonary disease, unspecified; L29.9 Pruritus, unspecified; I25.10 Atherosclerotic heart disease of native coronary artery without angina pectoris; Z20.822 Contact with and (suspected) exposure to COVID-19
CPT/HCPCS: 36415; 71045; 71275; 80048; 80053; 80061; 80076; 82550; 82553; 82565; 83735; 83880; 84132; 84145; 84484; 85025; 85027; 85610; 85652; 86140; 87040; 93005; 93306; 93454; 96372; 96374; 99283; C1893; G0378; J0583; J0690; J1644; J2250; J2270; J2405; J3010; J7030; Q9967; U0003

== ENCOUNTER 2021-02-01 05:37 | Inpatient (IN) | payer OTHER ==
[2021-02-01 06:18] LABS: Absolute Lymphocytes (CBC) 1.7 K/uL (0.7-4.9); Basophils % 0.5 % (0-1.3); Hematocrit 44.8 % (36.0-45.0); Lymphocytes % 17.3 % (15.3-44.8); MPV 8.9 fL (7.6-11.3); RBC Red Blood Cell Count 4.81 M/uL (3.86-4.86)
[2021-02-01 06:41] LABS: Albumin 3.6 g/dL (3.4-5.0); Bilirubin Direct 0.7 mg/dL (0-0.2); Bilirubin Total 1.1 mg/dL (0.2-1.0); Protein, Total 6.6 g/dL (6.4-8.2); Troponin (Emerg Dept Use Only) 0.07 ng/mL (0.0-0.045)
[2021-02-01 06:43] LABS: Potassium 3.4 mmol/L (3.5-5.1); Protime INR 1.59
[2021-02-01] MEDS ORDERED: FUROSEMIDE 20 MG/ 2ML VIAL ONE ×2 (06:49→08:34)
[2021-02-01] MEDS ORDERED: METOPROLOL TARTRATE 5 MG/5 ML INJ IV ONE (06:49)
[2021-02-01 08:09] LABS: Urine Bacteria <20 /HPF (<20); Urine Mucus 1+ /HPF (NONE SEEN); Urine RBC <5 /HPF (NONE SEEN)
--- NOTE | 2021-02-01 08:20 | ER ---
Nurse's Notes [facility] Name: Sena Ricardo Age: 55 yrs Sex: Female : 1965 Arrival Date: 02/01/2021 Time: 05:51 Bed 15 Private MD: Diagnosis: Unspecified combined systolic (congestive) and diastolic (congestive) heart failure;UTI/ Urinary tract infection, site not specified Presentation: 02/01 05:56 Chief complaint: Patient states: SOB, legs swelling. Coronavirus screen: Vaccine bs2 status: Patient reports being unvaccinated. At this time, the client does not indicate any symptoms associated with coronavirus-19. Ebola Screen: No symptoms or risks identified at this time. Initial Sepsis Screen: Does the patient meet any 2 criteria? RR > 20 per min. HR > 90 bpm. Yes Does the patient have a suspected source of infection? No. Patient's initial sepsis screen is negative. Risk Assessment: Do you want to hurt yourself or someone else? Patient reports no desire to harm self or others. Onset of symptoms is unknown. 05:56 Method Of Arrival: EMS: [facility] bs2 05:56 Acuity: ANABELLA 3 bs2 Triage Assessment: 05:56 General: Appears distressed, uncomfortable, obese, Behavior is cooperative, appropriate bs2 for age. Pain: Complains of pain in cervical region Pain currently is 8 out of 10 on a pain scale. Cardiovascular: Capillary refill is > 3 seconds. Respiratory: Reports shortness of breath at rest Airway is patent Trachea midline Respiratory effort is even, labored, Respiratory pattern is symmetrical, tachypnea. Historical: - Allergies: 06:06 No Known Allergies; bs2 - PMHx: 06:06 Anxiety; COPD; depressive disorder; fluid on body; bs2 - PSHx: 06:06 Tonsillectomy; Total abdominal hysterectomy; bs2 - Immunization history:: Adult Immunizations not up to date, Client reports having NOT received the Covid vaccine. Flu vaccine is not up to date. It has been more than one year since last vaccine. - Social history:: Smoking status: Patient reports the use of cigarette tobacco products, smokes one-half pack cigarettes per day. Screenin:13 Abuse screen: Denies threats or abuse. Denies injuries from another. Nutritional bs2 screening: No deficits noted. Tuberculosis screening: No symptoms or risk factors identified. Fall Risk Fall in past 12 months (25 points). IV access (20 points). Ambulatory Aid- Crutches/Cane/Walker (15 pts). Gait- Weak (10 pts.). Mental Status- Overestimates/Forgets Limitations (15 pts.). Assessment: 06:13 General: Appears distressed, uncomfortable, Behavior is cooperative, appropriate for bs2 age. Respiratory: Airway is patent Trachea midline Respiratory effort is labored, shallow, Respiratory pattern is tachypnea Breath sounds are diminished bilaterally. 06:13 Neuro:. Cardiovascular:. Cardiovascular: pitting edema, lower legs, ankles and feet 2+. bs2 Derm: Skin is fragile, is thin, Skin is dry, Skin is pale. Musculoskeletal:. 07:16 Reassessment: Patient and/or family updated on plan of care and expected duration. Pain es2 level reassessed. Patient is alert, oriented x 3, equal unlabored respirations, skin warm/dry/pink. Received report from PENNY Castañeda. Pt resting in bed. General: Appears uncomfortable, Behavior is cooperative, appropriate for age. Pain: Complains of pain in From the neck down. Pain currently is 8 out of 10 on a pain scale. Neuro: Level of Consciousness is awake, alert, obeys commands, Oriented to person, place, time, situation, Appropriate for age. Cardiovascular: Capillary refill < 3 seconds. Respiratory: Airway is patent. GI: No signs and/or symptoms were reported involving the gastrointestinal system. : Decker in place Decker placed by previous shift. EENT: No signs and/or symptoms were reported regarding the EENT system. Derm: Skin is fragile, is thin, Skin is dry, Skin is pale, zuri legs red and spotty like. Edematous. Musculoskeletal: Capillary refill < 3 seconds. 07:56 Reassessment: MD at bedside. es2 09:47 Reassessment: Patient and/or family updated on plan of care and expected duration. Pain es2 level reassessed. Patient is alert, oriented x 3, equal unlabored respirations, skin warm/dry/pink. General: Appears uncomfortable, Behavior is cooperative, appropriate for age. Pain: Complains of pain in feet Pain currently is 7 out of 10 on a pain scale. Neuro: Level of Consciousness is awake, alert, obeys commands, Oriented to person, place, time, situation, Appropriate for age. Cardiovascular: Capillary refill < 3 seconds. Respiratory: Airway is patent Respiratory effort is even, unlabored, Respiratory pattern is regular, symmetrical. Musculoskeletal: Capillary refill bi leg red and swollen. Vital Signs: 05:56 BP 135 / 109; Pulse 129; Resp 26; Temp 98.7; Pulse Ox 98% on R/A; Weight 76.2 kg (M); bs2 Height 5 ft. 4 in. (162.56 cm); Pain 8/10; 07:30 BP 105 / 58; Pulse 121; Resp 18; Pulse Ox 92% on R/A; es2 10:52 BP 113 / 92; Pulse 123; Resp 20; Pulse Ox 91% on R/A; es2 05:56 Body Mass Index 28.84 (76.20 kg, 162.56 cm) bs2 05:56 pt stays on home O2 at all times, 3L NC, her room air here was 98% bs2 ED Course: 05:45 Inserted saline lock: 20 gauge in right wrist, using aseptic technique. Blood collected.lp1 05:51 Patient arrived in ED. lp1 05:52 Patient has correct armband on for positive identification. Bed in low position. Call lp1 light in reach. surveillance monitor on. Pulse ox on. NIBP on. 05:55 Maddy De La Garza, RN is Primary Nurse. bs2 05:56 Arm band placed on left wrist. Patient placed in an exam room, on a stretcher, on bs2 oxygen, on surveillance monitor, on pulse oximetry. EKG completed in triage. Results shown to MD. 06:06 Triage completed. bs2 06:09 Arthur Johnson PA is PHCP. cp 06:09 Adarsh Rivas MD is Attending Physician. cp 06:13 Inserted saline lock: 22 gauge in left forearm, using aseptic technique. bs2 06:17 Troponin (emerg Dept Use Only) Sent. bs2 06:17 PT-INR Sent. bs2 06:17 NT PRO-BNP Sent. bs2 06:18 Magnesium Sent. bs2 06:18 LFT's Sent. bs2 06:18 CBC with Diff Sent. bs2 06:18 Basic Metabolic Panel Sent. bs2 06:18 Basic Metabolic Panel Sent. bs2 06:18 CBC with Automated Diff Sent. bs2 06:18 Magnesium Sent. bs2 06:18 Liver (Hepatic) Function Sent. bs2 06:18 Procalcitonin Sent. bs2 06:18 Lactate Sent. bs2 06:18 Blood Culture Adult (2) Sent. bs2 06:18 Lactate Sent. bs2 06:40 XRAY Chest (1 view) In Process Unspecified. EDMS 06:55 Decker cath inserted, using sterile technique, 18 Fr., by la, balloon inflated, to bs2 gravity drainage, urine specimen collected. 07:32 Urine Microscopic Only Sent. es2 07:59 US Abdomen Limited In Process Unspecified. EDMS 07:59 Attending Physician role handed off by Adarsh Rivas MD rn 07:59 Eron Saldaña MD is Attending Physician. rn 08:18 Nnamdi Cook is Hospitalizing Provider. cp 08:43 Urine Culture Sent. es2 10:12 No provider procedures requiring assistance completed. tr6 18:35 Primary Nurse role handed off by Maddy De La Garza RN bd 19:05 Maddy De La Garza RN is Primary Nurse. bs2 Administered Medications: 06:17 CANCELLED (Physician Discretion): Metoprolol 2.5 mg IVP once cp 06:50 Drug: Metoprolol 2.5 mg Route: IVP; Site: right hand; bc5 07:16 Follow up: Response: No adverse reaction es2 06:50 Drug: Lasix (furosemide) 20 mg Route: IVP; Site: right hand; bc5 07:15 Follow up: Response: No adverse reaction es2 08:33 Drug: Lasix (furosemide) 20 mg Route: IVP; Site: left forearm; es2 10:53 Follow up: Response: No adverse reaction es2 08:33 Drug: Aspirin Chewable Tablet 324 mg Route: PO; es2 10:53 Follow up: Response: No adverse reaction es2 08:33 Drug: Potassium Chloride 10 mEq Route: IV; Rate: calculated rate; Site: left forearm; es2 10:28 Follow up: Response: No adverse reaction; IV Status: Completed infusion; IV Intake: es2 100ml 08:33 Drug: Rocephin (cefTRIAXone) 1 grams Route: IV; Rate: calculated rate; Site: left es2 forearm; 10:29 Follow up: IV Status: Completed infusion es2 08:42 Drug: Zofran (Ondansetron) 4 mg Route: IVP; Site: left forearm; es2 10:54 Follow up: Response: No adverse reaction es2 10:10 Drug: Ibuprofen 800 mg Route: PO; tr6 10:53 Follow up: Response: No adverse reaction es2 Intake: 10:28 IV: 100ml; Total: 100ml. es2 Output: 10:12 Urine: 1600ml (Decker); Total: 1600ml. tr6 Outcome: 08:19 Decision to Hospitalize by Provider. camilo 02/02 15:33 Patient left the ED. [email or web address] Signatures: Dispatcher [employer] EDMS Jennifer Potter Roman, MD MD rn Muriel Reyes, RN RN lp1 Arthur Johnson PA PA cp Jackson, Kandis [email or web address] Alejandrina Alcantar RN RN tr6 Maddy De La Garza RN RN bs2 Mariana Nash RN RN bc5 Landy De La Garza RN RN es2 Corrections: (The following items were deleted from the chart) 02/01 06:05 05:56 BP 135 / 109; Pulse 129bpm; Resp 26bpm; Pulse Ox 98% RA; Temp 98.7F; Height 5 ft. bs2 4 in.; Pain 8/10; pt stays on home O2 at all times, 3L NC, her room air here was 98%; bs2 07:32 06:54 CORONAVIRUS+ drawn and sent. bs2 EDMS
--- NOTE | 2021-02-01 08:20 | EDPHYS ---
Physician Documentation [facility] Name: Sena Ricardo Age: 55 yrs Sex: Female : 1965 Arrival Date: 02/01/2021 Time: 05:51 Bed 15 Private MD: ED Physician Eron Saldaña HPI: 02/01 06:15 This 55 yrs old Female presents to ER via EMS with complaints of Shortness Of cp Breath. 06:15 The patient has shortness of breath at rest. cp 06:15 Onset: The symptoms/episode began/occurred gradually. cp 06:15 Duration: The symptoms are continuous, and are steadily getting worse. Associated signs cp and symptoms: Pertinent positives: non-productive cough, swelling of legs, Pertinent negatives: chest pain, fever, vomiting. Severity of symptoms: in the emergency department the symptoms are unchanged despite EMS interventions. Patient reports she ran out of chronic meds approximately 1 month ago due to inability to pay for meds. Historical: - Allergies: 06:06 No Known Allergies; bs2 - PMHx: 06:06 Anxiety; COPD; depressive disorder; fluid on body; bs2 - PSHx: 06:06 Tonsillectomy; Total abdominal hysterectomy; bs2 - Immunization history:: Adult Immunizations not up to date, Client reports having NOT received the Covid vaccine. Flu vaccine is not up to date. It has been more than one year since last vaccine. - Social history:: Smoking status: Patient reports the use of cigarette tobacco products, smokes one-half pack cigarettes per day. ROS: 06:20 Respiratory: Positive for shortness of breath, at rest. Negative for cough, wheezing. cp 06:20 Eyes: Negative for injury, pain, redness, and discharge. cp 06:20 Constitutional: Negative for body aches, chills, fever, poor PO intake. 06:20 ENT: Negative for ear pain, sore throat, difficulty swallowing, difficulty handling secretions. 06:20 Abdomen/GI: Negative for abdominal pain, vomiting, diarrhea, constipation. 06:20 Neuro: Negative for altered mental status, headache, syncope, weakness. 06:20 All other systems are negative. Exam: 06:20 ECG was reviewed by the Attending Physician. cp 06:25 Constitutional: The patient appears in no acute distress, alert, awake, cp non-diaphoretic, non-toxic, well developed, well nourished, in obvious distress, mildly distressed. 06:25 Head/Face: Normocephalic, atraumatic. cp 06:25 Eyes: Periorbital structures: appear normal, Pupils: equal, round, and reactive to light and accomodation, Extraocular movements: intact throughout, Conjunctiva: normal, no exudate, no injection, Sclera: no appreciated abnormality, Lids and lashes: appear normal, bilaterally. 06:25 ENT: External ear(s): are unremarkable, Nose: is normal, Mouth: Lips: moist, Oral mucosa: moist, Posterior pharynx: Airway: no evidence of obstruction, patent, swelling, is not appreciated, erythema, is not appreciated, exudate, is not appreciated. 06:25 Neck: ROM/movement: is normal, is supple, without pain, no range of motions limitations, no meningismus. 06:25 Chest/axilla: Inspection: normal, Palpation: is normal, no crepitus, no tenderness. 06:25 Cardiovascular: Rate: tachycardic, Rhythm: regular, Edema: ankle edema, that is moderate, JVD: is not appreciated. 06:25 Respiratory: mild respiratory distress is noted, Respirations: labored breathing, that is mild, shallow respirations, that is mild, Breath sounds: bronchial sounds, that are moderate, are heard diffusely, stridor, is not appreciated, wheezing: is not appreciated. 06:25 Abdomen/GI: Inspection: abdomen appears normal, Bowel sounds: active, all quadrants, Palpation: abdomen is soft and non-tender, in all quadrants. 06:25 Back: pain, is absent, ROM is normal. 06:25 Skin: erythema noted to bilateral lower leg. 06:25 Neuro: Orientation: to person, place \T\ time. Mentation: is normal, Cerebellar function: is grossly normal, Motor: moves all fours, strength is normal, Sensation: no obvious gross deficits. Vital Signs: 05:56 BP 135 / 109; Pulse 129; Resp 26; Temp 98.7; Pulse Ox 98% on R/A; Weight 76.2 kg (M); bs2 Height 5 ft. 4 in. (162.56 cm); Pain 8/10; 07:30 BP 105 / 58; Pulse 121; Resp 18; Pulse Ox 92% on R/A; es2 10:52 BP 113 / 92; Pulse 123; Resp 20; Pulse Ox 91% on R/A; es2 05:56 Body Mass Index 28.84 (76.20 kg, 162.56 cm) bs2 05:56 pt stays on home O2 at all times, 3L NC, her room air here was 98% bs2 MDM: 06:14 Patient medically screened. cp 06:30 Differential diagnosis: Bronchitis CHF exacerbation, Chronic Obstructive Pulmonary cp Disease Myocardial Infarction pneumonia, pulmonary edema, Pulmonary Embolism Sepsis Unstable Angina respiratory failure. 08:25 Physician consultation: Nnamdi Cook was called at 08:15, was contacted at 08:15, cp regarding admission, to the telemetry unit. patient's condition. 09:25 Data reviewed: vital signs, nurses notes, lab test result(s), EKG, radiologic studies, cp plain films, ultrasound. 09:25 Test interpretation: by ED physician or midlevel provider: ECG, plain radiologic cp studies. 02/01 06:05 Order name: Basic Metabolic Panel lp1 02/01 06:05 Order name: CBC with Diff lp1 02/01 06:05 Order name: LFT's lp1 02/01 06:05 Order name: Magnesium lp1 02/01 06:05 Order name: NT PRO-BNP; Complete Time: 06:47 lp1 02/01 06:49 Interpretation: Abnormal: NT PRO-BNP 96806. 02/01 06:05 Order name: PT-INR; Complete Time: 07:08 lp1 02/01 07:11 Interpretation: Abnormal: INR <p>1.59</p>. cp 02/01 06:05 Order name: Troponin (emerg Dept Use Only); Complete Time: 06:47 lp1 02/01 06:49 Interpretation: Abnormal: TROPED 0.07. cp 02/01 06:06 Order name: Basic Metabolic Panel; Complete Time: 06:47 EDMS 02/01 06:49 Interpretation: Normal except: K 3.4; CL 108; GLUC 144; BUN 26; GFR 77. cp 02/01 06:06 Order name: CBC with Automated Diff; Complete Time: 06:47 EDMS 02/01 07:37 Interpretation: Normal except: MCV 93.1; RDW 16.9; KIM% 75.8. cp 02/01 06:06 Order name: Liver (Hepatic) Function; Complete Time: 06:47 [facility] 02/01 06:50 Interpretation: Normal except: AST 112; ALT 146; ALK 150; BILIT 1.1; BILID 0.7. 02/01 06:06 Order name: Magnesium; Complete Time: 06:47 [facility] 02/01 06:16 Order name: Lactate 02/01 06:16 Order name: Procalcitonin; Complete Time: 09:02 02/01 09:03 Interpretation: Within normal limits: Procalcitonin < 0.05. 02/01 06:16 Order name: Blood Culture Adult (2) 02/01 06:16 Order name: Urine Microscopic Only; Complete Time: 09:02 02/01 06:17 Order name: Lactate; Complete Time: 07:51 [facility] 02/01 08:11 Order name: Urine Culture [facility] 02/01 08:22 Order name: SARS-COV-2 RT PCR; Complete Time: 09:02 [facility] 02/01 09:01 Order name: Urine Dipstick-Ancillary; Complete Time: 09:02 [facility] 02/01 09:03 Interpretation: Normal except: UBLD Trace-intact; UPROT 2+; U NIT Positive; UESTR Trace. 02/01 23:24 Order name: Alcohol Serum/Plasma [facility] 02/01 23:42 Order name: Troponin I [facility] 02/01 23:42 Order name: NT PRO-BNP [facility] 02/01 23:42 Order name: T4 Free [facility] 02/01 23:42 Order name: Thyroid Stimulating Hormone [facility] 02/02 04:20 Order name: Urine Drug Screen [facility] 02/02 11:23 Order name: CBC with Automated Diff [facility] 02/02 11:57 Order name: Comprehensive Metabolic Panel [facility] 02/02 11:57 Order name: NT PRO-BNP [facility] 02/02 11:57 Order name: Lipid Profile [facility] 02/01 06:05 Order name: XRAY Chest (1 view); Complete Time: 09:20 [facility] 02/01 09:21 Interpretation: Report reviewed. 02/01 06:05 Order name: EKG; Complete Time: 06:06 [facility] 02/01 06:05 Order name: Cardiac monitoring; Complete Time: 06:06 [facility] 02/01 06:05 Order name: EKG - Nurse/Tech; Complete Time: 06:17 lp1 02/01 06:05 Order name: IV Saline Lock; Complete Time: 06:06 lp1 02/01 06:05 Order name: Labs collected and sent; Complete Time: 06:06 lp1 02/01 06:05 Order name: O2 Per Protocol; Complete Time: 06:06 lp1 02/01 06:05 Order name: O2 Sat Monitoring; Complete Time: 06:06 lp1 02/01 06:16 Order name: Urine Dipstick-Ancillary (obtain specimen); Complete Time: 07:32 cp 02/01 06:55 Order name: Decker; Complete Time: 06:55 bs2 02/01 07:27 Order name: US Abdomen Limited; Complete Time: 09:20 cp 02/01 09:21 Interpretation: Report reviewed. cp EC:20 Rate is 131 beats/min. Rhythm is regular. VT interval is normal. QRS interval is cp prolonged at 104 msec. QT interval is normal. Interpreted by me. Reviewed by me. Administered Medications: 06:17 CANCELLED (Physician Discretion): Metoprolol 2.5 mg IVP once cp 06:50 Drug: Metoprolol 2.5 mg Route: IVP; Site: right hand; bc5 07:16 Follow up: Response: No adverse reaction es2 06:50 Drug: Lasix (furosemide) 20 mg Route: IVP; Site: right hand; bc5 07:15 Follow up: Response: No adverse reaction es2 08:33 Drug: Lasix (furosemide) 20 mg Route: IVP; Site: left forearm; es2 10:53 Follow up: Response: No adverse reaction es2 08:33 Drug: Aspirin Chewable Tablet 324 mg Route: PO; es2 10:53 Follow up: Response: No adverse reaction es2 08:33 Drug: Potassium Chloride 10 mEq Route: IV; Rate: calculated rate; Site: left forearm; es2 10:28 Follow up: Response: No adverse reaction; IV Status: Completed infusion; IV Intake: es2 100ml 08:33 Drug: Rocephin (cefTRIAXone) 1 grams Route: IV; Rate: calculated rate; Site: left es2 forearm; 10:29 Follow up: IV Status: Completed infusion es2 08:42 Drug: Zofran (Ondansetron) 4 mg Route: IVP; Site: left forearm; es2 10:54 Follow up: Response: No adverse reaction es2 10:10 Drug: Ibuprofen 800 mg Route: PO; tr6 10:53 Follow up: Response: No adverse reaction es2 Disposition: 13:53 Co-signature as Attending Physician, Eron Saldaña MD I agree with the assessment and rn plan of care. 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 HPI: 55-year-old female who presents with shortness of breath and swelling, ran out of her diuretic about a month ago. My personal exam of patient reveals: Mild tachypnea with diffuse anasarca. No abdominal tenderness or rebound. Negative Hightower. I agree with assessment and care plan and confirm the diagnosis (es) above. Attestation: The patient's history, exam findings, diagnostics, and a summary of any interventions or procedures was reviewed in detail with Arthur MOSER. Disposition Summary: 02/01/21 08:19 Hospitalization Ordered Hospitalization Status: Inpatient Admission cp Provider: Nnamdi Cook cp Condition: Fair cp Problem: an acute exacerbation cp Symptoms: have improved cp Bed/Room Type: Standard cp Location: Telemetry/MedSurg (Inpatient)(02/02/21 11:59) bd Room Assignment: 421(02/02/21 11:59) bd Diagnosis - Unspecified combined systolic (congestive) and diastolic (congestive) heart failure cp - UTI/ Urinary tract infection, site not specified cp Forms: - Medication Reconciliation Form cp - SBAR form cp Signatures: Dispatcher [employer] EDMS Jennifer Potter bd Eron Saldaña MD MD rn Smirch, Shelby RN RN Muriel Reyes RN RN lp1 Arthur Jhonson PA PA cp Alejandrina Alcantar RN RN tr6 Maddy De La Garza RN RN bs2 Nnamdi Cook la3 Mariana Nash RN RN bc5 Landy De La Garza RN RN es2 Corrections: (The following items were deleted from the chart) 06:17 06:16 Metoprolol 2.5 mg IVP once ordered. cp cp 07:32 06:17 CORONAVIRUS+MR.LAB.BRZ ordered. EDMS EDMS 13:10 08:19 Telemetry/MedSurg (Inpatient) cp ss 13:10 08:19 cp ss 02/02 13:10 [facility] ER HOLD ss bd 02/02 13:10 ERHOLD- ss bd
[2021-02-01] MEDS ORDERED: ASPIRIN EC 81 MG TAB PO ONE (08:32)
[2021-02-01] MEDS ORDERED: CEFTRIAXONE/SWI 1gm 1 GM/10 ML SYR ONE (08:33)
[2021-02-01] MEDS ORDERED: KCL 20 MEQ/100 mL IVPB 0 MEQ/0 ML BAG IV ONE (08:35)
[2021-02-01] MEDS ORDERED: ALBUTEROL INHALER 60 PUFF/8 GM IH PRN (08:55)
[2021-02-01] MEDS ORDERED: IPRATROPIUM 200 PUFF/12.9 GM INH IH PRN (08:55)
[2021-02-01] MEDS: ASPIRIN EC 81 MG TAB PO SCH (09:00)
[2021-02-01] MEDS ORDERED: ONDANSETRON 4 MG/2 ML VIAL ONE (09:00)
[2021-02-01 09:02] LABS: Urine Blood Trace-intact (Negative); Urine Glucose Negative (Negative); Urine Protein 2+ (Negative); Urine Specific Gravity >=1.030 (1.005-1.030)
--- NOTE | 2021-02-01 09:03 | RAD REPORT ---
EXAM DESCRIPTION: US - Abdomen Exam Limited - 02/01/2021 7:59 am CLINICAL HISTORY: elevated liver enzymes Abdominal pain COMPARISON: Renal Ultrasound-Complete dated 07/10/2020 FINDINGS: The gallbladder demonstrates wall thickening without evidence of stones seen. The common b ile duct is mildly prominent measuring 7 mm. The liver demonstrates no findings of intrahepatic biliary dilatation. IMPRESSION: Gallbladder wall thickening is present without visible stones. This may be related to un derlying liver dysfunction, hypoalbuminemia or chronic gallbladder dysfunction.
--- NOTE | 2021-02-01 09:08 | RAD REPORT ---
EXAM DESCRIPTION: RAD - Chest Single View - 02/01/2021 6:40 am CLINICAL HISTORY: SOB Chest pain. COMPARISON: Chest Single View dated 01/01/2021; Chest Single View dated 12/28/2020; Chest Single View dated 08/05/2020; Chest Single View dated 08/03/2020 FINDINGS: Portable technique limits examination quality. Chronically elevated right hemidiaphragmatic leaflet noted. Mild bilateral interstitial lung opacitie s are present, slightly more prominent than on the prior study. The heart is moderately enlarged. No displaced fractures. IMPRESSION: Mild CHF versus underlying viral infection pattern is seen.
[2021-02-01] MEDS ORDERED: POTASSIUM CL 10 MEQ in NA CHLORIDE 0.9% 100 ML IV ONE (09:30)
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
[2021-02-01] MEDS ORDERED: IBUPROFEN 400 MG TAB ONE (10:29)
[2021-02-01] MEDS: carvediloL 3.125 MG TAB PO SCH ×2 (10:30→20:17)
[2021-02-01] MEDS ORDERED: ALBUTEROL 2.5 MG/3 ML NEB SOL IH PRN (10:55)
[2021-02-01] MEDS ORDERED: IPRATROPIUM BROM 0.5MG/2.5ML IH PRN (10:56)
[2021-02-01] MEDS: POTASSIUM CL SA 10 MEQ TAB PO SCH (11:41)
[2021-02-01] MEDS ORDERED: carvediloL 6.25 MG TAB ONE (11:52)
[2021-02-01] MEDS ORDERED: POTASSIUM CL SA 10 MEQ TAB PO ONE (11:52)
[2021-02-01] MEDS: SACUBITRIL/VALSARTAN 24/26 MG TAB PO SCH ×2 (12:24→20:22)
[2021-02-01 13:35] VITALS: BMI 28.8
[2021-02-01] MEDS ORDERED: ENOXAPARIN 40 MG/0.4 ML SQ ONE ×2 (19:52→20:54)
[2021-02-01] MEDS ORDERED: KETOROLAC 30 MG/ML INJ IV ONE (20:36)
[2021-02-01] MEDS: FUROSEMIDE 40 MG/4 ML VIAL IV SCH (20:38)
[2021-02-01] MEDS: ATORVASTATIN 40 MG TAB PO SCH (20:50)
[2021-02-01] MEDS ORDERED: FUROSEMIDE 40 MG/4 ML VIAL ONE (20:53)
[2021-02-01] MEDS ORDERED: KETOROLAC 30 MG/ML INJ ONE (20:53)
[2021-02-01] MEDS ORDERED: ATORVASTATIN 40 MG TAB ONE (21:04)
[2021-02-01 23:41] LABS: Thyroid Stimulating Hormone 0.133 uIU/mL (0.360-3.740); Troponin I 0.06 ng/mL (0.0-0.045)
[2021-02-02] MEDS: KETOROLAC 30 MG/ML INJ IV PRN ×2 (03:50→17:31)
[2021-02-02] MEDS ORDERED: KETOROLAC 30 MG/ML INJ ONE (04:06)
[2021-02-02 04:19] LABS: Barbiturates NEGATIVE (NEGATIVE); Benzodiazepines NEGATIVE (NEGATIVE); Cocaine NEGATIVE (NEGATIVE); METHAMPHETAM POSITIVE (NEGATIVE); Methadone NEGATIVE (NEGATIVE); Opiates NEGATIVE (NEGATIVE); Phencyclidine NEGATIVE (NEGATIVE); THC Cannibis NEGATIVE (NEGATIVE)
[2021-02-02] MEDS: carvediloL 3.125 MG TAB PO SCH ×2 (09:00→20:37)
[2021-02-02] MEDS: ASPIRIN EC 81 MG TAB PO SCH (09:00)
[2021-02-02] MEDS: ENOXAPARIN 40 MG/0.4 ML SQ SCH (09:00)
[2021-02-02] MEDS: POTASSIUM CL SA 10 MEQ TAB PO SCH (09:00)
[2021-02-02] MEDS: SACUBITRIL/VALSARTAN 24/26 MG TAB PO SCH ×2 (09:00→20:38)
[2021-02-02] MEDS: FUROSEMIDE 40 MG/4 ML VIAL IV SCH ×2 (09:00→17:14)
[2021-02-02] MEDS ORDERED: ASPIRIN EC 81 MG TAB PO ONE (10:17)
[2021-02-02] MEDS ORDERED: POTASSIUM CL SA 10 MEQ TAB PO ONE (10:17)
[2021-02-02] MEDS ORDERED: carvediloL 6.25 MG TAB ONE (10:17)
[2021-02-02] MEDS ORDERED: ENOXAPARIN 40 MG/0.4 ML SQ ONE (10:18)
[2021-02-02] MEDS ORDERED: FUROSEMIDE 40 MG/4 ML VIAL ONE (10:18)
[2021-02-02 11:22] LABS: Basophils % 0.5 % (0-1.3); Hematocrit 48.4 % (36.0-45.0); Lymphocytes % 7.7 % (15.3-44.8); MPV 9.2 fL (7.6-11.3); RBC Red Blood Cell Count 5.19 M/uL (3.86-4.86)
[2021-02-02 11:56] LABS: Albumin 3.3 g/dL (3.4-5.0); Bilirubin Total 0.6 mg/dL (0.2-1.0); Potassium 3.4 mmol/L (3.5-5.1); Protein, Total 6.4 g/dL (6.4-8.2)
[2021-02-02] MEDS: MELATONIN 5 MG TABLET PO PRN (20:37)
[2021-02-02] MEDS: ATORVASTATIN 40 MG TAB PO SCH (20:39)
[2021-02-02] MEDS: ONDANSETRON 4 MG/2 ML VIAL IV PRN (22:00)
[2021-02-03 00:15] LABS: Urine Appearance CLEAR (Clear); Urine Bilirubin NEGATIVE (Negative); Urine Blood NEGATIVE (Negative); Urine Color YELLOW (Yellow); Urine Glucose NEGATIVE (Negative); Urine Protein NEGATIVE (Negative); Urine Urobilinogen 0.2 mg/dL (0.2-1.0); Urine pH 5.5 (5.0-7.0)
[2021-02-03 00:16] LABS: Urine Microscopic Reflex ORDER UMIC
[2021-02-03 00:24] LABS: Urine Bacteria <20 /HPF (<20); Urine RBC <5 /HPF (NONE SEEN); Urine Urothelial Cells <5 /HPF (NONE SEEN)
[2021-02-03] MEDS: KETOROLAC 30 MG/ML INJ IV PRN ×3 (01:55→16:25)
[2021-02-03 04:19] LABS: Albumin 2.7 g/dL (3.4-5.0); Bilirubin Total 0.4 mg/dL (0.2-1.0); Potassium 3.1 mmol/L (3.5-5.1); Protein, Total 5.2 g/dL (6.4-8.2)
[2021-02-03 04:25] LABS: Absolute Lymphocytes (CBC) 1.2 K/uL (0.7-4.9); Basophils % 0.7 % (0-1.3); Lymphocytes % 11.6 % (15.3-44.8); MPV 8.7 fL (7.6-11.3); RBC Red Blood Cell Count 4.57 M/uL (3.86-4.86)
[2021-02-03] MEDS: ACETAMINOPHEN 500 MG TAB PO PRN ×2 (06:14→20:36)
[2021-02-03] MEDS ORDERED: POTASSIUM CL SA 10 MEQ TAB PO ONE (09:00)
[2021-02-03] MEDS: ASPIRIN EC 81 MG TAB PO SCH (09:11)
[2021-02-03] MEDS: POTASSIUM CL SA 10 MEQ TAB PO SCH (09:12)
[2021-02-03] MEDS: FUROSEMIDE 40 MG/4 ML VIAL IV SCH ×2 (09:12→17:25)
[2021-02-03] MEDS: ENOXAPARIN 40 MG/0.4 ML SQ SCH (09:12)
[2021-02-03] MEDS: carvediloL 3.125 MG TAB PO SCH ×2 (09:12→19:36)
[2021-02-03] MEDS: chlordiazePOXIDE HCl 5 MG CAP PO PRN (09:38)
--- NOTE | 2021-02-03 09:42 | P.PN ---
Subjective Date of Service: 02/02/21 Subjective: No new changes, No C/O voiced, Improving Review of Systems 10-point ROS is otherwise unremarkable Physical Examination - Vital Signs Temperature: 97.9 F Blood Pressure: 104/66 Pulse: 88 Respirations: 21 Pulse Ox (%): 96 - Physical Exam General: Alert, In no apparent distress, Oriented x3 Respiratory: Clear to auscultation bilaterally, Normal air movement Cardiovascular: Regular rate/rhythm, Normal S1 S2, No murmurs Gastrointestinal: Normal bowel sounds, Soft and benign, Non-distended, No tenderness Musculoskeletal: No clubbing, No swelling, No tenderness Integumentary: Erythema, Other (Possible vasculitis) Neurological: Sensation intact, Cranial nerves 3-12 intact - Studies Microbiology Data (last 24 hrs): 02/01/21 07:25 Clean Catch Urine [place] Count - Final >100,000 CFU/ML. 02/01/21 07:25 Clean Catch Urine - Final Escherichia Coli Gram Neg [place] Medications List Reviewed: Yes Assessment & Plan - Problems (Diagnosis) (1) Cellulitis Current Visit: Yes Status: Acute (2) Vasculitis Current Visit: Yes Status: Acute (3) CHF, acute Current Visit: Yes Status: Acute (4) Ongoing symptomatic disease due to COVID-19 virus Current Visit: Yes Status: Acute (5) HTN (hypertension) Current Visit: No Status: Acute - Plan 1. Echocardiogram 2. Continue with local wound care 3. We will start patient on a Beta michelle 4. Cardiology consultation 5. Aggressive diuresis 6. Strict I's and O's 7. Repeat CXR 8. Daily weights 9. Education regarding diet and treatment of congestive heart failure 10. Continue with IV antibiotic; check autoAB; may need steroids and skin biopsy 11. Pain control 12. GI and DVT prophylaxis Discharge Plan: Home Plan to discharge in: Greater than 2 days - Advance Directives Does patient have a Living Will: No Does patient have a Durable POA for Healthcare: No - Code Status/Comfort Care Code Status: Do Not Attempt Resuscitat Critical Care: No Time Spent Managing PTS Care (In Minutes): 35
[2021-02-03] MEDS: SACUBITRIL/VALSARTAN 24/26 MG TAB PO SCH ×2 (11:11→19:37)
--- NOTE | 2021-02-03 13:39 | ECHO ---
HEIGHT: 5 ft 4 in WEIGHT: 168 lb 0 oz DATE OF STUDY: 02/03/[address]: Ravi Nicholas MD 2-DIMENSIONAL: YES M.MODE: YES DOPPLER: YES COLOR FLOW: YES TDS: NO PORTABLE: NO DEFINITY: NO BUBBLE STUDY: NO DIAGNOSIS: CONGESTIVE HEART FAILURE CARDIAC HISTORY: CATHERIZATION: NO SURGERY: NO PROSTHETIC VALVE: NO PACEMAKER: NO MEASUREMENTS (cm) DIASTOLIC (NORMALS) SYSTOLIC (NORMALS) IVSd 1.0 (0.6-1.2) LA Diam 3.3 (1.9-4.0) LVEF 27% LVIDd 4.8 (3.5-5.7) LVIDs 4.1 (2.0-3.5) %FS 13% LVPWd 1.1 (0.6-1.2) Ao Diam 2.8 (2.0-3.7) 2 DIMENSIONAL ASSESSMENT: RIGHT ATRIUM: NORMAL LEFT ATRIUM: NORMAL RIGHT VENTRICLE: NORMAL LEFT VENTRICLE: NORMAL TRICUSPID VALVE: NORMAL MITRAL VALVE: NORMAL PULMONIC VALVE: NORMAL AORTIC VALVE: NORMAL PERICARDIAL EFFUSION: NONE AORTIC ROOT: NORMAL LEFT VENTRICULAR WALL MOTION: SEVERE GLOBAL HYPOKINESIS. DOPPLER/COLOR FLOW: NORMAL COMMENTS: SEVERE GLOBAL HYPOKINESIS. LEFT VENTRICULAR EJECTION FRACTION 27%. NO EFFUISON. NO THROMBUS. TECHNOLOGIST: Eros CARY
[2021-02-03] MEDS ORDERED: HYDROCORTISONE SUC 100 MG INJ IV ONE (14:49)
[2021-02-03] MEDS ORDERED: ACETAMINOPHEN 500 MG TAB PO PRN (14:56)
[2021-02-03] MEDS: ATORVASTATIN 40 MG TAB PO SCH (19:36)
[2021-02-03] MEDS: HYDROCORTISONE SUC 100 MG INJ IV SCH (19:37)
[2021-02-03] MEDS: ONDANSETRON 4 MG/2 ML VIAL IV PRN (19:37)
[2021-02-03] MEDS: hydrOXYzine HCL 25 MG TAB PO PRN (19:37)
[2021-02-03] MEDS: FAMOTIDINE 20 MG TAB PO SCH (20:37)
[2021-02-03] MEDS ORDERED: FAMOTIDINE 20 MG/2 ML VIAL IV SCH (21:00)
[2021-02-03] MEDS: MELATONIN 5 MG TABLET PO PRN (22:21)
[2021-02-04] MEDS: chlordiazePOXIDE HCl 5 MG CAP PO PRN (01:45)
[2021-02-04 04:28] LABS: Absolute Lymphocytes (CBC) 0.5 K/uL (0.7-4.9); Basophils % 0.3 % (0-1.3); Hematocrit 44.2 % (36.0-45.0); Lymphocytes % 5.6 % (15.3-44.8); MPV 9.1 fL (7.6-11.3); RBC Red Blood Cell Count 4.68 M/uL (3.86-4.86)
[2021-02-04 04:48] LABS: Albumin 2.7 g/dL (3.4-5.0); Bilirubin Total 0.5 mg/dL (0.2-1.0); C-Reactive Protein 16.1 mg/L (<3.00); Magnesium 1.7 mg/dL (1.8-2.4); Potassium 3.7 mmol/L (3.5-5.1); Protein, Total 5.6 g/dL (6.4-8.2)
--- NOTE | 2021-02-04 07:00 | RAD REPORT ---
EXAM DESCRIPTION: Lobo Single View02/04/2021 5:58 am CLINICAL HISTORY: Chest pain COMPARISON: February 03, 2021 FINDINGS: Right basilar opacities are unchanged. Subsegmental atelectasis left lung base. The heart is to moderately enlarged IMPRESSION: Unchanged right basilar opacities which may represent pneumonia or atelectasis
[2021-02-04 07:08] LABS: Blood Morphology Comment NOT SEEN (NOT SEEN); Platelet Estimate ADEQ
[2021-02-04] MEDS: SACUBITRIL/VALSARTAN 24/26 MG TAB PO SCH ×2 (08:55→20:13)
[2021-02-04] MEDS: ASPIRIN EC 81 MG TAB PO SCH (08:56)
[2021-02-04] MEDS: FUROSEMIDE 40 MG/4 ML VIAL IV SCH ×2 (08:56→16:58)
[2021-02-04] MEDS: POTASSIUM CL SA 10 MEQ TAB PO SCH (08:56)
[2021-02-04] MEDS: FAMOTIDINE 20 MG TAB PO SCH ×2 (08:56→20:13)
[2021-02-04] MEDS: ENOXAPARIN 40 MG/0.4 ML SQ SCH (08:56)
[2021-02-04] MEDS: carvediloL 3.125 MG TAB PO SCH ×2 (08:56→20:13)
[2021-02-04] MEDS: HYDROCORTISONE SUC 100 MG INJ IV SCH ×2 (08:57→20:13)
[2021-02-04] MEDS ORDERED: POTASSIUM CL SA 10 MEQ TAB PO ONE (09:00)
[2021-02-04] MEDS: hydrOXYzine HCL 25 MG TAB PO PRN ×2 (09:59→16:58)
[2021-02-04] MEDS: MELATONIN 5 MG TABLET PO PRN (20:13)
[2021-02-04] MEDS: ATORVASTATIN 40 MG TAB PO SCH (20:13)
[2021-02-05] MEDS: KETOROLAC 30 MG/ML INJ IV PRN ×2 (00:06→08:40)
[2021-02-05] MEDS: ACETAMINOPHEN 500 MG TAB PO PRN (03:44)
[2021-02-05 06:36] LABS: Potassium 3.9 mmol/L (3.5-5.1)
[2021-02-05] MEDS: FUROSEMIDE 40 MG/4 ML VIAL IV SCH (08:28)
[2021-02-05] MEDS: ASPIRIN EC 81 MG TAB PO SCH (08:28)
[2021-02-05] MEDS: HYDROCORTISONE SUC 100 MG INJ IV SCH (08:28)
[2021-02-05] MEDS: ENOXAPARIN 40 MG/0.4 ML SQ SCH (08:29)
[2021-02-05] MEDS: carvediloL 3.125 MG TAB PO SCH (08:30)
[2021-02-05] MEDS: FAMOTIDINE 20 MG TAB PO SCH (08:30)
[2021-02-05] MEDS: POTASSIUM CL SA 10 MEQ TAB PO SCH (08:31)
[2021-02-05] MEDS: SACUBITRIL/VALSARTAN 24/26 MG TAB PO SCH (08:41)
[2021-02-05] MEDS ORDERED: POTASSIUM CL SA 10 MEQ TAB PO ONE (09:00)
[2021-02-05] MEDS: hydrOXYzine HCL 25 MG TAB PO PRN (10:35)
[2021-02-05 14:28] VITALS: BP 129/79; TEMP 97.4; O2SAT 94
--- NOTE | 2021-02-12 12:06 | P.PN ---
Date of Service: 02/04/21 Subjective Patient's erythema has improved. Auto antibodies for vasculitis workup pending. Continue with low-dose IV steroids. Continue antibiotics for a few more days. The patient's biggest issue will be for her cardiomyopathy. She will need to follow closely with cardiology going forward. Review of Systems 10-point ROS is otherwise unremarkable Physical Examination - Vital Signs Reviewed - Physical Exam General: Alert, In no apparent distress, Oriented x3 Respiratory: Clear to auscultation bilaterally, Normal air movement Cardiovascular: Regular rate/rhythm, Normal S1 S2, No murmurs Gastrointestinal: Normal bowel sounds, Soft and benign, Non-distended, No tenderness Musculoskeletal: No clubbing, No swelling, No tenderness Integumentary: Erythema, Other (Possible vasculitis) Neurological: Sensation intact, Cranial nerves 3-12 intact Assessment & Plan - Problems (Diagnosis) (1) Cellulitis Current Visit: Yes Status: Acute (2) Vasculitis Current Visit: Yes Status: Acute (3) CHF, acute Current Visit: Yes Status: Acute (4) Ongoing symptomatic disease due to COVID-19 virus Current Visit: Yes Status: Acute (5) HTN (hypertension) Current Visit: No Status: Acute - Plan Continue with plan of care as mentioned below: 1. Echocardiogram w/ severe global hypokinesis with an ejection fraction of less than 30% 2. Continue with local wound care 3. Continue with Beta michelle 4. Cardiology consultation appreciated 5. Continue with aggressive diuresis 6. Strict I's and O's 7. CXR with pulmonary edema but improved 8. Daily weights 9. Education regarding diet and treatment of congestive heart failure 10. Continue with IV antibiotic; along with IV steroids 11. Pain control 12. GI and DVT prophylaxis
--- NOTE | 2021-02-12 12:09 | P.DS ---
Discharge Date: 02/05/21 Primary Care Provider: Dr. Ponce Disposition: ROUTINE DISCHARGE Discharge Condition: GOOD Reason for Admission: Congestive Heart Failure - Problems (1) Cellulitis Status: Acute (2) Vasculitis Status: Acute (3) CHF, acute Status: Acute (4) Ongoing symptomatic disease due to COVID-19 virus Status: Acute (5) HTN (hypertension) Status: Acute Brief History of Present Illness: 55-year-old white female presented to the ER at approximately 5:00 AM this morning. She has a history of CHF, hypertension, and some Covid related pulmonary difficulties. Approximately 45 days ago she was unable to purchase her medications due to expense. She stopped all her medications. Approximately 10 days ago she began to develop significant swelling of her lower extremities. She noted that her legs have been mottled since she had a cardiac cath approximately a month ago. This mottling has become worse as her legs have become more edematous. With the increased swelling there has been increased mot tling. Some skin breakdown has occurred and she has sores on both her lower legs. Approximately 5 days ago she began to develop some shortness of breath and has been progressively unable to ambulate in the house or perform activities of daily living. She also has a recent UTI. She is currently comfortable but becomes short of breath with minimal exertion. Patient's labs are remarkable for the following:Patient is Covid negative. BNP is 11,428, PT is 18.4, troponin is 0.07, potassium is 3.4, chloride is 108, glucose is 144, BUN is 26, GFR 77,. Liver enzymes are elevated with AST of 112, ALT 146, ALK 150, BILIT1.1. Urinalysis shows blood protein nitrates and leukocytes. Hospital Course: Patient was treated with diuretics along with IV steroids and antibiotic therapy. Patient may have a vasculitis as well. Patient's workup is still pending. Patient is clinically doing much better. At this time, patient's clinical symptoms are improving. Patient was diuresed as well. Patient has severe cardiomyopathy and close cardiology followup. Patient will need to follow with them in 1 week. Patient is stable for discharge with close outpatient followup. Vital Signs/Physical Exam: Temp Pulse Resp BP Pulse Ox 97.4 F 98 H 18 129/79 94 02/05/21 12:00 02/05/21 12:00 02/05/21 12:00 02/05/21 12:00 02/05/21 12:00 General: Alert, In no apparent distress, Oriented x3 Laboratory Data at Discharge: WBC Cancelled 02/04/21 06:00 Hgb Cancelled 02/04/21 06:00 Hct Cancelled 02/04/21 06:00 Plt Count Cancelled 02/04/21 06:00 PT 18.4 SECONDS (9.5-12.5) H 02/01/21 05:45 INR 1.59 02/01/21 05:45 Sodium 141 mmol/L (136-145) 02/05/21 05:58 Potassium 3.9 mmol/L (3.5-5.1) 02/05/21 05:58 BUN 22 mg/dL (7-18) H 02/05/21 05:58 Creatinine 0.82 mg/dL (0.55-1.3) 02/05/21 05:58 Glucose 172 mg/dL (74-106) H 02/05/21 05:58 Magnesium Cancelled 02/04/21 06:00 Total Bilirubin 0.5 mg/dL (0.2-1.0) 02/04/21 03:21 AST 27 U/L (15-37) 02/04/21 03:21 ALT 66 U/L (12-78) 02/04/21 03:21 Alkaline Phosphatase 87 U/L (45-117) 02/04/21 03:21 Troponin I 0.06 ng/mL (0.0-0.045) H 02/01/21 22:37 Triglycerides 87 mg/dL (<150) 02/02/21 11:04 Cholesterol 164 mg/dL (<200) 02/02/21 11:04 HDL Cholesterol 35 mg/dL (40-60) L 02/02/21 11:04 Cholesterol/HDL Ratio 4.69 02/02/21 11:04 Home Medications: Albuterol Sulfate [Proventil Hfa] 2 puff IH PRN PRN 12/29/20 Ipratropium Mdi [Atrovent Hf Inhaler*] 2 puff IH PRN PRN 12/29/20 Aspirin [Aspirin EC 81 MG] 81 mg PO DAILY 30 Days #30 tablet. 01/01/21 Atorvastatin Calcium [Lipitor] 40 mg PO BEDTIME 30 Days #30 tab 01/01/21 Furosemide [Lasix*] 20 mg PO DAILY 30 Days #30 tab 01/01/21 Potassium Chloride [Klor-Con 10] 10 meq PO DAILY 30 Days #30 tablet.er 01/01/21 Sacubitril/Valsartan [Entresto 24 mg-26 mg Tablet] 1 tab PO BID 30 Days #60 tab 01/01/21 carvediloL [Coreg*] 3.125 mg PO BID 30 Days #60 tab 01/01/21 Famotidine [Pepcid*] 20 mg PO BID #60 tab 02/05/21 Melatonin 10 mg PO BEDTIME PRN PRN #20 tablet 02/05/21 hydrOXYzine HCL [Atarax*] 25 mg PO Q6HP PRN #30 tab 02/05/21 predniSONE [Deltasone] 20 mg PO BID #11 tab 02/05/21 New Medications: hydrOXYzine HCL [Atarax*] 25 mg PO Q6HP PRN #30 tab PRN Reason: Itching Melatonin 10 mg PO BEDTIME PRN PRN #20 tablet PRN Reason: Insomnia Famotidine [Pepcid*] 20 mg PO BID #60 tab predniSONE [Deltasone] 20 mg PO BID #11 tab Physician Discharge Instructions: OK TO DC IV AND DC HOME FOLLOW-UP WITH PRIMARY CARE PROVIDER IN 1-2 WEEKS FOLLOW-UP WITH CARDIOLOGY IN 1-2 WEEKS RETURN TO THE ER IF symptoms worsen CALL or TEXT DR. MARCELO AT [phone] IF ANY QUESTIONS REGARDING HOSPITAL STAY. PLEASE CALL THE FLOOR AT [phone] IF ANY MEDICATION OR NURSING QUESTIONS. Diet: AHA Activity: Fall precautions Followup: Unknown,U [Primary Care Provider] - (follow up with primary care provider) Time spent managing pt's care (in minutes): 35
== END 2021-02-05 17:15 | disposition home or self-care (01) | DRG 602 ==
LOC: ER 05:37 → ERHOLD 09:24 → 4TH 02-02 14:57
PROVIDERS: ADMIT Hospitalist; ATTEND Hospitalist
DX: L03.116 Cellulitis of left lower limb (principal); I50.23 Acute on chronic systolic (congestive) heart failure; N39.0 Urinary tract infection, site not specified; I43 Cardiomyopathy in diseases classified elsewhere; I11.0 Hypertensive heart disease with heart failure; L03.115 Cellulitis of right lower limb; B96.20 Unspecified Escherichia coli [E. coli] as the cause of diseases classified elsewhere; L95.9 Vasculitis limited to the skin, unspecified; Z86.16 Personal history of COVID-19; Z20.822 Contact with and (suspected) exposure to COVID-19
CPT/HCPCS: 36415; 51702; 71045; 76705; 80048; 80053; 80061; 80076; 80307; 80320; 81003; 81015; 83605; 83735; 83880; 84132; 84145; 84439; 84443; 84484; 85025; 85610; 85652; 86021; 86140; 87040; 87077; 87086; 87088; 87186; 93005; 93306; 94760; 99285; J0696; J1650; J1720; J1940; J2405; J3480; U0003

== ENCOUNTER 2021-02-18 12:22 | Emergency (ER) | payer OTHER ==
[2021-02-18 13:52] LABS: Absolute Lymphocytes (CBC) 1.1 K/uL (0.7-4.9); Basophils % 0.4 % (0-1.3); Hematocrit 40.4 % (36.0-45.0); Lymphocytes % 13.8 % (15.3-44.8); MPV 8.8 fL (7.6-11.3); RBC Red Blood Cell Count 4.29 M/uL (3.86-4.86)
[2021-02-18 13:57] LABS: Protime INR 1.21
--- NOTE | 2021-02-18 14:06 | RAD REPORT ---
EXAM DESCRIPTION: RAD - Chest Single View - 02/18/2021 1:56 pm CLINICAL HISTORY: SOB COMPARISON: February 04 TECHNIQUE: AP portable chest image was obtained 02/18/2021 1:56 pm . FINDINGS: Large cardiac silhouette and vascular engorgement are again identified. Upper lung field i nterstitial markings remain prominent but stable. Elevation of the right hemidiaphragm is again noted . Right base stranding is probably chronic atelectasis related to the elevation of the right hemidiap hragm. Minimal infiltrate could be masked. The pattern is stable. No new or progressive left lung fie ld finding. Trachea is midline. No measurable pleural effusion and no pneumothorax. No acute bony abnormality se en. No acute aortic findings suspected. IMPRESSION: Chronic interstitial opacification similar to February 04. Right base atelectasis or less likely infiltrate present abutting an elevated right hemidiaphragm. Stable cardiomegaly with vascular engorgement. No new or progressive failure or volume overload findi ngs.
[2021-02-18 14:13] LABS: Albumin 3.7 g/dL (3.4-5.0); Alkaline Phosphatase 91 U/L (45-117); BUN Blood Urea Nitrogen 10 mg/dL (7-18); Bicarbonate 29 mmol/L (21-32); Bilirubin Direct 0.6 mg/dL (0-0.2); Bilirubin Total 1.3 mg/dL (0.2-1.0); Glucose Level 160 mg/dL (74-106); Magnesium 1.7 mg/dL (1.8-2.4); NT PRO-BNP 8310 pg/mL (<125); Protein, Total 6.2 g/dL (6.4-8.2); Sodium Level 145 mmol/L (136-145); Troponin (Emerg Dept Use Only) 0.33 ng/mL (0.0-0.045)
[2021-02-18 14:19] LABS: ALT/SGPT 1410 U/L (12-78); AST/SGOT 381 U/L (15-37); Potassium 2.9 mmol/L (3.5-5.1)
[2021-02-18 14:21] LABS: Arterial Blood Carboxyhemoglob 1.6 % (0-1.5); Blood Gas Oxyhemoglobin 94.5 % (94-97); Blood O2 Saturation 96.9 % (92-98.5)
[2021-02-18] MEDS ORDERED: MORPHINE 4 MG/ML SYR ONE (14:33)
[2021-02-18] MEDS ORDERED: ONDANSETRON 4 MG/2 ML VIAL ONE (14:34)
--- NOTE | 2021-02-18 14:41 | RAD REPORT ---
EXAM DESCRIPTION: CT - [id number] - 02/18/2021 2:16 pm CLINICAL HISTORY: headache, neck pain, fall COMPARISON: [id number] dated 12/15/2011; Chest For Pe Angio dated 12/28/2020; Chest For Pe An arianne dated 08/05/2020 TECHNIQUE: Axial 5 mm thick images of the head were obtained. Axial 2 mm thick images of the cervic al spine were obtained with sagittal and coronal reconstruction images generated and reviewed. All CT scans are performed using dose optimization technique as appropriate and may include automated exposure control or mA/KV adjustment according to patient size. FINDINGS: No epidural or subdural hematoma identified. There is no intraparenchymal hemorrhage seen. Motion on the study creates artifact along the inner table right-side of the skull. No cerebral breezy a, mass effect or midline shift identified. No cortical edema or sulcal effacement. Ventricles are no t outside of normal range. No acute cortical infarction. No atrophy changes are measurable. There does appear to be some chroni c ischemic change in the cerebral white matter. No extra-axial fluid collections. Mastoid air cells a nd paranasal sinuses are clear. No globe or orbit abnormality seen. There has been substantial change since the remote 2011 study. There is reversal of the usual cervica l lordosis with the apex at C4. Very slight anterior subluxation noted of C2 on C3. Substantial narro wing of the C3-4 disc space present with disc space narrowing C4-5, C5-6 and C6-7. The C5-C7 degenera tive disc changes are progressive but not new. Sclerotic degenerative changes are seen in C4-C6. Wedg e compression deformities are present in both C4 and C5 with posterior wall height preserved. There is a coronal fracture plane present the anterior inferior hypertrophy portion of C5 from the remainder of the body. The fracture plane is irregular. No sclerotic margination can be conf irmed. This cannot be confirmed as chronic. If tolerable ball of the patient, MR imaging of the cervi taylor spine could be performed to evaluate for any acute edema in the C5 body. Uncovertebral joint hypertrophy causes significant C4-5 and C5-6 foraminal stenosis. Borderline centr al spinal stenosis present at C3-4 and C5-6. Significant right foraminal stenosis at C6-7. Central ca nal detail is inherently limited. No paraspinal mass or hematoma. IMPRESSION: Motion degraded study showing no acute intracranial finding. Coronal oriented fracture plane is present the hypertrophied anterior inferior aspect of C 5 from the remainder of the body. This is probably chronic but not definitive. If tolerable by the pa tient, MR imaging could be performed to evaluate for any active marrow edema in C5. Wedge compression changes in C4 and C5 are present in the setting of sclerotic vertebral bodies. Thi s is probably chronic but could also be evaluated at the time of the MRI study. Severe progressive degenerative change spanning C3-C7.
--- NOTE | 2021-02-18 15:09 | EDPHYS ---
Physician Documentation [facility] Name: Sena Ricardo Age: 55 yrs Sex: Female : 1965 Arrival Date: 02/18/2021 Time: 12:27 Bed 12 Private MD: ED Physician Arthur Amaro HPI: 02/18 12:52 This 55 yrs old Female presents to ER via Wheelchair with complaints of jmm headache, neck pain. 12:52 The patient or guardian reports injury, pain. Onset: The symptoms/episode jmm began/occurred acutely, today. Associated signs and symptoms: Loss of consciousness: This patient did not experience any loss of consciousness. Patient statesThinati is a 55-year-old female with a history of COPD, CHF that presents to the emergency department with complaints of headache, neck pain after slipping on her dog's urine. she has had repeated falls over the past few days and is unsure why. Patient denies chest pain but states she does have some progressively worsening shortness of breath. Historical: - Allergies: 12:33 No Known Allergies; jl7 - Home Meds: 12:33 Mobic oral [Active]; jl7 - PMHx: 12:33 Anxiety; COPD; depressive disorder; fluid on body; Myocardial infarction; jl7 - PSHx: 12:33 Tonsillectomy; Total abdominal hysterectomy; jl7 - Immunization history:: Adult Immunizations not up to date, Client reports having NOT received the Covid vaccine. - Social history:: Smoking status: Patient reports the use of cigarette tobacco products, smokes one-half pack cigarettes per day. ROS: 12:52 Constitutional: Negative for fever, chills, and weight loss, Cardiovascular: Negative jmm for chest pain, palpitations, and edema. 12:52 Neck: Positive for pain with movement. 12:52 Respiratory: Positive for shortness of breath. 12:52 Neuro: Positive for headache. 12:52 All other systems are negative. Exam: 12:52 Constitutional: This is a well developed, well nourished patient who is awake, alert, jmm and in no acute distress. 12:52 Head/Face: atraumatic. Eyes: EOMI, no conjunctival erythema appreciated ENT: Moist Mucus Membranes 12:52 Chest/axilla: Normal chest wall appearance and motion. Cardiovascular: Regular rate and rhythm. No edema appreciated Respiratory: Normal respirations, no respiratory distress appreciated Abdomen/GI: Non distended, soft Back: Normal ROM 12:52 Neck: C-spine: C-collar placed in ED. 12:52 Musculoskeletal/extremity: Edema bilaterally. 12:52 Skin: Erythema to the left lower leg. 12:52 Neuro: Orientation: is normal, Mentation: sleepy. 12:52 Psych: Behavior/mood is pleasant, cooperative. Vital Signs: 12:31 BP 143 / 102; Pulse 109; Resp 20; Temp 97.8; Pulse Ox 99% ; Weight 74.84 kg; Height 5 jl7 ft. 4 in. (162.56 cm); Pain 8/10; 12:55 BP 125 / 91; Pulse 103; Resp 22; Pulse Ox 100% on R/A; es2 14:25 BP 135 / 88; Pulse 105; Resp 14; Pulse Ox 99% ; vg1 14:58 BP 123 / 78; Pulse 103; Resp 17; Pulse Ox 100% on 3 lpm NC; es2 15:23 BP 122 / 85; Pulse 104; Resp 14; Pulse Ox 100% on 3 lpm NC; es2 12:31 Body Mass Index 28.32 (74.84 kg, 162.56 cm) jl7 [place] Coma Score: 14:49 Eye Response: spontaneous(4). Verbal Response: oriented(5). Motor Response: obeys [facility] commands(6). Total: 15. MDM: 12:52 Patient medically screened. [facility] 15:07 Data reviewed: vital signs, nurses notes. Counseling: I had a detailed discussion with [facility] the patient and/or guardian regarding: the historical points, exam findings, and any diagnostic results supporting the discharge/admit diagnosis, radiology results, the need to transfer to another facility. 02/18 13:19 Order name: Basic Metabolic Panel; Complete Time: 14:40 [facility] 02/18 13:19 Order name: CBC with Diff; Complete Time: 14:02 [facility] 02/18 13:19 Order name: LFT's; Complete Time: 14:40 [facility] 02/18 13:19 Order name: Magnesium; Complete Time: 14:40 [facility] 02/18 13:19 Order name: NT PRO-BNP; Complete Time: 14:40 [facility] 02/18 13:19 Order name: PT-INR; Complete Time: 14:40 [facility] 02/18 13:19 Order name: Troponin (emerg Dept Use Only); Complete Time: 14:40 [facility] 02/18 13:32 Order name: ABG [facility] 02/18 13:33 Order name: ABG Arterial Blood Gas; Complete Time: 14:40 [facility] 02/18 15:00 Order name: AMMONIA; Complete Time: 15:56 [facility] 02/18 15:00 Order name: ETOH Level [facility] 02/18 15:01 Order name: Alcohol Serum/Plasma; Complete Time: 15:56 [facility] 02/18 15:57 Order name: SARS-COV-2 RT PCR [facility] 02/18 13:19 Order name: XRAY Chest (1 view); Complete Time: 14:40 [facility] 02/18 13:19 Order name: EKG; Complete Time: 13:19 [facility] 02/18 13:19 Order name: Cardiac monitoring; Complete Time: 14:06 [facility] 02/18 13:19 Order name: EKG - Nurse/Tech; Complete Time: 14:53 [facility] 02/18 13:19 Order name: IV Saline Lock; Complete Time: 14:06 [facility] 02/18 13:19 Order name: Labs collected and sent; Complete Time: 14:06 [facility] 02/18 13:19 Order name: O2 Per Protocol; Complete Time: 14:06 [facility] 02/18 13:19 Order name: O2 Sat Monitoring; Complete Time: 14:06 [facility] 02/18 13:19 Order name: CT Head C Spine; Complete Time: 14:44 [facility] 02/18 14:06 Order name: C-Collar; Complete Time: 14:12 [facility] Administered Medications: 14:12 Drug: morphine 4 mg {Note: Rass -1.} Route: IVP; Site: right wrist; es2 14:53 Follow up: Response: No adverse reaction; Pain is decreased vg1 14:12 Drug: Zofran (Ondansetron) 4 mg Route: IVP; Site: right wrist; es2 14:54 Follow up: Response: No adverse reaction vg1 Disposition Summary: 02/18/21 15:08 Transfer Ordered Transfer Location: [facility] Reason: Higher level of care [facility] Condition: Stable [facility] Problem: new jmm Symptoms: are unchanged jmm Accepting Physician: Dr. Downing(02/18/21 16:25) es2 Diagnosis - Cervical Spine Fracture jm - Elevated Troponin jm - Acute Head Injury [facility] Forms: - Medication Reconciliation Form [facility] - SBAR form [facility] Addendum: 02/22/2021 06:56 Co-signature as Attending Physician, Arthur Amaro MD I agree with the assessment and c sanders plan of care. Signatures: Dispatcher [employer] EDAR Arthur Amaro MD MD cha Mickail, Joel, PA PA jmm Leal, Jahala, RN RN jl7 Landy De La Garza RN RN es2 Radha Newman RN vg1 Corrections: (The following items were deleted from the chart) 02/18 15:57 14:52 CORONAVIRUS+MR.LAB.BRZ ordered. [facility] 16:25 15:08 Dr. Downing [facility] es2
--- NOTE | 2021-02-18 15:09 | ER ---
Nurse's Notes [facility] Name: Sena Ricardo Age: 55 yrs Sex: Female : 1965 Arrival Date: 02/18/2021 Time: 12:27 Bed 12 Private MD: Diagnosis: Cervical Spine Fracture;Elevated Troponin;Acute Head Injury Presentation: 02/18 12:31 Chief complaint: Patient states: Slipped in dog pee this morning and hit back of head, jl7 reports right elbow pain and headache, reports blurred vision started after hitting head. Coronavirus screen: At this time, the client does not indicate any symptoms associated with coronavirus-19. Ebola Screen: No symptoms or risks identified at this time. Initial Sepsis Screen: Does the patient meet any 2 criteria? No. Patient's initial sepsis screen is negative. Does the patient have a suspected source of infection? No. Patient's initial sepsis screen is negative. Risk Assessment: Do you want to hurt yourself or someone else? Patient reports no desire to harm self or others. Onset of symptoms was February 18, 2021 at 09:00. 12:31 Method Of Arrival: Wheelchair jl7 12:31 Acuity: ANABELLA 2 jl7 Triage Assessment: 12:33 General: Appears in no apparent distress. uncomfortable, Behavior is calm, cooperative, jl7 appropriate for age. Pain: Complains of pain in back of head and right elbow Pain currently is 8 out of 10 on a pain scale. Derm: Skin is mottled, on bilateral legs. Historical: - Allergies: 12:33 No Known Allergies; jl7 - Home Meds: 12:33 Mobic oral [Active]; jl7 - PMHx: 12:33 Anxiety; COPD; depressive disorder; fluid on body; Myocardial infarction; jl7 - PSHx: 12:33 Tonsillectomy; Total abdominal hysterectomy; jl7 - Immunization history:: Adult Immunizations not up to date, Client reports having NOT received the Covid vaccine. - Social history:: Smoking status: Patient reports the use of cigarette tobacco products, smokes one-half pack cigarettes per day. Screenin:54 Abuse screen: Denies threats or abuse. Denies injuries from another. Nutritional es2 screening: No deficits noted. Tuberculosis screening: No symptoms or risk factors identified. Fall Risk Fall in past 12 months (25 points). IV access (20 points). Mental Status- Oriented to own ability (0 pts). Assessment: 12:52 General: Appears uncomfortable, unkempt, Behavior is cooperative. Pain: Complains of es2 pain in back of head Pain currently is 8 out of 10 on a pain scale. Neuro: Level of Consciousness is awake, alert, obeys commands, Oriented to person, place, time, situation, Appropriate for age Speech is slurred. Cardiovascular: Capillary refill < 3 seconds Patient's skin is warm and dry. Respiratory: Reports shortness of breath at rest on exertion Airway is patent. GI: Reports constipation. : No signs and/or symptoms were reported regarding the genitourinary system. EENT: No signs and/or symptoms were reported regarding the EENT system. Derm: mottled liked, scabs. 14:26 Reassessment: Patient appears in no apparent distress at this time. Patient and/or vg1 family updated on plan of care and expected duration. Pain level reassessed. Pt resting with eyes closed. Vital Signs: 12:31 BP 143 / 102; Pulse 109; Resp 20; Temp 97.8; Pulse Ox 99% ; Weight 74.84 kg; Height 5 jl7 ft. 4 in. (162.56 cm); Pain 8/10; 12:55 BP 125 / 91; Pulse 103; Resp 22; Pulse Ox 100% on R/A; es2 14:25 BP 135 / 88; Pulse 105; Resp 14; Pulse Ox 99% ; vg1 14:58 BP 123 / 78; Pulse 103; Resp 17; Pulse Ox 100% on 3 lpm NC; es2 15:23 BP 122 / 85; Pulse 104; Resp 14; Pulse Ox 100% on 3 lpm NC; es2 12:31 Body Mass Index 28.32 (74.84 kg, 162.56 cm) jl7 [place] Coma Score: 14:49 Eye Response: spontaneous(4). Verbal Response: oriented(5). Motor Response: obeys [facility] commands(6). Total: 15. ED Course: 12:27 Patient arrived in ED. as 12:33 Triage completed. jl7 12:33 Arm band placed on right wrist. jl7 12:37 Landy De La Garza RN is Primary Nurse. es2 12:51 Willi Orellana PA is PHCP. [facility] 12:51 Arthur Amaro MD is Attending Physician. jmm 12:54 Patient has correct armband on for positive identification. Placed in gown. Bed in low es2 position. Call light in reach. 12:54 No provider procedures requiring assistance completed. es2 12:55 Initial lab(s) drawn, by me. Inserted saline lock: 22 gauge in right wrist, using vg1 aseptic technique. Blood collected. 13:50 CT Head C Spine In Process Unspecified. EDMS 13:57 XRAY Chest (1 view) In Process Unspecified. EDMS 14:06 Basic Metabolic Panel Sent. es2 14:06 LFT's Sent. es2 14:06 Magnesium Sent. es2 14:06 NT PRO-BNP Sent. es2 14:24 Patient moved back from CT. vg1 14:54 EKG done, by ED staff, reviewed by Willi MOSER. vg1 16:23 Patient transferred, IV remains in place. es2 Administered Medications: 14:12 Drug: morphine 4 mg {Note: Rass -1.} Route: IVP; Site: right wrist; es2 14:53 Follow up: Response: No adverse reaction; Pain is decreased vg1 14:12 Drug: Zofran (Ondansetron) 4 mg Route: IVP; Site: right wrist; es2 14:54 Follow up: Response: No adverse reaction vg1 Outcome: 15:08 ER care complete, transfer ordered by . jmm 16:23 Transferred by ground EMS to [facility]. es2 16:23 Condition: stable 16:23 Instructed on the need for transfer. 16:25 Patient left the ED. es2 Signatures: Dispatcher [employer] EDMS Willi Orellana PA PA jmm Martinez, Amelia as Leal, Jahala RN RN jl7 Radha Newman RN RN vg1 Landy De La Garza RN RN es2
[2021-02-18 16:29] VITALS: TEMP 97.8
[2021-02-18 16:32] VITALS: O2SAT 100
[2021-02-18 16:34] VITALS: BP 122/85
== END 2021-02-18 16:25 | disposition short-term general hospital (02) ==
LOC: ER 12:22
DX: S12.9XXA Fracture of neck, unspecified, initial encounter (principal); S09.90XA Unspecified injury of head, initial encounter; R77.8 Other specified abnormalities of plasma proteins; W01.0XXA Fall on same level from slipping, tripping and stumbling without subsequent striking against object, initial encounter; F17.210 Nicotine dependence, cigarettes, uncomplicated; F32.A Depression, unspecified; J44.9 Chronic obstructive pulmonary disease, unspecified; Z20.822 Contact with and (suspected) exposure to COVID-19
CPT/HCPCS: 93005; 85025; 80048; 36415; 80320; 82140; 83735; 85610; 80076; 84484; 83880; 70450; 72125; 71045; 82805; 96375; 96374; 99285; U0003; J2405

== ENCOUNTER 2021-03-30 23:15 | Emergency (ER) | payer OTHER ==
--- OUTSIDE RECORDS SUMMARY | 2021-03-30 23:19 | XMS REPORT | Continuity of Care Document ---
:1965 Author Organization [facility] t Address [address] [place] [address] Care Team Providers Name Role Phone Jane Ponce Primary Care Physician Brian Doll DO Attending Clinician Brian DOLL Attending Clinician Unavailable Doctor Unassigned, Name Attending Clinician Unavailable TRIP العلي Attending Clinician Unavailable ISABELA MARTÍNEZ Attending Clinician Unavailable DEDRA Admitting Clinician Unavailable Payers Payer Name Policy Type Policy Number Effective Date Expiration Date Susan guaman [facility] [id number] 2019 00:00:00 Problems Condition Condition Condition Status Onset Resolution Last Treating Co mments Source Name Details Category Date Date Treatment Clinician Date Sepsis Sepsis Disease Active [facility]: Medical 00 [place] No known No known Disease Unive rs active active ity of problems problems [facility] Allergies, Adverse Reactions, Alerts Allergy Allergy Status Severity Reaction(s) Onset Inactive Treating Comm ents Source Name Type Date Date Clinician VANCOMYC Allergy Active Med Itching 2019-[address] [facility] 4[facility]10 [facility] - ANALOGUE 00:00: Medical S 00 [place] Vancomyc Drug Active Itching 2020-[address] in Allergy 4- [facility] - Analogue 00:00: Medical s 00 [place] NO KNOWN Drug Active Univers ALLERGIE Class ity of S [facility] NO KNOWN Allergy Active [facility] Social History Social Habit Start Date Stop Date Quantity Comments Source Exposure to Not sure [facility] SARS-CoV-2 (event) Medica l Branch Tobacco use and 2019-08-21 2019-08-21 Never used [facility] kes - exposure 00:00:00 00:00:00 [facility] Sex Assigned At [birth year] [facility] 00:00:00 00:00:00 Medical Branch Smoking Status Start Date Stop Date Source Unknown if ever smoked [facility] Current some day smoker 2019-08-21 00:00:00 [facility] Medications Ordered Filled Start Stop Current Ordering Indication Dosage Frequency Signature Comments Components Source Medication Medication Date Date Medication? Clinician (SIG) Name Name ibuprofen 2020-05- No 600mg 600 mg, Uni vers (IBU) 002-17 Oral, ity of tablet 600 06:00: 04:51 ONCE, 1 Aleksandr as mg 00 :00 dose, On Medical Wed Branch 02/17/21 at 0100, LEANDRO cephALEXin 2020-05 No 500mg 500 mg, Un nakia (KEFLEX) 002-17 Oral, ity of capsule 500 05:30: 04:51 [place] 1 [place] 00 :[place] dose, On Medical Wed Branch 02/17/21 at 0030, LEANDRO
Re ason for Anti-Infec tive: Empiric Therapy for Suspected Infection< br>Empiric Therapy Site: Skin / Soft tissue
Duration of therapy: 72 hours iopamidol 2020-05- No [id number] 120mL 120 mL, Univers (ISOVUE 02-17 Intravenou ity o f 370-500 mL) 05:00: 03:50 s, ONCE, 1 [place] injection 00 :00 dose, On Medica l 120 mL Wed Branch 02/17/21 at 0000, Routine cephALEXin 2020-05- Yes [id number] 500mg Take 1 Univers (KEFLEX) 0- capsule by ity of 500 mg 00:00: 04:59 mouth 2 [place] capsule 00 :00 (two) Medical times Branch daily for 10 days. Vital Signs Vital Name Observation Time Observation Value Comments Source Heart rate 2021-02-17 04:00:00 96 /min [facility] Systolic blood 2021-02-17 03:00:00 100 mm[Hg] [facility] Diastolic blood 2021-02-17 03:00:00 65 mm[Hg] [facility] Respiratory rate 2021-02-17 03:00:00 14 /min [facility] Oxygen saturation in 2021-02-17 03:00:00 99 /min [facility] Arterial blood by [facility] Pulse oximetry [place] Body temperature 2021-02-17 00:59:00 36.78 [facility] Body height 2021-02-17 00:59:00 162.6 cm [facility] Body weight 2021-02-17 00:59:00 72.576 kg [facility] BMI 2021-02-17 00:59:00 27.46 kg/m2 [facility] Procedures Procedure Date / Time Performed Performing Clinician Crescencioc e CT ABDOMEN PELVIS W 2021-02-17 03:55:27 Darcy Doll [facility] COMP. METABOLIC PANEL 2021-02-17 01:16:[address] [facility] ([id number]) [facility] CBC WITH DIFF 2021-02-17 01:16:00 Darcy Doll [facility] N-TERMINAL PRO-BNP 2021-02-17 01:16:00 Darcy Doll [facility] CONSENT/REFUSAL FOR 2021-02-17 00:46:36 Doctor Unassigned, No [facility] DIAGNOSIS AND Name [facility] TREATMENT NOTICE OF PRIVACY 2021-02-17 00:46:10 Doctor Unassigned, No Univ [facility] PRACTICES Name [facility] Plan of Care Planned Activity Planned [...] Test 00:00:00 (procedure) [code = Medical Center 40811257] Future Scheduled [address] [facility] - Test 00:00:00 malignant neoplasm of [facility] cervix (procedure) [code = 437065096] Future Scheduled [address] [facility] - Test 00:00:00 0-64 YRS (1 of 1 - Medical C enter PPSV23) [code = PNEUMOCOCCAL VACCINE 0-64 YRS (1 of 1 - PPSV23)] Future Scheduled [address] [facility] - Test 00:00:00 malignant neoplasm of [facility] breast (procedure) [code = 068893142] Future Scheduled [address] [facility] - Test 00:00:00 malignant neoplasm of [facility] colon (procedure) [code = 858293213] Encounters Start End Encounter Admission Attending Care Care Encounter Source Date/Time Date/Time Type Type Clinicians Facility Department ID 2019-08-21 Inpatient [facility] [id number] SLE 18:07:00 [id number] 2021-02-16 2021-02-17 Emergency [facility] [id number] Univers 19:54:00 00:02:00 Darcy Tinsley 350.1.13.10 ity [facility] [id number] [facility] [id number] [facility] 084 Branch 2021-02-16 2021-02-16 Emergency X [facility]ARMILANEW [facility] ERT [id number] Univers 19:54:00 19:54:00 DARCY betancourt of [facility] 2021-02-16 2021-02-16 Orders Doctor ANDRADE [id number] Univers 00:00:00 00:00:00 Only Unassigned, KARLENE 350.1.13.10 ity of [facility] 4.2.7.2.686 [facility] [place] [id number] [facility] 009 Branch 2019-09-25 2019-09-25 Outpatient DARIO SEVERIANO, [facility] [id number] SLE 00:00:00 00:00:00 [facility] Results Test Description Test Time Test Comments Results Result Comments Source N-TERMINAL PRO-BNP 2021-02-17 01:54:34 Test Item Value Reference Range Interpretation Comme nts NT-proBNP (test code = 5130 pg/mL See_Comment H [Aut omated message] The 1152958827) system which ge nerated this result tra nsmitted reference range : <=125. The reference r blanca was not used to int erpret this result as max l/abnormal. NITIN (test code = NITIN) Biotin has been reported to cause a negative bias, interpret results relative to patient's use of biotin. Lab Interpretation (test Abnormal code = 97644-4) [facility]. METABOLIC PANEL (54135)2021-02-17 01:54:08 Test Item Value Reference Range Interpretation Comments NA (test code = 139 mmol/L 135-145 6447010785) K (test code = 3.2 mmol/L 3.5-5.0 L 0921327165) CL (test code = 105 mmol/L 98-108 0923775627) CO2 TOTAL (test code = 30 mmol/L 23-31 6137696684) AGAP (test code = 2-16 0269893707) BUN (test code = 17 mg/dL 7-23 0871330696) GLUCOSE (test code = 114 mg/dL 70-110 H 3526072453) CREATININE (test code = 0.73 mg/dL 0.50-1.04 3948056992) TOTAL BILI (test code = 1.2 mg/dL 0.1-1.1 H 9802179744) CALCIUM (test code = 9.6 mg/dL 8.6-10.6 4870806299) T PROTEIN (test code = 5.8 g/dL 6.3-8.2 L 0827237763) ALBUMIN (test code = 3.6 g/dL 3.5-5.0 8667872701) ALK PHOS (test code = 74 U/L 34-122 7943797231) ALTv (test code = 2065 U/L 5-35 H 1742-6) AST(SGOT) (test code = 1240 U/L 13-40 H 3568653386) eGFR (test code = mL/min/1.73m2 3931489491) NITIN (test code = NITIN) Association of Glomerular Filtration Rate (GFR) and Staging of Kidney Disease* + --+ --+ ------+| GFR (mL/min/1.73 m2) ?| With Kidney Damage ?| ?Without Kidney Damage+ --------+ --------+ +| ?>90 ?| ?Stage one ?| ? Normal ?+ ---+ ---+ -------+| ?60-89 ?| ?Stage two ?| ? Decreased GFR ? + --+ --+ ------+| ?30-59 ?| ?Stage three ?| ? Stage three ? + --+ --+ ------+| ?15-29 ?| ?Stage four ? | ? Stage four ?+ ---+ ---+ -------+| ?<15 (or dialysis) ? ?| ?Stage five ? | ? Stage five ?+ ---+ ---+ -------+ *Each stage assumes the associated GFR level has been in effect for at least three months. ?Stages 1 to 5, with or without kidney disease, indicate chronic kidney disease. Notes: Determination of stages one and two (with eGFR >59mL/min/1.73 m2) requires estimation of kidney damage for at least three months as defined by structural or functional abnormalities of the kidney, manifested by either:Pathological abnormalities or Markers of kidney damage (including abnormalities in the composition of the blood or urine or abnormalities in imaging tests). Lab Interpretation Abnormal (test code = 57433-8) [facility] WITH [id number] 01:50:34 Test Item Value Reference Range Interpretation Comments WBC (test code = See_Comment [Automated 4205-2) message] The sy stem which generated this result transmitted reference range : 4.30 - 11.10 10*3/?L. The reference range was not used to interpret this result as normal/abnormal . RBC (test code = See_Comment [Automated 725-1) message] The sy stem which generated this result transmitted reference range : 3.93 - 5.25 10*6/?L. The reference range was not used to interpret this result as normal/abnormal . HGB (test code = 13.4 g/dL 11.6-15.0 718-7) HCT (test code = 41.6 % 35.7-45.2 4544-3) MCV (test code = 95.2 fL 80.6-95.5 787-2) MCH (test code = 30.7 pg 25.9-32.8 785-6) MCHC (test code = 32.2 g/dL 31.6-35.1 786-4) RDW-SD (test code = 53.8 fL 39.0-49.9 H 27841-9) RDW-CV (test code = 15.4 % 12.0-15.5 788-0) PLT (test code = See_Comment [Automated 777-3) message] The sy stem which generated this result transmitted reference range : 166 - 358 10*3/ ?L. The reference r blanca was not used to interpret this result as normal/abnormal . MPV (test code = 10.9 fL 9.5-12.9 55272-7) NRBC/100 WBC (test See_Comment [Automat ed code = 4571500479) message] The system which generated this result transmitted reference range : 0.0 - 10.0 /100 WBCs. The refer ence range was not u sed to interpret th is result as normal/abnormal . NRBC x10^3 (test code <0.01 See_Comment [Auto mated = 5133578561) message] The s ystem which generated this result transmitted reference range : 10*3/?L. The reference range was not used to interpret this result as normal/abnormal . GRAN MAT (NEUT) % 75.3 % (test code = 770-8) IMM GRAN % (test code 0.60 % = 8136027481) LYMPH % (test code = 16.3 % 736-9) MONO % (test code = 6.1 % 5905-5) EOS % (test code = 1.4 % 713-8) BASO % (test code = 0.3 % 706-2) GRAN MAT x10^3(ANC) 7.69 10*3/uL 1.88-7.09 H (test code = 0136224027) IMM GRAN x10^3 (test 0.06 10*3/uL 0.00-0.06 code = 5427835791) LYMPH x10^3 (test code 1.66 10*3/uL 1.32-3.29 = 731-0) MONO x10^3 (test code 0.62 10*3/uL 0.33-0.92 = 742-7) EOS x10^3 (test code = 0.14 10*3/uL 0.03-0.39 711-2) BASO x10^3 (test code 0.03 10*3/uL 0.01-0.07 = 704-7) Lab Interpretation Abnormal (test code = 01577-8) [id number] [facility]:00 Test Item Value Reference Range Interpretation Comments CULTURE (BEAKER) (test No growth code = 1095) GRAM STAIN RESULT <1+ White blood cells (BEAKER) (test code = seen 1123) GRAM STAIN RESULT No organisms seen (BEAKER) (test code = 20956) U/S, RENAL, [id number] 01:38:00Reason for exam:->pyelonephritisFINAL REPORT U/S, RENAL, COMPLETE [...] CORNELL MD on 09/02/2019 01:38 AMCOMPREHENSIVE METABOLIC [id number] 05:29:00 Test Item Value Reference Range Interpretation [...] S NOT APPLICABLE FOR DIALYSIS PATIEN TS. Muck Miner ID - PIAYA LCBC (HEMOGRAM ONLY)2019-09-01 04:58:00 [...] 0-0 (BEAKER) (test code = 413) BLOOD [id number] 04:00:00 Test Item Value Reference Range Interpretation Comments CULTURE (BEAKER) (test No growth in 5 days code = 1095) BLOOD [id number] 04:00:00 Test Item Value Reference Range Interpretation Comments CULTURE (BEAKER) (test No growth in 5 days code = 1095) BLOOD [id number] 09:00:00 Test Item Value Reference Range Interpretation Comments CULTURE (BEAKER) (test No growth in 5 days code = 1095) COMPREHENSIVE METABOLIC [id number] 07:37:00 Test Item Value Reference Range Interpretation [...] S NOT APPLICABLE FOR DIALYSIS PATIEN TS. Muck Miner ID - LMCBC (HEMOGRAM ONLY)2019-08-31 05:54:00 Test [...] code = 413) URINALYSIS W/ REFLEX URINE [id number] 14:26:00 Test Item Value Reference Range Interpretation [...] 76 /HPF SOURCE(BEAKER) (test code = 2795) Muck Miner ID - [auto]Muck Miner ID - Lin, [id number] 10:02:00Right PCN vs PCNU for obstructing proximal ureteral stone with hydro, fat stranding, ([facility] images uploaded 08/20). Primary team to discuss with IR, but please feel free to page urology with questions. Thanks! Reason for exam:->Right ureteral stone, sepsisFINAL REPORT Procedure: Percutaneous nephrostomy catheter placement. History: Obstructed infected kidney with renal abscesses and nondilated system. Market Development Executive: Sarthak Richards M.D. Youth Advocate: Asad gray M.D. Modality: Ultrasound and fluoroscopy. DOSE REDUCTION: The [...] parenchyma. Impression:Successful ultrasound and fluoroscopic guided 8.5 [place] nephrostomy catheter placement in the right via a posterior lower calyx as described above. Because of debris in the collecting system possibly representing pyonephrosis, it was decided to leave a nephrostomy and postpone additional ureteral intervention to a later date. Further management dictated by the clinical scen aridoris. The nephrostomy catheter(s) should be exchanged at the latest in three months. Thank you for the opportunity to assist in the care of your patient. Signed: Sarthak Richards MDReport Verified Date/Time: 08/30/2019 10:02:51 Reading Location: [place] [address] Angio Body Reading Room BASIC METABOLIC [id number] 06:19:00 Test Item Value Reference Range Interpretation [...] S NOT APPLICABLE FOR DIALYSIS PATIEN TS. Muck Miner ID - DBCBC (HEMOGRAM ONLY)2019-08-30 06:06:00 Test [...] (BEAKER) (test code = 413) COMPREHENSIVE METABOLIC [id number] 06:14:00 Test Item Value Reference Range Interpretation [...] S NOT APPLICABLE FOR DIALYSIS PATIEN TS. Muck Miner ID - ALAINA MCBC (HEMOGRAM ONLY)2019-08-29 05:58:00 [...] (test code = 413) CT, CHEST, WITH [id number] 23:05:00FINAL REPORT CLINICAL HISTORY: Leukocytosis FINDINGS: Multiple [...] RENAL STONE EVAL, WITHOUT / WITH IV [id number] 23:05:00Reason for exam:- >renal stoneAnesthesia:->NoneFINAL REPORT CLINICAL [...] Date/Time: 08/27/2019 23:05:02 URINALYSIS W/ REFLEX URINE [id number] 15:56:00 Test Item Value Reference Range Interpretation [...] = 1521) SOURCE(BEAKER) (test code = 2795) Muck Miner ID - [auto]Muck Miner ID - hankBLOOD [id number] 11:19:00 Test Item Value Reference Range Interpretation [...] only: 1123) gram negative rods BASIC METABOLIC [id number] 04:53:00 Test Item Value Reference Range Interpretation [...] S NOT APPLICABLE FOR DIALYSIS PATIEN TS. Muck Miner ID - RICHELLE WCBC (HEMOGRAM ONLY)2019-08-27 03:52:00 [...] 0-0 (BEAKER) (test code = 413) BLOOD [id number] 12:41:00 Test Item Value Reference Range Interpretation Comments CULTURE A From Anaerobic Bottle (BEAKER) (test Only Same org anis has code = 1095) been isolated f rom cultures(s) of the same body site and collection date . Repeat identifi cation and susceptibil ity testing perform ed only after consultat ion with the [facility] microbiology laboratory.Refe r to previous cultur e ofKlebsiella pneumoniae GRAM STAIN From anaerobic RESULT (BEAKER) bottle only: gram (test code = negative rods 1123) T4, [id number] 10:43:00 Test Item Value Reference Range Interpretation Comments FREE T4 (BEAKER) (test code = 655) 0.68 ng/dL 0.70-1.48 L Muck Miner ID - AAHAMIDTSH/FREE T4 IF [id number] 09:55:00 Test Item Value Reference Range Interpretation Comments THYROID STIMULATING HORMONE 0.276 uIU/mL 0.350-4.940 L (BEAKER) (test code = 772) Muck Miner ID - AAHAMIDVITAMIN B12 AND [id number] 09:29:00 Test Item Value Reference Range Interpretation Comments VITAMIN B12 (BEAKER) (test code = 810 pg/mL 213-816 774) FOLATE (BEAKER) (test code = 362) 4.80 ng/mL >=7.00 L Muck Miner ID - AAHAMIDCOMPREHENSIVE METABOLIC [id number] 05:26:00 Test Item Value Reference Range Interpretation [...] S NOT APPLICABLE FOR DIALYSIS PATIEN TS. Muck Miner ID - PIAYA LCBC (HEMOGRAM ONLY)2019-08-25 04:58:00 [...] 0-0 (BEAKER) (test code = 413) U/S, [id number] 21:14:00Reason for exam:->thyroid noduleFINAL REPORT U/S, THYROID [...] MDReport Verified Date/Time: 08/24/2019 21:14:39 MISCELLANEOUS LAB [id number] 06:56:00 Test Item Value Reference Range Interpretation Comments SCAN RESULT (test code = 4208590) SEE SCAN BASIC METABOLIC [id number] 06:25:00 Test Item Value Reference Range Interpretation [...] S NOT APPLICABLE FOR DIALYSIS PATIEN TS. Muck Miner ID - ALAINA [id number] 04:39:00 Test Item Value Reference Range Interpretation [...] (test code = 413) CT, CHEST, WITHOUT [id number] 16:18:00FINAL REPORT TECHNIQUE: CT of the chest, [...] MDReport Verified Date/Time: 08/23/2019 16:18:30 Reading Location: [facility] C013Y CT Body Reading Room CT, PELVIS, WO [id number] 16:18:00Anesthesia:->NoneFINAL REPORT TECHNIQUE: CT of the chest, [...] MDReport Verified Date/Time: 08/23/2019 16:18:30 Reading Location: [address] Body Reading Room CT, ABDOMEN, WITHOUT [id number] 16:18:00Please specify abdominal organs:->RenalFINAL REPORT TECHNIQUE: CT [...] MDReport Verified Date/Time: 08/23/2019 16:18:30 Reading Location: [facility] C013Y CT Body Reading Room [facility] METABOLIC [id number] 05:24:00 Test Item Value Reference Range Interpretation [...] S NOT APPLICABLE FOR DIALYSIS PATIEN TS. Muck Miner ID - RICHELLE WPT/[id number] 04:23:00 Test Item Value Reference Range Interpretation [...] (BEAKER) (test code = 413) POCT-BLOOD GASES, [id number] 18:24:00 Test Item Value Reference Range Interpretation [...] -5.0 meq/L -2.0-3.0 L : TESTED AT [facility] [address] [place], (BEAKER) (test code [address]4866: = 1841) Muck Miner/Techni gavi ID = [id number] for MATILDE LINARES [id number] 18:24:00 Test Item Value Reference Range Interpretation Comments POC-SODIUM (BEAKER) 127 meq/L 135-148 L : TESTED AT [facility] [address] (test code = 1542) [facility], [address]: Muck Miner/Techni gavi ID = [id number] for MATIDLE SARABIA [id number] 18:24:00 Test Item Value Reference Range Interpretation Comments POC-POTASSIUM 3.2 meq/L 3.6-5.5 L : TESTED AT [facility] [address] ([facility]) (test code [facility], = 1540) [address]: Muck Miner/Techni gavi ID = [id number] for MATILDE SARABIA [id number] 18:24:00 Test Item Value Reference Range Interpretation Comments POC-HEMOGLOBIN 11.6 g/dL 12.0-15.0 L : TESTED AT [facility] 67 ([facility]) (test code [facility], = 1856) [address]: Muck Miner/Techni gavi ID = [id number] for MATILDE SARABIA [id number] 18:24:00 Test Item Value Reference Range Interpretation Comments POC-HEMATOCRIT 34 % 36-45 L : Muck Miner/Te chnician ID = ([facility]) (test code = 800878 for MATILDE BROWN 1857) POCT-CALCIUM [id number] 18:24:00 Test Item Value Reference Range Interpretation Comments POC-CALCIUM IONIZED 1.19 mmol/L 1.12-1.27 : TESTED AT [facility] ([facility]) (test code = [address] [facility] 1536) [place], [address]: Muck Miner/Techni gavi ID = [id number] for MATILDE BROWN [id number] 18:24:00 Test Item Value Reference Range Interpretation Comments POC-GLUCOSE ([facility]) 144 mg/dL 70-110 H : TESTE D AT [facility] [address] (test code = 1855) [facility] [place], [address]: Muck Miner/Techni gavi ID = [id number] for MATILDE SARABIA BLOOD GAS, [id number] 16:53:00 Test Item Value Reference Range Interpretation Comments PH ARTERIAL ([facility]) (test code = 7.31 7.35-7.45 L 383) PCO2 ARTERIAL ([facility]) (test code 44 mmHg 35-45 = 384) PO2 ARTERIAL ([facility]) (test code 34 mmHg 80-90 LL = 385) O2 SATURATION ARTERIAL (BEAKER) 61.2 % 96.0-97.0 L (test code = 386) HCO3 ARTERIAL (BEAKER) (test code 22 mmol/L 21-29 = 388) BASE EXCESS ARTERIAL (BEAKER) -4.5 mmol/L -2.0-3.0 L (test code = 387) PATIENT TEMPERATURE (BEAKER) 36.4 C (test code = 1818) FIO2 (BEAKER) (test code = 1819) 32.0 % BLOOD CULTURE IDENTIFICATION [id number] 16:02:00 Test Item Value Reference Interpretation Comments Range LISTERIA MONOCYTOGENES Not detected Not detected (test code = 6544869) STAPHYLOCOCCUS (test Not detected Not detected code = 6347368) STAPHYLOCOCCUS AUREUS Not detected Not detected (test code = 1630223) STREPTOCOCCUS (test Not detected Not detected code = 1817377) STREPTOCOCCUS Not detected Not detected AGALACTIAE (GROUP B) (test code = 3634154) STREPTOCOCCUS Not detected Not detected PNEUMONIAE (test code = 9991280) STREPTOCOCCUS PYOGENES Not detected Not detected (GROUP A) (test code = 4544302) ACINETOBACTER Not detected Not detected BAUMANNII (test code = 0295422) HAEMOPHILUS INFLUENZAE Not detected Not detected (test code = 1527319) NEISSERIA MENINGITIDIS Not detected Not detected (test code = 2431293) ENTEROBACTERIACEAE Detected Not detected A (test code = 4024813) ENTEROBACTER CLOACOE Not detected Not detected COMPLEX (test code = 6494160) KLEBSIELLA OXYTOCA Not detected Not detected (test code = 6174640) KLEBSIELLA PNEUMONIAE Detected Not detected A Klebsi kamila (test code = 1650) pneumonia eKPC not detected (a carbapenamase gene)First-line therapy: Merope nem. De-escalate bas ed on susceptibilitie sThis test does not e valuate for ESBLReferen ce Range: Not Dete cted PROTEUS (test code = Not detected Not detected 1181938) SERRATIA MARCESCENS Not detected Not detected (test code = 4692532) PARAM ALBICANS (test Not detected Not detected code = 7286555) PARAM GLABRATA (test Not detected Not detected code = 2466217) PARAM KRUSEI (test Not detected Not detected code = 0721235) PARAM PARAPSILOSIS Not detected Not detected (test code = 9258376) PARAM TROPICALIS Not detected Not detected (test code = 5564493) ESCHERICHIA COLI (test Not detected Not detected code = 7601587) METHICILLIN-RESISTANCE GENE (test code = 0222392) VANCOMYCIN-RESISTANCE GENE (test code = 8846043) CARBAPENEM-RESISTANCE Not detected Not detected GENE (test code = 2933845) ENTEROCOCCUS-BEAKER Not detected Not detected (test code = 1645175) PSEUDOMONAS Not detected Not detected AERUGINOSA-BEAKER (test code = 1758831) Other bacteria and resistance markers not targeted by this PCR panel cannot be excluded; therefore clinical correlation and follow up of serology, culture results, and other molecular studies is required. The results are not intended to be used as the sole means for clinical diagnosis or patient management decisions. This sample was tested at the [facility] Molecular Diagnostics Laboratory using the [employer] Blood Culture ID Panel. It is FDA cleared and has been verified and approved by the [facility] Molecular Diagnostics [facility] for clinical use. This laboratory is CLIA-certified and College ofAmerican Pathologists (CAP)-accredited to perform high complexity testing.BASIC METABOLIC [id number] 04:07:00 Test Item Value Reference Range Interpretation [...] S NOT APPLICABLE FOR DIALYSIS PATIEN TS. Muck Miner ID - PIAYA [id number] 03:33:00 Test Item Value Reference Range Interpretation [...] = 515) SOURCE(BEAKER) (test code = 2795) Muck Miner ID - [auto]Muck Miner ID - techCREATININE, RANDOM [id number] 01:49:00 Test Item Value Reference Range Interpretation Comments CREATININE URINE (BEAKER) (test 68.9 mg/dL code = 375) Reference Range: No NormalsOperator ID - PIAYA LSODIUM, RANDOM [id number] 01:49:00 Test Item Value Reference Range Interpretation Comments SODIUM URINE (BEAKER) (test code = 33 meq/L 243) Reference Range: No NormalsOperator ID - PIAYA LCBC W/PLT COUNT & AUTO [id number] 01:32:00 Test Item Value Reference Range Interpretation [...] CONCENTRATION Adequate (CELLAVISION)(BEAKER) (test code = 3438) Muck Miner ID - [id number] ID - Bailee Pelletier comments: Slide comments:LACTIC ACID, [id number] 00:17:00 Test Item Value Reference Range Interpretation Comments LACTATE BLOOD VENOUS (2) (BEAKER) 1.69 mmol/L 0.50-2.20 (test code = 2872) Muck Miner ID - PIAYA LBASIC METABOLIC [id number] 22:01:00 Test Item Value Reference Range Interpretation [...] S NOT APPLICABLE FOR DIALYSIS PATIEN TS. Muck Miner ID - BSLACTIC ACID, [id number] 21:57:00 Test Item Value Reference Range Interpretation Comments LACTATE BLOOD VENOUS 1.84 mmol/L 0.50-2.20 Specime n slightly (2) (BEAKER) (test hemolyzed code = 6982) Muck Miner ID - BS"
[2021-03-31] MEDS ORDERED: NA CHLORIDE 0.9% 1,000 ML ONE (00:09)
[2021-03-31] MEDS ORDERED: MORPHINE 2 MG/ML SYR ONE (00:41)
[2021-03-31] MEDS ORDERED: ONDANSETRON 4 MG/2 ML VIAL ONE (00:42)
[2021-03-31 01:22] LABS: Urine Blood Negative (Negative); Urine Glucose Negative (Negative); Urine Protein Negative (Negative); Urine Specific Gravity 1.015 (1.005-1.030)
[2021-03-31 01:38] LABS: Absolute Lymphocytes (CBC) 1.7 K/uL (0.7-4.9); Basophils % 0.1 % (0-1.3); Hematocrit 37.9 % (36.0-45.0); Lymphocytes % 14.4 % (15.3-44.8); MPV 8.7 fL (7.6-11.3); RBC Red Blood Cell Count 4.03 M/uL (3.86-4.86)
--- NOTE | 2021-03-31 01:59 | ER ---
Nurse's Notes [facility] Name: Sena Ricardo Age: 56 yrs Sex: Female : 1965 Arrival Date: 03/30/2021 Time: 23:20 Bed 20 Private MD: Diagnosis: Cellulitis of the Left Forearm;Olecranon Bursitis;UTI Presentation: 03/30 23:33 Chief complaint: Patient states: Left elbow pain. Coronavirus screen: Vaccine status: df1 Patient reports being unvaccinated. Client denies travel out of the [place] in the last 14 days. At this time, the client does not indicate any symptoms associated with coronavirus-19. Ebola Screen: Patient negative for fever greater than or equal to 101.5 degrees Fahrenheit, and additional compatible Ebola Virus Disease symptoms Patient denies exposure to infectious person. Patient denies travel to an Ebola-affected area in the 21 days before illness onset. Initial Sepsis Screen: Does the patient meet any 2 criteria? No. Patient's initial sepsis screen is negative. Does the patient have a suspected source of infection? No. Patient's initial sepsis screen is negative. Risk Assessment: Do you want to hurt yourself or someone else? Patient reports no desire to harm self or others. Onset of symptoms was March 28, 2021. 23:33 Method Of Arrival: Ambulatory df1 23:33 Acuity: ANABELLA 3 df1 23:39 Note Pt states left elbow swollen and red since last Monday. Denies fall/injury. H/O df1 MRSA. Historical: - Allergies: 23:36 No Known Allergies; df1 - Home Meds: 03/31 01:02 Corlanor 5 mg oral tab 1 tab every day for inappropriate sinus tachycardia [Active]; cc4 Lasix 40 mg Oral tab 1 tab once daily for peripheral edema due to chronic heart failure [Active]; Klor-Con 10 10 mEq Oral TbER 1 tab once daily for hypokalemia prevention [Active]; spironolactone 25 mg Oral tab 1 tab once daily for peripheral edema due to chronic heart failure [Active]; 01:00 Apotex for Cardiac History [Active]; aspirin 325 mg Oral tab 1 tab once daily for Heart cc4 Problem [Active]; - PMHx: 03/30 23:36 Anxiety; COPD; depressive disorder; fluid on body; Myocardial infarction; MRSA; sepsis; df1 - PSHx: 23:36 Tonsillectomy; Total abdominal hysterectomy; carpal tunnel right; right elbow surgery; df1 - Immunization history:: Adult Immunizations not up to date, Client reports having NOT received the Covid vaccine. Pneumococcal vaccine is not up to date, Flu vaccine is up to date. - Social history:: Smoking status: Patient reports the use of cigarette tobacco products, smokes one pack cigarettes per day. Patient/guardian denies using alcohol, street drugs. Screenin/17 00:10 Abuse screen: Denies threats or abuse. Nutritional screening: No deficits noted. cc4 Tuberculosis screening: No symptoms or risk factors identified. Fall Risk None identified. Assessment: 00:10 General: Appears uncomfortable, Behavior is calm, cooperative. Pain: Complains of pain cc4 in left arm/left elbow Pain radiates to left arm Pain currently is 7 out of 10 on a pain scale. at worst was 10 out of 10 on a pain scale. Quality of pain is described as aching, sharp, Pain began gradually, 1 day ago. Is continuous, Alleviated by rest, Aggravated by increased activity. Neuro: No deficits noted. Level of Consciousness is awake, alert, obeys commands, Oriented to person, place, time, situation. Cardiovascular: Capillary refill < 3 seconds Patient's skin is warm and dry. Increased warmth left elbow.. Rhythm is sinus tachycardia. Respiratory: No deficits noted. Airway is patent Respiratory effort is even, unlabored, Respiratory pattern is regular, symmetrical. GI: No signs and/or symptoms were reported involving the gastrointestinal system. :. EENT: No signs and/or symptoms were reported regarding the EENT system. Derm: Skin is red, Skin temperature is hot left elbow extending into left lower arm. Musculoskeletal: Capillary refill < 3 seconds, Range of motion: intact in all extremities, limited in left elbow. 00:20 Reassessment: # 22 g angiocath inserted right hand x 2 attempts \T\ converted to saline cc4 lock with IV NS hung to saline lock \T\ infusing \T\ bolus rate with no s/sx's of infection/infiltration noted of site. 00:42 Reassessment: No changes from previously documented assessment. Reassessment: c/o left cc4 elbow pain 7/10 on pain scale; medicated as ordered. 01:16 Reassessment: urine specimen obtained with dipstick done \T\ specimen sent to lab for cc4 micro/culture. 01:25 Reassessment: Special Assets Officer in \T\ drawing blood for lab including blood cultures x 2 cc4 sets, robyn. well. Vital Signs: 03/30 23:33 BP 117 / 85; Pulse 122; Resp 18; Temp 97.5; Pulse Ox 94% on R/A; Weight 62.14 kg; df1 Height 5 ft. 4 in. (162.56 cm); 03/31 00:46 BP 120 / 88; Pulse 110; Resp 20; Temp 96.5(T); Pulse Ox 98% on R/A; cc4 01:30 BP 110 / 84; Pulse 112; Resp 20; Pulse Ox 96% on R/A; cc4 02:15 BP 136 / 82; Pulse 109; Resp 20; Temp 97.5; Pulse Ox 100% on R/A; cc4 03/30 23:33 Body Mass Index 23.52 (62.14 kg, 162.56 cm) df1 ED Course: 03/30 23:20 Patient arrived in ED. wm 23:36 Triage completed. df1 23:43 Willi Orellana PA is PHCP. [facility] 23:43 Arthur Amaro MD is Attending Physician. [facility] 03/31 00:03 Dariela Boucher, PENNY is Primary Nurse. cc4 00:10 No provider procedures requiring assistance completed. cc4 00:10 Arm band placed on. cc4 00:10 Patient has correct armband on for positive identification. Bed in low position. Call cc4 light in reach. Side rails up X 1. secured entrance monitor on. Pulse ox on. NIBP on. 00:38 Elbow Left 3 View XRAY In Process Unspecified. EDMS 00:38 Elbow Left 3 View XRAY Sent. cc4 02:15 IV discontinued, intact, bleeding controlled, No redness/swelling at site. Pressure cc4 dressing applied. Administered Medications: 00:20 Drug: NS 0.9% 1000 ml Route: IV; Rate: 1 bolus; Site: right hand; cc4 01:25 Follow up: IV Status: Completed infusion; IV Intake: 1000ml cc4 00:42 Drug: morphine 2 mg Route: IVP; Site: right hand; cc4 01:30 Follow up: Response: No adverse reaction; Pain is decreased cc4 00:42 Drug: Zofran (Ondansetron) 4 mg Route: IVP; Site: right hand; cc4 01:16 Follow up: Urine output 400 ml cc4 01:30 Follow up: Response: No adverse reaction cc4 Intake: 01:25 IV: 1000ml; Total: 1000ml. cc4 Output: 01:16 Urine: 400ml; Total: 400ml. cc4 Outcome: 01:59 Discharge ordered by MD. jm 02:15 Discharged to home ambulatory. cc4 02:15 Condition: stable 02:15 Discharge instructions given to patient, Instructed on discharge instructions, follow up and referral plans. medication usage, Demonstrated understanding of instructions, follow-up care, medications. 02:29 Patient left the ED. cc4 Addendum: 04/03/2021 09:31 Addendum: Culture Results: Positive urine culture. No further action required. Bacteria s s sensitive to prescribed antibiotic. Signatures: Dispatcher [employer] EDMS Willi Orellana PA PA jmm Smirch, Shelby, RN RN Luciana Monroe Christie, RN RN cc4 Tamara Duran df1 Corrections: (The following items were deleted from the chart) 03/31 01:11 01:02 Home Meds: Mobic Oral; cc4 cc4
--- NOTE | 2021-03-31 01:59 | EDPHYS ---
Physician Documentation [facility] Name: Sena Ricardo Age: 56 yrs Sex: Female : 1965 Arrival Date: 03/30/2021 Time: 23:20 Bed 20 Private MD: ED Physician Arthur Amaro HPI: 03/30 23:36 This 56 yrs old Female presents to ER via Ambulatory with complaints of Wound jmm Infection. 23:36 The patient or guardian complains of pain. Onset: The symptoms/episode began/occurred jmm gradually, 2 day(s) ago. Modifying factors: The symptoms are alleviated by nothing. the symptoms are aggravated by nothing. Associated signs and symptoms: Pertinent positives: erythema, Pertinent negatives: fever. This is a 56 year old female with history of anxiety, COPD, MRSA the presents emerged department with complaints of left elbow pain and swelling beginning this past Monday. Pain is intensified this evening. Denies fever or chills but is concerned due to recent admission for MRSA infection.. Historical: - Allergies: 23:36 No Known Allergies; df1 - Home Meds: 03/31 01:02 Corlanor 5 mg oral tab 1 tab every day for inappropriate sinus tachycardia [Active]; cc4 Lasix 40 mg Oral tab 1 tab once daily for peripheral edema due to chronic heart failure [Active]; Klor-Con 10 10 mEq Oral TbER 1 tab once daily for hypokalemia prevention [Active]; spironolactone 25 mg Oral tab 1 tab once daily for peripheral edema due to chronic heart failure [Active]; 01:00 Apotex for Cardiac History [Active]; aspirin 325 mg Oral tab 1 tab once daily for Heart cc4 Problem [Active]; - PMHx: 03/30 23:36 Anxiety; COPD; depressive disorder; fluid on body; Myocardial infarction; MRSA; sepsis; df1 - PSHx: 23:36 Tonsillectomy; Total abdominal hysterectomy; carpal tunnel right; right elbow surgery; df1 - Immunization history:: Adult Immunizations not up to date, Client reports having NOT received the Covid vaccine. Pneumococcal vaccine is not up to date, Flu vaccine is up to date. - Social history:: Smoking status: Patient reports the use of cigarette tobacco products, smokes one pack cigarettes per day. Patient/guardian denies using alcohol, street drugs. ROS: 23:36 Constitutional: Negative for fever, chills, and weight loss, Cardiovascular: Negative jmm for chest pain, palpitations, and edema, Respiratory: Negative for shortness of breath, cough, wheezing, and pleuritic chest pain. 23:36 MS/extremity: Positive for pain. 23:36 All other systems are negative. Exam: 23:36 Constitutional: This is a well developed, well nourished patient who is awake, alert, jmm and in no acute distress. Head/Face: atraumatic. Eyes: EOMI, no conjunctival erythema appreciated ENT: Moist Mucus Membranes Neck: Trachea midline, Supple Chest/axilla: Normal chest wall appearance and motion. Cardiovascular: Regular rate and rhythm. No edema appreciated Respiratory: Normal respirations, no respiratory distress appreciated Abdomen/GI: Non distended, soft Back: Normal ROM 23:36 Musculoskeletal/extremity: Full full range of motion is appreciated to the left elbow, swelling noted to the olecranon region with erythema. 23:36 Skin: Erythema erythema is noted to the forearm. 23:36 Neuro: Orientation: is normal, Mentation: is normal, Memory: is normal. 23:36 Psych: Behavior/mood is pleasant, cooperative. Vital Signs: 23:33 BP 117 / 85; Pulse 122; Resp 18; Temp 97.5; Pulse Ox 94% on R/A; Weight 62.14 kg; df1 Height 5 ft. 4 in. (162.56 cm); 03/31 00:46 BP 120 / 88; Pulse 110; Resp 20; Temp 96.5(T); Pulse Ox 98% on R/A; cc4 01:30 BP 110 / 84; Pulse 112; Resp 20; Pulse Ox 96% on R/A; cc4 02:15 BP 136 / 82; Pulse 109; Resp 20; Temp 97.5; Pulse Ox 100% on R/A; cc4 03/30 23:33 Body Mass Index 23.52 (62.14 kg, 162.56 cm) df1 MDM: 03/30 23:44 Patient medically screened. [facility] 03/31 01:58 Data reviewed: vital signs, nurses notes. Counseling: I had a detailed discussion with ally the patient and/or guardian regarding: the historical points, exam findings, and any diagnostic results supporting the discharge/admit diagnosis, radiology results, the need for outpatient follow up, to return to the emergency department if symptoms worsen or persist or if there are any questions or concerns that arise at home. 03/30 23:54 Order name: CBC with Diff; Complete Time: 02:[address] [facility] 03/30 23:54 Order name: Blood Culture Adult (2) [facility] 03/30 23:54 Order name: Procalcitonin [facility] 03/30 23:54 Order name: Lactate; Complete Time: 02:[address] [facility] 03/31 01:21 Order name: Urine Dipstick-Ancillary; Complete Time: 01:37 [facility] 03/31 01:22 Order name: Urine Microscopic Only [facility] 03/30 23:54 Order name: Saline Lock; Complete Time: 00:[address] [facility] 03/30 23:54 Order name: Elbow Left 3 View XRAY [facility] 03/31 01:16 Order name: Urine Dipstick-Ancillary (obtain specimen); Complete Time: 01:16 cc 03/31 01:22 Order name: Urine Culture [facility] 03/31 01:22 Order name: Urine Microscopic Only [facility] Administered Medications: 00:20 Drug: NS 0.9% 1000 ml Route: IV; Rate: 1 bolus; Site: right hand; cc4 01:25 Follow up: IV Status: Completed infusion; IV Intake: 1000ml cc4 00:42 Drug: morphine 2 mg Route: IVP; Site: right hand; cc4 01:30 Follow up: Response: No adverse reaction; Pain is decreased cc4 00:42 Drug: Zofran (Ondansetron) 4 mg Route: IVP; Site: right hand; cc4 01:16 Follow up: Urine output 400 ml cc4 01:30 Follow up: Response: No adverse reaction cc4 Disposition: 02:54 Co-signature as Attending Physician, Arthur Amaro MD I agree with the assessment and higinio plan of care. Disposition Summary: 03/31/21 01:59 Discharge Ordered Location: Home [facility] Condition: Stable [facility] Diagnosis - Cellulitis of the Left Forearm jmm - Olecranon Bursitis jmm - UTI [facility] Followup: [facility] - With: Private Physician - When: 2 - 3 days - Reason: Recheck today's complaints, Continuance of care, Re-evaluation by your physician Discharge Instructions: - Discharge Summary Sheet jmm - Cellulitis, Adult jmm - Urinary Tract Infection, Adult jmm - Elbow Bursitis [facility] Forms: - Medication Reconciliation Form [facility] - Thank You Letter [facility] - Antibiotic Education [facility] - Prescription Opioid Use [facility] Prescriptions: - Doxycycline Hyclate 100 mg Oral Tablet - take 1 tablet by ORAL route every 12 hours; 20 tablet; Refills: 0, Product [facility] Selection Permitted - Bactrim DS 800-160 mg Oral Tablet - take 1 tablet by ORAL route every 12 hours for 10 days; 20 tablet; Refills: 0, [facility] Product Selection Permitted Signatures: Dispatcher [employer] Arthur Lopez MD MD cha Mickail, Joel, PA PA jmm Cooper, Christie, RN RN cc4 Tamara Duran df1 Corrections: (The following items were deleted from the chart) 01:11 01:02 Home Meds: Mobic Oral; cc4 cc4
[2021-03-31 02:47] LABS: Urine Bacteria >50 /HPF (<20); Urine Urothelial Cells <5 /HPF (NONE SEEN)
[2021-03-31 02:48] LABS: Urine RBC <5 /HPF (NONE SEEN)
[2021-03-31 03:13] VITALS: BP 136/82; TEMP 97.5; O2SAT 100
--- NOTE | 2021-03-31 11:48 | RAD REPORT ---
EXAM DESCRIPTION: RAD - Elbow Left 3 View - 03/31/2021 12:37 am CLINICAL HISTORY: Redness, swelling COMPARISON: None. TECHNIQUE: Left Elbow 3 Views FINDINGS: No fracture or dislocation. No significant sclerotic/lytic bone lesion. Joint spaces unremarkable. Moderate soft tissue swelling located posterior to left elbow. No air collection or radiopaque foreign body. IMPRESSION: Moderate soft tissue swelling located posterior to left elbow. This may represent olecranon bursitis. 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 The interpreting r adiologist is fully responsible for the content of the report.
== END 2021-03-31 02:29 | disposition home or self-care (01) ==
LOC: ER 23:15
DX: L03.114 Cellulitis of left upper limb (principal); M70.20 Olecranon bursitis, unspecified elbow; N39.0 Urinary tract infection, site not specified; J44.9 Chronic obstructive pulmonary disease, unspecified; I25.2 Old myocardial infarction
CPT/HCPCS: 96361; 87040 ×2; 87088; 85025; 87086; 36415; 83605; 87077; 87186; 84145; 73080; 96375; 96374; 99284; J2270; J7030; J2405; 81003; 81015

== ENCOUNTER 2021-05-31 18:26 | Observation (INO) | payer OTHER ==
--- OUTSIDE RECORDS SUMMARY | 2021-05-31 18:32 | XMS REPORT | Continuity of Care Document ---
:1965 Author Organization [facility] t Address [address] [place] [address] Care Team Providers Name Role Phone Ponce, E Primary Care Physician Brian Doll DO Attending Clinician Brian DOLL Attending Clinician Unavailable Doctor Unassigned, Name Attending Clinician Unavailable TRIP العلي Attending Clinician Unavailable ISABELA MARTÍNEZ Attending Clinician Unavailable DEDRA Admitting Clinician Unavailable Payers Payer Name Policy Type Policy Number Effective Date Expiration Date Susan guaman [facility] [id number] 2019 00:00:00 Problems Condition Condition Condition Status Onset Resolution Last Treating Co mments Source Name Details Category Date Date Treatment Clinician Date Sepsis Sepsis Disease [facility] 00 [place] No known No known Disease Unive rs active active ity of problems problems [facility] Allergies, Adverse Reactions, Alerts Allergy Allergy Status Severity Reaction(s) Onset Inactive Treating Comm ents Source Name Type Date Date Clinician VANCOMYC Allergy Active Med Itching 2019-[address] [facility] [facility] - ANALOGUE 00:00: Medical S 00 Center Vancomyc Drug Active Itching 2020-[address] in Allergy 4-10 [facility] - Analogue 00:00: Medical s 00 Center NO KNOWN Drug Active [facility] Class ity of S [facility] NO KNOWN Allergy Active [facility] Social History Social Habit Start Date Stop Date Quantity Comments Source Exposure to Not sure [facility] SARS-CoV-2 (event) Medica l Branch Tobacco use and 2019-08-21 2019-08-21 Never used [facility] - exposure 00:00:00 00:00:00 [facility] Sex Assigned At [birth year] [place] [facility] 00:00:00 00:00:00 Medical Branch Smoking Status Start Date Stop Date Source Unknown if ever smoked [facility] Current some day smoker 2019-08-21 00:00:00 [facility] Medications Ordered Filled Start Stop Current Ordering Indication Dosage Frequency Signature Comments Components Source Medication Medication Date Date Medication? Clinician (SIG) Name Name ibuprofen 2020-05 No 600mg 600 mg, Uni vers (IBU) [...] of therapy: 72 hours iopamidol 2020-05- No [id number] 120mL 120 mL, Univers (ISOVUE 002-17 Intravenou ity o f 370-500 mL) 05:00: 03:50 s, ONCE, 1 [place] injection 00 :00 dose, On Medica l 120 mL Wed Branch 02/17/21 at 0000, Routine cephALEXin 2020-05- No [id number] 500mg Take 1 Univers (KEFLEX) 016 capsule by ity of 500 mg 00:00: 04:59 mouth 2 [place] capsule 00 :00 (two) Medical times Branch daily for 10 days. Vital Signs Vital Name Observation Time Observation Value Comments Source Heart rate 2021-02-17 04:00:00 96 /min [facility] Systolic blood 2021-02-17 03:00:00 100 mm[facility]Hg[facility] pressure [facility] Diastolic blood 2021-02-17 03:00:00 65 mm[Hg] [facility] Respiratory rate 2021-02-17 03:00:00 14 /min [facility] Oxygen saturation in 2021-02-17 03:00:00 99 /min [facility] Arterial blood by [facility] Pulse oximetry [place] Body temperature 2021-02-17 00:59:00 36.78 [facility] Body height 2021-02-17 00:59:00 162.6 cm [facility] Body weight 2021-02-17 00:59:00 72.576 kg [facility] BMI 2021-02-17 00:59:00 27.46 kg/m2 [facility] Procedures Procedure Date / Time Performed Performing Clinician [facility] e CT ABDOMEN PELVIS W 2021-02-17 03:55:27 Darcy Doll [facility] CONTRAST [facility] COMP. METABOLIC PANEL 2021-02-17 01:16:00 Darcy Doll [facility] ([id number]) [facility] CBC WITH DIFF 2021-02-17 01:16:[address] [facility] N-TERMINAL PRO-BNP 2021-02-17 01:16:00 Darcy Doll [facility] CONSENT/REFUSAL FOR 2021-02-17 00:46:36 Doctor Unassigned, [facility] AND Name [facility] TREATMENT NOTICE OF PRIVACY 2021-02-17 00:46:10 Doctor Unassigned, No Univ [facility] PRACTICES Name [facility] Plan of Care Planned Activity Planned [...] Test 00:00:00 (procedure) [code = Medical Center 62960231] Future Scheduled [address] [facility] - Test 00:00:00 malignant neoplasm of [facility] cervix (procedure) [code = 321264879] Future Scheduled [address] [facility] - Test 00:00:00 0-64 YRS (1 of 1 - Medical C enter PPSV23) [code = PNEUMOCOCCAL VACCINE 0-64 YRS (1 of 1 - PPSV23)] Future Scheduled [address] [facility] - Test 00:00:00 malignant neoplasm of [facility] breast (procedure) [code = 843278434] Future Scheduled [address] [facility] - Test 00:00:00 malignant neoplasm of [facility] colon (procedure) [code = 386844975] Encounters Start End Encounter Admission Attending Care Care Encounter Source Date/Time Date/Time Type Type Clinicians Facility Department ID 2019-08-21 Inpatient [facility] [id number] [facility] 18:07:00 [id number] 2021-04-30 2021-04-30 amb[facility] [id number] 2021-04-29 2021-04-29 ambulatory [facility] [id number] [facility] Clinics 2021-02-16 2021-02-17 Emergency Sharmila ARHEATHER [id number] Univers 19:54:00 00:02:00 Darcy Tinsley [id number] serafin [facility] 4.2.7.2.686 [facility] [id number] [address] 2021-02-16 2021-02-16 Emergency X SHARMILA [facility] ERT [id number] Univers 19:54:00 19:54:00 DARCY betancourt [facility] 2021-02-16 2021-02-16 Orders Doctor ANDRADE [id number] 00:00:00 00:00:00 Only Unassigned, KARLENE [id number] ity of [facility] 4.2.7.2.686 Aleksandr as [id number] [address] 2019-09-25 2019-09-25 Outpatient DARIO العلي, [facility] [id number] SLE 00:00:00 00:00:00 [facility] Results Test Description Test Time Test Comments Results Result Comments Source N-TERMINAL PRO-BNP 2021-02-17 01:54:34 Test Item Value Reference Range Interpretation Comme nts NT-proBNP (test code = 5130 pg/mL See_Comment H [Aut omated message] The 1566088204) system which ge nerated this result tra nsmitted reference range : <=125. The reference r blanca was not used to int erpret this result as max l/abnormal. NITIN (test code = NITIN) Biotin has been reported to cause a negative bias, interpret results relative to patient's use of biotin. Lab Interpretation (test Abnormal code = 05983-1) [facility] (39603)2021-02-17 01:54:08 Test Item Value Reference Range Interpretation Comments NA (test code = 139 mmol/L 135-145 6213875057) K (test code = 3.2 mmol/L 3.5-5.0 L 8346265363) CL (test code = 105 mmol/L 98-108 5259205838) CO2 TOTAL (test code = 30 mmol/L 23-31 0847497852) AGAP (test code = 2-16 9519111134) BUN (test code = 17 mg/dL 7-23 9422966701) GLUCOSE (test code = 114 mg/dL 70-110 H 6678423447) CREATININE (test code = 0.73 mg/dL 0.50-1.04 0608408245) TOTAL BILI (test code = 1.2 mg/dL 0.1-1.1 H 7104834054) CALCIUM (test code = 9.6 mg/dL 8.6-10.6 2406568977) T PROTEIN (test code = 5.8 g/dL 6.3-8.2 L 0094025130) ALBUMIN (test code = 3.6 g/dL 3.5-5.0 4468371270) ALK PHOS (test code = 74 U/L 34-122 1288347558) ALTv (test code = 2065 U/L 5-35 H 1742-6) AST(SGOT) (test code = 1240 U/L 13-40 H 6372323170) eGFR (test code = mL/min/1.73m2 9155312843) NITIN (test code = NITIN) Association of [...] tests). Lab Interpretation Abnormal (test code = 76634-4) [facility] WITH [id number] 01:50:34 Test Item Value Reference Range Interpretation Comments WBC (test code = See_Comment [Automated 6690-2) message] The sy stem which generated this result transmitted reference range : 4.30 - 11.10 10*3/?L. The reference range was not used to interpret this result as normal/abnormal . RBC (test code = See_Comment [Automated 789-8) message] The sy stem which generated this [...] (test code = 53.8 fL 39.0-49.9 H 64002-5) RDW-CV (test code = 15.4 % 12.0-15.5 788-0) PLT (test code = See_Comment [Automated 777-3) message] The sy stem which generated this result transmitted reference range : 166 - 358 10*3/ ?L. The reference r blanca was not used to interpret this result as normal/abnormal . MPV (test code = 10.9 fL 9.5-12.9 34618-1) NRBC/100 WBC (test See_Comment [Automat ed code = 4486517620) message] The system which generated this result transmitted reference range : 0.0 - 10.0 /100 WBCs. The refer ence range was not u sed to interpret th is result as normal/abnormal . NRBC x10^3 (test code <0.01 See_Comment [Auto mated = 4521785433) message] The s ystem which generated this result transmitted reference range : 10*3/?L. The reference range was not used to interpret this result as normal/abnormal . GRAN MAT (NEUT) % 75.3 % (test code = 770-8) IMM GRAN % (test code 0.60 % = 5985240068) LYMPH % (test code = 16.3 % 736-9) MONO % (test code = 6.1 % 5905-5) EOS % (test code = 1.4 % 713-8) BASO % (test code = 0.3 % 706-2) GRAN MAT x10^3(ANC) 7.69 10*3/uL 1.88-7.09 H (test code = 3500867740) IMM GRAN x10^3 (test 0.06 10*3/uL 0.00-0.06 code = 0678561829) LYMPH x10^3 (test code 1.66 10*3/uL 1.32-3.29 = 731-0) MONO x10^3 (test code 0.62 10*3/uL 0.33-0.92 = 742-7) EOS x10^3 (test code = 0.14 10*3/uL 0.03-0.39 711-2) BASO x10^3 (test code 0.03 10*3/uL 0.01-0.07 = 704-7) Lab Interpretation Abnormal (test code = 27401-5) [facility] [id number] 09:00:00 Test Item Value Reference Range Interpretation Comments CULTURE (BEAKER) (test No growth code = 1095) GRAM STAIN RESULT <1+ White blood cells (BEAKER) (test code = seen 1123) GRAM STAIN RESULT No organisms seen (BEAKER) (test code = 19899) U/S, RENAL, [id number] 01:38:00Reason for exam:->pyelonephritisFINAL REPORT U/S, RENAL, COMPLETE [...] seen on the current examination. Signed: Catherine Cornelleport Verified Date/Time: 09/02/2019 01:38:19 Electronically sig bibi by: CATHERINE CORNELL MD on 09/02/2019 01:38 AMCOMPREHENSIVE METABOLIC [id number] 05:29:00 Test Item Value Reference Range Interpretation [...] S NOT APPLICABLE FOR DIALYSIS PATIEN TS. Flanging Operator ID - PIAYA LCBC (HEMOGRAM ONLY)2019-09-01 04:58:00 [...] 0-0 (BEAKER) (test code = 413) BLOOD [id number] 04:00:00 Test Item Value Reference Range Interpretation Comments CULTURE (BEAKER) (test No growth in 5 days code = 1095) BLOOD [id number] 04:00:00 Test Item Value Reference Range Interpretation Comments CULTURE (BEAKER) (test No growth in 5 days code = 1095) BLOOD [id number] 09:00:00 Test Item Value Reference Range Interpretation Comments CULTURE (BEAKER) (test No growth in 5 days code = 1095) COMPREHENSIVE METABOLIC [id number] 07:37:00 Test Item Value Reference Range Interpretation [...] S NOT APPLICABLE FOR DIALYSIS PATIEN TS. Flanging Operator ID - LMCBC (HEMOGRAM ONLY)2019-08-31 05:54:00 [...] code = 413) URINALYSIS W/ REFLEX URINE [id number] 14:26:00 Test Item Value Reference Range Interpretation [...] 76 /HPF SOURCE(BEAKER) (test code = 2795) Flanging Operator ID - [auto]Flanging Operator ID - Lin, [id number] 10:02:00Right PCN vs PCNU for obstructing proximal ureteral stone with hydro, fat stranding, ([facility] images uploaded 08/20). Primary team to discuss with IR, but please feel free to page urology with questions. Thanks! Reason for exam:->Right ureteral stone, sepsisFINAL REPORT Procedure: Percutaneous nephrostomy catheter placement. History: Obstructed infected kidney with renal abscesses and nondilated system. Rooming House Keeper: Sarthak Richards M.D. Biochemistry Professor: Not applicableKeith Modality: Ultrasound and fluoroscopy. DOSE [...] parenchyma. Impression:Successful ultrasound and fluoroscopic guided 8.5 [place] nephrostomy catheter placement in the right via [...] MDReport Verified Date/Time: 08/30/2019 10:02:51 Reading Location: [place] [address] Angio Body Reading Room BASIC METABOLIC [id number] 06:19:00 Test Item Value Reference Range Interpretation [...] S NOT APPLICABLE FOR DIALYSIS PATIEN TS. Flanging Operator ID - DBCBC (HEMOGRAM ONLY)2019-08-30 06:06:00 [...] (BEAKER) (test code = 413) COMPREHENSIVE METABOLIC [id number] 06:14:00 Test Item Value Reference Range Interpretation [...] S NOT APPLICABLE FOR DIALYSIS PATIEN TS. Flanging Operator ID - ALAINA MCBC (HEMOGRAM ONLY)2019-08-29 [...] (test code = 413) CT, CHEST, WITH [id number] 23:05:00FINAL REPORT CLINICAL HISTORY: Leukocytosis FINDINGS: Multiple [...] RENAL STONE EVAL, WITHOUT / WITH IV [id number] 23:05:00Reason for exam:- >renal stoneAnesthesia:->NoneFINAL REPORT CLINICAL [...] Date/Time: 08/27/2019 23:05:02 URINALYSIS W/ REFLEX URINE [id number] 15:56:00 Test Item Value Reference Range Interpretation [...] = 1521) SOURCE(BEAKER) (test code = 2795) Flanging Operator ID - [auto]Flanging Operator ID - hankBLOOD [id number] 11:19:00 Test Item Value Reference Range Interpretation [...] only: 1123) gram negative rods BASIC METABOLIC [id number] 04:53:00 Test Item Value Reference Range Interpretation [...] S NOT APPLICABLE FOR DIALYSIS PATIEN TS. Flanging Operator ID - RICHELLE WCBC (HEMOGRAM ONLY)2019-08-27 [...] 0-0 (BEAKER) (test code = 413) BLOOD [id number] 12:41:00 Test Item Value Reference Range Interpretation Comments CULTURE A From Anaerobic Bottle (BEAKER) (test Only Same [facility] anis has code = 1095) been isolated f rom cultures(s) of the same body site and collection date . Repeat identifi cation and susceptibil ity testing perform ed only after consultat ion with the [facility] microbiology laboratory.Refe r to previous cultur e ofKlebsiella pneumoniae GRAM STAIN From anaerobic RESULT (BEAKER) bottle only: gram (test code = negative rods 1123) T4, [id number] 10:43:00 Test Item Value Reference Range Interpretation Comments FREE T4 (BEAKER) (test code = 655) 0.68 ng/dL 0.70-1.48 L Flanging Operator ID - AAHAMIDTSH/FREE T4 IF [id number] 09:55:00 Test Item Value Reference Range Interpretation Comments THYROID STIMULATING HORMONE 0.276 uIU/mL 0.350-4.940 L (BEAKER) (test code = 772) Flanging Operator ID - AAHAMIDVITAMIN B12 AND [id number] 09:29:00 Test Item Value Reference Range Interpretation Comments VITAMIN B12 (BEAKER) (test code = 810 pg/mL 213-816 774) FOLATE (BEAKER) (test code = 362) 4.80 ng/mL >=7.00 L Flanging Operator ID - AAHAMIDCOMPREHENSIVE METABOLIC [id number] 05:26:00 Test Item Value Reference Range Interpretation [...] S NOT APPLICABLE FOR DIALYSIS PATIEN TS. Flanging Operator ID - PIAYA LCBC (HEMOGRAM ONLY)2019-08-25 [...] 0-0 (BEAKER) (test code = 413) U/S, [id number] 21:14:00Reason for exam:->thyroid noduleFINAL REPORT U/S, THYROID [...] recommended for further evaluation. Signed: Baylee Hi [facility]ELDeport Verified Date/Time: 08/24/2019 21:14:39 MISCELLANEOUS LAB [id number] 06:56:00 Test Item Value Reference Range Interpretation Comments SCAN RESULT (test code = 0701417) SEE SCAN BASIC METABOLIC [id number] 06:25:00 Test Item Value Reference Range Interpretation [...] S NOT APPLICABLE FOR DIALYSIS PATIEN TS. Flanging Operator ID - ALAINA [id number] 04:39:00 Test Item Value Reference Range Interpretation [...] (test code = 413) CT, CHEST, WITHOUT [id number] 16:18:00FINAL REPORT TECHNIQUE: CT of the chest, [...] MDReport Verified Date/Time: 08/23/2019 16:18:30 Reading Location: [facility] C013Y CT Body Reading Room CT, PELVIS, WO [id number] 16:18:00Anesthesia:->NoneFINAL REPORT TECHNIQUE: CT of the chest, [...] calculi in both kidneys. Signed: Jef Rondon Verified Date/Time: 08/23/2019 16:18:30 Reading Location: [facility] B1 C013Y CT Body Reading Room CT, ABDOMEN, WITHOUT [id number] 16:18:00Please specify abdominal organs:->RenalFINAL REPORT TECHNIQUE: CT [...] MDReport Verified Date/Time: 08/23/2019 16:18:30 Reading Location: [facility] B1 C013Y CT Body Reading Room BASIC METABOLIC [id number] 05:24:00 Test Item Value Reference Range Interpretation [...] S NOT APPLICABLE FOR DIALYSIS PATIEN TS. Flanging Operator ID - RICHELLE WPT/[id number] 04:23:00 Test Item Value Reference Range Interpretation [...] (BEAKER) (test code = 413) POCT-BLOOD GASES, [id number] 18:24:00 Test Item Value Reference Range Interpretation [...] -5.0 meq/L -2.0-3.0 L : TESTED AT [facility] [address] ARTERIAL-POC [facility], ([facility]) (test code 43239: = 1841) Flanging Operator/Techni gavi ID = [id number] for MATILDE LINARES [id number] 18:24:00 Test Item Value Reference Range Interpretation Comments POC-SODIUM ([facility]) 127 meq/L 135-148 L : TESTED AT [place] [address] (test code = 1542) [place] [place] [place], [address]: Flanging Operator/Techni gavi ID = [id number] for MATILDE SARABIA [id number] 18:24:00 Test Item Value Reference Range Interpretation Comments POC-POTASSIUM 3.2 meq/L 3.6-5.5 L : TESTED AT [place] [address] ([facility]) (test code [facility], = 1540) [address]: Flanging Operator/Techni gavi ID = [id number] for MATILDE SARABIA [id number] 18:24:00 Test Item Value Reference Range Interpretation Comments POC-HEMOGLOBIN 11.6 g/dL 12.0-15.0 L : TESTED AT [place] [address] ([facility]) (test code [facility], = 1856) [address]: Flanging Operator/Techni gavi ID = [id number] for MATILDE SARABIA [id number] 18:24:00 Test Item Value Reference Range Interpretation Comments POC-HEMATOCRIT 34 % 36-45 L : Flanging Operator/Te chnician ID = ([facility]) (test code = 900158 for MATILDE BROWN 1857) POCT-CALCIUM [id number] 18:24:00 Test Item Value Reference Range Interpretation Comments POC-CALCIUM IONIZED 1.19 mmol/L 1.12-1.27 : TESTED AT [facility] ([facility]) (test code = [facility] 1536) [place], [address]: Flanging Operator/Techni gavi ID = [id number] for MATILDE BROWN [id number] 18:24:00 Test Item Value Reference Range Interpretation Comments POC-GLUCOSE ([facility]) 144 mg/dL 70-110 H : TESTE D AT [facility] 67[address] (test code = 1855) [place], [address]: Flanging Operator/Techni gavi ID = [id number] for MATILDE SARABIA BLOOD GAS, [id number] 16:53:00 Test Item Value Reference Range Interpretation [...] = 1819) 32.0 % BLOOD CULTURE IDENTIFICATION [id number] 16:02:00 Test Item Value Reference Interpretation Comments Range LISTERIA MONOCYTOGENES Not detected Not detected (test code = 5973459) STAPHYLOCOCCUS (test Not detected Not detected code = 3948276) STAPHYLOCOCCUS AUREUS Not detected Not detected (test code = 5113003) STREPTOCOCCUS (test Not detected Not detected code = 7669512) STREPTOCOCCUS Not detected Not detected AGALACTIAE (GROUP B) (test code = 3873092) STREPTOCOCCUS Not detected Not detected PNEUMONIAE (test code = 6220647) STREPTOCOCCUS PYOGENES Not detected Not detected (GROUP A) (test code = 6513301) ACINETOBACTER Not detected Not detected BAUMANNII (test code = 5313090) HAEMOPHILUS INFLUENZAE Not detected Not detected (test code = 9037379) NEISSERIA MENINGITIDIS Not detected Not detected (test code = 2216177) ENTEROBACTERIACEAE Detected Not detected A (test code = 3777906) ENTEROBACTER CLOACOE Not detected Not detected COMPLEX (test code = 7823651) KLEBSIELLA OXYTOCA Not detected Not detected (test code = 1874207) KLEBSIELLA PNEUMONIAE Detected Not detected A Klebsi kamila (test code = 1650) pneumonia eKPC not detected (a carbapenamase gene)First-line therapy: Merope nem. De-escalate bas ed on susceptibilitie sThis test does not e valuate for ESBLReferen ce Range: Not Dete cted PROTEUS (test code = Not detected Not detected 7641992) SERRATIA MARCESCENS Not detected Not detected (test code = 3093992) PARAM ALBICANS (test Not detected Not detected code = 9678409) PARAM GLABRATA (test Not detected Not detected code = 5557269) PARAM KRUSEI (test Not detected Not detected code = 0968023) PARAM PARAPSILOSIS Not detected Not detected (test code = 6226687) PARAM TROPICALIS Not detected Not detected (test code = 2280530) ESCHERICHIA COLI (test Not detected Not detected code = 6177831) METHICILLIN-RESISTANCE GENE (test code = 6737687) VANCOMYCIN-RESISTANCE GENE (test code = 0103153) CARBAPENEM-RESISTANCE Not detected Not detected GENE (test code = 0405906) ENTEROCOCCUS-BEAKER Not detected Not detected (test code = 5812050) PSEUDOMONAS Not detected Not detected AERUGINOSA-BEAKER (test code = 6064478) Other bacteria and resistance markers not targeted by this PCR panel cannot be excluded; therefore clinical correlation and follow up of serology, culture results, and other molecular studies is required. The results are not intended to be used as the sole means for clinical diagnosis or patient management decisions. This sample was tested at the [facility] Molecular Diagnostics Laboratory using the [a]list games Blood Culture ID Panel. It is FDA cleared and has been verified and approved by the [facility] for clinical use. This laboratory is CLIA-certified and College ofAmerican Pathologists (CAP)-accredited to perform high complexity testing.BASIC METABOLIC [id number] 04:07:00 Test Item Value Reference Range Interpretation [...] S NOT APPLICABLE FOR DIALYSIS PATIEN TS. Flanging Operator ID - PIAYA [id number] 03:33:00 Test Item Value Reference Range Interpretation [...] = 515) SOURCE(BEAKER) (test code = 2795) Flanging Operator ID - [auto]Flanging Operator ID - techCREATININE, RANDOM [id number] 01:49:00 Test Item Value Reference Range Interpretation Comments CREATININE URINE (BEAKER) (test 68.9 mg/dL code = 375) Reference Range: No NormalsOperator ID - PIAYA LSODIUM, RANDOM [id number] 01:49:00 Test Item Value Reference Range Interpretation Comments SODIUM URINE (BEAKER) (test code = 33 meq/L 243) Reference Range: No NormalsOperator ID - PIAYA LCBC W/PLT COUNT & AUTO [id number] 01:32:00 Test Item Value Reference Range Interpretation [...] CONCENTRATION Adequate (CELLAVISION)(BEAKER) (test code = 3438) Flanging Operator ID - [id number] ID - Bailee Pelletier comments: Slide comments:LACTIC ACID, [id number] 00:17:00 Test Item Value Reference Range Interpretation Comments LACTATE BLOOD VENOUS (2) (BEAKER) 1.69 mmol/L 0.50-2.20 (test code = 2872) Flanging Operator ID - PIROBERT LBASIC METABOLIC [id number] 22:01:00 Test Item Value Reference Range Interpretation [...] S NOT APPLICABLE FOR DIALYSIS PATIEN TS. Flanging Operator ID - BSLACTIC ACID, [id number] 21:57:00 Test Item Value Reference Range Interpretation Comments LACTATE BLOOD VENOUS 1.84 mmol/L 0.50-2.20 Specime n slightly (2) (BEAKER) (test hemolyzed code = 2872) Flanging Operator ID - BS"
[2021-05-31] MEDS ORDERED: LEVALBUTEROL 1.25 MG/3 ML NEB ONE (19:15)
[2021-05-31] MEDS ORDERED: MORPHINE 4 MG/ML SYR ONE (19:15)
[2021-05-31] MEDS ORDERED: ASPIRIN 81 MG CHEWABLE TABLET ONE (19:15)
[2021-05-31] MEDS ORDERED: ONDANSETRON 4 MG/2 ML VIAL ONE (19:16)
[2021-05-31] MEDS ORDERED: FUROSEMIDE 40 MG/4 ML VIAL ONE (19:16)
[2021-05-31] MEDS ORDERED: METOPROLOL TARTRATE 5 MG/5 ML INJ IV ONE (19:16)
[2021-05-31 19:25] LABS: Lymphocytes % 22.5 % (15.3-44.8); MPV 8.1 fL (7.6-11.3); RBC Red Blood Cell Count 4.16 M/uL (3.86-4.86)
[2021-05-31 19:35] LABS: Protime INR 1.26
--- NOTE | 2021-05-31 19:37 | RAD REPORT ---
EXAM DESCRIPTION: RAD - Chest Single View - 05/31/2021 7:14 pm CLINICAL HISTORY: Chest pain;SOB COMPARISON: February 2021 TECHNIQUE: AP portable chest image was obtained 05/31/2021 7:14 pm . FINDINGS: Lung volumes are low limiting evaluation. This is further limited by a elevated right lino diaphragm. Interstitial pattern is prominent but not clearly different. Upper lobe vasculature mildly prominent but also stable. Stable enlarged cardiac silhouette noted. No pneumothorax is present. No large pleural effusion. No acute bony abnormality seen. No acute aort ic findings suspected. IMPRESSION: Heart, vasculature and lung markings are all prominent. This is a stable presentation bu t could indicate chronic or mild recurrent CHF/volume overload.
[2021-05-31 19:48] LABS: Albumin 3.6 g/dL (3.4-5.0); Protein, Total 6.8 g/dL (6.4-8.2)
[2021-05-31 19:54] LABS: Potassium 3.8 mmol/L (3.5-5.1)
[2021-05-31 20:06] LABS: Bilirubin Direct 0.2 mg/dL (0-0.2); Bilirubin Total 0.5 mg/dL (0.2-1.0)
[2021-05-31 20:14] LABS: Magnesium 2.6 mg/dL (1.8-2.4)
--- NOTE | 2021-05-31 20:30 | EDPHYS ---
Physician Documentation [facility] Name: Sena Ricardo Age: 56 yrs Sex: Female : 1965 Arrival Date: 05/31/2021 Time: 18:30 Bed 2 Private MD: ED Physician Arthur Amaro HPI: 05/31 19:08 This 56 yrs old Female presents to ER via Ambulatory with complaints of Chest Pain, pm1 Breathing Difficulty, Nausea. 19:08 The patient or guardian reports chest pain that is located primarily in the mid-sternal pm1 area. 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 The pain radiates to the left shoulder. Associated signs and symptoms: Pertinent positives: nausea, shortness of breath. The chest pain is described as a pressure. Duration: The patient or guardian reports a single episode, that is still ongoing. Modifying factors: The symptoms are alleviated by nothing. the symptoms are aggravated by nothing. Severity of pain: in the emergency department the pain is unchanged. The patient has experienced similar episodes in the past, a few times. 19:08 Patient taking lasix, spirolactone, and potassium supplementation. She is not taking pm1 any other medications she is prescribed due to cost. 20:04 Patient reports using methamphetamine this morning approximately 3 in the AM. 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 Historical: - Allergies: 18:38 No Known Allergies; vg1 - Home Meds: 18:38 aspirin 325 mg Oral tab 1 tab once daily for heart problem [Active]; spironolactone 25 vg1 mg Oral tab 1 tab once daily for Peripheral Edema due to Chronic Heart Failure [Active]; Lasix 40 mg Oral tab 1 tab once daily for Peripheral Edema due to Chronic Heart Failure [Active]; - PMHx: 18:38 Anxiety; COPD; depressive disorder; fluid on body; MRSA; Myocardial infarction; Sepsis; vg1 - PSHx: 18:38 carpal tunnel right; right elbow surgery; Tonsillectomy; Total abdominal hysterectomy; vg1 - Immunization history:: Client reports having NOT received the Covid vaccine. - Social history:: Smoking status: Patient reports the use of cigarette tobacco products, smokes one pack cigarettes per day. ROS: 19:08 Constitutional: Negative for fever, chills, and weight loss. pm1 19:08 Back: Negative for injury and pain, MS/Extremity: Negative for injury and deformity, Skin: Negative for injury, rash, and discoloration, Neuro: Negative for headache, weakness, numbness, tingling, and seizure. 19:08 Cardiovascular: Positive for chest pain, Negative for edema, palpitations. 19:08 Respiratory: Positive for shortness of breath, Negative for cough, wheezing. 19:08 Abdomen/GI: Positive for nausea, Negative for abdominal pain, vomiting, diarrhea, constipation. 19:08 All other systems are negative. Exam: 19:08 Constitutional: This is a well developed, well nourished patient who is awake, alert, pm1 and in no acute distress. Head/Face: Normocephalic, atraumatic. 19:08 Back: No spinal tenderness. No costovertebral tenderness. Full range of motion. Skin: Warm, dry with normal turgor. Normal color with no rashes, no lesions, and no evidence of cellulitis. MS/ Extremity: Pulses equal, no cyanosis. Neurovascular intact. Full, normal range of motion. 19:08 Eyes: Exam is negative for acute changes, Extraocular movements: no acute changes, Conjunctiva: normal, no injection, Sclera: no acute changes, icterus, is not appreciated. 19:08 ENT: Exam is negative for acute changes, Mouth: Lips: normal, moist, Oral mucosa: normal, pink and intact, moist. 19:08 Cardiovascular: Exam negative for acute changes, Rate: tachycardic, Rhythm: regular, Pulses: no pulse deficits are appreciated, Edema: is not appreciated. 19:08 Respiratory: the patient does not display signs of respiratory distress, Respirations: normal, Breath sounds: decreased breath sounds, are heard in the right posterior lower lobe. 19:08 Abdomen/GI: Inspection: abdomen appears normal, Palpation: abdomen is soft and non-tender, in all quadrants. 19:08 Neuro: Exam negative for acute changes, Orientation: is normal, Mentation: is normal, Motor: is normal, moves all fours. Vital Signs: 18:34 BP 148 / 107; Pulse 115; Resp 22; Temp 97.9(TE); Pulse Ox 99% ; Weight 56.7 kg; Height vg1 5 ft. 4 in. (162.56 cm); Pain 8/10; 20:30 BP 129 / 102; Pulse 98; Resp 18; Pulse Ox 100% on 2 lpm NC; mk 21:30 BP 140 / 112; Pulse 97; Resp 15 S; Pulse Ox 100% on 2 lpm NC; mk 22:30 BP 140 / 101; Pulse 92; Resp 18 S; Pulse Ox 100% on 2 lpm NC; mk 18:34 Body Mass Index 21.46 (56.70 kg, 162.56 cm) vg1 MDM: 19:06 Patient medically screened. pm1 19:23 Data reviewed: vital signs. Data interpreted: Pulse oximetry: on room air is 99 %. pm1 Interpretation: normal. 20:28 Counseling: I had a detailed discussion with the patient and/or guardian regarding: the pm1 historical points, exam findings, and any diagnostic results supporting the discharge/admit diagnosis, lab results, the need for further work-up and treatment in the hospital. 05/31 18:57 Order name: Basic Metabolic Panel; Complete Time: 20:28 pm05/31 18:57 Order name: CBC with Diff; Complete Time: 19:38 pm05/31 18:57 Order name: LFT's; Complete Time: 20:28 pm1 05/31 18:57 Order name: Magnesium; Complete Time: 20:28 pm1 05/31 18:57 Order name: NT PRO-BNP; Complete Time: 20:28 pm05/31 18:57 Order name: PT-INR; Complete Time: 19:38 pm05/31 18:57 Order name: Troponin HS; Complete Time: 20:28 pm05/31 18:57 Order name: XRAY Chest (1 view); Complete Time: 19:47 pm05/31 18:57 Order name: COVID-19/FLU A+B (Document "Date of Onset" if Symptomatic) pm1 05/31 19:18 Order name: UDS; Complete Time: 20:55 as6 05/31 18:57 Order name: EKG; Complete Time: 18:59 pm05/31 18:57 Order name: Cardiac monitoring; Complete Time: 19:08 pm05/31 18:57 Order name: EKG - Nurse/Tech; Complete Time: 19:08 pm05/31 18:57 Order name: IV Saline Lock; Complete Time: 19:08 pm05/31 18:57 Order name: Labs collected and sent; Complete Time: 19:08 pm1 05/31 18:57 Order name: O2 Per Protocol; Complete Time: 19:08 pm1 05/31 18:57 Order name: O2 Sat Monitoring; Complete Time: 19:08 pm1 Administered Medications: 19:20 Drug: Zofran (Ondansetron) 4 mg Route: IVP; Site: left antecubital; ph 19:37 Follow up: Response: No adverse reaction; Nausea is decreased ph 19:22 Drug: morphine 4 mg Route: IVP; Site: left antecubital; ph 19:37 Follow up: Response: No adverse reaction; Pain is decreased ph 19:28 Drug: Metoprolol 5 mg Route: IVP; Site: left antecubital; ph 19:38 Follow up: Response: No adverse reaction; Cardiac rhythm changed ph 19:30 Drug: Aspirin Chewable Tablet 324 mg Route: PO; mk 19:37 Follow up: Response: No adverse reaction ph 19:33 Drug: Lasix (furosemide) 40 mg Route: IVP; Site: left antecubital; ph 19:37 Follow up: Response: No adverse reaction ph 19:33 Drug: Xopenex (levalbuterol) 2.5 mg Route: Inhalation; ph Disposition: 06/01 07:50 Co-signature as Attending Physician, Arthur Amaro MD I agree with the assessment and higinio plan of care. Disposition Summary: 05/31/21 20:29 Hospitalization Ordered Hospitalization Status: Observation pm1 Provider: Dioni Sewell 1 Location: Telemetry/MedSurg (observation) pm1 Condition: Stable pm1 Problem: new pm1 Symptoms: have improved pm1 Bed/Room Type: Standard pm1 Room Assignment: 219(05/31/21 22:50) Diagnosis - Chest pain, unspecified pm1 - Other stimulant abuse - methamphetamine abuse pm1 Forms: - Medication Reconciliation Form pm1 - SBAR form pm1 Signatures: Dispatcher [employer] Antonieta Pinto RN RN mw Anderson, Corey, MD MD cha Hall, Patricia, RN RN ph Marinas, Patrick, MOTOR MECHANIC MOTOR MECHANIC pm1 Radha Newman RN RN Perri Andrade RN PENNY mk Corrections: (The following items were deleted from the chart) 01/17 22:50 20:29 pm1 mw
--- NOTE | 2021-05-31 20:30 | ER ---
Nurse's Notes [facility] Name: Sena Ricardo Age: 56 yrs Sex: Female : 1965 Arrival Date: 05/31/2021 Time: 18:30 Bed 2 Private MD: Diagnosis: Chest pain, unspecified;Other stimulant abuse-methamphetamine abuse Presentation: 05/31 18:34 Chief complaint: Patient states: chest pain, left shoulder/arm pain began about an hour vg1 ago along with difficulty breathing, states 'i feel so weak'. States nausea, denies V/D. Coronavirus screen: Vaccine status: Patient reports being unvaccinated. Client denies travel out of the [place] in the last 14 days. Ebola Screen: Patient negative for fever greater than or equal to 101.5 degrees Fahrenheit, and additional compatible Ebola Virus Disease symptoms. Initial Sepsis Screen: Does the patient meet any 2 criteria? RR > 20 per min. HR > 90 bpm. Yes Does the patient have a suspected source of infection? No. Patient's initial sepsis screen is negative. Risk Assessment: Do you want to hurt yourself or someone else? Patient reports no desire to harm self or others. Onset of symptoms was May 31, 2021. 18:34 Method Of Arrival: Ambulatory vg1 18:34 Acuity: ANABELLA 2 vg1 Triage Assessment: 18:38 General: Appears in no apparent distress. uncomfortable, Behavior is calm, cooperative. vg1 Pain: Complains of pain in chest and left arm Pain radiates to left arm. Cardiovascular: Patient's skin is warm and dry. Historical: - Allergies: 18:38 No Known Allergies; vg1 - Home Meds: 18:38 aspirin 325 mg Oral tab 1 tab once daily for heart problem [Active]; spironolactone 25 vg1 mg Oral tab 1 tab once daily for Peripheral Edema due to Chronic Heart Failure [Active]; Lasix 40 mg Oral tab 1 tab once daily for Peripheral Edema due to Chronic Heart Failure [Active]; - PMHx: 18:38 Anxiety; COPD; depressive disorder; fluid on body; MRSA; Myocardial infarction; Sepsis; vg1 - PSHx: 18:38 carpal tunnel right; right elbow surgery; Tonsillectomy; Total abdominal hysterectomy; vg1 - Immunization history:: Client reports having NOT received the Covid vaccine. - Social history:: Smoking status: Patient reports the use of cigarette tobacco products, smokes one pack cigarettes per day. Screenin:36 Abuse screen: Denies threats or abuse. Denies injuries from another. Nutritional ph screening: No deficits noted. Tuberculosis screening: No symptoms or risk factors identified. 06/01 00:00 Fall Risk None identified. as6 Assessment: 05/31 19:33 General: Appears in no apparent distress. uncomfortable, Behavior is calm, cooperative, ph appropriate for age, Denies fever, feeling ill. Pain: Complains of pain in mid-sternal area Pain radiates to left arm Pain currently is 8 out of 10 on a pain scale. Quality of pain is described as pressure, sharp, stabbing, Pain began gradually, 1 hour ago. Neuro: Level of Consciousness is awake, alert, obeys commands, Oriented to person, place, time, situation. Cardiovascular: Reports chest pain, nausea, shortness of breath, vomiting, Capillary refill < 3 seconds in bilateral fingers Patient's skin is warm and dry. Rhythm is sinus tachycardia Chest pain quality is sharp, squeezing, stabbing, radiates to left arm(s). Respiratory: Reports shortness of breath at rest Airway is patent Respiratory effort is even, unlabored, Respiratory pattern is regular, symmetrical. GI: Reports nausea, Patient currently denies abdominal pain, vomiting. Derm: Skin is intact, Skin is pink, warm \T\ dry. Bruising that is dark purple, on left jaw. Musculoskeletal: Circulation, motion, and sensation intact. Range of motion: intact in all extremities. Vital Signs: 18:34 BP 148 / 107; Pulse 115; Resp 22; Temp 97.9(TE); Pulse Ox 99% ; Weight 56.7 kg; Height vg1 5 ft. 4 in. (162.56 cm); Pain 8/10; 20:30 BP 129 / 102; Pulse 98; Resp 18; Pulse Ox 100% on 2 lpm NC; mk 21:30 BP 140 / 112; Pulse 97; Resp 15 S; Pulse Ox 100% on 2 lpm NC; mk 22:30 BP 140 / 101; Pulse 92; Resp 18 S; Pulse Ox 100% on 2 lpm NC; mk 18:34 Body Mass Index 21.46 (56.70 kg, 162.56 cm) vg1 ED Course: 18:30 Patient arrived in ED. ja2 18:38 Triage completed. vg1 18:38 Arm band placed on. vg1 18:50 Yazan Ocampo NP is PHCP. pm1 18:50 Arthur Amaro MD is Attending Physician. pm1 19:05 Anton Delvalle, PENNY is Primary Nurse. as6 19:05 Initial lab(s) drawn, by me, sent to lab. EKG done, by ED staff, reviewed by Arthur Amaro MD. Inserted saline lock: 22 gauge in left antecubital area, using aseptic technique. Blood collected. 19:08 Basic Metabolic Panel Sent. mk 19:08 CBC with Diff Sent. mk 19:08 LFT's Sent. mk 19:08 Magnesium Sent. mk 19:08 NT PRO-BNP Sent. mk 19:08 PT-INR Sent. mk 19:08 Troponin HS Sent. mk 19:14 XRAY Chest (1 view) In Process Unspecified. EDMS 19:36 Oxygen administration via nasal cannula \T\ 2L/min. ph 20:28 Dioni Sewell DO is Hospitalizing Provider. pm1 18 00:00 Placed in gown. Bed in low position. Call light in reach. Side rails up X2. Cardiac as6 monitor on. Pulse ox on. NIBP on. 00:00 No provider procedures requiring assistance completed. Patient admitted, IV remains in as6 place. Administered Medications: 05/31 19:20 Drug: Zofran (Ondansetron) 4 mg Route: IVP; Site: left antecubital; ph 19:37 Follow up: Response: No adverse reaction; Nausea is decreased ph 19:22 Drug: morphine 4 mg Route: IVP; Site: left antecubital; ph 19:37 Follow up: Response: No adverse reaction; Pain is decreased ph 19:28 Drug: Metoprolol 5 mg Route: IVP; Site: left antecubital; ph 19:38 Follow up: Response: No adverse reaction; Cardiac rhythm changed ph 19:30 Drug: Aspirin Chewable Tablet 324 mg Route: PO; mk 19:37 Follow up: Response: No adverse reaction ph 19:33 Drug: Lasix (furosemide) 40 mg Route: IVP; Site: left antecubital; ph 19:37 Follow up: Response: No adverse reaction ph 19:33 Drug: Xopenex (levalbuterol) 2.5 mg Route: Inhalation; ph Outcome: 20:29 Decision to Hospitalize by Provider. pm1 06/01 00:00 Admitted to Med/surg accompanied by nurse, via wheelchair, room 219, with chart, Report as6 called to Horacio Condition: stable 00:01 Patient left the ED. as6 Signatures: Dispatcher [employer] EDBeth Crystal RN RN ph Yazan Ocampo, JAMIR IUSS MASTER ANALYST pm1 Radha Newman RN RN 1 Alisa Julien Ashby, RN RN as6 Perri Simms RN RN mk Corrections: (The following items were deleted from the chart) 05/31 19:37 19:37 Response: No adverse reaction; Pain is decreased ph ph
[2021-05-31 20:53] LABS: Barbiturates NEGATIVE (NEGATIVE); Benzodiazepines POSITIVE (NEGATIVE); Cocaine NEGATIVE (NEGATIVE); METHAMPHETAM POSITIVE (NEGATIVE); Methadone NEGATIVE (NEGATIVE); Opiates NEGATIVE (NEGATIVE); Phencyclidine NEGATIVE (NEGATIVE); THC Cannibis NEGATIVE (NEGATIVE)
[2021-05-31 21:46] LABS: SARS-COV-2 RT PCR NEGATIVE (NEGATIVE)
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
[2021-06-01 00:28] VITALS: BMI 23.1
[2021-06-01] MEDS ORDERED: ONDANSETRON 4 MG/2 ML VIAL IV PRN (00:29)
[2021-06-01] MEDS ORDERED: ALBUTEROL 2.5 MG/3 ML NEB SOL NEB PRN (00:29)
[2021-06-01] MEDS ORDERED: MORPHINE 2 MG/ML SYR IV PRN (00:29)
[2021-06-01 04:24] LABS: Urine Appearance CLEAR (Clear); Urine Bilirubin NEGATIVE (Negative); Urine Blood NEGATIVE (Negative); Urine Color YELLOW (Yellow); Urine Glucose NEGATIVE (Negative); Urine Protein NEGATIVE (Negative); Urine Urobilinogen 0.2 mg/dL (0.2-1.0)
[2021-06-01 04:26] LABS: Urine Microscopic Reflex NO UMIC
[2021-06-01] MEDS ORDERED: MELATONIN 5 MG TABLET PO PRN (05:53)
--- NOTE | 2021-06-01 05:58 | P.PN ---
Subjective Date of Service: 06/01/21 Primary Care Provider: Dr. Cunningham; Cardiology-Dr. Ovalles Chief Complaint: Chest pain Subjective: Improving, Doing well Physical Examination - Vital Signs Temperature: 96.9 F Blood Pressure: 133/98 Pulse: 101 Respirations: 19 Pulse Ox (%): 95 - Studies Laboratory Data (last 24 hrs) 05/31/21 19:05: PT 14.5 H, INR 1.26 05/31/21 19:05: WBC 8.70, Hgb 13.2, Hct 40.0, Plt Count 325 05/31/21 19:05: Sodium 138, Potassium 3.8, BUN 25 H, Creatinine 0.85, Glucose 119 H, Magnesium 2.6 H D, Total Bilirubin 0.5, AST 39 H, ALT 32, Alkaline Phosphatase 88 Assessment & Plan Discharge Plan: Home Plan to discharge in: 24 Hours Physician Review Additional Text: COVID: Negative Chest x-ray: COMPARISON: February 2021 TECHNIQUE: AP portable chest image was obtained 05/31/2021 7:14 pm . FINDINGS: Lung volumes are low limiting evaluation. This is further limited by a elevated right hemidiaphragm. Interstitial pattern is prominent but not clearly different. Upper lobe vasculature mildly prominent but also stable. Stable enlarged cardiac silhouette noted. No pneumothorax is present. No large pleural effusion. No acute bony abnormality seen. No acute aortic findings suspected. IMPRESSION: Heart, vasculature and lung markings are all prominent. This is a stable presentation but could indicate chronic or mild recurrent CHF/volume overload. Physical Exam General: Alert, In no apparent distress, Oriented x3 HEENT: Atraumatic, PERRLA, Mucous membr. moist/pink, EOMI, Sclerae nonicteric Neck: Supple, 2+ carotid pulse no bruit, No LAD, Without JVD or thyroid abnormality Respiratory: Clear to auscultation bilaterally, Normal air movement Cardiovascular: Regular rate/rhythm, Normal S1 S2 Capillary refill: <2 Seconds Gastrointestinal: Normal bowel sounds, No tenderness Musculoskeletal: No tenderness Integumentary: No rashes Neurological: Normal gait, Normal speech, Normal strength at 5/5 x4 extr, Normal tone, Normal affect Lymphatics: No axilla or inguinal lymphadenopathy Impression: Chest pain rule out ACS with history of moderate to severe CAD Acute on chronic systolic congestive heart failure Hypertension History of COPD Amphetamine abuse Plan: Chest pain rule out ACS with history of moderate to severe CAD: Case discussed with cardiology. No intervention required. Patient with history of moderate CAD with prior heart catheterization January 2021. Medical therapy was recommended at that time. Medical therapy needs to be continued. Compliance with her medication address in detail. Also address her drug abuseamphetamine use. Cessation education provided. Follow-up with cardiology as an outpatient. Follow-up with her PCP within 1 week to follow-up with hospitalization. Acute on chronic systolic congestive heart failure: Continue Lasix 40 mg daily and spironolactone 25 mg daily at discharge. Emphasis on 1500 cc/day fluid restriction and low-salt diet addressed. Patient not able to afford Entresto for her CHF. Prior echocardiogram shows ejection fraction 27%. Hypertension: Continue home medication History of COPD: Continue with [employer] medication Amphetamine abuse: Counseled on need for cessation of recreational drug use. DVT PPX: Lovenox Code status: Full Discharge Plan: Home Time Spent Managing Pts Care (In Minutes): 55
[2021-06-01] MEDS ORDERED: carvediloL 12.5 MG TAB PO SCH (06:00)
[2021-06-01] MEDS ORDERED: ARFORMOTEROL TARTRATE 15 MCG/2 ML VIAL.NEB NEB SCH (08:00)
[2021-06-01] MEDS ORDERED: ASPIRIN EC 81 MG TAB PO SCH (09:00)
[2021-06-01] MEDS ORDERED: FAMOTIDINE 20 MG TAB PO SCH (09:00)
[2021-06-01] MEDS ORDERED: ENOXAPARIN 40 MG/0.4 ML SQ SCH (09:00)
[2021-06-01] MEDS ORDERED: lisinopriL 5 MG TAB PO SCH (09:00)
[2021-06-01] MEDS ORDERED: FUROSEMIDE 40 MG/4 ML VIAL IV SCH (09:00)
[2021-06-01] MEDS ORDERED: SPIRONOLACTONE 25 MG TABLET PO SCH (09:00)
[2021-06-01] MEDS ORDERED: ACETAMINOPHEN 325 MG TABLET PO PRN (11:21)
--- NOTE | 2021-06-01 11:48 | P.DS ---
Admission Date: 05/31/21 Discharge Date: 06/01/21 Primary Care Provider: Dr. Cunningham; Cardiology-Dr. Ovalles Disposition: ROUTINE DISCHARGE Discharge Condition: GOOD Reason for Admission: Chest pain Consultations: Cardiology-Dr. Allison Procedures: COVID: Negative Chest x-ray: COMPARISON: February 2021 TECHNIQUE: AP portable chest image was obtained 05/31/2021 7:14 pm . FINDINGS: Lung volumes are low limiting evaluation. This is further limited by a elevated right hemidiaphragm. Interstitial pattern is prominent but not clearly different. Upper lobe vasculature mildly prominent but also stable. Stable enlarged cardiac silhouette noted. No pneumothorax is present. No large pleural effusion. No acute bony abnormality seen. No acute aortic findings suspected. IMPRESSION: Heart, vasculature and lung markings are all prominent. This is a stable presentation but could indicate chronic or mild recurrent CHF/volume overload. Medical Problem List: Chest pain with history of moderate CAD Acute on chronic systolic congestive heart failure, prior ejection fraction 27% Hypertension COPD Amphetamine abuse GERD Brief History of Present Illness: 56-year-old female with history of systolic congestive heart failure, CAD, COPD and hypertension. Patient presented with chest pain. Patient was evaluated emergency room. Patient admitted for further evaluation and treatment. Patient was positive for an feta means and benzodiazepine. Hospital Course: Patient presented with chest pain. Patient with history of moderate CAD. Patient with prior heart catheterization January 2021. Medical therapy was recommended at that time. Patient was seen and evaluated by cardiology. No intervention was required. Cardiology recommended to continue with her medication. Compliance with medication along with cessation of drugs including methamphetamine address in detail. Patient understands the risk of continued use of methamphetamines. At discharge patient will continue with aspirin 81 mg daily, Lipitor 40 mg daily, carvedilol 12.5 mg 1 pill twice daily, lisinopril 5 mg daily, Lasix 40 mg daily, and Aldactone 25 mg daily. Recommend follow-up with PCP in 1 week to follow-up his hospitalization. Patient may follow-up with cardiology in 1 to 2 weeks to follow-up his hospitalization as well. Patient with acute on chronic systolic congestive heart failure. Prior ejection fraction 27%. Patient not able to afford Entresto. Patient currently on diuretic therapy along with carvedilol and lisinopril. Patient overall stable. Patient on room air. No further intervention required. At discharge patient will continue with a 1500 cc/day fluid restriction and low-salt diet. At discharge we will continue with her current medications including carvedilol 12.5 mg 1 pill twice daily, lisinopril 5 mg daily, Lasix 40 mg daily, and Aldactone 25 mg daily. Patient to monitor her weight daily. If her weight increases by more than 5 pounds adjustment in her diuretic therapy may be required. Recommend to recheck labBMP in 1 week to monitor progress. Follow- up with cardiology and her PCP as directed. Patient with hypertension. Blood pressures were elevated upon admission. Adjustment in her medication was required. At discharge she will continue with carvedilol 12.5 mg 1 pill twice daily and lisinopril 5 mg daily. Recommend to maintain blood pressure less than 130/80. If blood pressure remains above 140/90 further adjustment may be required. This can be done with the help of her PCP. Patient with COPD. At discharge she may continue with Symbicort 2 puffs twice daily and albuterol 2 puffs 3 times a day as needed for shortness of breath. Patient was positive for methamphetamines. Patient admitted to use. She understands the risk of continued use of methamphetamines. She plans to quit. Patient with GERD. At discharge patient will continue with Pepcid 20 mg 1 pill twice daily. Vital Signs/Physical Exam: Temp Pulse Resp BP Pulse Ox 96.9 F 101 H 19 133/98 H 95 06/01/21 11:46 06/01/21 11:46 06/01/21 11:46 06/01/21 11:46 06/01/21 11:46 General: Alert, In no apparent distress, Oriented x3, Cooperative HEENT: Atraumatic Neck: Supple Respiratory: Clear to auscultation bilaterally, Normal air movement Cardiovascular: Normal pulses, Regular rate/rhythm Gastrointestinal: Normal bowel sounds, No tenderness, No masses, No rebound, No guarding Musculoskeletal: No erythema, No tenderness, No warmth Integumentary: No tenderness/swelling, No erythema, No warmth, No cyanosis Neurological: Normal speech, Normal strength at 5/5 x4 extr, Normal tone, Normal affect Laboratory Data at Discharge: WBC 8.70 K/uL (4.3-10.9) 05/31/21 19:05 Hgb 13.2 g/dL (12.0-15.0) 05/31/21 19:05 Hct 40.0 % (36.0-45.0) 05/31/21 19:05 Plt Count 325 K/uL (152-406) 05/31/21 19:05 PT 14.5 SECONDS (9.5-12.5) H 05/31/21 19:05 INR 1.26 05/31/21 19:05 Sodium 138 mmol/L (136-145) 05/31/21 19:05 Potassium 3.8 mmol/L (3.5-5.1) 05/31/21 19:05 BUN 25 mg/dL (7-18) H 05/31/21 19:05 Creatinine 0.85 mg/dL (0.55-1.3) 05/31/21 19:05 Glucose 119 mg/dL (74-106) H 05/31/21 19:05 Magnesium 2.6 mg/dL (1.8-2.4) H D 05/31/21 19:05 Total Bilirubin 0.5 mg/dL (0.2-1.0) 05/31/21 19:05 AST 39 U/L (15-37) H 05/31/21 19:05 ALT 32 U/L (12-78) 05/31/21 19:05 Alkaline Phosphatase 88 U/L (45-117) 05/31/21 19:05 Home Medications: Famotidine [Pepcid*] 20 mg PO BID #60 tab 02/05/21 Melatonin 10 mg PO BEDTIME PRN PRN #20 tablet 02/05/21 Albuterol Sulfate [Proventil Hfa] 2 puff IH TID PRN #1 06/01/21 Aspirin [Aspirin EC 81 MG] 81 mg PO DAILY #90 tablet. 06/01/21 Atorvastatin Calcium [Lipitor] 40 mg PO BEDTIME #30 tab 06/01/21 Budesonide/Formoterol Fumarate [Symbicort 160-4.5 Mcg Inhaler] 2 puff IH BID #1 hfa.aer.ad 06/01/21 Furosemide [Lasix] 40 mg PO DAILY #30 tab 06/01/21 Spironolactone [Aldactone*] 25 mg PO DAILY #30 tab 06/01/21 carvediloL [Coreg*] 12.5 mg PO BID 6AM 6PM #60 tab 06/01/21 lisinopriL [Prinivil*] 5 mg PO DAILY #30 tab 06/01/21 New Medications: Spironolactone [Aldactone*] 25 mg PO DAILY #30 tab Aspirin [Aspirin EC 81 MG] 81 mg PO DAILY #90 tablet. carvediloL [Coreg*] 12.5 mg PO BID 6AM 6PM #60 tab Furosemide [Lasix] 40 mg PO DAILY #30 tab Atorvastatin Calcium [Lipitor] 40 mg PO BEDTIME #30 tab lisinopriL [Prinivil*] 5 mg PO DAILY #30 tab Albuterol Sulfate [Proventil Hfa] 2 puff IH TID PRN #1 PRN Reason: Shortness Of Breath Budesonide/Formoterol Fumarate [Symbicort 160-4.5 Mcg Inhaler] 2 puff IH BID #1 hfa.aer.ad Physician Discharge Instructions: Patient presented with chest pain. Patient with history of moderate CAD. Patient with prior heart catheterization January 2021. Medical therapy was recommended at that time. Patient was seen and evaluated by cardiology. No intervention was required. Cardiology recommended to continue with her medication. Compliance with medication along with cessation of drugs including methamphetamine address in detail. Patient understands the risk of continued use of methamphetamines. At discharge patient will continue with aspirin 81 mg daily, Lipitor 40 mg daily, carvedilol 12.5 mg 1 pill twice daily, lisinopril 5 mg daily, Lasix 40 mg daily, and Aldactone 25 mg daily. Recommend follow-up with PCP in 1 week to follow-up his hospitalization. Patient may follow-up with cardiology in 1 to 2 weeks to follow-up his hospitalization as well. Patient with acute on chronic systolic congestive heart failure. Prior ejection fraction 27%. Patient not able to afford Hoodinsto. Patient currently on diuretic therapy along with carvedilol and lisinopril. Patient overall stable. Patient on room air. No further intervention required. At discharge patient will continue with a 1500 cc/day fluid restriction and low-salt diet. At discharge we will continue with her current medications including carvedilol 12.5 mg 1 pill twice daily, lisinopril 5 mg daily, Lasix 40 mg daily, and Aldactone 25 mg daily. Patient to monitor her weight daily. If her weight increases by more than 5 pounds adjustment in her diuretic therapy may be required. Recommend to recheck labBMP in 1 week to monitor progress. Follow- up with cardiology and her PCP as directed. Patient with hypertension. Blood pressures were elevated upon admission. Adjustment in her medication was required. At discharge she will continue with carvedilol 12.5 mg 1 pill twice daily and lisinopril 5 mg daily. Recommend to maintain blood pressure less than 130/80. If blood pressure remains above 140/90 further adjustment may be required. This can be done with the help of her PCP. Patient with COPD. At discharge she may continue with Symbicort 2 puffs twice daily and albuterol 2 puffs 3 times a day as needed for shortness of breath. Patient was positive for methamphetamines. Patient admitted to use. She understands the risk of continued use of methamphetamines. She plans to quit. Patient with GERD. At discharge patient will continue with Pepcid 20 mg 1 pill twice daily. Diet: AHA Activity: Ad madi Followup: Jacqueline Cunningham DO [Primary Care Provider] - Time spent managing pt's care (in minutes): 55
[2021-06-01 14:10] VITALS: BP 120/76; TEMP 96.8; O2SAT 91
[2021-06-01] MEDS ORDERED: ATORVASTATIN 40 MG TAB PO SCH (21:00)
--- NOTE | 2021-06-02 07:29 | EKG ---
Test Date: 2021-05-31 Test Time: 18:56:12 Data Security Coordinator: PH MEASUREMENT RESULTS: Intervals: Rate: 114 GA: 136 QRSD: 98 QT: 348 QTc: 479 Nelson: P: 53 GA: 136 QRS: -50 T: 103 INTERPRETIVE STATEMENTS: Sinus tachycardia Possible Left atrial enlargement Left anterior fascicular block Left ventricular hypertrophy T wave abnormality, consider lateral ischemia Abnormal ECG Compared to ECG 02/18/2021 14:51:03 Left anterior fascicular block now present Left ventricular hypertrophy now present T-wave abnormality now present Possible ischemia now present Left-axis deviation no longer present Myocardial infarct finding no longer present Electronically Signed On 06-02-21 07:26:17 [employer] SUR[employer]YOR by Fam Allison
== END 2021-06-01 13:50 | disposition home or self-care (01) ==
LOC: ER 18:26 → ERHOLD 22:47 → 2ND 23:37
PROVIDERS: ADMIT Family Medicine; ATTEND Family Medicine
DX: R07.9 Chest pain, unspecified (principal); I25.10 Atherosclerotic heart disease of native coronary artery without angina pectoris; I11.0 Hypertensive heart disease with heart failure; I50.23 Acute on chronic systolic (congestive) heart failure; J44.9 Chronic obstructive pulmonary disease, unspecified; K21.9 Gastro-esophageal reflux disease without esophagitis; F41.9 Anxiety disorder, unspecified; F32.A Depression, unspecified; I25.2 Old myocardial infarction; F15.10 Other stimulant abuse, uncomplicated; Z71.51 Drug abuse counseling and surveillance of drug abuser; F17.210 Nicotine dependence, cigarettes, uncomplicated; Z71.6 Tobacco abuse counseling; Z86.16 Personal history of COVID-19; Z90.710 Acquired absence of both cervix and uterus; Z20.822 Contact with and (suspected) exposure to COVID-19; Z82.49 Family history of ischemic heart disease and other diseases of the circulatory system
CPT/HCPCS: 93005; 85025; 80048; 36415; 83735; 85610; 80076; 81003; 84484 ×2; 83880; 0240U; 80307; 71045; J1940 ×2; J1650; J7605; J2405; 96374; 96375; 99285; G0378